=== PATIENT | female | born 1935 | race Caucasian/White ===

== ENCOUNTER 2018-12-13 16:39 | Emergency (ER) | payer MEDICARE, MEDICAID ==
[~2018-12-13] VITALS: Ht 144.8 cm; Wt 47.6 kg
[2018-12-13] MEDS ORDERED: SERT100T8 (17:58)
[2018-12-13] MEDS ORDERED: NITR0.4T39 (17:58)
[2018-12-13] MEDS ORDERED: PANT40TA2 (17:58)
[2018-12-13] MEDS ORDERED: LEVO75TA (17:58)
[2018-12-13] MEDS ORDERED: COLC0.6C3 (17:58)
[2018-12-13] MEDS ORDERED: TRZ100T (17:58)
[2018-12-13] MEDS ORDERED: ASPI-586 (17:58)
--- NOTE | 2018-12-13 18:11 | ED GI ---
General Chief Complaint: Abdominal/GI Problems Stated Complaint: ABD PAIN Nursing Triage Note: DAUGHTER WITH PT STATES PT HAS NOT HAD A BM SINCE WEDNESDAY, CONSTIPATED WITH ABD PAIN. OTC PRODUCTS HAVE NOT HELPED, FLEETS GOT SOME OUT, STATES IT'S RIGHT THERE AT THE OPENING. Sepsis Screen: No Definite Risk Source of Information: Family (DAUGHTER ) Exam Limitations: Other (PT WITH DEMENTIA AND IS UN ABLE TO GIVEN ANY INFORMATION) History of Present Illness Date Seen by Provider: Dec 13, 2018 Time Seen by Provider: 17:45 Initial Comments PT ARRIVES VIA POV FROM HOME PT WITH DEMENTIA AND HAS 24 HOUR CARE BY FAMILY PT HAS ONGOING ISSUES WITH CONSTIPATION AND NOT WANTING TO EAT OR DRINK FAMILY GAVE HER MILK OF MAGNESIA ON WEDNESDAY AND SHE HAD DIARRHEA, BUT NO BM SINCE WEDNESDAY HAVE GAVE HER "LITTLE BIT" OF MOM TODAY, HAS GIVEN STOOL SOFTENER, FIBER POWDER AND TRIED A SUPPOSITORY BUT IT DID NOT STAY IN DAUGHTER REPORTS THAT PT HAS PAINFUL HEMORRHOIDS DAUGHTER STATES THAT THE STOOL IS "RIGHT THERE" AT HER RECTUM, BUT UNABLE TO PASS IT NO NAUSEA OR VOMITING DENIES ANY ABDOMINAL PAIN PT HAS BEEN DRINKING ENSURE CLEAR, AND ICE CREAM + CHOCOLATE ENSURE. DID MANAGE TO EAT A PEANUT BUTTER SANDWICH TODAY. ONLY ABDOMINAL SURGERY WAS HYSTERECTOMY MANY YEARS AGO PCP: FT. NORA LAM--SAW ON WEDNESDAY AND HE ADVISED THEM TO START FIBER POWDER FOR THIS ONGOING ISSUE OF CONSTIPATION Allergies and Home Medications Allergies Coded Allergies: No Known Drug Allergies (Unverified , 12/13/18) Patient Home Medication List Home Medication List Reviewed: Yes Review of Systems Review of Systems Constitutional: no symptoms reported Gastrointestinal: See HPI Psychiatric/Neurological: See HPI Past Epwurpu-Yrsjmk-Qvndqf Hx Patient Social History Alcohol Use: Denies Use Recreational Drug Use: No Smoking Status: Never a Smoker Recent Foreign Travel: No Contact w/Someone Who Travel: No Recent Infectious Disease Expo: No Recent Hopitalizations: No Immunizations Up To Date Tetanus Booster (TDap): More than 5yrs Seasonal Allergies Seasonal Allergies: No Past Medical History Surgeries: Yes Hysterectomy Respiratory: No Cardiac: Yes Coronary Artery Disease, Heart Attack, Hypertension Neurological: Yes (ALZHEIMER'S) Dementia 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 oz. 47.792323cg; BMI Method:Stated General Appearance: WD/WN, thin Neck: normal inspection Respiratory: normal breath sounds, no respiratory distress, no accessory muscle use Cardiovascular: regular rate, rhythm, no murmur Gastrointestinal: normal bowel sounds, non tender, soft, no organomegaly, no pulsatile mass Extremities: normal inspection Back: no CVA tenderness Neurologic/Psychiatric: knot bumper II-XII nml as tested, no motor/sensory deficits, alert, normal mood/affect, other (ORIENTED TO PERSON ONLY) Skin: normal color, warm/dry Progress/Results/Core Measures Results/Orders My Orders Orders - FELIZ CASTELLANO DO Acute Abd Series (12/13/18 17:53) Na Phos/Na Biphos Enema (Fleet Enema David (12/13/18 19:00) Vital Signs/I&O 12/13/18 17:22 Temp 98.5 Pulse 74 Resp 22 B/P (MAP) 162/73 (102) Pulse Ox 95 O2 Delivery Room Air Blood Pressure Mean: 102 Progress Progress Note : Progress Note WILL DISMISS AND SEND TO FLOOR FOR OUTPATIENT ENEMAS. Diagnostic Imaging Comments ACUTE ABDOMEN XRAYS--NO ACUTE PROCESS, NO OBSTRUCTION, MODERATE AMOUNT OF RETAINED FECAL MATERIAL IN DISTAL COLON AND RECTAL AREA. PER RADIOLOGIST REPORT Reviewed: Reviewed by Me Departure Impression Primary Impression: Constipation Additional Impression: Fecal impaction in rectum Disposition: 01 HOME, SELF-CARE Condition: Stable Departure-Patient Inst. Referrals: AINSLEY RIVERA MD (PCP) Primary Care Physician BRAIN BOWLES MD Patient Instructions: Constipation, Adult (DC), Fecal Impaction (DC) Add. Discharge Instructions: TAKE MIRALAX DAILY--IF NEEDED, YOU MAY GIVE EVERY 1-2 HOURS UNTIL BM, THEN DECREASE TO ONCE DAILY INCREASE WATER INTAKE FOLLOW UP WITH YOUR DR IN 2-3 DAYS IF NO BETTER All discharge instructions reviewed with patient and/or family. Voiced understanding. FELIZ CASTELLANO DO Dec 13, 2018 18:11
--- NOTE | 2018-12-13 18:30 | Diagnostic Imaging Report ---
INDICATION: Constipation and abdominal pain. COMPARISON: None available. FINDINGS: There are multiple calcified left upper lobe pulmonary granulomas. Otherwise, the lungs are clear. Small hiatal hernia is present. No pneumothorax or pleural effusion. No free intraperitoneal air. Nonobstructive bowel gas pattern. A moderate volume of distal colonic and rectal stool is present. Dextroscoliosis of the lumbar spine status post laminectomies of L3-L5. There is a small amount of heterotopic ossification around the left hip. Multifocal vascular calcifications are present in the abdomen. IMPRESSION: 1. Nonobstructive bowel gas pattern. 2. Moderate volume of colonic stool should correlate to patient's reported constipation. Dictated by: Dictated on workstation # [id number]
--- OUTSIDE RECORDS SUMMARY | 2018-12-13 18:37 | XMS REPORT ---
Author Author KEVIN GUPTA Organization [facility] Address [address] [place] [address] Care Team Providers Care Forensic Audit Expert Name Role Phone KEVIN GUPTA Unavailable PROBLEMS No Known Problems ALLERGIES No Known Allergies ENCOUNTERS Encounter Location Date Diagnosis [facility] [address] [facility] [id number] [address] Jul, Acute nasopharyngitis J00 IMMUNIZATIONS No Known Immunizations SOCIAL HISTORY Never Assessed REASON FOR VISIT Cough x1 week JStrasserRN PLAN OF CARE Activity Details Follow Up as needed or reg fu with pcp Reason: VITAL SIGNS Weight 114.0 lbs 2018-08-13 Temperature 98.0 degrees Fahrenheit 2018-08-13 Heart Rate 60 bpm 2018-08-13 Respiratory Rate 22 2018-08-13 Oximetry 95 % 2018-08-13 Blood pressure systolic 122 mmHg 2018-08-13 Blood pressure diastolic 76 mmHg 2018-08-13 MEDICATIONS Medication Instructions Dosage Frequency Start Date End Date Duration Status Aspir-81 81 MG Orally Once a day 1 tablet 24h 30 day(s) Active Zoloft 100 MG Orally Once a day 1.5 tablet 24h Active Nitroglycerin 0.3 MG as directed Active Protonix 40 MG Orally twice a day 1 tablet 12h Active Lisinopril 10 MG Orally Once a day 1 tablet 24h 30 day(s) Active Trazodone HCl 100 MG Orally Once a day 1 tablet at bedtime 24h 30 day (s) Active Synthroid 50 MCG Orally Once a day 1 tablet on an empty stomach in the morning 24h 30 day(s) Active RESULTS No Results PROCEDURES No Known procedures INSTRUCTIONS MEDICATIONS ADMINISTERED No Known Medications MEDICAL (GENERAL) HISTORY Type Description Date Medical History Alzheimers Medical History Hypertension Surgical History No Surgical history information
--- OUTSIDE RECORDS SUMMARY | 2018-12-13 18:37 | XMS REPORT | Continuity of Care Document ---
Author Author [facility] Organization [facility] Address Unknown Phone Unavailable Allergies There is no data. Medications There is no data. Problems Date Dx Coded Attending Type Code Diagnosis Diagnosed By 09/02/2015 BRENDA MERAZ Ot 611.71 09/26/2015 NERY SKINNER MD Ot I10 09/26/2015 NERY SKINNER MD Ot I49.5 09/30/2015 NERY SKNINER MD Ot I10 09/30/2015 NERY SKINNER MD Ot I49.5 Procedures There is no data. Results There is no data. Encounters ACCT No. Visit Date/Time Discharge Status Pt. Type Provider Facility Loc./Unit Complaint [id number] 09/02/2015 08:40:00 09/02/2015 23:59:59 CLS Outpatient NERY SKINNER MD [facility] CARD [id number] 05/23/2013 13:40:00 05/23/2013 23:59:59 CLS Outpatient BRENDA MERAZ [facility] RAD [id number] 12/08/2018 10:30:00 12/08/2018 23:59:59 CLS Outpatient JUAN HURD [facility] [id number] 07/04/2018 08:54:07 Document Registration
[2018-12-13] MEDS ORDERED: FLEET ENEMA ADULT 1 EA BTL PR PRN (19:00)
[2018-12-13 19:33] VITALS: BP 170/87
== END 2018-12-13 19:45 | disposition home or self-care (01) ==
LOC: EDUNIT# 16:39 → ER 16:41
DX: K59.00 Constipation, unspecified (principal); K56.41 Fecal impaction; I25.10 Atherosclerotic heart disease of native coronary artery without angina pectoris; I25.2 Old myocardial infarction; I10 Essential (primary) hypertension; G30.9 Alzheimer's disease, unspecified; F02.80 Dementia in other diseases classified elsewhere, unspecified severity, without behavioral disturbance, psychotic disturbance, mood disturbance, and anxiety; M10.9 Gout, unspecified; E03.9 Hypothyroidism, unspecified; Z90.710 Acquired absence of both cervix and uterus
CPT/HCPCS: 74022

== ENCOUNTER 2018-12-13 19:11 | Outpatient (CLI) | payer MEDICARE, MEDICAID ==
[~2018-12-13] VITALS: Ht 149.9 cm; Wt 47.6 kg
[~2018-12-13 19:11] MED LIST: ASPI-586; COLC0.6C3; LEVO75TA; NITR0.4T39; PANT40TA2; SERT100T8; TRZ100T
[2018-12-13] MEDS ORDERED: LIDOCAINE PF 1% 2 ML AMP ONE (20:42)
[2018-12-13] MEDS ORDERED: MINERAL OIL ENEMA 133 ML BTL PR ONE (20:45)
[2018-12-13] MEDS ORDERED: LIDOCAINE 2% VISCOUS 15 ML UDC PO ONE (20:45)
[2018-12-13] MEDS ORDERED: LIDOCAINE 2% VISCOUS 15 ML UDC ONE (21:06)
[2018-12-13] MEDS ORDERED: FLEET ENEMA ADULT 1 EA BTL PR PRN (21:45)
[2018-12-13] MEDS ORDERED: FLEET ENEMA ADULT 1 EA BTL ONE (22:04)
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
[2018-12-13 23:28] VITALS: BP 165/72
[2018-12-13 23:29] VITALS: BP 165/72
== END 2018-12-13 23:10 | disposition home or self-care (01) ==
LOC: 4TH 19:11 → 4THo 19:11
PROVIDERS: ATTEND Emergency Medicine
DX: K56.41 Fecal impaction (principal)

== ENCOUNTER 2019-05-18 17:07 | Emergency (ER) | payer MEDICARE, MEDICAID ==
[~2019-05-18] VITALS: Ht 157.5 cm; Wt 47.2 kg
[2019-05-18] MEDS ORDERED: TETANUS,DIPTH,PERTUSS P/F (BOOSTRIX) 0.5 ML VIAL IM ONE (17:45)
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
--- NOTE | 2019-05-18 18:37 | Diagnostic Imaging Report ---
INDICATION: Fall, right hip pain 3 views of the pelvis and right hip show no fracture, dislocation or other acute bony abnormality. There is mild narrowing of the hip joint. There is some cartilage calcification. IMPRESSION: There are degenerative changes present with no acute abnormality seen. Dictated by: Dictated on workstation # [id number]
--- NOTE | 2019-05-18 18:41 | Diagnostic Imaging Report ---
INDICATION: Right hand injury, pain and fall. COMPARISON: None. FINDINGS: Three views of the right hand demonstrate advanced degenerative changes primarily involving the carpal articulations. There is no acute fracture or dislocation. Atherosclerosis is present. There is no radiopaque foreign body. IMPRESSION: No acute fracture or dislocation. Dictated by: Dictated on workstation # [id number]
--- NOTE | 2019-05-18 18:57 | Diagnostic Imaging Report ---
INDICATION: Trauma, right leg pain. FINDINGS: AP and lateral views of the right femur show no fracture, dislocation, or other acute bony abnormality. There is narrowing of the hip joint. There is narrowing and chondrocalcinosis at the knee. IMPRESSION: No acute abnormality is seen. Dictated on workstation # [id number]
[2019-05-18 19:23] VITALS: BP 177/98
== END 2019-05-18 19:23 | disposition home or self-care (01) ==
LOC: EDUNIT# 17:07 → ER 17:09
DX: S70.11XA Contusion of right thigh, initial encounter (principal); S60.221A Contusion of right hand, initial encounter; I10 Essential (primary) hypertension; I25.2 Old myocardial infarction; I25.10 Atherosclerotic heart disease of native coronary artery without angina pectoris; F03.90 Unspecified dementia, unspecified severity, without behavioral disturbance, psychotic disturbance, mood disturbance, and anxiety; K21.9 Gastro-esophageal reflux disease without esophagitis; M10.9 Gout, unspecified; E03.9 Hypothyroidism, unspecified; Z23 Encounter for immunization; Z90.710 Acquired absence of both cervix and uterus; W18.39XA Other fall on same level, initial encounter; Y92.59 Other trade areas as the place of occurrence of the external cause
CPT/HCPCS: 73130; 73552; 90715

== ENCOUNTER 2019-07-08 12:24 | Emergency (ER) | payer MEDICARE, MEDICAID ==
[~2019-07-08] VITALS: Ht 157.4 cm; Wt 47.7 kg
--- NOTE | 2019-07-08 13:34 | ED Fall/Injury ---
General Chief Complaint: Trauma-Non Activation Stated Complaint: FALL - NOSE PAIN Nursing Triage Note: PT AMB TO RM 7 WITH COMPLAINT OF FALL. PT FELL IN KITCHEN AND HIT FACE ON UNKNOWN OBJECT. DENIES LOC. PT HAS BRUISING TO NOSE AND UNDER EYES. Source: patient Exam Limitations: no limitations History of Present Illness Date Seen by Provider: Jul 08, 2019 Time Seen by Provider: 13:19 Initial Comments Patient presents to ER with daughter and chief complaint that she had a fall unwitnessed. She lives a home with her daughter and her daughter immediately went to her. There was no loss of consciousness nausea or vomiting. Patient denies any pain now but has a lot of swelling bruising around the face. She has chronic right eye amblyopia. Patient has no dysuria cough fevers chills shortness of breath or pain. She has not taken anything for pain. She's not on blood thinner. She does take baby aspirin daily. Allergies and Home Medications Allergies Coded Allergies: No Known Drug Allergies (Unverified , 12/13/18) Patient Home Medication List Home Medication List Reviewed: Yes Review of Systems Review of Systems Constitutional: No chills, No diaphoresis Eyes: Denies Blindness, Denies Drainage Ears, Nose, Mouth, Throat: denies ear pain, denies ear discharge Respiratory: No cough, No short of breath Cardiovascular: No chest pain, No edema Gastrointestinal: No abdominal pain, No constipation, No diarrhea Past Ersfdfy-Jplyxc-Wfxvdk Hx Patient Social History Alcohol Use: Denies Use Recreational Drug Use: No Smoking Status: Current Everyday Smoker 2nd Hand Smoke Exposure: No Recent Foreign Travel: No Contact w/Someone Who Travel: No Recent Infectious Disease Expo: No Recent Hopitalizations: No Immunizations Up To Date Tetanus Booster (TDap): More than 5yrs Seasonal Allergies Seasonal Allergies: No Past Medical History Surgeries: Yes Hysterectomy Respiratory: Yes (TB) Tuberculosis Cardiac: Yes Coronary Artery Disease, Heart Attack, Hypertension Neurological: Yes (ALZHEIMER'S) 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 0oz. 47.757463or; 19.00 BMI Method:Estimated General Appearance: WD/WN, no apparent distress HEENT: PERRL/EOMI, normal ENT inspection, TMs normal, pharynx normal, other (ecchymoses and mild swelling around medial canthus of both eyes and the base of the nose. No deformity of the bridge of the nose. No tenderness in the neck.) Neck: non-tender, full range of motion, supple, normal inspection Cardiovascular: normal peripheral pulses, regular rate, rhythm Respiratory: normal breath sounds, no respiratory distress, no accessory muscle use Gastrointestinal: normal bowel sounds, non tender, soft Extremities: normal range of motion, non-tender, normal inspection, normal capillary refill Neurologic/Psychiatric: alert, normal mood/affect, other (Oriented to person) Progress/Results/Core Measures Results/Orders Lab Results Laboratory Tests Test 07/08/19 14:11 07/08/19 15:05 Range/Units White Blood Count 6.9 4.3-11.0 10^3/uL Red Blood Count 3.90 L 4.35-5.85 10^6/uL Hemoglobin 11.6 11.5-16.0 G/DL Hematocrit 35 35-52 % Mean Corpuscular Volume 91 80-99 FL Mean Corpuscular Hemoglobin 30 25-34 PG Mean Corpuscular Hemoglobin Concent 33 32-36 G/DL Red Cell Distribution Width 14.5 10.0-14.5 % Platelet Count 95 L 130-400 10^3/uL Mean Platelet Volume 9.7 7.4-10.4 FL Neutrophils (%) (Auto) 55 42-75 % Lymphocytes (%) (Auto) 31 12-44 % Monocytes (%) (Auto) 9 0-12 % Eosinophils (%) (Auto) 5 0-10 % Basophils (%) (Auto) 1 0-10 % Neutrophils # (Auto) 3.8 1.8-7.8 X 10^3 Lymphocytes # (Auto) 2.1 1.0-4.0 X 10^3 Monocytes # (Auto) 0.6 0.0-1.0 X 10^3 Eosinophils # (Auto) 0.3 0.0-0.3 10^3/uL Basophils # (Auto) 0.1 0.0-0.1 10^3/uL Sodium Level 137 135-145 MMOL/L Potassium Level 5.2 H 3.6-5.0 MMOL/L Chloride Level 114 H 98-107 MMOL/L Carbon Dioxide Level 13 L 21-32 MMOL/L Anion Gap 10 5-14 MMOL/L Blood Urea Nitrogen 54 H 7-18 MG/DL Creatinine 1.83 H 0.60-1.30 MG/DL Estimat Glomerular Filtration Rate 26 BUN/Creatinine Ratio 30 Glucose Level 85 70-105 MG/DL Calcium Level 8.9 8.5-10.1 MG/DL Urine Color YELLOW Urine Clarity CLEAR Urine pH 5 5-9 Urine Specific [place] 1.015 L 1.016-1.022 Urine Protein 2+ H NEGATIVE Urine Glucose (UA) NEGATIVE NEGATIVE Urine Ketones NEGATIVE NEGATIVE Urine Nitrite NEGATIVE NEGATIVE Urine Bilirubin NEGATIVE NEGATIVE Urine Urobilinogen NORMAL NORMAL MG/DL Urine Leukocyte Esterase 2+ H NEGATIVE Urine RBC (Auto) NEGATIVE NEGATIVE Urine RBC NONE /HPF Urine WBC 2-5 /HPF Urine Squamous Epithelial Cells 2-5 /HPF Urine Crystals NONE /LPF Urine Bacteria NEGATIVE /HPF Urine Casts NONE /LPF Urine Mucus NEGATIVE /LPF Urine Culture Indicated NO My Orders Orders - GABBY CHAIREZ Cbc With Automated Diff (07/08/19 13:28) Basic Metabolic Panel (07/08/19 13:28) Ua Culture If Indicated (07/08/19 13:28) Ct Head/Face/Cervical Wo (07/08/19 13:34) Vital Signs/I&O 07/08/19 12:50 Pulse 63 Resp 16 B/P (MAP) 133/63 (86) Pulse Ox 96 O2 Delivery Room Air Blood Pressure Mean: 86 Progress Progress Note #1: Time: 13:[address] of the head neck and face. Basic lab and urinalysis. Progress Note #2: Time: 15:40 Progress Note Daughter remarks the patient does have a history of chronic kidney disease. She is dry and we have offered IV fluids but they preferred oral which is acceptable. Diagnostic Imaging Diagonstic Imaging: CT Plain Films/CT/US/NM/MRI: facial bones, c-spine, head Comments NAME: HERNANDEZYENYFRANKO M [facility] REC#: [id number] PT STATUS: REG ER : 1935 PHYSICIAN: GABBY CHAIREZ MD ADMIT DATE: 07/08/19/ER Draft Date of Exam:07/08/19 CT HEAD/FACE/CERVICAL WO PROCEDURE: CT head, face, and cervical spine without contrast. TECHNIQUE: Multiple contiguous axial images were obtained through the head, neck, and facial bones without the use of intravenous contrast. Sagittal and coronal reformations through the cervical spine and facial bones were also performed. Auto Exposure Controls were utilized during the CT exam to meet ALARA standards for radiation dose reduction. INDICATION: Fall with facial injury. No prior studies are available for comparison. CT HEAD: Ventricles and sulci are prominent consistent with patient's age. There is generalized cerebral atrophy present. No sulcal effacement or midline shift is detected. No acute intra-axial or extra-axial hemorrhage is detected. Cisterns are patent. Visualized paranasal sinuses are clear. IMPRESSION: Cerebral atrophy. No acute intracranial process is detected. CT CERVICAL SPINE: There is anterolisthesis of C3 on C4. No fractures are identified. Prevertebral tissues are within normal limits. Odontoid is intact. Multilevel degenerative disc disease with variable disc space narrowing and marginal spurring is noted. IMPRESSION: Cervical spondylosis and listhesis. No acute bony abnormality is detected. CT FACE: The mandible is intact. Zygomatic arches are intact. Maxillary sinus bejarano and orbital bejarano appear to be intact. No displaced nasal bone fracture is seen. Visualized paranasal sinuses are clear. IMPRESSION: No facial bone fracture is detected. Dictated on workstation # [id number] Dict: 07/08/19 1401 Trans: 07/08/19 1408 [facility] [id number] Interpreted by: SHANDA KAISER MD Electronically signed by: Reviewed: Reviewed by Me Departure Impression Primary Impression: Fall Qualified Codes: W19.XXXA - Unspecified fall, initial encounter Additional Impressions: Facial contusion Qualified Codes: S00.83XA - Contusion of other part of head, initial encounter CKD (chronic kidney disease) Qualified Codes: N18.9 - Chronic kidney disease, unspecified Mild dehydration Disposition: 01 HOME, SELF-CARE Condition: Stable Departure-Patient Inst. Decision time for Depature: 15:41 Referrals: SELFBRAIN MD (PCP/Family) Primary Care Physician Patient Instructions: Preventing Falls in the Older Adult, Dehydration, Adult (DC) Add. Discharge Instructions: Encourage lots of fluids over the next week. Follow-up with primary care doctor if having further concerns. All discharge instructions reviewed with patient and/or family. Voiced understanding. GABBY CHAIREZ Jul 08, 2019 13:34
--- NOTE | 2019-07-08 14:09 | Diagnostic Imaging Report ---
PROCEDURE: CT head, face, and cervical spine without contrast. TECHNIQUE: Multiple contiguous axial images were obtained through the head, neck, and facial bones without the use of intravenous contrast. Sagittal and coronal reformations through the cervical spine and facial bones were also performed. Auto Exposure Controls were utilized during the CT exam to meet ALARA standards for radiation dose reduction. INDICATION: Fall with facial injury. No prior studies are available for comparison. CT HEAD: Ventricles and sulci are prominent consistent with patient's age. There is generalized cerebral atrophy present. No sulcal effacement or midline shift is detected. No acute intra-axial or extra-axial hemorrhage is detected. Cisterns are patent. Visualized paranasal sinuses are clear. IMPRESSION: Cerebral atrophy. No acute intracranial process is detected. CT CERVICAL SPINE: There is anterolisthesis of C3 on C4. No fractures are identified. Prevertebral tissues are within normal limits. Odontoid is intact. Multilevel degenerative disc disease with variable disc space narrowing and marginal spurring is noted. IMPRESSION: Cervical spondylosis and listhesis. No acute bony abnormality is detected. CT FACE: The mandible is intact. Zygomatic arches are intact. Maxillary sinus bejarano and orbital bejarano appear to be intact. No displaced nasal bone fracture is seen. Visualized paranasal sinuses are clear. IMPRESSION: No facial bone fracture is detected. Dictated by: Dictated on workstation # [id number]
[2019-07-08 14:15] LABS: BASOPHILS # (AUTO) 0.1 10^3/uL (0.0-0.1); BASOPHILS % (AUTO) 1 % (0-10); EOSINOPHILS # (AUTO) 0.3 10^3/uL (0.0-0.3); EOSINOPHILS % (AUTO) 5 % (0-10); HEMATOCRIT 35 % (35-52); HEMOGLOBIN 11.6 G/DL (11.5-16.0); LYMPHOCYTES # (AUTO) 2.1 X 10^3 (1.0-4.0); LYMPHOCYTES % (AUTO) 31 % (12-44); MEAN CORPUSCULAR HEMOGLOBIN 30 PG (25-34); MEAN CORPUSCULAR HGB CONC 33 G/DL (32-36); MEAN CORPUSCULAR VOLUME 91 FL (80-99); MEAN PLATELET VOLUME 9.7 FL (7.4-10.4); MONOCYTES # (AUTO) 0.6 X 10^3 (0.0-1.0); MONOCYTES % (AUTO) 9 % (0-12); NEUTROPHILS # (AUTO) 3.8 X 10^3 (1.8-7.8); NEUTROPHILS % (AUTO) 55 % (42-75); PLATELET COUNT 95 10^3/uL (130-400); RED CELL DISTRIBUTION WIDTH 14.5 % (10.0-14.5); WHITE BLOOD COUNT 6.9 10^3/uL (4.3-11.0)
[2019-07-08 14:34] LABS: CALCIUM 8.9 MG/DL (8.5-10.1); CREATININE SERUM 1.83 MG/DL (0.60-1.30); POTASSIUM 5.2 MMOL/L (3.6-5.0)
[2019-07-08 15:10] LABS: BILIRUBIN,URINE NEGATIVE (NEGATIVE); CLARITY,URINE CLEAR; COLOR,URINE YELLOW; GLUCOSE, URINE (UA) NEGATIVE (NEGATIVE); KETONES,URINE NEGATIVE (NEGATIVE); LEUKOCYTE ESTERASE ,URINE 2+ (NEGATIVE); NITRITE,URINE NEGATIVE (NEGATIVE); PH,URINE 5 (5-9); PROTEIN,URINE 2+ (NEGATIVE); UROBILINOGEN,URINE NORMAL (NORMAL)
[2019-07-08 15:18] LABS: BACTERIA,URINE NEGATIVE /HPF
[2019-07-08 15:52] VITALS: BP 125/63
== END 2019-07-08 15:52 | disposition home or self-care (01) ==
LOC: EDUNIT# 12:24 → ER 12:25
DX: S00.83XA Contusion of other part of head, initial encounter (principal); I12.9 Hypertensive chronic kidney disease with stage 1 through stage 4 chronic kidney disease, or unspecified chronic kidney disease; N18.9 Chronic kidney disease, unspecified; E86.0 Dehydration; I25.2 Old myocardial infarction; I25.10 Atherosclerotic heart disease of native coronary artery without angina pectoris; G30.9 Alzheimer's disease, unspecified; F02.80 Dementia in other diseases classified elsewhere, unspecified severity, without behavioral disturbance, psychotic disturbance, mood disturbance, and anxiety; K21.9 Gastro-esophageal reflux disease without esophagitis; M10.9 Gout, unspecified; E03.9 Hypothyroidism, unspecified; F17.200 Nicotine dependence, unspecified, uncomplicated; Z90.710 Acquired absence of both cervix and uterus; W19.XXXA Unspecified fall, initial encounter; Y92.000 Kitchen of unspecified non-institutional (private) residence as the place of occurrence of the external cause
CPT/HCPCS: 36415; 70450; 70486; 72125; 80048; 81000; 85025

== ENCOUNTER 2020-01-16 17:11 | Emergency (ER) | payer MEDICARE, MEDICAID ==
[~2020-01-16] VITALS: Ht 157.2 cm; Wt 48.0 kg
[2020-01-16] MEDS ORDERED: TETANUS,DIPTH,PERTUSS P/F (BOOSTRIX) 0.5 ML VIAL IM ONE (17:30)
--- NOTE | 2020-01-16 17:36 | ED Fall/Injury ---
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 Patient has advanced dementia as well as history of scoliosis. She was apparently outside with her daughter and was sitting in a chair. She tried to get up and then fell over to the right side hitting her face and head. She has markedly swelling of the right cheek and another area of contusion to the back of the right side of the head. No loss of consciousness. Patient is not on blood thinners. She does have abrasion to the right cheek that bled for a while but has subsequently stopped. The daughter states that it bled quite a bit but stopped with pressure. Able to walk in on her own accord with the assistance of a cane. She is somewhat unsteady on her feet which is typical. Patient does not answer questions well but this appears to be baseline. Her daughter is very helpful with answering questions regarding her medical history and current illness. Occurred: just prior to arrival (approximately 445) Severity: moderate Injuries/Pain Location: head, face Context: lost balance Loss of Consciousness: no loss of consciousness Modifying Factors: Improves With Rest Associated Symptoms (Fall): Confusion (chronic); No Headache, No Neck Pain, No Shortness of Air (CLEMENCIA CARPIO MD) Allergies and Home Medications Allergies Coded Allergies: No Known Drug Allergies (Unverified , 12/13/18) Patient Home Medication List Home Medication List Reviewed: Yes (CLEMENCIA CARPIO MD) Review of Systems Review of Systems Constitutional: see HPI; No chills, No fever Eyes: Denies Inflammation, Denies Pain Ears, Nose, Mouth, Throat: see HPI; denies epistaxis, denies mouth pain Respiratory: No cough Musculoskeletal: No joint pain, No muscle pain, No neck pain Skin: change in color, lesions Psychiatric/Neurological: Denies Headache; Pre-Existing Deficit (CLEMENCIA CARPIO MD) Past Gofsbab-Ungtlx-Jgjwgi Hx Past Med/Social Hx: Reviewed Nursing Past Med/Soc Hx (CLEMENCIA CARPIO MD) Patient Social History Alcohol Use: Denies Use Recreational Drug Use: No Smoking Status: Never a Smoker 2nd Hand Smoke Exposure: No Recent Foreign Travel: No Contact w/Someone Who Travel: No Recent Hopitalizations: No (CLEMENCIA CARPIO MD) Immunizations Up To Date Tetanus Booster (TDap): More than 5yrs (CLEMENCIA CARPIO MD) Seasonal Allergies Seasonal Allergies: No (CLEMENCIA CARPIO MD) Past Medical History Surgeries: Yes Hysterectomy Respiratory: Yes (TB) Tuberculosis Cardiac: Yes Coronary Artery Disease, Heart Attack, Hypertension Neurological: Yes (ALZHEIMER'S) 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, 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 Genitourinary: No Gastrointestinal: Yes Gastroesophageal Reflux Musculoskeletal: Yes Scoliosis, Gout Endocrine: Yes Hypothyroidsim HEENT: No Cancer: No Psychosocial: No Integumentary: No Blood Disorders: No (CLEMENCIA CRAPIO MD) Family Medical History Reviewed Nursing Family Hx (CLEMENCIA CARPIO MD) No Pertinent Family Hx (CLEMENCIA CARPIO MD) Physical Exam Vital Signs Vital Signs - First Documented 01/16/20 17:19 Temp 36.3 Pulse 71 Resp 18 B/P (MAP) 184/81 (115) Pulse Ox 97 O2 Delivery Room Air (JABIER AN APRN) Vital Signs Capillary Refill : (CLEMENCIA CARPIO MD) Height, Weight, BMI Height: 5'2.00" Weight: 104lbs. 0oz. 47.955460yi; 19.00 BMI Method:Estimated General Appearance: WD/WN, no apparent distress HEENT: PERRL/EOMI, TMs normal, pharynx normal Neck: non-tender, full range of motion, supple, normal inspection Cardiovascular: regular rate, rhythm, no murmur Respiratory: lungs clear, normal breath sounds Gastrointestinal: non tender, soft Back: normal inspection, no CVA tenderness, no vertebral tenderness Extremities: normal range of motion, no pedal edema, pelvis stable Neurologic/Psychiatric: alert, normal mood/affect Skin: warm/dry, other (. 3 cm ecchymosis/contusion posterior right side of the head at the top. Rather marked swelling over the right cheek with central abrasion that is currently hemostatic.) (CLEMENCIA CARPIO MD) Eusebia Coma Score Best Eye Response: (4) Open Spontaneously Best Verbal Response: (4) Confused Conversation (baseline) Best Motor Response: (6) Obeys Commands Eusebia Total: 14 (CLEMENCIA CARPIO MD) Procedures/Interventions Wound Location: Face Wound Length (cm): 0.5 Wound's Depth, Shape: superficial Anesthesia: 1% Lidocaine Suture: Prolene Suture Size: 5-0 Number of Sutures: 4 Layer Closure?: 1 Progress L in the waiting room after being discharged the contused/abraded area to the right cheek began to bleed rather briskly. She was brought back into room 5, anesthetized locally with lidocaine without epinephrine, 4 simple interrupted sutures size 4-0 and wound adhesive we were able to achieve hemostasis. (JABIER AN APRN) Progress/Results/Core Measures Results/Orders My Orders Orders - JABIER AN APRN Ct Head/Face/Cervical Wo (01/16/20 17:28) (JABIER AN APRN) Medications Given in ED Current Medications Medications Dose Ordered Sig/Carlos Alberto Route Start Time Stop Time Status Last Admin Dose Admin Diphtheria/ Tetanus/Acell Pertussis 0.5 ml ONCE ONCE IM 01/16/20 17:30 01/16/20 17:31 DC 01/16/20 18:01 0.5 ML (JABIER AN APRN) Vital Signs/I&O 01/16/20 01/16/20 17:19 18:20 Temp 36.3 Pulse 71 57 Resp 18 18 B/P (MAP) 184/81 (115) 175/80 Pulse Ox 97 97 O2 Delivery Room Air Room Air (JABIER AN APRN) Progress Progress Note : Progress Note Seen and evaluated. CT head, face and neck ordered. Tetanus updated. Monitor patient. (CLEMENCIA CARPIO MD) Diagnostic Imaging Diagonstic Imaging: CT Plain Films/CT/US/NM/MRI: facial bones, c-spine, head Comments [facility] [place] [place] NAME: FRANKO HERNANDEZ [facility] REC#: [id number] PT STATUS: DEP ER : 1935 PHYSICIAN: JABIER AN APRN ADMIT DATE: 01/16/20/ER Signed Date of Exam:01/16/20 CT HEAD/FACE/CERVICAL WO PROCEDURE: CT head, face, and cervical spine without contrast. TECHNIQUE: Multiple contiguous axial images were obtained through the head, neck, and facial bones without the use of intravenous contrast. Sagittal and coronal reformations through the cervical spine and facial bones were also performed. Auto Exposure Controls were utilized during the CT exam to meet ALARA standards for radiation dose reduction. INDICATION: Status post fall two days ago, trauma to face with hematoma. CORRELATION STUDY: 07/08/2019. FINDINGS: CT HEAD: There are again seen generalized atrophic changes with prominence of ventricles and sulci. There is resultant prominent extra-axial cerebrospinal fluid. Definitive acute intracranial hemorrhage does not appear to be suggested. Asymmetry in the amount of extra-axial fluid is likely attributed to positioning of the brain intracranially. Scattered areas of decreased attenuation, likely reflective of small vessel ischemic disease. Basal ganglia calcifications are present. Dense areas of intracranial vascular calcifications are again demonstrated. Bony calvarium is intact. CT MAXILLOFACIAL: A large right maxillofacial hematoma is present. The adjacent orbital bejarano including floor are intact. Overlying zygomatic arch is intact. The remainder of the maxillofacial structures including bilateral nasal bones, left orbital bejarano, and maxillary sinus as well as zygomatic arch are intact. Pterygoid plates are maintained. The mandible is intact. Temporomandibular joints with degenerative change but otherwise unremarkable. No significant air-fluid level within the visualized paranasal sinuses. CT CERVICAL SPINE: There is anterolisthesis of C3 on C4 again demonstrated and appears overall slightly less severe. Otherwise, straightening and reversal is noted. Various degrees of disc space narrowing are present. An acute fracture or definitive traumatic subluxation does not appear to be present. Posterior elements demonstrate relatively normal alignment without abnormal perching. Various degrees of hypertrophic facet arthropathy. Odontoid is intact. Rather prominent carotid artery bifurcation calcification. IMPRESSION: CT HEAD: 1. Negative for acute traumatic intracranial abnormality. 2. Generalized atrophy. CT MAXILLOFACIAL: 1. Rather sizable right maxillofacial hematoma. Negative for acute displaced maxillofacial fracture. CT CERVICAL SPINE: 1. Negative for acute fracture or traumatic subluxation. 2. Rather pronounced multilevel cervical spondylosis is again demonstrated. Dictated by: Dictated on workstation # [id number] Dict: 01/16/20 1753 Trans: 01/16/203 AS6 [id number] Interpreted by: RAYMUNDO SPEAR DO Electronically signed by: RAYMUNDO SPEAR 01/16/202032 Reviewed: Reviewed by Me (CLEMENCIA CARPIO MD) Departure Communication (Admissions) Daughter the patient home. I discussed the CT results with her. She agrees to return in 5 days to have the stitches removed. (JABEIR AN APRN) Impression Primary Impression: Contusion of face Qualified Codes: S00.83XA - Contusion of other part of head, initial encounter Additional Impression: Fall at home Qualified Codes: W19.XXXA - Unspecified fall, initial encounter; Y92.009 - Unspecified place in unspecified non-institutional (private) residence as the place of occurrence of the external cause Disposition: HOME, SELF-CARE Condition: Stable Departure-Patient Inst. Decision time for Depature: 18:15 (JABIER AN APRN) Referrals: BRAIN BOWLES MD (PCP/Family) Primary Care Physician Patient Instructions: Contusion (DC) Add. Discharge Instructions: 1. Ice pack to the face 2. Tylenol for pain control 3. Return to ER for any vomiting, severe headache or any other concerns. Follow- up with her doctor later this week for recheck. All discharge instructions reviewed with patient and/or family. Voiced understanding. Copy Copies To 1: BRAIN BOWLES MD, TIMOTHY D MD Jan 16, 2020 17:36 JABIER AN APRN Jan 16, 2020 18:15
--- NOTE | 2020-01-16 18:12 | Diagnostic Imaging Report ---
PROCEDURE: CT head, face, and cervical spine without contrast. TECHNIQUE: Multiple contiguous axial images were obtained through the head, neck, and facial bones without the use of intravenous contrast. Sagittal and coronal reformations through the cervical spine and facial bones were also performed. Auto Exposure Controls were utilized during the CT exam to meet ALARA standards for radiation dose reduction. INDICATION: Status post fall two days ago, trauma to face with hematoma. CORRELATION STUDY: 07/08/2019. FINDINGS: CT HEAD: There are again seen generalized atrophic changes with prominence of ventricles and sulci. There is resultant prominent extra-axial cerebrospinal fluid. Definitive acute intracranial hemorrhage does not appear to be suggested. Asymmetry in the amount of extra-axial fluid is likely attributed to positioning of the brain intracranially. Scattered areas of decreased attenuation, likely reflective of small vessel ischemic disease. Basal ganglia calcifications are present. Dense areas of intracranial vascular calcifications are again demonstrated. Bony calvarium is intact. CT MAXILLOFACIAL: A large right maxillofacial hematoma is present. The adjacent orbital bejarano including floor are intact. Overlying zygomatic arch is intact. The remainder of the maxillofacial structures including bilateral nasal bones, left orbital bejarano, and maxillary sinus as well as zygomatic arch are intact. Pterygoid plates are maintained. The mandible is intact. Temporomandibular joints with degenerative change but otherwise unremarkable. No significant air-fluid level within the visualized paranasal sinuses. CT CERVICAL SPINE: There is anterolisthesis of C3 on C4 again demonstrated and appears overall slightly less severe. Otherwise, straightening and reversal is noted. Various degrees of disc space narrowing are present. An acute fracture or definitive traumatic subluxation does not appear to be present. Posterior elements demonstrate relatively normal alignment without abnormal perching. Various degrees of hypertrophic facet arthropathy. Odontoid is intact. Rather prominent carotid artery bifurcation calcification. IMPRESSION: CT HEAD: 1. Negative for acute traumatic intracranial abnormality. 2. Generalized atrophy. CT MAXILLOFACIAL: 1. Rather sizable right maxillofacial hematoma. Negative for acute displaced maxillofacial fracture. CT CERVICAL SPINE: 1. Negative for acute fracture or traumatic subluxation. 2. Rather pronounced multilevel cervical spondylosis is again demonstrated. Dictated by: Dictated on workstation # [id number]
--- NOTE | 2020-01-16 18:14 | NUR ---
PATIENT DISCHARGE ON WAY TO CAR HEMATOMA ON SIDE OF CHEEK CAME OPEN BROUGHT BACK TO ROOM BY Jesús AN APRN SUTURE REPAIN DONE.
[2020-01-16 18:20] VITALS: BP 175/80
== END 2020-01-16 18:22 | disposition home or self-care (01) ==
LOC: EDUNIT# 17:11 → ER 17:12
DX: S00.83XA Contusion of other part of head, initial encounter (principal); R40.2142 Coma scale, eyes open, spontaneous, at arrival to emergency department; R40.2242 Coma scale, best verbal response, confused conversation, at arrival to emergency department; R40.2362 Coma scale, best motor response, obeys commands, at arrival to emergency department; Z23 Encounter for immunization; W18.39XA Other fall on same level, initial encounter; Y92.009 Unspecified place in unspecified non-institutional (private) residence as the place of occurrence of the external cause
CPT/HCPCS: 12011; 70450; 70486; 72125; 90715

== ENCOUNTER 2020-01-21 10:35 | Emergency (ER) | payer MEDICARE, MEDICAID ==
[~2020-01-21] VITALS: Ht 157.4 cm; Wt 48.5 kg
--- OUTSIDE RECORDS SUMMARY | 2020-01-21 10:48 | XMS REPORT ---
Author Author Swidjit Organization Swidjit Address [address] [address] Care Team Providers Care Bowling Floor Desk Clerk Name Role Phone KEVIN GUPTA Unavailable AINSLEY RIVERA PCP SELF, BRAIN Unavailable FELIZ CASTELLANO DO Unavailable Unavailable SELF, BRAIN Unavailable SELF, BRAIN Unavailable Self, Brain Unavailable Unavailable Unavailable Unavailable SELF, BRAIN PCP SELF, BRAIN J Unavailable Unavailable FIDELIA QUACH, FLORENTIN Leon Unavailable Unavailable GABBY CHAIREZ Unavailable Unavailable NERY SKINNER MD Unavailable Unavailable SELF, MD DE LA PAZ PCP Allergies Normalized Allergy Reported Date of Reaction(s) Care Provider Facility Allergy Type classification allergen Allergy Onset DA (11 Unclassified No Known Drug 12-13-2018 - no information NERY SKINNER , Not Available sources.) Allergies (69806) Medications Current Medications Medication Ingredient Drug Dose Dates Status Sig Sig Care Class(es) (Normalized) (Original) Provid er ALPRAZolam ALPRAZolam Benzodiazep 0.25 Active take 1 Xanax 0.25 no 0.25 mg Translation ine mg tablet by MG Orally name oral tablet s: [ Xanax mouth twice Twice a day (no (1 source.) 0.25 MG] daily 1 tablet 12h phone) Active no Aspir-81 81 no Active take 1 Aspir-81 81 no information MG information tablet by MG Orally name (1 source.) mouth once Once a day 1 (no daily tablet 24h phone) 30 day(s) Active aspirin 81 Aspirin Platelet 81 mg Active no Aspirin no mg delayed Translation Aggregation information Active NOT na me release s: [ Inhibitor, APPLICABLE (no oral tablet Aspir-81 81 Nonsteroida phone) (6 MG] l sources.) Anti-inflam matory Drug colchicine Colchicine no 1.2 mg 11-14-19 Active take 2 Colch icine no 0.6 mg oral Translation information 19 tablets by 0.6 MG name tablet (6 s: [ mouth once Orally one (no sources.) Colchicine as needed time 2 phone) 0.6 MG Oral tablet as Tablet, needed for Colchicine gout attack 0.6 MG] Oct, 1 dose Active 05-18-2019 Completed no Colchici no name inform ne (no ation Disconti phone) nued NOT APPLICAB LE May 18, 2019 0.6 mg 05-18-2019 Completed no Colchici (no inform ne 0.6 phone) ation Mg Capsule, Not Applicab le Discont nued levothyroxi levothyroxi l-Thyroxine 0.075 Active no Levothyr oxin no ne sodium ne mg information e Sodium name 0.075 mg Translation Active NOT (no oral tablet s: [ APPLICABLE phone) (8 Synthroid sources.) 50 MCG, Levothyroxi ne Sodium 0.075 MG Oral Tablet [Synthroid] , Levothyroxi ne Sodium 0.1 MG Oral Tablet, Levothyroxi ne Sodium 100 MCG, Levothyroxi ne Sodium 0.075 MG Oral Tablet, Levothyroxi ne Sodium 75 MCG] 0.1 mg Active take 1 Levothyr no name tablet oxine (no by Sodium phone) mouth 100 MCG once Orally daily Once a in the day 1 mornin tablet g on an empty stomach in the morning 24h 30 days Active 0.05 mg Active no Synthroi no name inform d 50 MCG (no ation Orally phone) Once a day 1 tablet on an empty stomach in the morning 24h 30 day(s) Active lisinopril Lisinopril Angiotensin 10 mg Active take 1 Lisinopril no 10 mg oral Translation Converting tablet by 10 MG Orally nam e tablet (2 s: [ Enzyme mouth twice 2 times a (no sources.) Lisinopril Inhibitor daily day 1 tablet phone) 10 MG] 12h 30 day(s) Active 10 mg Active no Lisinopr no name inform il 10 MG (no ation Orally phone) Once a day 1 tablet 24h 30 day(s) Active pantoprazol pantoprazol Proton Pump 40 mg Active no Pantopra zole no e 40 mg e Inhibitor information Sod Active name delayed Translation NOT (no release s: [ APPLICABLE phone) oral tablet Protonix 40 (7 MG] sources.) sertraline Sertraline Serotonin 100 mg Active no Sertraline no 100 mg oral Translation Reuptake information Hcl Active name tablet (7 s: [ Zoloft Inhibitor NOT (no sources.) 100 MG, APPLICABLE phone) Sertraline 100 MG Oral Tablet, Sertraline HCl 100 MG] 150 mg Active no Zoloft no name inform 100 MG (no ation Orally phone) Once a day 1.5 tablet 24h Active no traZODone Serotonin no no Trazodone no information Translation Reuptake informat information Hcl Acti ve name (7 s: [ Inhibitor ion NOT (no sources.) Trazodone APPLICABLE phone) HCl 100 MG] 100 mg Completed no Trazodon (no inform e Hcl phone) ation (Desyrel 100 Mg) 100 Mg Tab NOT APPLICAB LE 100 mg Active take 1 Trazodon no name tablet e HCl (no by 100 MG phone) mouth Orally once Once a daily day 1 at tablet bedtim at e bedtime 24h 30 day(s) Active Completed/Discontinued Medications Medication Ingredient Drug Dose Dates Status Sig Sig Care Class(es) (Normalized) (Original) Provid er nitroglycer Nitroglycer Nitrate 05-18-20 Complete no Nitrogl yceri no in 0.4 mg in Vasodilator 19 d information n n reji sublingual Translation Discontinued (no tablet (7 s: [ NOT phone) sources.) Nitroglycer APPLICABLE in 0.3 MG, May 18, Nitroglycer 2019 in 0.4 MG Sublingual Tablet, Nitroglycer in 0.4 MG] 0.4 mg 05-18-2019 Completed no Nitrogly (no inform cerin phone) ation 0.4 Mg Tab.subl , Not Applicab le Disconti nued 0.3 mg Active no Nitrogly no name inform cerin (no ation 0.3 MG phone) as directed Active Problems Active Problems Problem Normalized Date of Normalized Normalized Provider Fac ility Classification Problem(s) Problem Problem Problem Sta tus Onset/Resoluti Duration on Residual Acquired Episodic Active FELIZ CASTELLANO DO [facility] Via codes; absence of [place] unclassified both cervix Hospital - (15 sources.) and uterus [place] ([address]) Urinary tract Acute cystitis 02-03-2017 - Episodic Active MAXW ELL SELF Community infections (6 Translations: [address] [facility] sources.) [ Acute of [facility] cystitis [place] ([address]10) without hematuria, - Acute cystitis without hematuria N30.00] Other upper Acute Episodic Active [facility] respiratory nasopharyngiti ALONSO [address] [facility] infections (7 s [common of [facility] sources.) cold] [place] (92733) Translations: [ - Acute nasopharyngiti s J00, - Acute non-recurrent maxillary sinusitis J01.00] Acute Acute Episodic Active BRAIN [facility] posthemorrhagi posthemorrhagi [address]74 [facility] c anemia (6 c anemia of [facility] sources.) Translations: [place] (58896) [ - Acute blood loss anemia D62] 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 Active FELIZ CASTELLANO DO [facility] Via atherosclerosi c heart [place] s and other disease of Hospital - heart disease [place] (26 sources.) coronary (66857) artery without angina pectoris Translations: [ OLD MYOCARDIAL INFARCTION, Angina pectoris, Stable angina pectoris, Old myocardial infarction, [place] (myocardial infarction), OLD MYOCARDIAL INFARCTION, ATHSCL HEART DISEASE OF [place] CORONARY ] Other and Cardiomegaly 05-20-2016 - Chronic Active [facility] Community ill-defined Translations: [address] [facility] heart disease [ LVH (left of [facility] (3 sources.) ventricular [place] (76044) hypertrophy)] Skin and Cellulitis of Episodic Active [facility] Commu nity subcutaneous face [address]805 [facility] tissue Translations: of [facility] infections (3 [ - Facial [place] (11650) sources.) cellulitis L03.211] Chronic kidney Chronic kidney 06-01-2018 - Chronic Active [facility] disease (12 disease, stage 90914 [facility] sources.) 5 of [place] Translations: [place] (73519) [ - Chronic kidney disease, stage 5 N18.5, Chronic kidney disease stage 5, Anemia, chronic renal failure, stage 5, Chronic kidney disease, stage 5, Chronic kidney disease, CHRONIC KIDNEY DISEASE, UNSPECIFIED] Other Constipation Episodic Active AINSLEY NICOLE [place] Via gastrointestin Translations: 26059 [place] al disorders [ Hospital (4 sources.) Constipation] (29190) Superficial Contusion of Episodic Active FELIZ CASTELLANO DO [facility] Via injury; thigh [place] contusion (13 Translations: Hospital - sources.) [ Contusion of [place] face, (21947) CONTUSION OF RIGHT THIGH, INITIAL ENCOUN, CONTUSION OF RIGHT HAND, INITIAL ENCOUNT, CONTUSION OF OTHER PART OF HEAD, INITIAL] Delirium Dementia in 09-10-2017 - Chronic Active FELIZ GRAY , DO Not Available dementia and other diseases (15866) amnestic and classified other elsewhere cognitive without disorders (20 behavioral sources.) disturbance Translations: [ ALZHEIMER'S DISEASE, UNSPECIFIED, Dementia in other diseases classified elsewhere with behavioral disturbance, Dementia in other diseases classified elsewhere with behavioral disturbance, Alzheimer''s disease with early onset, Alzheimer''s disease with early onset, Alzheimer disease, Alzheimer disease, Dementia, Dementia, - Alzheimer''s disease with early onset G30.0, Dementia without behavioral disturbance, - Dementia in other diseases classified elsewhere with behavioral disturbance F02.81, 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, ALZHEIMER'S DISEASE, UNSPECIFIED, DEMENTIA IN OTH DISEASES CLASSD ELSWHR W] Genitourinary Dysuria Episodic Active BRAIN SELF Commun ity symptoms and Translations: [id number] [place] [address] ill-defined [ - Dysuria of [place] conditions (3 R30.0] [place] (75256) sources.) Essential Essential 03-16-2015 - Chronic Active NERY SKINNER , Not Available hypertension (primary) (15392) (20 sources.) hypertension Translations: [ Essential hypertension, Essential hypertension, - Essential hypertension I10, Essential (primary) hypertension, Hypertension, Hypertension] External cause Fall no information Active BRAIN SELF [place] Via codes: Fall (1 89698 [place] source.) Hospital (94080) Intestinal Fecal Episodic Active FELIZ GRAY , DO [facility] Via obstruction impaction [place] without hernia Translations: Hospital - (13 sources.) [ Fecal [place] impaction of (90683) rectum] Esophageal Gastro-esophag Chronic Active FELIZ GRAY , DO [facility] Via disorders (5 eal reflux [place] sources.) disease Hospital - without [place] esophagitis (20586) Gout and other Gout, 01-02-2011 - Chronic Active FELIZ GRAY , DO [facility] Via crystal unspecified [place] arthropathies Translations: Hospital - (22 sources.) [ Gout, Gout, [place] 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 electrolyte Translations: 44525 [facility] disorders (12 [ of [place] sources.) Hyperkalemia, [place] (23998) - Dehydration E86.0, Metabolic acidosis, Metabolic acidosis, Mild dehydration] Disorders of Hyperlipidemia 07-17-2008 - Chronic Active [employer] [facility] lipid Translations: 34552 [facility] metabolism (3 [ of [place] sources.) Hyperlipidemia [place] (03995) ] Hypertension Hypertensive [facility] Via with chronic kidney [place] complications disease with Hospital - and secondary stage 1 [place] hypertension through stage (39191) (2 sources.) 4 chronic kidney disease, or unspecified chronic kidney disease Thyroid Hypothyroidism 03-16-2015 - Chronic Active FELIZ RIVERAO , DO Not Available disorders (20 , unspecified (54842) sources.) Translations: [ - Acquired hypothyroidism E03.9, Hypothyroidism , Hypothyroidism (acquired), Acquired hypothyroidism , Acquired hypothyroidism ] Osteoarthritis Idiopathic 03-16-2015 - Chronic Active [employer] [facility] (3 sources.) [facility] Translations: of [facility] [ Primary [place] (79865) osteoarthritis involving multiple joints] Genitourinary Incontinence Chronic [facility] symptoms and without [address]28 [facility] ill-defined sensory of [facility] conditions (6 awareness [place] (92879) sources.) Translations: [ - Urinary incontinence without sensory awareness N39.42, Urinary incontinence without sensory awareness, Urinary incontinence without sensory awareness] 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 [employer] [facility] (6 sources.) depression, [address] [facility] single episode of [place] Translations: [place] (26132) [ Moderate single current episode of major depressive disorder, Mild depression, Mild depression] Substance-rela Nicotine Chronic [facility] V ia [place] disorders dependence, [place] (2 sources.) unspecified, Hospital - uncomplicated [place] (78551) Other No current no information Active KEVIN alvarez screening for problems or ALONSO [address]7438 [facility] suspected disability of [facility] conditions [place] (18590) (not mental disorders or infectious disease) (1 source.) External cause Other fall on Episodic Active FELIZ GRAY DO [facility] Via codes: Fall (5 same level, [facility] sources.) initial Hospital - encounter [place] Translations: (63318) [ UNSPECIFIED FALL, INITIAL ENCOUNTER] External cause Other trade Episodic Active FELIZ GRYA , DO [facility] Via codes: Place areas as the [place] of occurrence place of Hospital - (5 sources.) occurrence of [place] the external (63887) cause Translations: [ [facility] NON-INSTITUT (PRIVATE) R] Other diseases Renal 04-16-2010 - no information Active MAX WELL SELF Community of kidney and insufficiency [address] [place] [address] ureters (3 Translations: of [facility] sources.) [ Renal [place] (20255) insufficiency] 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 MAXW ELL SELF Community of kidney and acidosis [address] [place] [address] ureters (3 Translations: of [facility] sources.) [ Renal [place] (01077) tubular acidosis] Other acquired Scoliosis 02-18-2010 - Chronic Active BRAIN SELF Community deformities ([address] [place] [address] Center sources.) spine of [facility] Translations: [place] (85003) [ Scoliosis] Cardiac Sick sinus Chronic Active NERY SKINNER [facility] Vi a dysrhythmias syndrome [facility] (3 sources.) [facility] (79529) Past or Other Problems Problem Normalized Date of Normalized Normalized Provider Fac ility Classification Problem(s) Problem Problem Problem Sta tus Onset/Resoluti Duration on Other Constipation, Episodic Completed FELIZ GRAY , DO [facility] Via gastrointestin unspecified [facility] al disorders Hospital - (10 sources.) [place] ([address]34) Congestive Diastolic 05-20-2016 - Episodic Completed BRAIN BRAVO F Community heart failure; dysfunction [address] [place] [address] nonhypertensiv Translations: of [facility] e (3 sources.) [ Diastolic [place] (14646) dysfunction] Immunizations Encounter for Episodic Completed FELIZ GRAY , DO [facility] Via and screening immunization [facility] infectious Hospital - disease (3 [place] sources.) (18128) Unclassified Medication no information Completed BRAIN SELF [place] Via (1 source.) given [address] [place] [address] ([address]360) Abdominal pain Unspecified Episodic Completed FELIZ CASTELLANO DO [facility] Via (10 sources.) abdominal pain [facility] (20123) Unclassified no information no information no information AINSLEY WOOD [place] Via (5 sources.) [address] [facility] (87603) Procedures Procedure Normalized Procedure Procedure Result Performer Facility Date 12-08-2018 Collection venous no information no name (no phone) [facility] blood [facility]ip[facility] (84413) 01-16-2020 CT of head no information no name (no phone) Asce nsion Via [facility] (79149) 07-08-2019 CT of head no information no name (no phone) Asce nsion Via [facility] (98354) 12-13-2018 Diagnostic radiography no information FELIZ CASTELLANO [place] Via [facility] (54949) 12-13-2018 - 12-13-2018 12-08-2018 [facility] visit, estab pt no information no name (no huong ne) [facility] (97527) 12-08-2018 LAB NOT BILLED BY no information no name (no phone) [facility] (49449) 05-18-2019 Plain X-ray of femur no information FELIZ CASTELLANO As cension Via [facility] (70693) 05-18-2019 Radiography of hand no information FELIZ CASTELLANO Asc ension Via [facility] (93200) 05-18-2019 Skeletal X-ray of no information FELIZ CASTELLANO Ascen guerline Via [facility] pelvis and hip [facility] (76383) Immunizations Normalized Immunization Date Notes Care Provider Facili ty Immunization influenza, high dose 07-08-2019 - no information no name [facility] seasonal, 07-08-2019 [facility] preservative-free [facility] (50635) pneumococcal 02-10-2017 no information no name [facility] conjugate vaccine, [facility] (94755) pneumococcal 06-02-2018 no information no name [facility] polysaccharide [facility] vaccine, [facility] (04454) tetanus toxoid, 01-16-2020 no information MD DE LA PAZ SELF Asc ension Via reduced diphtheria 33651 [facility] toxoid, and (63358) acellular pertussis vaccine, adsorbed tetanus toxoid, 05-18-2019 no information no name [facility] Via [facility] diphtheria [facility] toxoid, and (53255) acellular pertussis vaccine, adsorbed tetanus toxoid, 05-18-2019 - no information BRAIN BOWLES [address] [place] [facility] 05-18-2019 [facility] toxoid, and (05592) acellular pertussis vaccine, adsorbed vaccine no information AINSLEY NICOLE [address] [place] Via Translations: [ [facility] vaccine] (64052) Results Test Name Value Interpretation Reference Range Date Time Fa cility (Normalized) (Normalized) (Medline Reference) No panel information on 2020-01-01 no information Chart note added (no code) [facility] (19674) no information Chart note added (no code) [facility] (41087) no information Chart note added (no code) [facility] (80885) No panel information on 2019-12-29 no information Chart note added (no code) [facility] (76989) No panel information on 2019-12-28 no information Chart note added (no code) [facility] (53881) no information Chart note added (no code) [facility] (54543) No panel information on 2019-12-27 no information Chart note added (no code) [facility] (42997) No panel information on 2019-12-26 no information Chart note added (no code) [facility] (09708) no information Chart note added (no code) [facility] (10275) No panel information on 2019-12-25 no information Chart note added (no code) [facility] (26526) no information Chart note added (no code) [facility] (25061) No panel information on 2019-12-22 no information Chart note added (no code) [facility] (31806) No panel information on 2019-12-21 no information Chart note added (no code) [facility] (44550) No panel information on 2019-12-20 no information Chart note added (no code) [facility] (76930) No panel information on 2019-12-19 no information Chart note added (no code) [facility] (46794) No panel information on 2019-12-18 no information Chart note added (no code) [facility] (54391) no information Chart note added (no code) [facility] (65081) no information Chart note added (no code) [facility] (17592) No panel information on 2019-12-15 no information Chart note added (no code) [facility] (54149) No panel information on 2019-12-14 no information Chart note added (no code) [facility] (48140) No panel information on 2019-12-13 no information Chart note added (no code) [facility] (98786) No panel information on 2019-12-12 no information Chart note added (no code) [facility] (86199) No panel information on 2019-12-11 no information Chart note added (no code) [facility] (29075) no information Chart note added (no code) [facility] (44880) No panel information on 2019-12-08 no information Chart note added (no code) [facility] (17097) No panel information on 2019-12-07 no information Chart note added (no code) [facility] (72836) No panel information on 2019-12-06 no information Chart note added (no code) [facility] (87207) No panel information on 2019-12-05 no information Chart note added (no code) [facility] (93923) no information Chart note added (no code) [facility] (40904) No panel information on 2019-12-04 no information Chart note added (no code) [facility] (86666) no information Chart note added (no code) [facility] (95010) No panel information on 2019-12-01 no information Chart note added (no code) [facility] (66010) no information Chart note added (no code) [facility] (45059) No panel information on 2019-11-30 no information Chart note added (no code) [facility] (37151) No panel information on 2019-11-29 no information Chart note added (no code) [facility] (48462) No panel information on 2019-11-28 no information Chart note added (no code) [facility] (97510) No panel information on 2019-11-27 no information Chart note added (no code) [facility] (42611) no information Chart note added (no code) [facility] (24732) No panel information on 2019-11-24 no information Chart note added (no code) [facility] (95321) no information Chart note added (no code) [facility] (53201) No panel information on 2019-11-23 no information Chart note added (no code) [facility] (25506) No panel information on 2019-11-22 no information Chart note added (no code) [facility] (47053) no information Chart note added (no code) [facility] (53189) No panel information on 2019-11-21 no information Chart note added (no code) [facility] (11944) no information Chart note added (no code) [facility] (95482) No panel information on 2019-11-20 no information Chart note added (no code) [facility] (36872) no information Chart note added (no code) [facility] (05666) No panel information on 2019-11-17 no information Chart note added (no code) [facility] (64594) No panel information on 2019-11-16 no information Chart note added (no code) [facility] (64298) no information Chart note added (no code) [facility] (60201) No panel information on 2019-11-15 no information Chart note added (no code) [facility] (92546) no information Chart note added (no code) [facility] (07850) No panel information on 2019-11-14 no information Chart note (no code) [facility] updated (35645) no information Chart note added (no code) [facility] (41639) No panel information on 2019-11-13 no information Chart note added (no code) [facility] (50008) no information Chart note added (no code) [facility] (81950) no information Chart note added (no code) [facility] (94036) No panel information on 2019-11-10 no information Chart note added (no code) [facility] (86625) no information Chart note added (no code) [facility] (82679) No panel information on 2019-11-09 no information Chart note added (no code) [facility] (70018) no information Chart note added (no code) [facility] (70640) No panel information on 2019-11-08 no information Chart note added (no code) [facility] (94197) No panel information on 2019-11-07 no information Chart note added (no code) [facility] (17641) No panel information on 2019-11-06 no information Chart note added (no code) [facility] (89215) no information Chart note added (no code) [facility] (42589) no information Chart note added (no code) [facility] (07274) No panel information on 2019-11-03 no information Chart note added (no code) [facility] (96357) no information Chart note added (no code) [facility] ([id number]) No panel information on 2019-11-02 no information Chart note added (no code) [facility] ([id number]) No panel information on 2019-11-01 no information Chart note added (no code) [facility] ([id number]) no information Chart note added (no code) [facility] ([id number]) No panel information on 2019-10-31 no information Chart note added (no code) [facility] ([id number]) No panel information on 2019-10-30 no information Chart note added (no code) [facility] ([id number]) no information Chart note added (no code) [facility] ([id number]) no information Chart note added (no code) [facility] ([id number]) No panel information on 2019-10-27 no information Chart note added (no code) [facility] ([id number]) No panel information on 2019-10-26 no information Chart note added (no code) [facility] ([id number]) No panel information on 2019-10-25 no information Chart note added (no code) [facility] ([id number]) no information Chart note added (no code) [facility] ([id number]) No panel information on 2019-10-24 no information Chart note added (no code) [facility] ([id number]) No panel information on 2019-10-23 no information Chart note added (no code) [facility] ([id number]) no information Chart note added (no code) [facility] ([id number]) No panel information on 2019-10-20 no information Chart note added (no code) [facility] ([id number]) No panel information on 2019-10-19 no information Chart note added (no code) [facility] ([id number]) no information Chart note added (no code) [facility] ([id number]) No panel information on 2019-10-18 no information Chart note added (no code) [facility] ([id number]) No panel information on 2019-10-17 no information Chart note added (no code) [facility] ([id number]) no information Chart note added (no code) [facility] ([id number]) no information Chart note added (no code) [facility] ([id number]) No panel information on 2019-10-16 no information Chart note added (no code) [facility] ([id number]) no information Chart note added (no code) [facility] ([id number]) No panel information on 2019-10-13 no information Chart note added (no code) [facility] ([id number]) No panel information on 2019-10-12 no information Chart note added (no code) [facility] ([id number]) No panel information on 2019-10-11 no information Chart note added (no code) [facility] ([id number]) No panel information on 2019-10-10 no information Chart note added (no code) [facility] ([id number]) no information Chart note added (no code) [facility] ([id number]) No panel information on 2019-10-09 no information Chart note added (no code) [facility] ([id number]) no information Chart note added (no code) [facility] ([id number]) No panel information on 2019-10-06 no information Chart note added (no code) [facility] ([id number]) no information Chart note added (no code) [facility] ([id number]) No panel information on 2019-10-04 no information Chart note added (no code) [facility] ([id number]) No panel information on 2019-10-03 no information Chart note added (no code) [facility] ([id number]) no information Chart note added (no code) [facility] ([id number]) No panel information on 2019-10-02 no information Chart note added (no code) [facility] ([id number]) no information Chart note added (no code) [facility] ([id number]) No panel information on 2019-09-29 no information Chart note added (no code) [facility] ([id number]) no information Chart note added (no code) [facility] ([id number]) No panel information on 2019-09-28 no information Chart note added (no code) [facility] ([id number]) No panel information on 2019-09-26 no information Chart note added (no code) [facility] ([id number]) no information Chart note added (no code) [facility] ([id number]) No panel information on 2019-09-25 no information Chart note added (no code) [facility] ([id number]) no information Chart note added (no code) [facility] ([id number]) No panel information on 2019-09-22 no information Chart note added (no code) [facility] ([id number]) No panel information on 2019-09-21 no information Chart note added (no code) [facility] ([id number]) no information Chart note added (no code) [facility] ([id number]) No panel information on 2019-09-19 no information Chart note added (no code) [facility] ([id number]) no information Chart note added (no code) [facility] ([id number]) No panel information on 2019-09-18 no information Chart note added (no code) [facility] ([id number]) no information Chart note added (no code) [facility] ([id number]) No panel information on 2019-09-15 no information Chart note added (no code) [facility] ([id number]) No panel information on 2019-09-14 no information Chart note added (no code) [facility] ([id number]) No panel information on 2019-09-13 no information Chart note added (no code) [facility] ([id number]) no information Chart note added (no code) [facility] ([id number]) No panel information on 2019-09-12 no information Chart note added (no code) [facility] ([id number]) No panel information on 2019-09-11 no information Chart note added (no code) [facility] ([id number]) no information Chart note added (no code) [facility] ([id number]) no information Chart note added (no code) [facility] ([id number]) No panel information on 2019-09-08 no information Chart note (no code) [facility] updated ([id number]) no information Chart note added (no code) [facility] ([id number]) no information Chart note added (no code) [facility] ([id number]) No panel information on 2019-09-07 no information Chart note added (no code) [facility] ([id number]) No panel information on 2019-09-06 no information Chart note added (no code) [facility] ([id number]) No panel information on 2019-09-05 no information Chart note added (no code) [facility] ([id number]) no information Chart note added (no code) [facility] ([id number]) No panel information on 2019-09-04 no information Chart note added (no code) [facility] ([id number]) no information Chart note added (no code) [facility] ([id number]) no information Chart note (no code) [facility] ([id number]) No panel information on 2019-09-01 no information Chart note added (no code) [facility] ([id number]) No panel information on 2019-08-31 no information Chart note added (no code) [facility] ([id number]) No panel information on 2019-08-30 no information Chart note added (no code) [facility] ([id number]) No panel information on 2019-08-29 no information Chart note added (no code) [facility] ([id number]) No panel information on 2019-08-28 no information Chart note added (no code) [facility] ([id number]) no information Chart note added (no code) [facility] ([id number]) No panel information on 2019-08-25 no information Chart note added (no code) [facility] ([id number]) no information Chart note added (no code) [facility] ([id number]) no information Chart note added (no code) [facility] ([id number]) No panel information on 2019-08-23 no information Chart note added (no code) [facility] ([id number]) No panel information on 2019-08-22 no information Chart note added (no code) [facility] ([id number]) no information Chart note added (no code) [facility] ([id number]) no information Chart note added (no code) [facility] ([id number]) No panel information on 2019-08-21 no information Chart note added (no code) [facility] ([id number]) no information Chart note added (no code) [facility] ([id number]) no information Chart note added (no code) [facility] ([id number]) No panel information on 2019-08-18 no information Chart note added (no code) [facility] ([id number]) No panel information on 2019-08-17 no information Chart note added (no code) [facility] ([id number]) No panel information on 2019-08-16 no information Chart note added (no code) [facility] ([id number]) No panel information on 2019-08-15 no information Chart note added (no code) [facility] ([id number]) no information Chart note added (no code) [facility] ([id number]) No panel information on 2019-08-14 no information Chart note added (no code) [facility] ([id number]) no information Chart note added (no code) [facility] ([id number]) no information Chart note added (no code) [facility] ([id number]) No panel information on 2019-08-13 no information Chart note added (no code) [facility] ([id number]) No panel information on 2019-08-11 no information Chart note added (no code) [facility] ([id number]) No panel information on 2019-08-10 no information Chart note added (no code) [facility] ([id number]) No panel information on 2019-08-09 no information Chart note added (no code) [facility] ([id number]) no information Chart note added (no code) [facility] ([id number]) No panel information on 2019-08-08 no information Chart note added (no code) [facility] ([id number]) no information Chart note added (no code) [facility] ([id number]) no information Chart note added (no code) [facility] ([id number]) No panel information on 2019-08-07 no information Chart note added (no code) [facility] ([id number]) no information Chart note added (no code) [facility] ([id number]) no information Chart note added (no code) [facility] ([id number]) no information Chart note added (no code) [facility] ([id number]) No panel information on 2019-08-04 no information Chart note added (no code) [facility] ([id number]) No panel information on 2019-08-03 no information Chart note added (no code) [facility] ([id number]) No panel information on 2019-08-02 no information Chart note added (no code) [facility] ([id number]) No panel information on 2019-08-01 no information Chart note added (no code) [facility] ([id number]) no information Chart note added (no code) [facility] ([id number]) No panel information on 2019-07-31 no information Chart note added (no code) [facility] ([id number]) No panel information on 2019-07-28 no information Chart note added (no code) [facility] ([id number]) No panel information on 2019-07-27 no information Chart note added (no code) [facility] ([id number]) No panel information on 2019-07-26 no information Chart note added (no code) [facility] ([id number]) No panel information on 2019-07-25 no information Chart note added (no code) [facility] ([id number]) no information Chart note added (no code) [facility] ([id number]) No panel information on 2019 Oxygen 97 % (no code) 94 - 100 % 2019 [facility] saturation in 12:20-0400 ([id number]) Blood no information Chart note added (no code) [facility] ([id number]) no information Chart note added (no code) [facility] ([id number]) No panel information on 2019-07-23 Oxygen 95 % (no code) 94 - 100 % 07-23-2019 [facility] saturation in 12:11-0400 ([id number]) Blood No panel information on 2019-07-22 Oxygen 93 % (no code) 94 - 100 % 07-22-2019 [facility] saturation in 12:48-0400 ([id number]) Blood No panel information on 2019-07-21 Oxygen 98 % (no code) 94 - 100 % 07-21-2019 [facility] saturation in 11:25-0400 ([id number]) Blood no information Chart note added (no code) [facility] ([id number]) No panel information on 2019-07-20 Oxygen 95 % (no code) 94 - 100 % 07-20-2019 [facility] saturation in 12:15-0400 ([id number]) Blood no information Chart note added (no code) [facility] ([id number]) No panel information on 2019-07-19 Oxygen 96 % (no code) 94 - 100 % 07-19-2019 [facility] saturation in 12:11-0400 ([id number]) Blood no information Chart note added (no code) [facility] ([id number]) No panel information on 2019-07-18 Oxygen 99 % (no code) 94 - 100 % 07-18-2019 [facility] saturation in 10:45-0400 ([id number]) Blood no information Chart note added (no code) [facility] ([id number]) no information Chart note added (no code) [facility] ([id number]) No panel information on 2019-07-17 Oxygen 94 % (no code) 94 - 100 % 07-17-2019 [facility] saturation in 11:38-0400 ([id number]) Blood no information Chart note added (no code) [facility] ([id number]) no information Chart note added (no code) [facility] ([id number]) No panel information on 2019-07-16 Oxygen 98 % (no code) 94 - 100 % 07-16-2019 [facility] saturation in 11:22-0400 ([id number]) Blood No panel information on 2019-07-15 Oxygen 98 % (no code) 94 - 100 % 07-15-2019 [facility] saturation in 12:17-0400 ([id number]) Blood No panel information on 2019-07-14 Oxygen 94 % (no code) 94 - 100 % 07-14-2019 [facility] saturation in 11:46-0400 ([id number]) Blood no information Chart note added (no code) [facility] ([id number]) no information Chart note added (no code) [facility] ([id number]) No panel information on 2019-07-13 Oxygen 99 % (no code) 94 - 100 % 07-13-2019 [facility] saturation in 12:19-0400 ([id number]) Blood no information Chart note added (no code) [facility] ([id number]) No panel information on 2019-07-12 Oxygen 95 % (no code) 94 - 100 % 07-12-2019 [facility] saturation in 12:05-0400 ([id number]) Blood no information Chart note added (no code) [facility] ([id number]) No panel information on 2019-07-11 Oxygen 95 % (no code) 94 - 100 % 07-11-2019 [facility] saturation in 11:46-0400 ([id number]) Blood no information Chart note added (no code) [facility] ([id number]) no information Chart note added (no code) [facility] ([id number]) No panel information on 2019-07-10 Oxygen 93 % (no code) 94 - 100 % 07-10-2019 [facility] saturation in 12:06-0400 ([id number]) Blood no information Chart note added (no code) [facility] ([id number]) no information Chart note added (no code) [facility] ([id number]) No panel information on 2019-07-07 Oxygen 97 % (no code) 94 - 100 % 07-07-2019 [facility] saturation in 11:23-0400 ([id number]) Blood no information Chart note added (no code) [facility] ([id number]) no information Chart note added (no code) [facility] ([id number]) No panel information on 2019-07-06 Oxygen 96 % (no code) 94 - 100 % 07-06-2019 [facility] saturation in 11:05-0400 ([id number]) Blood no information Chart note added (no code) [facility] ([id number]) No panel information on 2019-07-05 Oxygen 97 % (no code) 94 - 100 % 07-05-2019 [facility] saturation in 10:53-0400 ([id number]) Blood no information Chart note added (no code) [facility] ([id number]) No panel information on 2019-07-04 Oxygen 99 % (no code) 94 - 100 % 07-04-2019 [facility] saturation in 11:14-0400 ([id number]) Blood no information Chart note added (no code) [facility] ([id number]) no information Chart note added (no code) [facility] ([id number]) No panel information on 2019-07-03 Oxygen 98 % (no code) 94 - 100 % 07-03-2019 [facility] saturation in 11:49-0400 ([id number]) Blood no information Chart note added (no code) [facility] ([id number]) no information Chart note added (no code) [facility] ([id number]) No panel information on 2019-07-02 Oxygen 99 % (no code) 94 - 100 % 07-02-2019 [facility] saturation in 12:24-0400 ([id number]) Blood no information Chart note added (no code) [facility] ([id number]) No panel information on 2019-07-01 Oxygen 97 % (no code) 94 - 100 % 07-01-2019 [facility] saturation in 12:10-0400 ([id number]) Blood No panel information on 2019-06-29 Oxygen 98 % (no code) 94 - 100 % 06-29-2019 [facility] saturation in 13:11-0400 ([id number]) Blood no information Chart note added (no code) [facility] (77017) no information Chart note added (no code) [facility] ([id number]) No panel information on 2019-06-28 no information Chart note added (no code) [facility] (03492) No panel information on 2019-06-27 Oxygen 98 % (no code) 94 - 100 % 06-27-2019 [facility] saturation in 12:11-0400 ([id number]) Blood no information Chart note added (no code) [facility] ([id number]) no information Chart note added (no code) [facility] ([id number]) no information Chart note added (no code) [facility] ([id number]) No panel information on 2019-06-26 Albumin 3.7 g/dL (N) 3.4 - 5.4 g/dL [facility] [Mass/Vol] [facility] (37247) Albumin/Globulin 1.2 {ratio} (N) 1 - 2.5 {ratio} [facility] [Mass ratio] [facility] (42397) ALP [Catalytic 73 U/L (N) 44 - 147 U/L [facility] activity/Vol] [facility] (08100) ALT [Catalytic 7 U/L (N) 4 - 40 U/L [facility]Vol] [facility] (96447) AST [Catalytic 14 U/L (N) 10 - 34 U/L [facility] activity/Vol] [facility] (80793) Bilirubin 0.2 mg/dL (N) 0.1 - 1.2 mg/dL [facility] [Mass/Vol] [facility] (35256) Calcium 8.6 mg/dL (N) 8.5 - 10.2 mg/dL [facility] [Mass/Vol] [facility] (35610) Chloride 109 mmol/L (N) 95 - 106 mmol/L [facility] [Moles/Vol] [facility] (37897) Cholesterol 213 mg/dL (H) 180 - 200 mg/dL [facility] [Mass/Vol] [facility] (38997) Cholesterol in 43 mg/dL (L) [facility] [Mass[facility]Vol[facility] (43363) Cholesterol in 148 mg/dL (H) 0 - 100 mg/dL [facility] LDL [Mass/Vol] [facility] (79712) Cholesterol non 170 mg/dL (H) [facility] HDL [Mass/Vol] [facility] (04512) Cholesterol.tota 5.0 {ratio} (H) [facility] lt l/Cholesterol in [facility] HDL [Mass ratio] [facility] () CO2 [Moles/Vol] 16 mmol/L (L) 23 - 29 mmol/L [facility] (80337) Creatinine 1.62 mg/dL (H) [facility] h [Mass/Vol] [facility] (28772) Free T4 0.8 ng/dL (N) 0.9 - 2.2 ng/dL [facility] [Mass/Vol] [facility] () GFR/1.73 sq M 33 (L) 90 - 120 [facility] predicted among mL/min/{1.73_m2} mL/min/{1.73_m2} [facility] MDRD [facility] (S/P/Bld) [Vol (53435) rate/Area] GFR/1.73 sq 29 (L) 90 - 120 [facility] M.predicted MDRD mL/min/{1.73_m2} mL/min/{1.73_m2} [facility] (S/P/Bld) [Vol [facility] rate/Area] ([id number]) Globulin (S) 3.1 g/dL (N) 2 - 3.5 g/dL [facility] ealth [Mass/Vol] [facility] (02065) Glucose 85 mg/dL (N) 60 - 125 mg/dL [facility] [Mass/Vol] [facility] (97214) HbA1c (Bld) 5.4 (N) [facility] [Mass fraction] [facility] (59778) Oxygen 98 % (no code) 94 - 100 % 06-26-2019 [facility] saturation in 11:55-0400 ([id number]) Blood Potassium 4.9 mmol/L (N) 3.7 - 5.2 mmol/L [facility] [Moles/Vol] [facility] (73206) Protein 6.8 g/dL (N) 6.4 - 8.3 g/dL [facility] [Mass/Vol] [facility] (56034) Sodium 134 mmol/L (L) 135 - 145 mmol/L [facility] [Moles/Vol] [facility] (49127) Triglyceride 105 mg/dL (N) 0 - 150 mg/dL [facility] [Mass/Vol] [facility] (99279) TSH Qn 0.59 m[IU]/L (N) 0.4 - 4 m[IU]/L [facility] (40064) Urea nitrogen 53 mg/dL (H) 7 - 20 mg/dL [facility] [Mass/Vol] [facility] (30737) Urea 33 mg/mg (H) 6 - 22 mg/mg [facility] alth nitrogen/Creatin [facility] [Mass ratio] [facility] (43831) no information Chart note added (no code) [facility] (04247) no information Chart note added (no code) [facility] ([id number]) No panel information on 2019-06-25 Oxygen 97 % (no code) 94 - 100 % 06-25-2019 [facility] saturation in 15:08-0400 ([id number]) Blood no information Chart note added (no code) [facility] (77752) No panel information on 2019-06-24 Oxygen 98 % (no code) 94 - 100 % 06-24-2019 [facility] saturation in 12:52-0400 (74951) Blood No panel information on 2019-06-23 Oxygen 98 % (no code) 94 - 100 % 06-23-2019 [facility] saturation in 12:17-0400 (16659) Blood no information Chart note added (no code) [facility] (05679) no information Chart note added (no code) [facility] ([id number]) No panel information on 2019-06-22 Oxygen 97 % (no code) 94 - 100 % 06-22-2019 [facility] saturation in 12:21-0400 ([id number]) Blood no information Chart note added (no code) [facility] (46318) no information Chart note added (no code) [facility] ([id number]) No panel information on 2019-06-21 Oxygen 95 % (no code) 94 - 100 % 06-21-2019 [facility] saturation in 12:08-0400 (41032) Blood no information Chart note added (no code) [facility] ([id number]) No panel information on 2019-06-20 Oxygen 96 % (no code) 94 - 100 % 06-20-2019 [facility] saturation in 11:00-0400 ([id number]) Blood no information Chart note added (no code) [facility] (51299) no information Chart note added (no code) [facility] ([id number]) No panel information on 2019-06-19 Oxygen 97 % (no code) 94 - 100 % 06-19-2019 [facility] saturation in 12:12-0400 (58148) Blood no information Chart note added (no code) [facility] ([id number]) no information Chart note added (no code) [facility] ([id number]) No panel information on 2019-06-18 Oxygen 96 % (no code) 94 - 100 % 06-18-2019 [facility] saturation in 11:56-0400 ([id number]) Blood No panel information on 2019-06-17 Oxygen 96 % (no code) 94 - 100 % 06-17-2019 [facility] saturation in 14:21-0400 (37131) Blood No panel information on 2019-06-16 Oxygen 98 % (no code) 94 - 100 % 06-16-2019 [facility] saturation in 13:27-0400 ([id number]) Blood no information Chart note added (no code) [facility] ([id number]) No panel information on 2019-06-15 Oxygen 98 % (no code) 94 - 100 % 06-15-2019 [facility] saturation in 12:13-0400 ([id number]) Blood no information Chart note added (no code) [facility] ([id number]) No panel information on 2019-06-14 Oxygen 98 % (no code) 94 - 100 % 06-14-2019 [facility] saturation in 11:32-0400 ([id number]) Blood no information Chart note added (no code) [facility] (09951) no information Chart note added (no code) [facility] (40376) No panel information on 2019-06-13 Oxygen 100 % (no code) 94 - 100 % 06-13-2019 [facility] saturation in 11:41-0400 (86535) Blood no information Chart note added (no code) [facility] (04033) no information Chart note added (no code) [facility] ([id number]) No panel information on 2019-06-12 Oxygen 99 % (no code) 94 - 100 % 06-12-2019 [facility] saturation in 11:43-0400 ([id number]) Blood no information Chart note added (no code) [facility] (70359) no information Chart note added (no code) [facility] (55320) no information Chart note added (no code) [facility] ([id number]) No panel information on 2019-06-11 Oxygen 98 % (no code) 94 - 100 % 06-11-2019 [facility] saturation in 12:26-0400 ([id number]) Blood No panel information on 2019-06-10 Oxygen 96 % (no code) 94 - 100 % 06-10-2019 [facility] saturation in 15:02-0400 ([id number]) Blood No panel information on 2019-06-08 no information Chart note added (no code) [facility] ([id number]) No panel information on 2019-06-07 Oxygen 98 % (no code) 94 - 100 % 06-07-2019 [facility] saturation in 14:06-0400 ([id number]) Blood no information Chart note added (no code) [facility] ([id number]) No panel information on 2019-06-06 Oxygen 98 % (no code) 94 - 100 % 06-06-2019 [facility] saturation in 12:48-0400 ([id number]) Blood no information Chart note added (no code) [facility] (59346) No panel information on 2019-06-05 Oxygen 96 % (no code) 94 - 100 % 06-05-2019 [facility] saturation in 12:24-0400 ([id number]) Blood no information Chart note added (no code) [facility] ([id number]) No panel information on 2019-06-04 Oxygen 95 % (no code) 94 - 100 % 06-04-2019 [facility] saturation in 12:25-0400 ([id number]) Blood No panel information on 2019-06-03 Oxygen 98 % (no code) 94 - 100 % 06-03-2019 [facility] saturation in 10:17-0400 ([id number]) Blood No panel information on 2019-06-02 Oxygen 98 % (no code) 94 - 100 % 06-02-2019 [facility] saturation in 09:25-0400 ([id number]) Blood no information Chart note added (no code) [facility] ([id number]) No panel information on 2019-06-01 Oxygen 98 % (no code) 94 - 100 % 06-01-2019 [facility] saturation in 14:18-0400 ([id number]) Blood no information Chart note added (no code) [facility] ([id number]) No panel information on 2019-05-31 Oxygen 95 % (no code) 94 - 100 % 05-31-2019 [facility] saturation in 11:12-0400 ([id number]) Blood no information Chart note added (no code) [facility] ([id number]) No panel information on 2019-05-30 Oxygen 96 % (no code) 94 - 100 % 05-30-2019 [facility] saturation in 11:30-0400 ([id number]) Blood no information Chart note added (no code) [facility] ([id number]) No panel information on 2019-05-29 Oxygen 96 % (no code) 94 - 100 % 05-29-2019 [facility] saturation in 10:51-0400 ([id number]) Blood no information Chart note added (no code) [facility] ([id number]) No panel information on 2019-05-28 Oxygen 95 % (no code) 94 - 100 % 05-28-2019 [facility] saturation in 11:59-0400 ([id number]) Blood No panel information on 2019-05-27 Oxygen 98 % (no code) 94 - 100 % 05-27-2019 [facility] saturation in 11:57-0400 ([id number]) Blood No panel information on 2019-05-26 Oxygen 96 % (no code) 94 - 100 % 05-26-2019 [facility] saturation in 12:11-0400 ([id number]) Blood no information Chart note added (no code) [facility] ([id number]) No panel information on 2019-05-25 Oxygen 97 % (no code) 94 - 100 % 05-25-2019 [facility] saturation in 12:30-0400 ([id number]) Blood no information Chart note added (no code) [facility] ([id number]) no information Chart note added (no code) [facility] ([id number]) No panel information on 2019-05-24 Oxygen 90 % (L) 94 - 100 % 05-24-2019 [facility] saturation in 12:05-0400 ([id number]) Blood no information Chart note added (no code) [facility] ([id number]) No panel information on 2019-05-23 Oxygen 96 % (no code) 94 - 100 % 05-23-2019 [facility] saturation in 11:05-0400 ([id number]) Blood no information Chart note added (no code) [facility] ([id number]) no information Chart note added (no code) [facility] ([id number]) No panel information on 2019-05-22 Oxygen 98 % (no code) 94 - 100 % 05-22-2019 [facility] saturation in 12:12-0400 ([id number]) Blood no information Chart note added (no code) [facility] ([id number]) no information Chart note added (no code) [facility] ([id number]) No panel information on 2019-05-21 Oxygen 99 % (no code) 94 - 100 % 05-21-2019 [facility] saturation in 10:47-0400 ([id number]) Blood No panel information on 2019-05-20 Oxygen 97 % (no code) 94 - 100 % 05-20-2019 [facility] saturation in 12:090400 ([id number]) Blood No panel information on 2019-05-19 Oxygen 98 % (no code) 94 - 100 % 05-19-2019 [facility] saturation in 12:18-0400 ([id number]) Blood no information Chart note added (no code) [facility] ([id number]) No panel information on 2019-05-18 Oxygen 96 % (no code) 94 - 100 % 05-18-2019 [facility] saturation in 11:54-0400 ([id number]) Blood no information Chart note added (no code) [facility] ([id number]) No panel information on 2019-05-17 Oxygen 98 % (no code) 94 - 100 % 05-17-2019 [facility] saturation in 11:12-0400 ([id number]) Blood no information Chart note added (no code) [facility] ([id number]) no information Chart note added (no code) [facility] ([id number]) No panel information on 2019-05-16 Oxygen 96 % (no code) 94 - 100 % 05-16-2019 [facility] saturation in 10:40-0400 ([id number]) Blood no information Chart note added (no code) [facility] ([id number]) no information Chart note added (no code) [facility] ([id number]) no information Chart note added (no code) [facility] ([id number]) No panel information on 2019-05-15 Oxygen 98 % (no code) 94 - 100 % 05-15-2019 [facility] saturation in 12:17-0400 ([id number]) Blood no information Chart note added (no code) [facility] ([id number]) no information Chart note added (no code) [facility] ([id number]) No panel information on 2019-05-14 Oxygen 97 % (no code) 94 - 100 % 05-14-2019 [facility] saturation in 12:26-0400 ([id number]) Blood No panel information on 2019-05-13 Oxygen 96 % (no code) 94 - 100 % 05-13-2019 [facility] saturation in 12:11-0400 ([id number]) Blood No panel information on 2019-05-12 Oxygen 98 % (no code) 94 - 100 % 05-12-2019 [facility] saturation in 11:48-0400 ([id number]) Blood no information Chart note added (no code) [facility] ([id number]) No panel information on 2019-05-11 Oxygen 97 % (no code) 94 - 100 % 05-11-2019 [facility] saturation in 14:58-0400 ([id number]) Blood no information Chart note added (no code) [facility] ([id number]) No panel information on 2019-05-10 Oxygen 97 % (no code) 94 - 100 % 05-10-2019 [facility] saturation in 10:16-0400 ([id number]) Blood no information Chart note added (no code) [facility] ([id number]) No panel information on 2019-05-09 Oxygen 96 % (no code) 94 - 100 % 05-09-2019 [facility] saturation in 12:32-0400 ([id number]) Blood no information Chart note added (no code) [facility] ([id number]) No panel information on 2019-05-08 Oxygen 95 % (no code) 94 - 100 % 05-08-2019 [facility] saturation in 12:07-0400 ([id number]) Blood no information Chart note added (no code) [facility] ([id number]) no information Chart note added (no code) [facility] ([id number]) No panel information on 2019-05-07 Oxygen 98 % (no code) 94 - 100 % 05-07-2019 [facility] saturation in 12:21-0400 ([id number]) Blood No panel information on 2019-05-06 Oxygen 97 % (no code) 94 - 100 % 05-06-2019 [facility] saturation in 11:56-0400 ([id number]) Blood No panel information on 2019-05-05 Oxygen 97 % (no code) 94 - 100 % 05-05-2019 [facility] saturation in 17:25-0400 ([id number]) Blood No panel information on 2019-05-04 Oxygen 98 % (no code) 94 - 100 % 05-04-2019 [facility] saturation in 12:08-0400 ([id number]) Blood no information Chart note added (no code) [facility] ([id number]) no information Chart note added (no code) [facility] ([id number]) No panel information on 2019-05-03 Oxygen 99 % (no code) 94 - 100 % 05-03-2019 [facility] saturation in 17:14-0400 ([id number]) Blood Oxygen 98 % (no code) 94 - 100 % 05-03-2019 [facility] saturation in 17:15-0400 ([id number]) Blood No panel information on 2019-05-02 Oxygen 92 % (no code) 94 - 100 % 05-02-2019 [facility] saturation in 11:49-0400 ([id number]) Blood no information Chart note added (no code) [facility] ([id number]) no information Chart note added (no code) [facility] ([id number]) No panel information on 2019-05-01 Oxygen 97 % (no code) 94 - 100 % 05-01-2019 [facility] saturation in 12:11-0400 ([id number]) Blood no information Chart note added (no code) [facility] ([id number]) no information Chart note added (no code) [facility] ([id number]) No panel information on 2019-04-30 Oxygen 97 % (no code) 94 - 100 % 04-30-2019 [facility] saturation in 14:32-0400 ([id number]) Blood No panel information on 2019-04-29 Oxygen 97 % (no code) 94 - 100 % 04-29-2019 [facility] saturation in 10:30-0400 ([id number]) Blood No panel information on 2019-04-28 Oxygen 98 % (no code) 94 - 100 % 04-28-2019 [facility] saturation in 09:07-0400 ([id number]) Blood no information Chart note added (no code) [facility] ([id number]) no information Chart note added (no code) [facility] ([id number]) No panel information on 2019-04-27 Oxygen 97 % (no code) 94 - 100 % 04-27-2019 [facility] saturation in 17:42-0400 ([id number]) Blood No panel information on 2019-04-26 Oxygen 97 % (no code) 94 - 100 % 04-26-2019 [facility] saturation in 12:07-0400 ([id number]) Blood no information Chart note added (no code) [facility] ([id number]) no information Chart note added (no code) [facility] ([id number]) No panel information on 2019-04-25 Oxygen 99 % (no code) 94 - 100 % 04-25-2019 [facility] saturation in 12:16-0400 ([id number]) Blood no information Chart note added (no code) [facility] ([id number]) no information Chart note added (no code) [facility] ([id number]) no information Chart note added (no code) [facility] ([id number]) No panel information on 2019-04-24 Oxygen 96 % (no code) 94 - 100 % 04-24-2019 [facility] saturation in 12:03-0400 ([id number]) Blood no information Chart note added (no code) [facility] ([id number]) no information Chart note added (no code) [facility] ([id number]) No panel information on 2019-04-23 Oxygen 98 % (no code) 94 - 100 % 04-23-2019 [facility] saturation in 14:33-0400 ([id number]) Blood No panel information on 2019-04-22 Oxygen 97 % (no code) 94 - 100 % 04-22-2019 [facility] saturation in 14:14-0400 ([id number]) Blood No panel information on 2019-04-21 Oxygen 93 % (no code) 94 - 100 % 04-21-2019 [facility] saturation in 11:42-0400 ([id number]) Blood no information Chart note added (no code) [facility] ([id number]) No panel information on 2019-04-20 Oxygen 96 % (no code) 94 - 100 % 04-20-2019 [facility] saturation in 12:46-0400 ([id number]) Blood no information Chart note added (no code) [facility] ([id number]) No panel information on 2019-04-19 Oxygen 92 % (no code) 94 - 100 % 04-19-2019 [facility] saturation in 12:25-0400 ([id number]) Blood no information Chart note added (no code) [facility] ([id number]) No panel information on 2019-04-18 Oxygen 97 % (no code) 94 - 100 % 04-18-2019 [facility] saturation in 15:41-0400 ([id number]) Blood no information Chart note added (no code) [facility] ([id number]) no information Chart note added (no code) [facility] ([id number]) No panel information on 2019-04-17 Oxygen 98 % (no code) 94 - 100 % 04-17-2019 [facility] saturation in 11:59-0400 ([id number]) Blood no information Chart note added (no code) [facility] ([id number]) no information Chart note added (no code) [facility] ([id number]) No panel information on 2019-04-16 Oxygen 97 % (no code) 94 - 100 % 04-16-2019 [facility] saturation in 11:38-0400 ([id number]) Blood No panel information on 2019-04-15 BLO no information (no code) [facility] ([id number]) KET 05/2019~clear~ye (no code) [id number] Lot # [id number] (no code) [facility] ([id number]) Oxygen 95 % (no code) 94 - 100 % 04-15-2019 [facility] saturation in 12:50-0400 ([id number]) Blood pH (Bld) 5.5 [pH] (no code) 7.38 - 7.42 [pH] [facility] ([id number]) Protein (U) 1+ (no code) [facility] [Mass/Vol] [facility] ([id number]) SG 1.020 (no code) [facility] ([id number]) URO 0.2 (no code) [facility] ([id number]) No panel information on 2019-04-14 Oxygen 97 % (no code) 94 - 100 % 04-14-2019 [facility] saturation in 08:32-0400 ([id number]) Blood no information Chart note added (no code) [facility] ([id number]) No panel information on 2019-04-13 Oxygen 94 % (no code) 94 - 100 % 04-13-2019 [facility] saturation in 11:32-0400 ([id number]) Blood no information Chart note added (no code) [facility] ([id number]) No panel information on 2019-04-12 Oxygen 96 % (no code) 94 - 100 % 04-12-2019 [facility] saturation in 12:16-0400 ([id number]) Blood no information Chart note added (no code) [facility] ([id number]) No panel information on 2019-04-11 Oxygen 96 % (no code) 94 - 100 % 04-11-2019 [facility] saturation in 11:39-0400 ([id number]) Blood no information Chart note added (no code) [facility] ([id number]) no information Chart note added (no code) [facility] ([id number]) No panel information on 2019-04-10 Oxygen 97 % (no code) 94 - 100 % 04-10-2019 [facility] saturation in 13:02-0400 ([id number]) Blood no information Chart note added (no code) [facility] ([id number]) no information Chart note added (no code) [facility] ([id number]) No panel information on 2019-04-09 Oxygen 97 % (no code) 94 - 100 % 04-09-2019 [facility] saturation in 12:40-0400 ([id number]) Blood No panel information on 2019-04-08 Oxygen 97 % (no code) 94 - 100 % 04-08-2019 [facility] saturation in 10:18-0400 ([id number]) Blood No panel information on 2019-04-07 Oxygen 97 % (no code) 94 - 100 % 04-07-2019 [facility] saturation in 12:14-0400 ([id number]) Blood no information Chart note added (no code) [facility] ([id number]) No panel information on 2019-04-06 Oxygen 97 % (no code) 94 - 100 % 04-06-2019 [facility] saturation in 12:58-0400 ([id number]) Blood no information Chart note added (no code) [facility] ([id number]) no information Chart note added (no code) [facility] ([id number]) No panel information on 2019-04-05 Oxygen 95 % (no code) 94 - 100 % 04-05-2019 [facility] saturation in 12:09-0400 ([id number]) Blood no information Chart note added (no code) [facility] ([id number]) No panel information on 2019-04-04 Oxygen 95 % (no code) 94 - 100 % 04-04-2019 [facility] saturation in 14:07-0400 ([id number]) Blood no information Chart note added (no code) [facility] ([id number]) No panel information on 2019-04-03 Oxygen 96 % (no code) 94 - 100 % 04-03-2019 [facility] saturation in 10:58-0400 ([id number]) Blood no information Chart note added (no code) [facility] ([id number]) no information Chart note added (no code) [facility] ([id number]) No panel information on 2019-04-02 Oxygen 96 % (no code) 94 - 100 % 04-02-2019 [facility] saturation in 12:15-0400 ([id number]) Blood No panel information on 2019-04-01 Oxygen 98 % (no code) 94 - 100 % 04-01-2019 [facility] saturation in 15:37-0400 ([id number]) Blood No panel information on 2019-03-31 Oxygen 98 % (no code) 94 - 100 % 03-31-2019 [facility] saturation in 12:07-0400 ([id number]) Blood no information Chart note added (no code) [facility] ([id number]) no information Chart note added (no code) [facility] ([id number]) No panel information on 2019-03-29 Oxygen 95 % (no code) 94 - 100 % 03-29-2019 [facility] saturation in 12:15-0400 ([id number]) Blood no information Chart note added (no code) [facility] ([id number]) No panel information on 2019-03-28 Oxygen 97 % (no code) 94 - 100 % 03-28-2019 [facility] saturation in 12:35-0400 ([id number]) Blood no information Chart note added (no code) [facility] ([id number]) no information Chart note added (no code) [facility] ([id number]) no information Chart note added (no code) [facility] ([id number]) No panel information on 2019-03-27 Oxygen 96 % (no code) 94 - 100 % 03-27-2019 [facility] saturation in 11:41-0400 ([id number]) Blood no information Chart note added (no code) [facility] ([id number]) No panel information on 2019-03-26 Oxygen 95 % (no code) 94 - 100 % 03-26-2019 [facility] saturation in 12:04-0400 ([id number]) Blood No panel information on 2019-03-25 Oxygen 95 % (no code) 94 - 100 % 03-25-2019 [facility] saturation in 14:23-0400 ([id number]) Blood No panel information on 2019-03-24 Oxygen 97 % (no code) 94 - 100 % 03-24-2019 [facility] saturation in 11:25-0400 ([id number]) Blood no information Chart note added (no code) [facility] ([id number]) No panel information on 2019-03-23 Oxygen 98 % (no code) 94 - 100 % 03-23-2019 [facility] saturation in 11:22-0400 ([id number]) Blood no information Chart note added (no code) [facility] ([id number]) No panel information on 2019-03-22 Oxygen 95 % (no code) 94 - 100 % 03-22-2019 [facility] saturation in 11:11-0400 ([id number]) Blood no information Chart note added (no code) [facility] ([id number]) No panel information on 2019-03-21 Oxygen 96 % (no code) 94 - 100 % 03-21-2019 [facility] saturation in 10:48-0400 ([id number]) Blood no information Chart note added (no code) [facility] ([id number]) no information Chart note added (no code) [facility] ([id number]) no information Chart note (no code) [facility] ([id number]) No panel information on 2019-03-18 Oxygen 98 % (no code) 94 - 100 % 03-18-2019 [facility] saturation in 12:07-0400 ([id number]) Blood No panel information on 2019-03-17 no information Chart note added (no code) [facility] ([id number]) No panel information on 2019-03-16 Oxygen 97 % (no code) 94 - 100 % 03-16-2019 [facility] saturation in 15:49-0400 ([id number]) Blood no information Chart note added (no code) [facility] ([id number]) no information Chart note added (no code) [facility] ([id number]) No panel information on 2019-03-14 Oxygen 97 % (no code) 94 - 100 % 03-14-2019 [facility] saturation in 12:03-0400 ([id number]) Blood no information Chart note added (no code) [facility] ([id number]) no information Chart note added (no code) [facility] ([id number]) No panel information on 2019-03-13 Oxygen 98 % (no code) 94 - 100 % 03-13-2019 [facility] saturation in 12:12-0400 ([id number]) Blood no information Chart note added (no code) [facility] ([id number]) no information Chart note added (no code) [facility] ([id number]) No panel information on 2019-03-12 Oxygen 96 % (no code) 94 - 100 % 03-12-2019 [facility] saturation in 13:55-0400 ([id number]) Blood No panel information on 2019-03-11 Oxygen 97 % (no code) 94 - 100 % 03-11-2019 [facility] saturation in 12:11-0400 ([id number]) Blood No panel information on 2019-03-10 Oxygen 98 % (no code) 94 - 100 % 03-10-2019 [facility] saturation in 12:05-0400 ([id number]) Blood no information Chart note added (no code) [facility] ([id number]) no information Chart note added (no code) [facility] ([id number]) No panel information on 2019-03-08 Oxygen 95 % (no code) 94 - 100 % 03-08-2019 [facility] saturation in 12:07-0400 ([id number]) Blood no information Chart note added (no code) [facility] ([id number]) No panel information on 2019-03-07 Oxygen 96 % (no code) 94 - 100 % 03-07-2019 [facility] saturation in 12:04-0400 ([id number]) Blood no information Chart note added (no code) [facility] ([id number]) no information Chart note added (no code) [facility] ([id number]) No panel information on 2019-03-06 Oxygen 96 % (no code) 94 - 100 % 03-06-2019 [facility] saturation in 11:39-0400 ([id number]) Blood no information Chart note added (no code) [facility] ([id number]) no information Chart note added (no code) [facility] ([id number]) No panel information on 2019-03-05 Oxygen 95 % (no code) 94 - 100 % 03-05-2019 [facility] saturation in 12:07-0400 ([id number]) Blood No panel information on 2019-03-04 Oxygen 98 % (no code) 94 - 100 % 03-04-2019 [facility] saturation in 12:13-0400 ([id number]) Blood No panel information on 2019-03-03 Oxygen 95 % (no code) 94 - 100 % 03-03-2019 [facility] saturation in 20:10-0400 ([id number]) Blood No panel information on 2019-03-02 Oxygen 96 % (no code) 94 - 100 % 03-02-2019 [facility] saturation in 12:14-0400 ([id number]) Blood no information Chart note added (no code) [facility] ([id number]) No panel information on 2019-03-01 Oxygen 97 % (no code) 94 - 100 % 03-01-2019 [facility] saturation in 13:03-0400 ([id number]) Blood no information Chart note added (no code) [facility] ([id number]) No panel information on 2019-02-28 Free T4 1.2 ng/dL (N) 0.9 - 2.2 ng/dL [facility] [Mass/Vol] [facility] ([id number]) Oxygen 96 % (no code) 94 - 100 % 02-28-2019 [facility] saturation in 11:51-0400 ([id number]) Blood TSH Qn 0.19 m[IU]/L (L) 0.4 - 4 m[IU]/L [facility] ([id number]) no information Chart note added (no code) [facility] ([id number]) no information Chart note added (no code) [facility] ([id number]) No panel information on 2019-02-27 Oxygen 94 % (no code) 94 - 100 % 02-27-2019 [facility] saturation in 12:24-0400 ([id number]) Blood no information Chart note added (no code) [facility] ([id number]) no information Chart note added (no code) [facility] ([id number]) No panel information on 2019-02-26 Oxygen 98 % (no code) 94 - 100 % 02-26-2019 [facility] saturation in 12:17-0400 ([id number]) Blood No panel information on 2019-02-25 Oxygen 97 % (no code) 94 - 100 % 02-25-2019 [facility] saturation in 13:28-0400 ([id number]) Blood No panel information on 2019-02-19 Oxygen 95 % (no code) 94 - 100 % 02-19-2019 [facility] saturation in 11:33-0400 ([id number]) Blood No panel information on 2019-02-18 Oxygen 96 % (no code) 94 - 100 % 02-18-2019 [facility] saturation in 12:34-0400 ([id number]) Blood No panel information on 2019-02-17 Oxygen 96 % (no code) 94 - 100 % 02-17-2019 [facility] saturation in 09:53-0400 ([id number]) Blood no information Chart note added (no code) [facility] ([id number]) no information Chart note added (no code) [facility] ([id number]) No panel information on 2019-02-16 Oxygen 93 % (no code) 94 - 100 % 02-16-2019 [facility] saturation in 12:06-0400 ([id number]) Blood no information Chart note added (no code) [facility] ([id number]) No panel information on 2019-02-15 Oxygen 94 % (no code) 94 - 100 % 02-15-2019 [facility] saturation in 11:35-0400 ([id number]) Blood no information Chart note added (no code) [facility] ([id number]) No panel information on 2019-02-14 Oxygen 96 % (no code) 94 - 100 % 02-14-2019 [facility] saturation in 12:17-0400 ([id number]) Blood no information Chart note added (no code) [facility] ([id number]) no information Chart note added (no code) [facility] ([id number]) No panel information on 2019-02-13 Oxygen 96 % (no code) 94 - 100 % 02-13-2019 [facility] saturation in 10:49-0400 ([id number]) Blood no information Chart note added (no code) [facility] ([id number]) no information Chart note added (no code) [facility] ([id number]) No panel information on 2019-02-12 Oxygen 97 % (no code) 94 - 100 % 02-12-2019 [facility] saturation in 13:37-0400 ([id number]) Blood No panel information on 2019-02-11 Oxygen 96 % (no code) 94 - 100 % 02-11-2019 [facility] saturation in 12:23-0400 ([id number]) Blood No panel information on 2019-02-10 Oxygen 96 % (no code) 94 - 100 % 02-10-2019 [facility] saturation in 12:34-0400 ([id number]) Blood no information Chart note added (no code) [facility] ([id number]) No panel information on 2019-02-09 Oxygen 97 % (no code) 94 - 100 % 02-09-2019 [facility] saturation in 12:08-0400 ([id number]) Blood no information Chart note added (no code) [facility] ([id number]) No panel information on 2019-02-08 Oxygen 94 % (no code) 94 - 100 % 02-08-2019 [facility] saturation in 12:02-0400 ([id number]) Blood no information Chart note added (no code) [facility] ([id number]) No panel information on 2019-02-07 Oxygen 98 % (no code) 94 - 100 % 02-07-2019 [facility] saturation in 10:43-0400 ([id number]) Blood no information Chart note added (no code) [facility] ([id number]) no information Chart note added (no code) [facility] ([id number]) no information Chart note added (no code) [facility] ([id number]) No panel information on 2019-02-06 Oxygen 95 % (no code) 94 - 100 % 02-06-2019 [facility] saturation in 18:11-0400 ([id number]) Blood no information Chart note added (no code) [facility] ([id number]) No panel information on 2019-02-05 Oxygen 95 % (no code) 94 - 100 % 02-05-2019 [facility] saturation in 12:07-0400 ([id number]) Blood No panel information on 2019-02-04 Oxygen 97 % (no code) 94 - 100 % 02-04-2019 [facility] saturation in 12:54-0400 ([id number]) Blood No panel information on 2019-02-03 Oxygen 96 % (no code) 94 - 100 % 02-03-2019 [facility] saturation in 10:51-0400 ([id number]) Blood no information Chart note added (no code) [facility] ([id number]) No panel information on 2019-02-02 Oxygen 98 % (no code) 94 - 100 % 02-02-2019 [facility] saturation in 14:21-0400 ([id number]) Blood no information Chart note added (no code) [facility] ([id number]) No panel information on 2019-02-01 Oxygen 94 % (no code) 94 - 100 % 02-01-2019 [facility] saturation in 11:30-0400 ([id number]) Blood no information Chart note added (no code) [facility] ([id number]) no information Chart note added (no code) [facility] ([id number]) No panel information on 2019-01-31 Oxygen 99 % (no code) 94 - 100 % 01-31-2019 [facility] saturation in 12:27-0400 ([id number]) Blood no information Chart note added (no code) [facility] ([id number]) no information Chart note added (no code) [facility] ([id number]) No panel information on 2019-01-30 Oxygen 96 % (no code) 94 - 100 % 01-30-2019 [facility] saturation in 12:05-0400 ([id number]) Blood no information Chart note added (no code) [facility] ([id number]) No panel information on 2019-01-29 Oxygen 99 % (no code) 94 - 100 % 01-29-2019 [facility] saturation in 12:13-0400 ([id number]) Blood No panel information on 2019-01-28 Oxygen 96 % (no code) 94 - 100 % 01-28-2019 [facility] saturation in 12:22-0400 ([id number]) Blood No panel information on 2019-01-27 Oxygen 93 % (no code) 94 - 100 % 01-27-2019 [facility] saturation in 11:21-0400 ([id number]) Blood no information Chart note added (no code) [facility] ([id number]) No panel information on 2019-01-26 Oxygen 93 % (no code) 94 - 100 % 01-26-2019 [facility] saturation in 15:42-0400 ([id number]) Blood no information Chart note added (no code) [facility] ([id number]) no information Chart note added (no code) [facility] ([id number]) No panel information on 2019-01-25 Oxygen 96 % (no code) 94 - 100 % 01-25-2019 [facility] saturation in 11:30-0400 ([id number]) Blood no information Chart note added (no code) [facility] ([id number]) No panel information on 2019-01-24 Oxygen 96 % (no code) 94 - 100 % 01-24-2019 [facility] saturation in 11:42-0400 ([id number]) Blood no information Chart note added (no code) [facility] ([id number]) no information Chart note added (no code) [facility] ([id number]) No panel information on 2019-01-23 Oxygen 97 % (no code) 94 - 100 % 01-23-2019 [facility] saturation in 12:08-0400 ([id number]) Blood no information Chart note added (no code) [facility] ([id number]) no information Chart note added (no code) [facility] ([id number]) No panel information on 2019-01-22 Oxygen 96 % (no code) 94 - 100 % 01-22-2019 [facility] saturation in 12:47-0400 ([id number]) Blood No panel information on 2019-01-21 Oxygen 98 % (no code) 94 - 100 % 01-21-2019 [facility] saturation in 16:23-0400 ([id number]) Blood No panel information on 2019-01-20 Oxygen 98 % (no code) 94 - 100 % 01-20-2019 [facility] saturation in 12:12-0400 ([id number]) Blood no information Chart note added (no code) [facility] ([id number]) No panel information on 2019-01-19 Oxygen 96 % (no code) 94 - 100 % 01-19-2019 [facility] saturation in 12:09-0400 ([id number]) Blood no information Chart note added (no code) [facility] ([id number]) No panel information on 2019-01-18 Oxygen 93 % (no code) 94 - 100 % 01-18-2019 [facility] saturation in 10:57-0400 ([id number]) Blood no information Chart note added (no code) [facility] ([id number]) No panel information on 2019-01-17 Oxygen 95 % (no code) 94 - 100 % 01-17-2019 [facility] saturation in 12:11-0400 ([id number]) Blood no information Chart note added (no code) [facility] ([id number]) no information Chart note added (no code) [facility] ([id number]) No panel information on 2019-01-16 Oxygen 98 % (no code) 94 - 100 % 01-16-2019 [facility] saturation in 10:53-0400 ([id number]) Blood no information Chart note added (no code) [facility] ([id number]) No panel information on 2019-01-15 Oxygen 97 % (no code) 94 - 100 % 01-15-2019 [facility] saturation in 16:20-0400 ([id number]) Blood No panel information on 2019-01-14 Oxygen 97 % (no code) 94 - 100 % 01-14-2019 [facility] saturation in 12:15-0400 ([id number]) Blood No panel information on 2019-01-13 Oxygen 97 % (no code) 94 - 100 % 01-13-2019 [facility] saturation in 12:12-0400 ([id number]) Blood no information Chart note added (no code) [facility] ([id number]) No panel information on 2019-01-12 Oxygen 95 % (no code) 94 - 100 % 01-12-2019 [facility] saturation in 12:55-0400 ([id number]) Blood no information Chart note added (no code) [facility] ([id number]) No panel information on 2019-01-11 Oxygen 97 % (no code) 94 - 100 % 01-11-2019 [facility] saturation in 12:13-0400 ([id number]) Blood no information Chart note added (no code) [facility] ([id number]) No panel information on 2019-01-10 Oxygen 95 % (no code) 94 - 100 % 01-10-2019 [facility] saturation in 12:09-0400 ([id number]) Blood no information Chart note added (no code) [facility] ([id number]) no information Chart note added (no code) [facility] ([id number]) No panel information on 2019-01-09 Oxygen 92 % (no code) 94 - 100 % 01-09-2019 [facility] saturation in 12:01-0400 ([id number]) Blood no information Chart note added (no code) [facility] ([id number]) no information Chart note added (no code) [facility] ([id number]) No panel information on 2019-01-08 Oxygen 94 % (no code) 94 - 100 % 01-08-2019 [facility] saturation in 12:15-0400 ([id number]) Blood No panel information on 2019-01-07 Oxygen 96 % (no code) 94 - 100 % 01-07-2019 [facility] saturation in 10:07-0400 ([id number]) Blood No panel information on 2019-01-06 Oxygen 96 % (no code) 94 - 100 % 01-06-2019 [facility] saturation in 12:24-0400 ([id number]) Blood no information Chart note added (no code) [facility] ([id number]) No panel information on 2019-01-05 Oxygen 99 % (no code) 94 - 100 % 01-05-2019 [facility] saturation in 09:22-0400 ([id number]) Blood no information Chart note added (no code) [facility] ([id number]) No panel information on 2019-01-04 Oxygen 97 % (no code) 94 - 100 % 01-04-2019 [facility] saturation in 11:50-0400 ([id number]) Blood no information Chart note added (no code) [facility] ([id number]) No panel information on 2019-01-03 Oxygen 96 % (no code) 94 - 100 % 01-03-2019 [facility] saturation in 12:30-0400 ([id number]) Blood no information Chart note added (no code) [facility] ([id number]) No panel information on 2019-01-02 Oxygen 98 % (no code) 94 - 100 % 01-02-2019 [facility] saturation in 11:15-0400 ([id number]) Blood no information Chart note added (no code) [facility] ([id number]) no information Chart note added (no code) [facility] ([id number]) No panel information on 2018-12-30 no information Chart note added (no code) [facility] ([id number]) No panel information on 2018-12-29 no information Chart note added (no code) [facility] ([id number]) No panel information on 2018-12-28 Oxygen 96 % (no code) 94 - 100 % 12-28-2018 [facility] saturation in 12:20-0400 ([id number]) Blood no information Chart note added (no code) [facility] ([id number]) No panel information on 2018-12-27 Oxygen 97 % (no code) 94 - 100 % 12-27-2018 [facility] saturation in 12:13-0400 ([id number]) Blood no information Chart note added (no code) [facility] ([id number]) no information Chart note added (no code) [facility] ([id number]) No panel information on 2018-12-26 Oxygen 96 % (no code) 94 - 100 % 12-26-2018 [facility] saturation in 12:21-0400 ([id number]) Blood no information Chart note added (no code) [facility] ([id number]) No panel information on 2018-12-25 Oxygen 96 % (no code) 94 - 100 % 12-25-2018 [facility] saturation in 12:24-0400 ([id number]) Blood No panel information on 2018-12-24 Oxygen 97 % (no code) 94 - 100 % 12-24-2018 [facility] saturation in 12:26-0400 ([id number]) Blood No panel information on 2018-12-23 Oxygen 98 % (no code) 94 - 100 % 12-23-2018 [facility] saturation in 12:12-0400 ([id number]) Blood no information Chart note added (no code) [facility] ([id number]) No panel information on 2018-12-22 Oxygen 98 % (no code) 94 - 100 % 12-22-2018 [facility] saturation in 11:47-0400 ([id number]) Blood No panel information on 2018-12-21 Oxygen 97 % (no code) 94 - 100 % 12-21-2018 [facility] saturation in 12:45-0400 ([id number]) Blood no information Chart note added (no code) [facility] ([id number]) No panel information on 2018-12-20 Oxygen 97 % (no code) 94 - 100 % 12-20-2018 [facility] saturation in 12:28-0400 ([id number]) Blood no information Chart note added (no code) [facility] ([id number]) no information Chart note added (no code) [facility] ([id number]) No panel information on 2018-12-19 Oxygen 98 % (no code) 94 - 100 % 12-19-2018 [facility] saturation in 12:54-0400 ([id number]) Blood no information Chart note added (no code) [facility] ([id number]) no information Chart note added (no code) [facility] ([id number]) No panel information on 2018-12-18 Oxygen 98 % (no code) 94 - 100 % 12-18-2018 [facility] saturation in 11:39-0400 ([id number]) Blood No panel information on 2018-12-17 Oxygen 98 % (no code) 94 - 100 % 12-17-2018 [facility] saturation in 12:14-0400 ([id number]) Blood No panel information on 2018-12-16 Oxygen 98 % (no code) 94 - 100 % 12-16-2018 [facility] saturation in 13:13-0400 ([id number]) Blood no information Chart note added (no code) [facility] ([id number]) No panel information on 2018-12-15 Oxygen 97 % (no code) 94 - 100 % 12-15-2018 [facility] saturation in 11:52-0400 ([id number]) Blood no information Chart note added (no code) [facility] ([id number]) No panel information on 2018-12-14 Oxygen 97 % (no code) 94 - 100 % 12-14-2018 [facility] saturation in 12:32-0400 ([id number]) Blood no information Chart note added (no code) [facility] ([id number]) No panel information on 2018-12-13 Oxygen 98 % (no code) 94 - 100 % 12-13-2018 [facility] saturation in 11:55-0400 ([id number]) Blood no information Chart note added (no code) [facility] ([id number]) no information Chart note added (no code) [facility] ([id number]) No panel information on 2018-12-12 Oxygen 98 % (no code) 94 - 100 % 12-12-2018 [facility] saturation in 13:05-0400 ([id number]) Blood no information Chart note added (no code) [facility] ([id number]) no information Chart note added (no code) [facility] ([id number]) no information Chart note added (no code) [facility] ([id number]) No panel information on 2018-12-11 Oxygen 98 % (no code) 94 - 100 % 12-11-2018 [facility] saturation in 11:34-0400 ([id number]) Blood No panel information on 2018-12-10 Oxygen 96 % (no code) 94 - 100 % 12-10-2018 [facility] saturation in 12:21-0400 ([id number]) Blood No panel information on 2018-12-09 Oxygen 97 % (no code) 94 - 100 % 12-09-2018 [facility] saturation in 11:02-0400 ([id number]) Blood No panel information on 2018-12-08 Albumin 3.8 g/dL (N) 3.4 - 5.4 g/dL [facility] [Mass/Vol] [facility] ([id number]) Albumin/Globulin 1.1 {ratio} (N) 1 - 2.5 {ratio} [facility] [Mass ratio] [facility] ([id number]) ALP [Catalytic 67 U/L (N) 44 - 147 U/L [facility] Health activity/Vol] [facility] ([id number]) ALT [Catalytic 6 U/L (N) 4 - 40 U/L [facility] ealt activity/Vol] [facility] (50230) AST [Catalytic 15 U/L (N) 10 - 34 U/L [facility] activity/Vol] [facility] ([id number]) Bilirubin 0.2 mg/dL (N) 0.1 - 1.2 mg/dL [facility] [Mass/Vol] [facility] ([id number]) Calcium 8.8 mg/dL (N) 8.5 - 10.2 mg/dL [facility] [Mass/Vol] [facility] ([id number]) Chloride 113 mmol/L (H) 95 - 106 mmol/L [facility] [Moles/Vol] [facility] ([id number]) CO2 [Moles/Vol] 15 mmol/L (L) 23 - 29 mmol/L [facility] ([id number]) Creatinine 2.12 mg/dL (H) [facility] [[facility] (85372) GFR/1.73 sq M 24 (L) 90 - 120 [facility] [place] predicted among mL/min/{1.73_m2} mL/min/{1.73_m2} [place] [facility] blacks MDRD [facility] (S/P/Bld) [Vol ([id number]) rate/Area] GFR/1.73 sq 21 (L) 90 - 120 [facility] Heal th M.predicted MDRD mL/min/{1.73_m2} mL/min/{1.73_m2} [facility] (S/P/Bld) [Vol [facility] rate/Area] ([id number]) Globulin (S) 3.4 g/dL (N) 2 - 3.5 g/dL [facility] [Mass/Vol] [facility] (56910) Glucose 93 mg/dL (N) 60 - 125 mg/dL [facility] [Mass/Vol] [facility] (06018) Oxygen 96 % (no code) 94 - 100 % 12-08-2018 [facility] saturation in 14:40-0400 ([id number]) Blood Potassium 4.6 mmol/L (N) 3.7 - 5.2 mmol/L [facility] [Moles/Vol] [facility] (90776) Protein 7.2 g/dL (N) 6.4 - 8.3 g/dL [facility] [Mass/Vol] [facility] (97047) Sodium 138 mmol/L (N) 135 - 145 mmol/L [facility] [Moles/Vol] [facility] (98140) TSH Qn 5.29 m[IU]/L (H) 0.4 - 4 m[IU]/L [facility] ([id number]) Urea nitrogen 61 mg/dL (H) 7 - 20 mg/dL [facility] [Mass/Vol] [facility] (17782) Urea 29 mg/mg (H) 6 - 22 mg/mg [facility] nitrogen/Creatin [facility] [Mass ratio] [facility] ([id number]) No panel information on 2018-12-07 Oxygen 97 % (no code) 94 - 100 % 12-07-2018 [facility] saturation in 12:16-0400 ([id number]) Blood no information Chart note added (no code) [facility] ([id number]) no information Chart note added (no code) [facility] ([id number]) No panel information on 2018-12-06 Oxygen 98 % (no code) 94 - 100 % 12-06-2018 [facility] saturation in 20:18-0400 ([id number]) Blood no information Chart note added (no code) [facility] ([id number]) No panel information on 2018-12-05 Oxygen 97 % (no code) 94 - 100 % 12-05-2018 [facility] saturation in 13:14-0400 ([id number]) Blood no information Chart note added (no code) [facility] ([id number]) No panel information on 2018-12-04 Oxygen 97 % (no code) 94 - 100 % 12-04-2018 [facility] saturation in 11:48-0400 ([id number]) Blood No panel information on 2018-12-03 Oxygen 98 % (no code) 94 - 100 % 12-03-2018 [facility] saturation in 11:29-0500 ([id number]) Blood No panel information on 2018-12-02 Oxygen 98 % (no code) 94 - 100 % 12-02-2018 [facility] saturation in 11:22-0500 ([id number]) Blood no information Chart note added (no code) [facility] ([id number]) No panel information on 2018-12-01 Oxygen 98 % (no code) 94 - 100 % 12-01-2018 [facility] saturation in 12:15-0500 ([id number]) Blood no information Chart note added (no code) [facility] ([id number]) no information Chart note added (no code) [facility] ([id number]) No panel information on 2018-11-30 Oxygen 98 % (no code) 94 - 100 % 11-30-2018 [facility] saturation in 12:06-0500 ([id number]) Blood no information Chart note added (no code) [facility] ([id number]) No panel information on 2018-11-29 Oxygen 89 % (L) 94 - 100 % 11-29-2018 [facility] saturation in 12:18-0500 ([id number]) Blood no information Chart note added (no code) [facility] ([id number]) no information Chart note added (no code) [facility] ([id number]) No panel information on 2018-11-28 Oxygen 98 % (no code) 94 - 100 % 11-28-2018 [facility] saturation in 12:07-0500 ([id number]) Blood no information Chart note added (no code) [facility] ([id number]) no information Chart note added (no code) [facility] ([id number]) No panel information on 2018-11-27 Oxygen 97 % (no code) 94 - 100 % 11-27-2018 [facility] saturation in 12:05-0500 ([id number]) Blood No panel information on 2018-11-26 Oxygen 98 % (no code) 94 - 100 % 11-26-2018 [facility] saturation in 12:28-0500 ([id number]) Blood No panel information on 2018-11-25 Oxygen 98 % (no code) 94 - 100 % 11-25-2018 [facility] saturation in 12:04-0500 ([id number]) Blood no information Chart note added (no code) [facility] ([id number]) No panel information on 2018-11-24 Oxygen 98 % (no code) 94 - 100 % 11-24-2018 [facility] saturation in 12:18-0500 ([id number]) Blood no information Chart note added (no code) [facility] ([id number]) No panel information on 2018-11-23 Oxygen 95 % (no code) 94 - 100 % 11-23-2018 [facility] saturation in 12:38-0500 ([id number]) Blood no information Chart note added (no code) [facility] ([id number]) No panel information on 2018-11-22 Oxygen 95 % (no code) 94 - 100 % 11-22-2018 [facility] saturation in 12:32-0500 ([id number]) Blood no information Chart note added (no code) [facility] ([id number]) no information Chart note added (no code) [facility] ([id number]) No panel information on 2018-11-21 Oxygen 97 % (no code) 94 - 100 % 11-21-2018 [facility] saturation in 14:35-0500 ([id number]) Blood no information Chart note added (no code) [facility] ([id number]) no information Chart note added (no code) [facility] ([id number]) No panel information on 2018-11-20 Oxygen 91 % (no code) 94 - 100 % 11-20-2018 [facility] saturation in 14:24-0500 ([id number]) Blood No panel information on 2018-11-19 Oxygen 98 % (no code) 94 - 100 % 11-19-2018 [facility] saturation in 11:06-0500 ([id number]) Blood No panel information on 2018-11-18 Oxygen 97 % (no code) 94 - 100 % 11-18-2018 [facility] saturation in 12:13-0500 ([id number]) Blood no information Chart note added (no code) [facility] ([id number]) No panel information on 2018-11-17 Oxygen 96 % (no code) 94 - 100 % 11-17-2018 [facility] saturation in 12:18-0500 ([id number]) Blood no information Chart note added (no code) [facility] ([id number]) No panel information on 2018-11-16 Oxygen 93 % (no code) 94 - 100 % 11-16-2018 [facility] saturation in 10:31-0500 ([id number]) Blood no information Chart note added (no code) [facility] ([id number]) No panel information on 2018-11-15 Oxygen 92 % (no code) 94 - 100 % 11-15-2018 [facility] saturation in 12:21-0500 ([id number]) Blood no information Chart note added (no code) [facility] ([id number]) No panel information on 2018-11-14 Oxygen 98 % (no code) 94 - 100 % 11-14-2018 [facility] saturation in 11:38-0500 ([id number]) Blood no information Chart note added (no code) [facility] ([id number]) No panel information on 2018-11-13 Oxygen 93 % (no code) 94 - 100 % 11-13-2018 [facility] saturation in 13:03-0500 ([id number]) Blood No panel information on 2018-11-12 Oxygen 95 % (no code) 94 - 100 % 11-12-2018 [facility] saturation in 11:17-0500 ([id number]) Blood No panel information on 2018-11-11 Oxygen 96 % (no code) 94 - 100 % 11-11-2018 [facility] saturation in 12:01-0500 ([id number]) Blood no information Chart note added (no code) [facility] ([id number]) No panel information on 2018-11-10 Oxygen 96 % (no code) 94 - 100 % 11-10-2018 [facility] saturation in 11:12-0500 ([id number]) Blood no information Chart note added (no code) [facility] ([id number]) No panel information on 2018-11-09 Oxygen 96 % (no code) 94 - 100 % 11-09-2018 [facility] saturation in 12:12-0500 ([id number]) Blood no information Chart note added (no code) [facility] ([id number]) No panel information on 2018-11-08 Oxygen 93 % (no code) 94 - 100 % 11-08-2018 [facility] saturation in 13:16-0500 ([id number]) Blood no information Chart note added (no code) [facility] ([id number]) no information Chart note added (no code) [facility] ([id number]) No panel information on 2018-11-07 Oxygen 96 % (no code) 94 - 100 % 11-07-2018 [facility] saturation in 12:11-0500 ([id number]) Blood no information Chart note added (no code) [facility] ([id number]) no information Chart note added (no code) [facility] ([id number]) No panel information on 2018-11-06 Oxygen 92 % (no code) 94 - 100 % 11-06-2018 [facility] saturation in 13:54-0500 ([id number]) Blood No panel information on 2018-11-05 Oxygen 96 % (no code) 94 - 100 % 11-05-2018 [facility] saturation in 11:48-0500 ([id number]) Blood No panel information on 2018-11-04 Oxygen 96 % (no code) 94 - 100 % 11-04-2018 [facility] saturation in 12:04-0500 ([id number]) Blood no information Chart note added (no code) [facility] ([id number]) No panel information on 2018-11-03 Oxygen 95 % (no code) 94 - 100 % 11-03-2018 [facility] saturation in 12:11-0500 ([id number]) Blood no information Chart note added (no code) [facility] ([id number]) No panel information on 2018-11-02 Oxygen 93 % (no code) 94 - 100 % 11-02-2018 [facility] saturation in 12:45-0500 ([id number]) Blood no information Chart note added (no code) [facility] ([id number]) No panel information on 2018-11-01 Oxygen 98 % (no code) 94 - 100 % 11-01-2018 [facility] saturation in 12:07-0500 ([id number]) Blood no information Chart note added (no code) [facility] ([id number]) no information Chart note added (no code) [facility] ([id number]) No panel information on 2018-10-31 Oxygen 95 % (no code) 94 - 100 % 10-31-2018 [facility] saturation in 13:55-0500 ([id number]) Blood no information Chart note added (no code) [facility] ([id number]) no information Chart note added (no code) [facility] ([id number]) No panel information on 2018-10-30 Oxygen 98 % (no code) 94 - 100 % 10-30-2018 [facility] saturation in 12:03-0500 ([id number]) Blood No panel information on 2018-10-29 Oxygen 94 % (no code) 94 - 100 % 10-29-2018 [facility] saturation in 12:04-0500 ([id number]) Blood No panel information on 2018-10-28 Oxygen 96 % (no code) 94 - 100 % 10-28-2018 [facility] saturation in 12:29-0500 ([id number]) Blood no information Chart note added (no code) [facility] ([id number]) No panel information on 2018-10-27 Oxygen 96 % (no code) 94 - 100 % 10-27-2018 [facility] saturation in 12:15-0500 ([id number]) Blood no information Chart note added (no code) [facility] ([id number]) No panel information on 2018-10-26 Oxygen 95 % (no code) 94 - 100 % 10-26-2018 [facility] saturation in 12:39-0500 ([id number]) Blood no information Chart note added (no code) [facility] ([id number]) No panel information on 2018-10-25 Oxygen 95 % (no code) 94 - 100 % 10-25-2018 [facility] saturation in 12:04-0500 ([id number]) Blood no information Chart note added (no code) [facility] ([id number]) No panel information on 2018-10-24 Oxygen 95 % (no code) 94 - 100 % 10-24-2018 [facility] saturation in 12:12-0500 ([id number]) Blood no information Chart note added (no code) [facility] ([id number]) No panel information on 2018-10-23 Oxygen 97 % (no code) 94 - 100 % 10-23-2018 [facility] saturation in 06:44-0500 ([id number]) Blood Oxygen 97 % (no code) 94 - 100 % 10-23-2018 [facility] saturation in 19:18-0500 ([id number]) Blood No panel information on 2018-10-22 Oxygen 97 % (no code) 94 - 100 % 10-22-2018 [facility] saturation in 12:04-0500 ([id number]) Blood No panel information on 2018-10-21 Oxygen 94 % (no code) 94 - 100 % 10-21-2018 [facility] saturation in 11:36-0500 ([id number]) Blood no information Chart note added (no code) [facility] ([id number]) No panel information on 2018-10-20 Oxygen 97 % (no code) 94 - 100 % 10-20-2018 [facility] saturation in 12:04-0500 ([id number]) Blood no information Chart note added (no code) [facility] ([id number]) No panel information on 2018-10-19 Oxygen 96 % (no code) 94 - 100 % 10-19-2018 [facility] saturation in 12:16-0500 ([id number]) Blood no information Chart note added (no code) [facility] ([id number]) No panel information on 2018-10-18 Oxygen 94 % (no code) 94 - 100 % 10-18-2018 [facility] saturation in 12:23-0500 ([id number]) Blood no information Chart note added (no code) [facility] ([id number]) no information Chart note added (no code) [facility] ([id number]) No panel information on 2018-10-17 Oxygen 97 % (no code) 94 - 100 % 10-17-2018 [facility] saturation in 13:43-0500 ([id number]) Blood no information Chart note added (no code) [facility] ([id number]) no information Chart note added (no code) [facility] ([id number]) No panel information on 2018-10-16 Oxygen 96 % (no code) 94 - 100 % 10-16-2018 [facility] saturation in 12:12-0500 ([id number]) Blood No panel information on 2018-10-15 Oxygen 97 % (no code) 94 - 100 % 10-15-2018 [facility] saturation in 11:58-0500 ([id number]) Blood No panel information on 2018-10-14 Oxygen 96 % (no code) 94 - 100 % 10-14-2018 [facility] saturation in 12:17-0500 ([id number]) Blood no information Chart note added (no code) [facility] ([id number]) No panel information on 2018-10-13 Oxygen 98 % (no code) 94 - 100 % 10-13-2018 [facility] saturation in 15:27-0500 ([id number]) Blood no information Chart note added (no code) [facility] ([id number]) No panel information on 2018-10-12 Oxygen 97 % (no code) 94 - 100 % 10-12-2018 [facility] saturation in 13:05-0500 ([id number]) Blood no information Chart note added (no code) [facility] ([id number]) No panel information on 2018-10-11 Oxygen 96 % (no code) 94 - 100 % 10-11-2018 [facility] saturation in 12:25-0500 ([id number]) Blood no information Chart note added (no code) [facility] ([id number]) no information Chart note added (no code) [facility] ([id number]) No panel information on 2018-10-10 Oxygen 96 % (no code) 94 - 100 % 10-10-2018 [facility] saturation in 12:09-0500 ([id number]) Blood no information Chart note added (no code) [facility] ([id number]) no information Chart note added (no code) [facility] ([id number]) No panel information on 2018-10-09 Oxygen 98 % (no code) 94 - 100 % 10-09-2018 [facility] saturation in 11:46-0500 ([id number]) Blood No panel information on 2018-10-08 Oxygen 96 % (no code) 94 - 100 % 10-08-2018 [facility] saturation in 12:09-0500 ([id number]) Blood No panel information on 2018-10-07 Oxygen 98 % (no code) 94 - 100 % 10-07-2018 [facility] saturation in 12:03-0500 ([id number]) Blood no information Chart note added (no code) [facility] ([id number]) No panel information on 2018-10-06 Oxygen 97 % (no code) 94 - 100 % 10-06-2018 [facility] saturation in 12:02-0500 ([id number]) Blood no information Chart note added (no code) [facility] ([id number]) No panel information on 2018-10-05 Oxygen 97 % (no code) 94 - 100 % 10-05-2018 [facility] saturation in 11:46-0500 ([id number]) Blood no information Chart note added (no code) [facility] ([id number]) No panel information on 2018-10-04 Oxygen 99 % (no code) 94 - 100 % 10-04-2018 [facility] saturation in 12:03-0500 ([id number]) Blood no information Chart note added (no code) [facility] ([id number]) no information Chart note added (no code) [facility] ([id number]) no information Chart note added (no code) [facility] ([id number]) No panel information on 2018-10-03 Oxygen 98 % (no code) 94 - 100 % 10-03-2018 [facility] saturation in 12:09-0500 ([id number]) Blood no information Chart note added (no code) [facility] ([id number]) no information Chart note added (no code) [facility] ([id number]) No panel information on 2018-10-02 Oxygen 99 % (no code) 94 - 100 % 10-02-2018 [facility] saturation in 12:07-0500 ([id number]) Blood No panel information on 2018-10-01 Oxygen 97 % (no code) 94 - 100 % 10-01-2018 [facility] saturation in 12:09-0500 ([id number]) Blood No panel information on 2018-09-30 Oxygen 96 % (no code) 94 - 100 % 09-30-2018 [facility] saturation in 13:07-0500 ([id number]) Blood no information Chart note added (no code) [facility] ([id number]) no information Chart note added (no code) [facility] ([id number]) No panel information on 2018-09-29 Oxygen 95 % (no code) 94 - 100 % 09-29-2018 [facility] saturation in 12:23-0500 ([id number]) Blood no information Chart note added (no code) [facility] ([id number]) No panel information on 2018-09-28 Oxygen 96 % (no code) 94 - 100 % 09-28-2018 [facility] saturation in 11:59-0500 ([id number]) Blood no information Chart note added (no code) [facility] ([id number]) no information Chart note added (no code) [facility] ([id number]) No panel information on 2018-09-27 Oxygen 95 % (no code) 94 - 100 % 09-27-2018 [facility] saturation in 12:14-0500 ([id number]) Blood No panel information on 2018-09-26 Oxygen 96 % (no code) 94 - 100 % 09-26-2018 [facility] saturation in 11:31-0500 ([id number]) Blood no information Chart note added (no code) [facility] ([id number]) No panel information on 2018-09-25 Oxygen 95 % (no code) 94 - 100 % 09-25-2018 [facility] saturation in 07:16-0500 ([id number]) Blood No panel information on 2018-09-24 Oxygen 98 % (no code) 94 - 100 % 09-24-2018 [facility] saturation in 12:12-0500 ([id number]) Blood No panel information on 2018-09-23 Oxygen 98 % (no code) 94 - 100 % 09-23-2018 [facility] saturation in 13:50-0500 ([id number]) Blood no information Chart note added (no code) [facility] ([id number]) no information Chart note added (no code) [facility] ([id number]) No panel information on 2018-09-22 Oxygen 97 % (no code) 94 - 100 % 09-22-2018 [facility] saturation in 11:25-0500 ([id number]) Blood no information Chart note added (no code) [facility] ([id number]) no information Chart note added (no code) [facility] ([id number]) No panel information on 2018-09-21 Oxygen 99 % (no code) 94 - 100 % 09-21-2018 [facility] saturation in 13:17-0500 ([id number]) Blood no information Chart note added (no code) [facility] ([id number]) no information Chart note added (no code) [facility] ([id number]) No panel information on 2018-09-20 Oxygen 96 % (no code) 94 - 100 % 09-20-2018 [facility] saturation in 12:12-0500 ([id number]) Blood No panel information on 2018-09-19 Oxygen 98 % (no code) 94 - 100 % 09-19-2018 [facility] saturation in 12:07-0500 ([id number]) Blood No panel information on 2018-09-18 Oxygen 96 % (no code) 94 - 100 % 09-18-2018 [facility] saturation in 11:27-0500 ([id number]) Blood No panel information on 2018-09-17 Oxygen 96 % (no code) 94 - 100 % 09-17-2018 [facility] saturation in 13:03-0500 ([id number]) Blood No panel information on 2018-09-16 Oxygen 98 % (no code) 94 - 100 % 09-16-2018 [facility] saturation in 12:16-0500 ([id number]) Blood No panel information on 2018-09-15 Oxygen 98 % (no code) 94 - 100 % 09-15-2018 [facility] saturation in 11:59-0500 ([id number]) Blood no information Chart note added (no code) [facility] ([id number]) No panel information on 2018-09-14 Oxygen 94 % (no code) 94 - 100 % 09-14-2018 [facility] saturation in 13:31-0500 ([id number]) Blood no information Chart note added (no code) [facility] ([id number]) No panel information on 2018-09-13 Oxygen 96 % (no code) 94 - 100 % 09-13-2018 [facility] saturation in 11:03-0500 ([id number]) Blood no information Chart note added (no code) [facility] ([id number]) No panel information on 2018-09-12 Oxygen 98 % (no code) 94 - 100 % 09-12-2018 [facility] saturation in 12:31-0500 ([id number]) Blood no information Chart note added (no code) [facility] ([id number]) no information Chart note added (no code) [facility] ([id number]) no information Chart note added (no code) [facility] ([id number]) No panel information on 2018-09-11 Oxygen 97 % (no code) 94 - 100 % 09-11-2018 [facility] saturation in 07:45-0500 ([id number]) Blood No panel information on 2018-09-10 Oxygen 94 % (no code) 94 - 100 % 09-10-2018 [facility] saturation in 14:01-0500 ([id number]) Blood No panel information on 2018-09-09 Oxygen 97 % (no code) 94 - 100 % 09-09-2018 [facility] saturation in 11:46-0500 ([id number]) Blood no information Chart note added (no code) [facility] ([id number]) No panel information on 2018-09-08 Oxygen 99 % (no code) 94 - 100 % 09-08-2018 [facility] saturation in 15:59-0500 ([id number]) Blood no information Chart note added (no code) [facility] ([id number]) No panel information on 2018-09-07 Oxygen 96 % (no code) 94 - 100 % 09-07-2018 [facility] saturation in 12:14-0500 ([id number]) Blood no information Chart note added (no code) [facility] ([id number]) no information Chart note added (no code) [facility] ([id number]) No panel information on 2018-09-06 Oxygen 95 % (no code) 94 - 100 % 09-06-2018 [facility] saturation in 16:40-0500 ([id number]) Blood No panel information on 2018-09-05 Oxygen 97 % (no code) 94 - 100 % 09-05-2018 [facility] saturation in 12:58-0500 ([id number]) Blood no information Chart note added (no code) [facility] ([id number]) no information Chart note added (no code) [facility] ([id number]) No panel information on 2018-09-04 Oxygen 97 % (no code) 94 - 100 % 09-04-2018 [facility] saturation in 11:29-0500 ([id number]) Blood No panel information on 2018-09-03 Oxygen 95 % (no code) 94 - 100 % 09-03-2018 [facility] saturation in 12:07-0500 ([id number]) Blood No panel information on 2018-09-02 Oxygen 95 % (no code) 94 - 100 % 09-02-2018 [facility] saturation in 12:03-0500 ([id number]) Blood no information Chart note added (no code) [facility] ([id number]) no information Chart note added (no code) [facility] ([id number]) No panel information on 2018-09-01 Oxygen 99 % (no code) 94 - 100 % 09-01-2018 [facility] saturation in 19:35-0500 ([id number]) Blood No panel information on 2018-08-31 Oxygen 96 % (no code) 94 - 100 % 08-31-2018 [facility] saturation in 12:54-0500 ([id number]) Blood no information Chart note added (no code) [facility] ([id number]) No panel information on 2018-08-30 Oxygen 91 % (no code) 94 - 100 % 08-30-2018 [facility] saturation in 14:05-0500 ([id number]) Blood no information Chart note added (no code) [facility] ([id number]) no information Chart note added (no code) [facility] ([id number]) No panel information on 2018-08-29 Oxygen 98 % (no code) 94 - 100 % 08-29-2018 [facility] saturation in 21:07-0500 ([id number]) Blood No panel information on 2018-08-28 Oxygen 99 % (no code) 94 - 100 % 08-28-2018 [facility] saturation in 12:16-0500 ([id number]) Blood No panel information on 2018-08-27 Oxygen 95 % (no code) 94 - 100 % 08-27-2018 [facility] saturation in 11:58-0500 ([id number]) Blood No panel information on 2018-08-26 Oxygen 98 % (no code) 94 - 100 % 08-26-2018 [facility] saturation in 12:36-0500 ([id number]) Blood no information Chart note added (no code) [facility] ([id number]) No panel information on 2018-08-25 Oxygen 98 % (no code) 94 - 100 % 08-25-2018 [facility] saturation in 12:02-0500 ([id number]) Blood no information Chart note added (no code) [facility] ([id number]) No panel information on 2018-08-24 Oxygen 96 % (no code) 94 - 100 % 08-24-2018 [facility] saturation in 12:48-0500 ([id number]) Blood no information Chart note added (no code) [facility] ([id number]) No panel information on 2018-08-23 Oxygen 95 % (no code) 94 - 100 % 08-23-2018 [facility] saturation in 12:02-0500 ([id number]) Blood no information Chart note added (no code) [facility] ([id number]) no information Chart note added (no code) [facility] ([id number]) No panel information on 2018-08-22 Oxygen 98 % (no code) 94 - 100 % 08-22-2018 [facility] saturation in 12:43-0500 ([id number]) Blood no information Chart note added (no code) [facility] ([id number]) No panel information on 2018-08-21 Oxygen 89 % (L) 94 - 100 % 08-21-2018 [facility] saturation in 12:04-0500 ([id number]) Blood no information Chart note added (no code) [facility] ([id number]) No panel information on 2018-08-20 Oxygen 97 % (no code) 94 - 100 % 08-20-2018 [facility] saturation in 12:24-0500 ([id number]) Blood No panel information on 2018-08-19 Oxygen 98 % (no code) 94 - 100 % 08-19-2018 [facility] saturation in 11:45-0500 ([id number]) Blood no information Chart note added (no code) [facility] ([id number]) No panel information on 2018-08-18 Oxygen 96 % (no code) 94 - 100 % 08-18-2018 [facility] saturation in 12:05-0500 ([id number]) Blood No panel information on 2018-08-17 Oxygen 98 % (no code) 94 - 100 % 08-17-2018 [facility] saturation in 12:14-0500 ([id number]) Blood no information Chart note added (no code) [facility] ([id number]) No panel information on 2018-08-16 Body weight 113 (no code) 08-16-2018 [facility] 12:25-0500 ([id number]) Oxygen 92 % (no code) 94 - 100 % 08-16-2018 [facility] saturation in 12:24-0500 ([id number]) Blood no information Chart note added (no code) [facility] ([id number]) No panel information on 2018-08-15 Body weight 113.2 (no code) 08-15-2018 [facility] 11:10-0500 ([id number]) Oxygen 97 % (no code) 94 - 100 % 08-15-2018 [facility] saturation in 11:09-0500 ([id number]) Blood no information Chart note added (no code) [facility] ([id number]) No panel information on 2018-08-14 Body weight 113.6 (no code) 08-14-2018 [facility] 12:08-0500 ([id number]) Oxygen 98 % (no code) 94 - 100 % 08-14-2018 [facility] saturation in 12:07-0500 ([id number]) Blood No panel information on 2018-08-13 Body weight 114.4 (no code) 08-13-2018 [facility] 12:59-0500 ([id number]) Oxygen 96 % (no code) 94 - 100 % 08-13-2018 [facility] saturation in 12:57-0500 ([id number]) Blood No panel information on 2018-08-12 Body weight 113.4 (no code) 08-12-2018 [facility] 12:04-0500 ([id number]) Oxygen 95 % (no code) 94 - 100 % 08-12-2018 [facility] saturation in 12:03-0500 ([id number]) Blood no information Chart note added (no code) [facility] ([id number]) No panel information on 2018-08-11 Body weight 113.4 (no code) 08-11-2018 [facility] 11:36-0500 ([id number]) Oxygen 97 % (no code) 94 - 100 % 08-11-2018 [facility] saturation in 11:34-0500 ([id number]) Blood no information Chart note added (no code) [facility] ([id number]) No panel information on 2018-08-10 Body weight 113.2 (no code) 08-10-2018 [facility] 12:18-0500 ([id number]) Oxygen 98 % (no code) 94 - 100 % 08-10-2018 [facility] saturation in 12:17-0500 ([id number]) Blood no information Chart note added (no code) [facility] ([id number]) No panel information on 2018-08-09 Body weight 113.8 (no code) 08-09-2018 [facility] 14:05-0500 ([id number]) Oxygen 94 % (no code) 94 - 100 % 08-09-2018 [facility] saturation in 14:03-0500 ([id number]) Blood no information Chart note added (no code) [facility] ([id number]) No panel information on 2018-08-08 Body weight 112.8 (no code) 08-08-2018 [facility] 12:51-0500 ([id number]) Oxygen 98 % (no code) 94 - 100 % 08-08-2018 [facility] saturation in 12:49-0500 ([id number]) Blood no information Chart note added (no code) [facility] ([id number]) No panel information on 2018-08-07 Body weight 112.8 (no code) 08-07-2018 [facility] 12:23-0500 ([id number]) Oxygen 95 % (no code) 94 - 100 % 08-07-2018 [facility] saturation in 12:22-0500 ([id number]) Blood No panel information on 2018-08-06 Body weight 114 (no code) 08-06-2018 [facility] 12:11-0500 ([id number]) Oxygen 96 % (no code) 94 - 100 % 08-06-2018 [facility] saturation in 12:10-0500 ([id number]) Blood No panel information on 2018-08-05 Body weight 113.6 (no code) 08-05-2018 [facility] 12:04-0500 ([id number]) Oxygen 94 % (no code) 94 - 100 % 08-05-2018 [facility] saturation in 12:03-0500 ([id number]) Blood no information Chart note added (no code) [facility] ([id number]) No panel information on 2018-08-04 Body weight 113.8 (no code) 08-04-2018 [facility] 12:03-0500 ([id number]) Oxygen 98 % (no code) 94 - 100 % 08-04-2018 [facility] saturation in 12:02-0500 ([id number]) Blood no information Chart note added (no code) [facility] ([id number]) No panel information on 2018-08-03 Body weight 114 (no code) 08-03-2018 [facility] 12:06-0500 ([id number]) Oxygen 98 % (no code) 94 - 100 % 08-03-2018 [facility] saturation in 12:04-0500 ([id number]) Blood no information Chart note added (no code) [facility] ([id number]) No panel information on 2018-08-02 Body weight 113.6 (no code) 08-02-2018 [facility] 12:13-0500 ([id number]) Oxygen 98 % (no code) 94 - 100 % 08-02-2018 [facility] saturation in 12:11-0500 ([id number]) Blood no information Chart note added (no code) [facility] ([id number]) no information Chart note added (no code) [facility] ([id number]) No panel information on 2018-08-01 Body weight 114.4 (no code) 08-01-2018 [facility] 13:58-0500 ([id number]) Oxygen 94 % (no code) 94 - 100 % 08-01-2018 [facility] saturation in 13:57-0500 ([id number]) Blood no information Chart note added (no code) [facility] ([id number]) no information Chart note added (no code) [facility] ([id number]) No panel information on 2018-07-31 Body weight 112.4 (no code) 07-31-2018 [facility] 12:05-0500 ([id number]) Oxygen 98 % (no code) 94 - 100 % 07-31-2018 [facility] saturation in 12:04-0500 ([id number]) Blood No panel information on 2018-07-30 Body weight 114.2 (no code) 07-30-2018 [facility] 11:14-0400 ([id number]) Oxygen 96 % (no code) 94 - 100 % 07-30-2018 [facility] saturation in 11:12-0400 ([id number]) Blood No panel information on 2018-07-29 Body weight 113.6 (no code) 07-29-2018 [facility] 19:36-0400 ([id number]) Oxygen 94 % (no code) 94 - 100 % 07-29-2018 [facility] saturation in 19:35-0400 ([id number]) Blood No panel information on 2018-07-28 Body weight 113.4 (no code) 07-28-2018 [facility] 11:45-0400 ([id number]) Oxygen 96 % (no code) 94 - 100 % 07-28-2018 [facility] saturation in 11:44-0400 ([id number]) Blood no information Chart note added (no code) [facility] ([id number]) No panel information on 2018-07-27 Body weight 113.6 (no code) 07-27-2018 [facility] 12:19-0400 ([id number]) Oxygen 95 % (no code) 94 - 100 % 07-27-2018 [facility] saturation in 12:18-0400 ([id number]) Blood no information Chart note added (no code) [facility] ([id number]) No panel information on 2018-07-26 Body weight 114.2 (no code) 07-26-2018 [facility] 12:44-0400 ([id number]) Oxygen 94 % (no code) 94 - 100 % 07-26-2018 [facility] saturation in 12:43-0400 ([id number]) Blood no information Chart note added (no code) [facility] ([id number]) no information Chart note added (no code) [facility] ([id number]) no information Chart note added (no code) [facility] ([id number]) No panel information on 2018-07-25 Body weight 113.8 (no code) 07-25-2018 [facility] 12:22-0400 ([id number]) Oxygen 97 % (no code) 94 - 100 % 07-25-2018 [facility] saturation in 12:21-0400 ([id number]) Blood no information Chart note added (no code) [facility] ([id number]) no information Chart note added (no code) [facility] ([id number]) No panel information on 2018 Body weight 112 (L) 2018 [facility] 12:01-0400 ([id number]) Oxygen 98 % (no code) 94 - 100 % 2018 [facility] saturation in 12:17-0400 ([id number]) Blood No panel information on 2018-07-23 Body weight 114.6 (no code) 07-23-2018 [facility] 12:04-0400 ([id number]) Oxygen 96 % (no code) 94 - 100 % 07-23-2018 [facility] saturation in 12:03-0400 ([id number]) Blood No panel information on 2018-07-22 Body weight 114.6 (no code) 07-22-2018 [facility] 12:05-0400 ([id number]) Oxygen 92 % (no code) 94 - 100 % 07-22-2018 [facility] saturation in 12:04-0400 ([id number]) Blood no information Chart note added (no code) [facility] ([id number]) No panel information on 2018-07-21 Body weight 113.2 (no code) 07-21-2018 [facility] 12:17-0400 ([id number]) Oxygen 95 % (no code) 94 - 100 % 07-21-2018 [facility] saturation in 12:16-0400 ([id number]) Blood no information Chart note added (no code) [facility] ([id number]) No panel information on 2018-07-20 Body weight 114 (no code) 07-20-2018 [facility] 12:01-0400 ([id number]) Oxygen 99 % (no code) 94 - 100 % 07-20-2018 [facility] saturation in 11:59-0400 ([id number]) Blood no information Chart note added (no code) [facility] ([id number]) No panel information on 2018-07-19 Body weight 114 (no code) 07-19-2018 [facility] 11:15-0400 ([id number]) Oxygen 97 % (no code) 94 - 100 % 07-19-2018 [facility] saturation in 11:14-0400 ([id number]) Blood no information Chart note added (no code) [facility] ([id number]) No panel information on 2018-07-18 Body weight 115 (no code) 07-18-2018 [facility] 15:23-0400 ([id number]) Oxygen 98 % (no code) 94 - 100 % 07-18-2018 [facility] saturation in 15:22-0400 ([id number]) Blood no information Chart note added (no code) [facility] ([id number]) no information Chart note added (no code) [facility] ([id number]) No panel information on 2018-07-17 Body weight 115 (no code) 07-17-2018 [facility] 12:08-0400 ([id number]) Oxygen 95 % (no code) 94 - 100 % 07-17-2018 [facility] saturation in 12:07-0400 ([id number]) Blood No panel information on 2018-07-16 Body weight 115.4 (H) 07-16-2018 [facility] 12:04-0400 ([id number]) Oxygen 98 % (no code) 94 - 100 % 07-16-2018 [facility] saturation in 12:03-0400 ([id number]) Blood No panel information on 2018-07-15 Body weight 112.6 (L) 07-15-2018 [facility] 12:06-0400 ([id number]) Oxygen 96 % (no code) 94 - 100 % 07-15-2018 [facility] saturation in 12:05-0400 ([id number]) Blood no information Chart note added (no code) [facility] ([id number]) No panel information on 2018-07-14 Body weight 115.2 (no code) 07-14-2018 [facility] 12:10-0400 ([id number]) Oxygen 98 % (no code) 94 - 100 % 07-14-2018 [facility] saturation in 12:09-0400 ([id number]) Blood no information Chart note added (no code) [facility] ([id number]) No panel information on 2018-07-13 Body weight 114.4 (no code) 07-13-2018 [facility] 12:04-0400 ([id number]) Oxygen 98 % (no code) 94 - 100 % 07-13-2018 [facility] saturation in 12:03-0400 ([id number]) Blood no information Chart note added (no code) [facility] ([id number]) No panel information on 2018-07-12 Body weight 114.6 (no code) 07-12-2018 [facility] 14:46-0400 ([id number]) Oxygen 98 % (no code) 94 - 100 % 07-12-2018 [facility] saturation in 14:45-0400 ([id number]) Blood no information Chart note added (no code) [facility] ([id number]) no information Chart note added (no code) [facility] ([id number]) No panel information on 2018-07-11 Body weight 114.4 (no code) 07-11-2018 [facility] 14:18-0400 ([id number]) Oxygen 97 % (no code) 94 - 100 % 07-11-2018 [facility] saturation in 14:17-0400 ([id number]) Blood no information Chart note added (no code) [facility] ([id number]) no information Chart note added (no code) [facility] ([id number]) No panel information on 2018-07-10 Body weight 113.4 (no code) 07-10-2018 [facility] 14:17-0400 ([id number]) Oxygen 97 % (no code) 94 - 100 % 07-10-2018 [facility] saturation in 14:16-0400 ([id number]) Blood No panel information on 2018-07-09 Body weight 114 (no code) 07-09-2018 [facility] 12:03-0400 ([id number]) Oxygen 98 % (no code) 94 - 100 % 07-09-2018 [facility] saturation in 12:02-0400 ([id number]) Blood No panel information on 2018-07-08 Body weight 114.4 (no code) 07-08-2018 [facility] 11:31-0400 ([id number]) Oxygen 98 % (no code) 94 - 100 % 07-08-2018 [facility] saturation in 11:29-0400 ([id number]) Blood no information Chart note added (no code) [facility] ([id number]) No panel information on 2018-07-07 Body weight 112.6 (no code) 07-07-2018 [facility] 12:09-0400 ([id number]) Oxygen 98 % (no code) 94 - 100 % 07-07-2018 [facility] saturation in 12:07-0400 ([id number]) Blood no information Chart note added (no code) [facility] ([id number]) No panel information on 2018-07-06 Body weight 112.8 (no code) 07-06-2018 [facility] 10:49-0400 ([id number]) Oxygen 96 % (no code) 94 - 100 % 07-06-2018 [facility] saturation in 10:48-0400 ([id number]) Blood no information Chart note added (no code) [facility] ([id number]) No panel information on 2018-07-05 Body weight 113.4 (no code) 07-05-2018 [facility] 11:59-0400 ([id number]) Oxygen 98 % (no code) 94 - 100 % 07-05-2018 [facility] saturation in 11:58-0400 ([id number]) Blood no information Chart note added (no code) [facility] ([id number]) no information Chart note added (no code) [facility] ([id number]) No panel information on 2018-07-04 Body weight 113.8 (no code) 07-04-2018 no information 11:40-0400 Heart rate 54 /min (no code) 60 - 100 /min 07-04-2018 no info rmation 11:37-0400 Oxygen 98 % (no code) 94 - 100 % 07-04-2018 no informat ion saturation in 11:39-0400 Blood no information Chart note added (no code) no informatio n no information Chart note added (no code) [facility] ([id number]) No panel information on 2018-07-03 Body weight 113.6 (no code) 07-03-2018 [facility] 12:16-0400 ([id number]) Heart rate 50 /min (LL) 60 - 100 /min 07-03-2018 no info rmation 12:14-0400 Oxygen 96 % (no code) 94 - 100 % 07-03-2018 no informat ion saturation in 12:15-0400 Blood No panel information on 2018-07-02 Body weight 114.2 (no code) 07-02-2018 no information 12:04-0400 Heart rate 57 /min (no code) 60 - 100 /min 07-02-2018 no info rmation 12:02-0400 Oxygen 98 % (no code) 94 - 100 % 07-02-2018 no informat ion saturation in 12:03-0400 Blood No panel information on 2018-07-01 Body weight 113.8 (no code) 07-01-2018 [facility] 14:39-0400 ([id number]) Diastolic blood 74 mm[Hg] (no code) 60 - 80 mm[Hg] 07-01-2018 [facility] pressure 14:37-0400 ([id number]) Heart rate 60 /min (no code) 60 - 100 /min 07-01-2018 [place] 14:37-0400 ([id number]) Oxygen 97 % (no code) 94 - 100 % 07-01-2018 no informat ion saturation in 14:38-0400 Blood Systolic blood 160 mm[Hg] (H) 90 - 120 mm[Hg] 07-01-2018 [facility] pressure 14:37-0400 ([id number]) no information Chart note added (no code) [facility] ([id number]) No panel information on 2018-06-30 Body weight 113.8 (no code) 06-30-2018 no information 12:090400 Diastolic blood 76 mm[Hg] (no code) 60 - 80 mm[Hg] 06-30-2018 n o information pressure 12:0400 Diastolic blood 79 mm[Hg] (no code) 60 - 80 mm[Hg] 06-30-2018 n o information pressure 12:070400 Heart rate 55 /min (no code) 60 - 100 /min 06-30-2018 no info rmation 12:0400 Heart rate 51 /min (no code) 60 - 100 /min 06-30-2018 no info rmation 12:0400 Heart rate 55 /min (no code) 60 - 100 /min 06-30-2018 no info rmation 13:57-0400 Oxygen 98 % (no code) 94 - 100 % 06-30-2018 [facility] saturation in : ([id number]) Blood Systolic blood 176 mm[Hg] (HH) 90 - 120 mm[Hg] 06-30-2018 no information pressure 12:070400 no information Chart note added (no code) no informatio n no information Chart note added (no code) no informatio n Vital Signs Vital Sign Value Interpretation Reference Date Time Care Prov ider Facility (Normalized) (Normalized) Range BMI (Body Mass 21 kg/m2 (no code) 15 - 25 kg/m2 12-08-2018 [facility]) 11:30-[id number] [place] [address] ([id number]) Body 98 [degF] (no code) 97.8 - 99.0 [facility] Temperature [degF] 11:25-0500 [place] [address] [facility] ([id number]) Body weight 48.58806 kg (no code) kg 01-01-2020 no name [facility] 07:12-0400 ([id number]) Body weight 47.49826 kg (no code) kg 12-31-2019 no name [facility] 06:48-0400 ([id number]) Body weight 48.31891 kg (no code) kg 12-30-2019 no name [facility] 06:25-0400 ([id number]) Body weight 47.08548 kg (no code) kg 12-29-2019 no name [facility] 07:040400 ([id number]) Body weight 48.29838 kg (no code) kg 12-28-2019 no name [facility] 07:180400 ([id number]) Body weight 47.86939 kg (no code) kg 12-27-2019 no name [facility] 07:040400 ([id number]) Body weight 47.87130 kg (no code) kg 12-26-2019 no name [facility] 07:030400 ([id number]) Body weight 47.51664 kg (no code) kg 12-25-2019 no name [facility] 07:050400 ([id number]) Body weight 47.20139 kg (no code) kg 12-24-2019 no name [facility] 07:030400 ([id number]) Body weight 47.52095 kg (no code) kg 12-23-2019 no name [facility] 06:460400 ([id number]) Body weight 47.42146 kg (H) kg 12-22-2019 no name [facility] 07:11-0400 ([id number]) Body weight 46.7208 kg (no code) kg 12-21-2019 no name [facility] 07:070400 ([id number]) Body weight 46.7208 kg (no code) kg 12-20-2019 no name [facility] 07:11-0400 ([id number]) Body weight 46.02833 kg (no code) kg 12-19-2019 no name [facility] 06:32-0400 ([id number]) Body weight 47.06546 kg (no code) kg 12-18-2019 no name [facility] 06:59-0400 ([id number]) Body weight 46.7208 kg (no code) kg 12-17-2019 no name [facility] 06:47-0400 ([id number]) Body weight 47.1744 kg (no code) kg 12-16-2019 no name [facility] 07:22-0400 ([id number]) Body weight 46.74644 kg (no code) kg 12-15-2019 no name [facility] 08:56-0400 ([id number]) Body weight 47.04387 kg (no code) kg 12-14-2019 no name [facility] 07:20-0400 ([id number]) Body weight 46.17369 kg (no code) kg 12-13-2019 no name [facility] 07:06-0400 ([id number]) Body weight 46.97963 kg (no code) kg 12-12-2019 no name [facility] 07:090400 ([id number]) Body weight 46.39045 kg (no code) kg 12-11-2019 no name [facility] 07:15-0400 ([id number]) Body weight 46.72002 kg (no code) kg 12-10-2019 no name [facility] 07:140400 ([id number]) Body weight 46.60635 kg (no code) kg 12-09-2019 no name [facility] 06:470400 ([id number]) Body weight 46.95288 kg (no code) kg 12-08-2019 no name [facility] 07:100400 (57252) Body weight 46.7208 kg (no code) kg 12-07-2019 no name [facility] 07:100400 ([id number]) Body weight 47.98179 kg (no code) kg 12-06-2019 no name [facility] 07:09-0400 ([id number]) Body weight 46.85022 kg (no code) kg 12-05-2019 no name [facility] 07:06-0400 ([id number]) Body weight 46.58925 kg (no code) kg 12-04-2019 no name [facility] 06:52-0400 ([id number]) Body weight 46.56077 kg (no code) kg 12-03-2019 no name [facility] 07:19-0400 ([id number]) Body weight 45.18120 kg (no code) kg 12-02-2019 no name [facility] 06:15-0500 ([id number]) Body weight 46.62307 kg (no code) kg 12-01-2019 no name [facility] 05:30-0500 ([id number]) Body weight 46.2672 kg (no code) kg 11-30-2019 no name [facility] 02:32-0500 ([id number]) Body weight 46.55434 kg (no code) kg 11-29-2019 no name [facility] 05:34-0500 ([id number]) Body weight 46.30024 kg (no code) kg 11-28-2019 no name [facility] 05:28-0500 ([id number]) Body weight 46.40474 kg (no code) kg 11-27-2019 no name [facility] 05:36-0500 ([id number]) Body weight 46.13745 kg (no code) kg 11-26-2019 no name [facility] 05:41-0500 ([id number]) Body weight 46.74567 kg (no code) kg 11-25-2019 no name [facility] 06:16-0500 ([id number]) Body weight 47.54992 kg (no code) kg 11-24-2019 no name [facility] 05:51-0500 ([id number]) Body weight 46.14659 kg (no code) kg 11-23-2019 no name [facility] 06:00-0500 ([id number]) Body weight 47.91922 kg (no code) kg 11-22-2019 no name [facility] 06:10-0500 ([id number]) Body weight 47.1744 kg (no code) kg 11-21-2019 no name [facility] 06:07-0500 ([id number]) Body weight 46.49751 kg (no code) kg 11-20-2019 no name [facility] 06:12-0500 ([id number]) Body weight 46.29621 kg (no code) kg 11-19-2019 no name [facility] 05:52-0500 ([id number]) Body weight 46.47502 kg (L) kg 11-18-2019 no name [facility] 06:19-0500 ([id number]) Body weight 47.48989 kg (no code) kg 11-17-2019 no name [facility] 06:18-0500 ([id number]) Body weight 47.1744 kg (no code) kg 11-16-2019 no name [facility] 06:24-0500 ([id number]) Body weight 46.76145 kg (no code) kg 11-15-2019 no name [facility] 05:29-0500 ([id number]) Body weight 46.7208 kg (no code) kg 11-14-2019 no name [facility] 06:12-0500 ([id number]) Body weight 46.85002 kg (no code) kg 11-13-2019 no name [facility] 06:320500 (22251) Body weight 46.54378 kg (no code) kg 11-12-2019 no name [facility] 06:23-0500 ([id number]) Body weight 46.99046 kg (no code) kg 11-11-2019 no name [facility] 05:41-0500 ([id number]) Body weight 47.68393 kg (no code) kg 11-10-2019 no name [facility] 06:120500 (25654) Body weight 47.70854 kg (no code) kg 11-09-2019 no name [facility] 06:020500 (97494) Body weight 47.88554 kg (no code) kg 11-07-2019 no name [facility] 06:210500 (22122) Body weight 47.77360 kg (no code) kg 11-06-2019 no name [facility] 06:14-0500 ([id number]) Body weight 46.98912 kg (no code) kg 11-05-2019 no name [facility] 05:47-0500 ([id number]) Body weight 46.20891 kg (no code) kg 11-04-2019 no name [facility] 06:06-0500 ([id number]) Body weight 47.54314 kg (no code) kg 11-03-2019 no name [facility] 06:00-0500 ([id number]) Body weight 47.60896 kg (no code) kg 11-02-2019 no name [facility] 06:10-0500 (83376) Body weight 46.56142 kg (no code) kg 11-01-2019 no name [facility] 06:13-0500 ([id number]) Body weight 46.00065 kg (no code) kg 10-31-2019 no name [facility] 06:15-0500 ([id number]) Body weight 46.33478 kg (no code) kg 10-30-2019 no name [facility] 06:17-0500 ([id number]) Body weight 46.47525 kg (no code) kg 10-29-2019 no name [facility] 06:12-0500 ([id number]) Body weight 46.59075 kg (no code) kg 10-28-2019 no name [facility] 06:14-0500 ([id number]) Body weight 46.38962 kg (no code) kg 10-27-2019 no name [facility] 06:02-0500 (95612) Body weight 46.96210 kg (no code) kg 10-26-2019 no name [facility] 06:13-0500 ([id number]) Body weight 46.54970 kg (no code) kg 10-25-2019 no name [facility] 05:43-0500 ([id number]) Body weight 46.12003 kg (no code) kg 10-24-2019 no name [facility] 06:38-0500 (46440) Body weight 46.75999 kg (no code) kg 10-23-2019 no name [facility] 06:08-0500 ([id number]) Body weight 46.46065 kg (no code) kg 10-22-2019 no name [facility] 06:25-0500 ([id number]) Body weight 46.52942 kg (no code) kg 10-21-2019 no name [facility] 06:04-0500 (67564) Body weight 46.19403 kg (no code) kg 10-20-2019 no name [facility] 05:26-0500 ([id number]) Body weight 46.53727 kg (no code) kg 10-19-2019 no name [facility] 06:26-0500 ([id number]) Body weight 46.69836 kg (no code) kg 10-18-2019 no name [facility] 06:21-0500 ([id number]) Body weight 46.05381 kg (no code) kg 10-17-2019 no name [facility] 05:38-0500 (30311) Body weight 46.11215 kg (no code) kg 10-16-2019 no name [facility] 05:53-0500 ([id number]) Body weight 46.45872 kg (no code) kg 10-15-2019 no name [facility] 06:02-0500 ([id number]) Body weight 45.8136 kg (no code) kg 10-14-2019 no name [facility] 06:17-0500 ([id number]) Body weight 46.25097 kg (no code) kg 10-13-2019 no name [facility] 07:10-0500 (00039) Body weight 45.8136 kg (no code) kg 10-12-2019 no name [facility] 06:41-0500 ([id number]) Body weight 46.2672 kg (no code) kg 10-11-2019 no name [facility] 06:36-0500 (80121) Body weight 46.29212 kg (no code) kg 10-10-2019 no name [facility] 06:18-0500 ([id number]) Body weight 46.53373 kg (no code) kg 10-09-2019 no name [facility] 06:24-0500 (09858) Body weight 45.78478 kg (no code) kg 10-08-2019 no name [facility] 05:58-0500 (91005) Body weight 45.30942 kg (no code) kg 10-07-2019 no name [facility] 06:07-0500 ([id number]) Body weight 45.50939 kg (no code) kg 10-04-2019 no name [facility] 06:10-0500 (48854) Body weight 45.83128 kg (no code) kg 10-03-2019 no name [facility] 04:47-0500 ([id number]) Body weight 45.25259 kg (no code) kg 10-02-2019 no name [facility] 06:36-0500 (37191) Body weight 45.14471 kg (no code) kg 10-01-2019 no name [facility] 05:57-0500 (02132) Body weight 46.52840 kg (no code) kg 09-29-2019 no name [facility] 06:18-0500 ([id number]) Body weight 46.60275 kg (no code) kg 09-28-2019 no name [facility] 05:53-0500 (35082) Body weight 46.81814 kg (no code) kg 09-27-2019 no name [facility] 06:03-0500 ([id number]) Body weight 46.77754 kg (no code) kg 09-26-2019 no name [facility] 06:060500 (24350) Body weight 46.7208 kg (no code) kg 09-25-2019 no name [facility] 05:33-0500 ([id number]) Body weight 46.44859 kg (no code) kg 09-24-2019 no name [facility] 06:10-0500 (27806) Body weight 46.70107 kg (no code) kg 09-23-2019 no name [facility] 06:04-0500 ([id number]) Body weight 46.24132 kg (no code) kg 09-22-2019 no name [facility] 06:010500 (51892) Body weight 45.01765 kg (no code) kg 09-21-2019 no name [facility] 06:17-0500 (45049) Body weight 46.00223 kg (no code) kg 09-20-2019 no name [facility] 06:10-0500 ([id number]) Body weight 45.93135 kg (no code) kg 09-19-2019 no name [facility] 06:11-0500 (22834) Body weight 46.2672 kg (no code) kg 09-18-2019 no name [facility] 06:22-0500 (70794) Body weight 45.28973 kg (no code) kg 09-17-2019 no name [facility] 06:08-0500 (30809) Body weight 46.56158 kg (no code) kg 09-16-2019 no name [facility] 06:36-0500 (42816) Body weight 46.59899 kg (no code) kg 09-15-2019 no name [facility] 06:120500 (30425) Body weight 46.93444 kg (no code) kg 09-14-2019 no name [facility] 08:17-0500 (63310) Body weight 46.66465 kg (no code) kg 09-13-2019 no name [facility] 06:46-0500 ([id number]) Body weight 46.19305 kg (no code) kg 09-12-2019 no name [facility] 06:23-0500 (16484) Body weight 46.10941 kg (no code) kg 09-11-2019 no name [facility] 06:18-0500 (40185) Body weight 46.42157 kg (no code) kg 09-10-2019 no name [facility] 04:01-0500 (03460) Body weight 46.89693 kg (no code) kg 09-09-2019 no name [facility] 05:54-0500 (32422) Body weight 47.69265 kg (no code) kg 09-08-2019 no name [facility] 06:14-0500 (76505) Body weight 47.1744 kg (no code) kg 09-07-2019 no name [facility] 06:23-0500 (82131) Body weight 47.55425 kg (no code) kg 09-06-2019 no name [facility] 06:17-0500 ([id number]) Body weight 47.57130 kg (no code) kg 09-05-2019 no name [facility] 05:08-0500 ([id number]) Body weight 47.10498 kg (no code) kg 09-04-2019 no name [facility] 05:06-0500 ([id number]) Body weight 46.57993 kg (no code) kg 09-03-2019 no name [facility] 06:120500 (03577) Body weight 46.98593 kg (no code) kg 09-02-2019 no name [facility] 06:02-0500 (54301) Body weight 46.7208 kg (no code) kg 09-01-2019 no name [facility] 05:46-0500 (39991) Body weight 46.2672 kg (L) kg 08-31-2019 no name [facility] 05:42-0500 ([id number]) Body weight 47.85567 kg (no code) kg 08-30-2019 no name [facility] 06:39-0500 ([id number]) Body weight 47.27393 kg (no code) kg 08-29-2019 no name [facility] 05:07-0500 (19763) Body weight 47.19159 kg (no code) kg 08-28-2019 no name [facility] 06:06-0500 ([id number]) Body weight 46.03003 kg (no code) kg 08-27-2019 no name [facility] 06:14-0500 ([id number]) Body weight 47.91366 kg (no code) kg 08-26-2019 no name [facility] 06:35-0500 ([id number]) Body weight 46.7208 kg (no code) kg 08-25-2019 no name [facility] 05:50-0500 ([id number]) Body weight 47.1744 kg (no code) kg 08-24-2019 no name [facility] 05:54-0500 ([id number]) Body weight 46.26559 kg (no code) kg 08-23-2019 no name [facility] 06:07-0500 ([id number]) Body weight 46.99255 kg (no code) kg 08-22-2019 no name [facility] 06:40-0500 (84631) Body weight 46.61078 kg (no code) kg 08-21-2019 no name [facility] 05:32-0500 (57361) Body weight 46.73328 kg (no code) kg 08-20-2019 no name [facility] 06:56-0500 (24403) Body weight 46.98062 kg (no code) kg 08-19-2019 no name [facility] 06:25-0500 (34763) Body weight 47.20606 kg (no code) kg 08-18-2019 no name [facility] 06:16-0500 (97140) Body weight 46.81229 kg (no code) kg 08-17-2019 no name [facility] 07:04-0500 (06117) Body weight 46.99070 kg (no code) kg 08-16-2019 no name [facility] 04:32-0500 (12545) Body weight 46.90768 kg (no code) kg 08-15-2019 no name [facility] 06:09-0500 ([id number]) Body weight 47.1744 kg (no code) kg 08-14-2019 no name [facility] 06:36-0500 (55343) Body weight 47.79838 kg (L) kg 08-13-2019 no name [facility] 11:37-0500 ([id number]) Body weight 48.24892 kg (H) kg 08-12-2019 no name [facility] 06:08-0500 ([id number]) Body weight 47.87920 kg (no code) kg 08-11-2019 no name [facility] 08:19-0500 (70354) Body weight 46.7208 kg (no code) kg 08-08-2019 no name [facility] 05:58-0500 ([id number]) Body weight 46.18207 kg (no code) kg 08-06-2019 no name [facility] 05:27-0500 (23951) Body weight 46.2672 kg (no code) kg 08-05-2019 no name [facility] 06:05-0500 (68180) Body weight 46.65380 kg (no code) kg 08-03-2019 no name [facility] 04:52-0500 (76337) Body weight 46.43818 kg (no code) kg 08-02-2019 no name [facility] 06:09-0500 ([id number]) Body weight 46.7208 kg (no code) kg 08-01-2019 no name [facility] 06:23-0500 (51500) Body weight 46.56669 kg (no code) kg 07-31-2019 no name [facility] 05:55-0500 (62232) Body weight 45.58067 kg (no code) kg 07-30-2019 no name [facility] 05:40-0500 ([id number]) Body weight 46.2672 kg (no code) kg 07-29-2019 no name [facility] 07:34-0400 (11425) Body weight 45.34548 kg (no code) kg 07-27-2019 no name [facility] 07:34-0400 (86536) Body weight 46.86639 kg (no code) kg 07-25-2019 no name [facility] 07:31-0400 ([id number]) Body weight 46.92202 kg (no code) kg 2019 no name [facility] 12:22-0400 ([id number]) Body weight 46.2672 kg (no code) kg 07-23-2019 no name [facility] 12:13-0400 (52241) Body weight 45.37165 kg (no code) kg 07-22-2019 no name [facility] 12:44-0400 (35092) Body weight 45.58088 kg (no code) kg 07-21-2019 no name [facility] 11:25-0400 (28056) Body weight 46.65879 kg (no code) kg 07-20-2019 no name [facility] 12:16-0400 (85104) Body weight 46.06840 kg (no code) kg 07-19-2019 no name [facility] 12:18-0400 (44798) Body weight 47.36104 kg (no code) kg 07-18-2019 no name [facility] 10:47-0400 (53845) Body weight 46.39773 kg (no code) kg 07-17-2019 no name [facility] 11:40-0400 (13435) Body weight 46.74806 kg (no code) kg 07-16-2019 no name [facility] 12:10-0400 (02892) Body weight 46.27078 kg (no code) kg 07-15-2019 no name [facility] 12:17-0400 (58262) Body weight 46.7208 kg (no code) kg 07-14-2019 no name [facility] 11:39-0400 (10466) Body weight 47.87987 kg (no code) kg 07-13-2019 no name [facility] 12:210400 (66648) Body weight 46.63223 kg (no code) kg 07-12-2019 no name [facility] 12:060400 (03682) Body weight 46.7208 kg (no code) kg 07-11-2019 no name [facility] 11:47-0400 (01933) Body weight 46.7208 kg (no code) kg 07-10-2019 no name [facility] 12:090400 (49535) Body weight 47.1744 kg (no code) kg 07-07-2019 no name [facility] 11:250400 (97900) Body weight 46.73278 kg (L) kg 07-06-2019 no name [facility] 11:070400 (03367) Body weight 47.43426 kg (no code) kg 07-05-2019 no name [facility] 10:560400 (25503) Body weight 47.36652 kg (no code) kg 07-04-2019 no name [facility] 11:150400 (09918) Body weight 47.60852 kg (no code) kg 07-03-2019 no name [facility] 11:490400 (28169) Body weight 46.75880 kg (no code) kg 07-02-2019 no name [facility] 12:35-0400 (78563) Body weight 46.42705 kg (no code) kg 07-01-2019 no name [facility] 12:12-0400 (17809) Body weight 47.66191 kg (no code) kg 06-29-2019 no name [facility] 13:06-0400 (43924) Body weight 47.52459 kg (no code) kg 06-27-2019 no name [facility] 12:13-0400 (08396) Body weight 48.70321 kg (no code) kg 06-26-2019 no name [facility] 11:57-0400 (92873) Body weight 48.82719 kg (no code) kg 06-25-2019 no name [facility] 15:05-0400 (29525) Body weight 47.87309 kg (no code) kg 06-24-2019 no name [facility] 12:49-0400 (99056) Body weight 47.78907 kg (no code) kg 06-23-2019 no name [facility] 12:21-0400 ([id number]) Body weight 47.77951 kg (no code) kg 06-22-2019 no name [facility] 12:17-0400 (18575) Body weight 47.628 kg (no code) kg 06-21-2019 no name [facility] 12:090400 (34230) Body weight 47.01904 kg (no code) kg 06-20-2019 no name [facility] 11:04-0400 (22749) Body weight 47.61443 kg (no code) kg 06-19-2019 no name [facility] 12:13-0400 (40727) Body weight 46.87653 kg (no code) kg 06-18-2019 no name [facility] 11:57-0400 (57417) Body weight 46.16198 kg (no code) kg 06-17-2019 no name [facility] 14:20-0400 (18657) Body weight 46.37292 kg (no code) kg 06-16-2019 no name [facility] 13:28-0400 (36202) Body weight 46.64214 kg (no code) kg 06-15-2019 no name [facility] 12:14-0400 (76057) Body weight 46.63683 kg (no code) kg 06-14-2019 no name [facility] 11:27-0400 (71175) Body weight 46.50973 kg (no code) kg 06-13-2019 no name [facility] 11:36-0400 (86671) Body weight 47.57201 kg (no code) kg 06-12-2019 no name [facility] 11:40-0400 (58580) Body weight 47.63793 kg (no code) kg 06-11-2019 no name [facility] 12:27-0400 (03898) Body weight 46.88047 kg (no code) kg 06-10-2019 no name [facility] 14:59-0400 (60206) Body weight 47.73970 kg (no code) kg 06-07-2019 no name [facility] 14:03-0400 (38570) Body weight 47.65060 kg (no code) kg 06-06-2019 no name [facility] 12:49-0400 (30552) Body weight 47.1744 kg (no code) kg 06-05-2019 no name [facility] 12:20-0400 (25452) Body weight 47.1744 kg (no code) kg 06-04-2019 no name [facility] 12:22-0400 (54747) Body weight 47.92329 kg (no code) kg 06-03-2019 no name [facility] 10:18-0400 (51656) Body weight 47.66866 kg (no code) kg 06-02-2019 no name [facility] 09:23-0400 ([id number]) Body weight 47.58702 kg (no code) kg 06-01-2019 no name [facility] 14:16-0400 (76716) Body weight 47.00142 kg (no code) kg 05-31-2019 no name [facility] 11:14-0400 (87749) Body weight 47.59289 kg (no code) kg 05-30-2019 no name [facility] 11:35-0400 (35566) Body weight 46.86357 kg (no code) kg 05-29-2019 no name [facility] 10:52-0400 (93039) Body weight 46.7208 kg (no code) kg 05-28-2019 no name [facility] 12:00-0400 (10561) Body weight 46.26490 kg (no code) kg 05-27-2019 no name [facility] 11:58-0400 (43008) Body weight 47.89584 kg (no code) kg 05-26-2019 no name [facility] 12:14-0400 (95184) Body weight 47.75029 kg (no code) kg 05-25-2019 no name [facility] 12:25-0400 (94993) Body weight 46.9476 kg (no code) kg 05-24-2019 no name [facility] 12:050400 (98598) Body weight 47.98605 kg (no code) kg 05-23-2019 no name [facility] 11:070400 (11556) Body weight 47.74076 kg (no code) kg 05-22-2019 no name [facility] 12:140400 (92054) Body weight 46.28234 kg (no code) kg 05-21-2019 no name [facility] 10:48-0400 (13423) Body weight 46.12766 kg (no code) kg 05-20-2019 no name [facility] 12:100400 (99263) Body weight 47.62762 kg (no code) kg 05-19-2019 no name [facility] 12:180400 (87806) Body weight 47.1744 kg (no code) kg 05-18-2019 no name [facility] 11:490400 (80774) Body weight 47.25421 kg (no code) kg 05-17-2019 no name [facility] 11:060400 (30569) Body weight 47.628 kg (no code) kg 05-16-2019 no name [facility] 10:410400 (99746) Body weight 47.1744 kg (no code) kg 05-15-2019 no name [facility] 12:11-0400 (25165) Body weight 46.23965 kg (no code) kg 05-14-2019 no name [facility] 12:270400 (09463) Body weight 46.55439 kg (no code) kg 05-13-2019 no name [facility] 12:05-0400 (79116) Body weight 47.73281 kg (no code) kg 05-12-2019 no name [facility] 11:45-0400 (47134) Body weight 47.1744 kg (no code) kg 05-11-2019 no name [facility] 14:53-0400 (15986) Body weight 46.96239 kg (no code) kg 05-10-2019 no name [facility] 10:13-0400 (36866) Body weight 46.05729 kg (no code) kg 05-09-2019 no name [facility] 12:26-0400 ([id number]) Body weight 46.99333 kg (no code) kg 05-08-2019 no name [facility] 12:12-0400 ([id number]) Body weight 46.32410 kg (no code) kg 05-07-2019 no name [facility] 12:18-0400 (88835) Body weight 46.2672 kg (no code) kg 05-06-2019 no name [facility] 11:58-0400 (21766) Body weight 46.77925 kg (no code) kg 05-05-2019 no name [facility] 17:20-0400 (29328) Body weight 46.21179 kg (no code) kg 05-04-2019 no name [facility] 12:09-0400 (43509) Body weight 47.30932 kg (no code) kg 05-03-2019 no name [facility] 17:15-0400 ([id number]) Body weight 46.7208 kg (no code) kg 05-02-2019 no name [facility] 11:45-0400 (70163) Body weight 46.7208 kg (no code) kg 05-01-2019 no name [facility] 12:25-0400 (00012) Body weight 46.7208 kg (no code) kg 04-30-2019 no name [facility] 14:33-0400 (80750) Body weight 45.36619 kg (no code) kg 04-29-2019 no name [facility] 10:31-0400 (54965) Body weight 46.2672 kg (no code) kg 04-28-2019 no name [facility] 09:08-0400 (63821) Body weight 46.97785 kg (no code) kg 04-27-2019 no name [facility] 17:34-0400 (12401) Body weight 46.89154 kg (no code) kg 04-26-2019 no name [facility] 12:02-0400 (32618) Body weight 46.75074 kg (no code) kg 04-25-2019 no name [facility] 12:11-0400 (81330) Body weight 46.93088 kg (no code) kg 04-24-2019 no name [facility] 12:07-0400 (16377) Body weight 46.56179 kg (no code) kg 04-23-2019 no name [facility] 14:300400 (56013) Body weight 46.40513 kg (no code) kg 04-22-2019 no name [facility] 14:11-0400 (46560) Body weight 46.78458 kg (no code) kg 04-21-2019 no name [facility] 11:45-0400 (96225) Body weight 46.51315 kg (no code) kg 04-20-2019 no name [facility] 12:43-0400 (12004) Body weight 47.76664 kg (no code) kg 04-19-2019 no name [facility] 12:27-0400 (14798) Body weight 47.57718 kg (no code) kg 04-18-2019 no name [facility] 15:37-0400 (73327) Body weight 46.56432 kg (no code) kg 04-17-2019 no name [facility] 12:010400 (08086) Body weight 46.79866 kg (no code) kg 04-16-2019 no name [facility] 11:36-0400 (06181) Body weight 47.1744 kg (no code) kg 04-15-2019 no name [facility] 12:52-0400 (47295) Body weight 46.25469 kg (no code) kg 04-14-2019 no name [facility] 08:33-0400 (97795) Body weight 46.28926 kg (no code) kg 04-13-2019 no name [facility] 11:34-0400 (26202) Body weight 47.86253 kg (no code) kg 04-12-2019 no name [facility] 12:13-0400 (00172) Body weight 47.1744 kg (no code) kg 04-11-2019 no name [facility] 11:41-0400 (80382) Body weight 47.1744 kg (no code) kg 04-10-2019 no name [facility] 12:54-0400 (18734) Body weight 46.7208 kg (H) kg 04-09-2019 no name [facility] 12:42-0400 (21027) Body weight 45.12727 kg (no code) kg 04-08-2019 no name [facility] 10:16-0400 (77090) Body weight 45.45589 kg (no code) kg 04-07-2019 no name [facility] 12:16-0400 (03613) Body weight 45.8136 kg (no code) kg 04-06-2019 no name [facility] 12:51-0400 (39795) Body weight 45.66644 kg (no code) kg 04-05-2019 no name [facility] 12:11-0400 (11042) Body weight 45.33536 kg (no code) kg 04-04-2019 no name [facility] 14:08-0400 (61624) Body weight 45.85535 kg (no code) kg 04-03-2019 no name [facility] 11:00-0400 (64525) Body weight 45.70589 kg (no code) kg 04-02-2019 no name [facility] 12:12-0400 ([id number]) Body weight 46.494 kg (no code) kg 04-01-2019 no name [facility] 15:38-0400 (78851) Body weight 46.53210 kg (no code) kg 03-31-2019 no name [facility] 12:03-0400 (05175) Body weight 46.32146 kg (no code) kg 03-29-2019 no name [facility] 12:12-0400 (97829) Body weight 46.37138 kg (no code) kg 03-28-2019 no name [facility] 12:36-0400 (87892) Body weight 46.7208 kg (no code) kg 03-27-2019 no name [facility] 11:44-0400 (72456) Body weight 46.84697 kg (no code) kg 03-26-2019 no name [facility] 12:060400 (95775) Body weight 46.84233 kg (no code) kg 03-25-2019 no name [facility] 14:24-0400 ([id number]) Body weight 46.7208 kg (no code) kg 03-24-2019 no name [facility] 11:190400 (82763) Body weight 46.7208 kg (no code) kg 03-23-2019 no name [facility] 11:190400 (19712) Body weight 46.43774 kg (no code) kg 03-22-2019 no name [facility] 11:13-0400 (91515) Body weight 46.08299 kg (no code) kg 03-21-2019 no name [facility] 10:50-0400 ([id number]) Body weight 46.03295 kg (no code) kg 03-18-2019 no name [facility] 12:080400 (92388) Body weight 46.494 kg (no code) kg 03-16-2019 no name [facility] 15:50-0400 (02542) Body weight 46.7208 kg (no code) kg 03-14-2019 no name [facility] 12:04-0400 (14531) Body weight 46.30467 kg (no code) kg 03-13-2019 no name [facility] 12:15-0400 (99025) Body weight 46.31041 kg (no code) kg 03-12-2019 no name [facility] 13:56-0400 (23073) Body weight 46.88265 kg (no code) kg 03-11-2019 no name [facility] 12:12-0400 (02999) Body weight 47.98782 kg (no code) kg 03-10-2019 no name [facility] 12:02-0400 ([id number]) Body weight 46.38618 kg (no code) kg 03-08-2019 no name [facility] 12:090400 ([id number]) Body weight 47.13599 kg (no code) kg 03-07-2019 no name [facility] 12:060400 ([id number]) Body weight 46.64267 kg (no code) kg 03-06-2019 no name [facility] 11:35-0400 ([id number]) Body weight 47.1744 kg (no code) kg 03-05-2019 no name [facility] 12:09-0400 ([id number]) Body weight 46.83667 kg (no code) kg 03-04-2019 no name [facility] 12:14-0400 ([id number]) Body weight 46.42143 kg (H) kg 03-03-2019 no name [facility] 20:060400 ([id number]) Body weight 45.80230 kg (no code) kg 03-02-2019 no name [facility] 12:15-0400 ([id number]) Body weight 46.50701 kg (no code) kg 03-01-2019 no name [facility] 12:42-0400 ([id number]) Body weight 46.7208 kg (no code) kg 02-28-2019 no name [facility] 11:53-0400 ([id number]) Body weight 46.7208 kg (no code) kg 02-27-2019 no name [facility] 12:25-0400 ([id number]) Body weight 46.92349 kg (no code) kg 02-26-2019 no name [facility] 12:18-0400 ([id number]) Body weight 46.17637 kg (no code) kg 02-25-2019 no name [facility] 13:25-0400 ([id number]) Body weight 46.25892 kg (no code) kg 02-18-2019 no name [facility] 12:36-0400 ([id number]) Body weight 46.73007 kg (no code) kg 02-17-2019 no name [facility] 09:49-0400 ([id number]) Body weight 45.94217 kg (no code) kg 02-16-2019 no name [facility] 12:03-0400 ([id number]) Body weight 46.93080 kg (no code) kg 02-15-2019 no name [facility] 11:37-0400 ([id number]) Body weight 46.76621 kg (no code) kg 02-14-2019 no name [facility] 12:19-0400 ([id number]) Body weight 46.2672 kg (no code) kg 02-13-2019 no name [facility] 10:50-0400 ([id number]) Body weight 46.89223 kg (no code) kg 02-12-2019 no name [facility] 13:38-0400 ([id number]) Body weight 46.69077 kg (no code) kg 02-11-2019 no name [facility] 12:27-0400 ([id number]) Body weight 47.29532 kg (no code) kg 02-10-2019 no name [facility] 12:36-0400 ([id number]) Body weight 46.93064 kg (no code) kg 02-09-2019 no name [facility] 12:12-0400 ([id number]) Body weight 47.66252 kg (no code) kg 02-08-2019 no name [facility] 12:04-0400 ([id number]) Body weight 47.64745 kg (no code) kg 02-07-2019 no name [facility] 10:45-0400 ([id number]) Body weight 46.47896 kg (no code) kg 02-06-2019 no name [facility] 18:06-0400 ([id number]) Body weight 47.1744 kg (no code) kg 02-05-2019 no name [facility] 12:10-0400 ([id number]) Body weight 46.17122 kg (no code) kg 02-04-2019 no name [facility] 12:56-0400 ([id number]) Body weight 47.42432 kg (no code) kg 02-03-2019 no name [facility] 10:52-0400 ([id number]) Body weight 46.46619 kg (no code) kg 02-02-2019 no name [facility] 14:22-0400 ([id number]) Body weight 47.27665 kg (no code) kg 02-01-2019 no name [facility] 11:32-0400 ([id number]) Body weight 47.59613 kg (no code) kg 01-31-2019 no name [facility] 12:30-0400 ([id number]) Body weight 47.05490 kg (no code) kg 01-30-2019 no name [facility] 12:08-0400 ([id number]) Body weight 47.09227 kg (no code) kg 01-29-2019 no name [facility] 12:10-0400 ([id number]) Body weight 47.628 kg (no code) kg 01-28-2019 no name [facility] 12:23-0400 ([id number]) Body weight 47.67848 kg (no code) kg 01-26-2019 no name [facility] 15:42-0400 ([id number]) Body weight 47.82487 kg (no code) kg 01-25-2019 no name [facility] 11:33-0400 ([id number]) Body weight 47.44438 kg (no code) kg 01-24-2019 no name [facility] 11:45-0400 ([id number]) Body weight 47.24032 kg (no code) kg 01-23-2019 no name [facility] 12:11-0400 ([id number]) Body weight 47.05317 kg (no code) kg 01-22-2019 no name [facility] 12:48-0400 ([id number]) Body weight 47.628 kg (no code) kg 01-21-2019 no name [facility] 16:20-0400 ([id number]) Body weight 47.58820 kg (no code) kg 01-20-2019 no name [facility] 12:09-0400 ([id number]) Body weight 47.91999 kg (no code) kg 01-19-2019 no name [facility] 12:11-0400 ([id number]) Body weight 46.93423 kg (no code) kg 01-18-2019 no name [facility] 10:58-0400 ([id number]) Body weight 47.628 kg (no code) kg 01-17-2019 no name [facility] 12:13-0400 ([id number]) Body weight 47.87736 kg (no code) kg 01-16-2019 no name [facility] 10:47-0400 ([id number]) Body weight 47.17601 kg (no code) kg 01-15-2019 no name [facility] 16:17-0400 ([id number]) Body weight 47.05314 kg (no code) kg 01-14-2019 no name [facility] 12:18-0400 ([id number]) Body weight 47.80132 kg (no code) kg 01-13-2019 no name [facility] 12:14-0400 ([id number]) Body weight 47.1744 kg (no code) kg 01-12-2019 no name [facility] 12:57-0400 ([id number]) Body weight 47.05537 kg (no code) kg 01-11-2019 no name [facility] 12:16-0400 (53690) Body weight 47.24123 kg (no code) kg 01-10-2019 no name [facility] 12:10-0400 ([id number]) Body weight 47.77206 kg (no code) kg 01-09-2019 no name [facility] 11:55-0400 ([id number]) Body weight 47.87434 kg (no code) kg 01-08-2019 no name [facility] 12:16-0400 ([id number]) Body weight 47.21620 kg (no code) kg 01-07-2019 no name [facility] 10:04-0400 ([id number]) Body weight 47.42045 kg (no code) kg 01-06-2019 no name [facility] 12:22-0400 ([id number]) Body weight 47.12536 kg (no code) kg 01-05-2019 no name [facility] 09:16-0400 ([id number]) Body weight 47.38581 kg (no code) kg 01-04-2019 no name [facility] 11:52-0400 ([id number]) Body weight 47.64054 kg (no code) kg 01-03-2019 no name [facility] 12:32-0400 ([id number]) Body weight 47.74009 kg (no code) kg 01-02-2019 no name [facility] 11:180400 ([id number]) Body weight 46.7208 kg (no code) kg 01-01-2019 no name [facility] 12:240400 ([id number]) Body weight 47.66176 kg (no code) kg 12-31-2018 no name [facility] 12:270400 ([id number]) Body weight 47.25153 kg (no code) kg 12-30-2018 no name [facility] 12:100400 ([id number]) Body weight 47.1744 kg (no code) kg 12-29-2018 no name [facility] 12:0400 (16984) Body weight 47.83031 kg (no code) kg 12-28-2018 no name [facility] 12:220400 ([id number]) Body weight 47.75930 kg (no code) kg 12-27-2018 no name [facility] 12:170400 ([id number]) Body weight 47.97460 kg (no code) kg 12-26-2018 no name [facility] 12:230400 (89798) Body weight 47.87311 kg (no code) kg 12-25-2018 no name [facility] 12:0400 (89507) Body weight 46.7208 kg (no code) kg 12-24-2018 no name [facility] 12:340400 (66888) Body weight 47.77107 kg (no code) kg 12-23-2018 no name [facility] 12:130400 (76690) Body weight 47.52896 kg (no code) kg 12-22-2018 no name [facility] 11:480400 (46092) Body weight 46.17797 kg (no code) kg 12-21-2018 no name [facility] 12:470400 (88244) Body weight 47.1744 kg (no code) kg 12-20-2018 no name [facility] 12:0400 (32857) Body weight 46.71074 kg (no code) kg 12-19-2018 no name [facility] 12:50-0400 ([id number]) Body weight 46.24581 kg (no code) kg 12-18-2018 no name [facility] 11:40-0400 (07644) Body weight 46.96286 kg (no code) kg 12-17-2018 no name [facility] 12:10-0400 ([id number]) Body weight 47.1744 kg (no code) kg 12-16-2018 no name [facility] 13:09-0400 ([id number]) Body weight 47.66298 kg (no code) kg 12-15-2018 no name [facility] 11:52-0400 ([id number]) Body weight 46.62825 kg (L) kg 12-14-2018 no name [facility] 12:33-0400 ([id number]) Body weight 47.96580 kg (no code) kg 12-13-2018 no name [facility] 11:58-0400 ([id number]) Body weight 47.08234 kg (no code) kg 12-12-2018 no name [facility] 13:07-0400 (59363) Body weight 47.94181 kg (no code) kg 12-11-2018 no name [facility] 11:36-0400 ([id number]) Body weight 47.43763 kg (no code) kg 12-10-2018 no name [facility] 12:230400 (10948) Body weight 47.80095 kg (no code) kg 12-09-2018 no name [facility] 11:05-0400 ([id number]) Body weight 47.60294 kg (no code) kg 12-08-2018 no name [facility] 14:36-0400 ([id number]) Body weight 47.17 kg (no code) kg 12-08-2018 [facility] 11:300400 [id number] [facility] ([id number]) Body weight 47.84465 kg (no code) kg 12-07-2018 no name [facility] 12:19-0400 ([id number]) Body weight 47.40436 kg (no code) kg 12-06-2018 no name [facility] 20:21-0400 ([id number]) Body weight 47.628 kg (no code) kg 12-05-2018 no name [facility] 13:16-0400 ([id number]) Body weight 46.99388 kg (no code) kg 12-04-2018 no name [facility] 11:49-0400 (34123) Body weight 46.12230 kg (no code) kg 12-03-2018 no name [facility] 11:30-0500 (51573) Body weight 47.20279 kg (no code) kg 12-02-2018 no name [facility] 11:27-0500 ([id number]) Body weight 46.30031 kg (no code) kg 12-01-2018 no name [facility] 12:06-0500 ([id number]) Body weight 47.88576 kg (no code) kg 11-30-2018 no name [facility] 12:20-0500 (76021) Body weight 47.61492 kg (no code) kg 11-29-2018 no name [facility] 12:21-0500 (60417) Body weight 47.46713 kg (no code) kg 11-28-2018 no name [facility] 12:09-0500 ([id number]) Body weight 47.97123 kg (no code) kg 11-27-2018 no name [facility] 12:06-0500 (75684) Body weight 47.33325 kg (no code) kg 11-26-2018 no name [facility] 12:30-0500 (07918) Body weight 47.86883 kg (no code) kg 11-25-2018 no name [facility] 12:06-0500 (52617) Body weight 47.35746 kg (no code) kg 11-24-2018 no name [facility] 12:32-0500 (25450) Body weight 47.88541 kg (no code) kg 11-23-2018 no name [facility] 12:45-0500 (85067) Body weight 47.78208 kg (no code) kg 11-22-2018 no name [facility] 12:35-0500 (83582) Body weight 47.24245 kg (no code) kg 11-21-2018 no name [facility] 14:38-0500 (29913) Body weight 47.08173 kg (no code) kg 11-20-2018 no name [facility] 14:250500 (42714) Body weight 48.20493 kg (no code) kg 11-19-2018 no name [facility] 11:0500 (42418) Body weight 48.04131 kg (no code) kg 11-18-2018 no name [facility] 12:250500 (17210) Body weight 48.65362 kg (no code) kg 11-17-2018 no name [facility] 12:0500 (56698) Body weight 48.03639 kg (no code) kg 11-16-2018 no name [facility] 10:0500 (83198) Body weight 48.83302 kg (no code) kg 11-15-2018 no name [facility] 12:0500 (51071) Body weight 47.79644 kg (LL) kg 11-14-2018 no name [facility] 11:400500 (85525) Body weight 49.66315 kg (H) kg 11-13-2018 no name [facility] 13:050500 (26365) Body weight 48.02386 kg (no code) kg 11-12-2018 no name [facility] 11:0500 (20219) Body weight 49.71085 kg (no code) kg 11-11-2018 no name [facility] 12:0500 (32003) Body weight 48.32092 kg (no code) kg 11-10-2018 no name [facility] 11:0500 (20255) Body weight 49.45252 kg (no code) kg 11-09-2018 no name [facility] 12:0500 (78320) Body weight 49.56648 kg (no code) kg 11-08-2018 no name [facility] 13:0500 (29138) Body weight 48.04121 kg (no code) kg 11-07-2018 no name [facility] 12:12-0500 (69575) Body weight 49.71269 kg (no code) kg 11-06-2018 no name [facility] 13:56-0500 (84081) Body weight 49.4424 kg (no code) kg 11-05-2018 no name [facility] 11:49-0500 (21696) Body weight 49.24183 kg (no code) kg 11-04-2018 no name [facility] 12:01-0500 ([id number]) Body weight 49.21889 kg (no code) kg 11-03-2018 no name [facility] 12:13-0500 (51485) Body weight 49.4424 kg (no code) kg 11-02-2018 no name [facility] 12:42-0500 (96764) Body weight 49.28922 kg (no code) kg 11-01-2018 no name [facility] 12:08-0500 (53895) Body weight 49.38251 kg (no code) kg 10-31-2018 no name [facility] 13:56-0500 (97956) Body weight 49.15583 kg (no code) kg 10-30-2018 no name [facility] 12:05-0500 (02426) Body weight 49.20109 kg (no code) kg 10-29-2018 no name [facility] 12:01-0500 (03573) Body weight 49.40420 kg (no code) kg 10-28-2018 no name [facility] 12:31-0500 (01198) Body weight 49.99100 kg (no code) kg 10-27-2018 no name [facility] 12:17-0500 (38555) Body weight 50.83327 kg (no code) kg 10-26-2018 no name [facility] 12:41-0500 (80516) Body weight 50.67724 kg (no code) kg 10-25-2018 no name [facility] 12:05-0500 (52819) Body weight 50.74833 kg (no code) kg 10-24-2018 no name [facility] 12:13-0500 (16207) Body weight 50.62955 kg (no code) kg 10-23-2018 no name [facility] 19:18-0500 (53706) Body weight 50.03665 kg (no code) kg 10-23-2018 no name [facility] 06:44-0500 (04816) Body weight 50.38054 kg (no code) kg 10-22-2018 no name [facility] 12:05-0500 (32721) Body weight 49.62512 kg (no code) kg 10-21-2018 no name [facility] 11:31-0500 (63042) Body weight 50.17074 kg (no code) kg 10-20-2018 no name [facility] 12:01-0500 (80478) Body weight 50.3496 kg (no code) kg 10-19-2018 no name [facility] 12:17-0500 (53790) Body weight 50.3496 kg (no code) kg 10-18-2018 no name [facility] 12:25-0500 (98224) Body weight 50.30186 kg (no code) kg 10-17-2018 no name [facility] 13:44-0500 (59498) Body weight 50.83522 kg (no code) kg 10-16-2018 no name [facility] 12:13-0500 (73125) Body weight 49.85409 kg (no code) kg 10-15-2018 no name [facility] 11:55-0500 (11821) Body weight 50.06897 kg (no code) kg 10-14-2018 no name [facility] 12:18-0500 (63446) Body weight 50.88328 kg (no code) kg 10-13-2018 no name [facility] 15:19-0500 (35262) Body weight 50.8032 kg (no code) kg 10-12-2018 no name [facility] 13:07-0500 (22353) Body weight 50.97347 kg (no code) kg 10-11-2018 no name [facility] 12:27-0500 (38786) Body weight 50.79331 kg (no code) kg 10-10-2018 no name [facility] 12:10-0500 (07443) Body weight 49.896 kg (L) kg 10-09-2018 no name [facility] 11:42-0500 (72227) Body weight 51.86743 kg (no code) kg 10-08-2018 no name [facility] 12:10-0500 (83671) Body weight 50.71991 kg (no code) kg 10-07-2018 no name [facility] 12:04-0500 (37310) Body weight 50.75934 kg (L) kg 10-06-2018 no name [facility] 12:03-0500 (16537) Body weight 51.01885 kg (no code) kg 10-05-2018 no name [facility] 11:47-0500 (10691) Body weight 51.2568 kg (no code) kg 10-04-2018 no name [facility] 12:04-0500 (73085) Body weight 51.90750 kg (no code) kg 10-03-2018 no name [facility] 12:05-0500 (04659) Body weight 50.34069 kg (no code) kg 10-02-2018 no name [facility] 12:04-0500 (41377) Body weight 50.86758 kg (no code) kg 10-01-2018 no name [facility] 12:07-0500 (80160) Body weight 50.8032 kg (no code) kg 09-30-2018 no name [facility] 13:09-0500 (00250) Body weight 50.67951 kg (no code) kg 09-29-2018 no name [facility] 12:23-0500 ([id number]) Body weight 51.2568 kg (no code) kg 09-28-2018 no name [facility] 12:00-0500 (76512) Body weight 51.34819 kg (no code) kg 09-27-2018 no name [facility] 12:16-0500 (60247) Body weight 51.7104 kg (no code) kg 09-26-2018 no name [facility] 11:32-0500 (28188) Body weight 51.13989 kg (no code) kg 09-25-2018 no name [facility] 07:05-0500 (11850) Body weight 51.7104 kg (no code) kg 09-24-2018 no name [facility] 12:070500 ([id number]) Body weight 52.72922 kg (no code) kg 09-23-2018 no name [facility] 13:43-0500 (90674) Body weight 51.70190 kg (no code) kg 09-22-2018 no name [facility] 11:0500 (27079) Body weight 51.15799 kg (no code) kg 09-21-2018 no name [facility] 13:09-0500 ([id number]) Body weight 51.28923 kg (no code) kg 09-20-2018 no name [facility] 12:130500 (10014) Body weight 51.59719 kg (no code) kg 09-19-2018 no name [facility] 12:080500 (74701) Body weight 51.95613 kg (no code) kg 09-18-2018 no name [facility] 11:280500 (73569) Body weight 50.92877 kg (no code) kg 09-17-2018 no name [facility] 13:040500 (51094) Body weight 50.80734 kg (no code) kg 09-16-2018 no name [facility] 12:17-0500 (14073) Body weight 51.95509 kg (no code) kg 09-15-2018 no name [facility] 12:00-0500 (65009) Body weight 50.27637 kg (no code) kg 09-14-2018 no name [facility] 13:32-0500 (03494) Body weight 50.8032 kg (no code) kg 09-13-2018 no name [facility] 11:04-0500 (87939) Body weight 50.91727 kg (no code) kg 09-12-2018 no name [facility] 12:32-0500 (01247) Body weight 50.12322 kg (no code) kg 09-11-2018 no name [facility] 07:45-0500 (15720) Body weight 50.26443 kg (no code) kg 09-10-2018 no name [facility] 13:58-0500 (86826) Body weight 51.25550 kg (no code) kg 09-09-2018 no name [facility] 10:27-0500 (08068) Body weight 51.39161 kg (no code) kg 09-08-2018 no name [facility] 15:59-0500 (87339) Body weight 50.93031 kg (no code) kg 09-07-2018 no name [facility] 12:15-0500 (83784) Body weight 50.36362 kg (no code) kg 09-06-2018 no name [facility] 16:37-0500 ([id number]) Body weight 50.80076 kg (no code) kg 09-05-2018 no name [facility] 13:00-0500 (00532) Body weight 50.79832 kg (no code) kg 09-04-2018 no name [facility] 11:30-0500 (52562) Body weight 50.99842 kg (L) kg 09-03-2018 no name [facility] 12:08-0500 (20146) Body weight 51.01471 kg (no code) kg 09-02-2018 no name [facility] 12:05-0500 (83283) Body weight 51.12068 kg (no code) kg 09-01-2018 no name [facility] 19:26-0500 (90254) Body weight 50.8032 kg (no code) kg 08-31-2018 no name [facility] 12:55-0500 (27838) Body weight 51.55080 kg (no code) kg 08-30-2018 no name [facility] 14:07-0500 (50672) Body weight 50.15588 kg (no code) kg 08-29-2018 no name [facility] 21:06-0500 (39443) Body weight 50.3496 kg (no code) kg 08-28-2018 no name [facility] 12:10-0500 (35308) Body weight 50.98916 kg (no code) kg 08-27-2018 no name [facility] 11:59-0500 (13315) Body weight 50.30946 kg (no code) kg 08-26-2018 no name [facility] 12:38-0500 (38379) Body weight 50.93026 kg (no code) kg 08-25-2018 no name [facility] 12:03-0500 (05078) Body weight 51.91029 kg (no code) kg 08-24-2018 no name [facility] 12:49-0500 (55789) Body weight 51.20031 kg (no code) kg 08-23-2018 no name [facility] 12:03-0500 (06848) Body weight 51.21780 kg (no code) kg 08-22-2018 no name [facility] 12:45-0500 (83655) Body weight 50.8032 kg (no code) kg 08-21-2018 no name [facility] 12:010500 (36303) Body weight 50.58913 kg (no code) kg 08-20-2018 no name [facility] 12:25-0500 (64077) Body weight 50.75623 kg (no code) kg 08-19-2018 no name [facility] 11:540500 (46931) Body weight 51.10559 kg (no code) kg 08-18-2018 no name [facility] 12:06-0500 (96852) Body weight 51.47078 kg (no code) kg 08-17-2018 no name [facility] 12:15-0500 (40657) Blood Pressure 170/ (HH) Systolic: 01-01-2020 no na [facility] 80mm[Hg] 120 mm[Hg] 08:47-0400 (32272) Diastolic: 60 - 80 mm[Hg] Blood Pressure 174/ (HH) Systolic: 90 - 01-01-2020 no na [facility] 80mm[Hg] 120 mm[Hg] 07:08-0400 (35106) Diastolic: 60 - 80 mm[Hg] Blood Pressure 179/ (HH) Systolic: 90 - 04-06-2020 no na me [facility] 74mm[Hg] 120 mm[Hg] 07:070400 (62954) Diastolic: 60 - 80 mm[Hg] Blood Pressure 153/ (no code) Systolic: 12-31-2019 no n reji [facility] 76mm[Hg] 120 mm[Hg] 06:450400 (94577) Diastolic: 60 - 80 mm[Hg] Blood Pressure 166/ (H) Systolic: 12-30-2019 no na [facility] 73mm[Hg] 120 mm[Hg] 06:25-0400 (29262) Diastolic: 60 - 80 mm[Hg] Blood Pressure 153/ (no code) Systolic: 12-29-2019 no n reji [facility] 76mm[Hg] 120 mm[Hg] 07:04040 (89354) Diastolic: 60 - 80 mm[Hg] Blood Pressure 128/ (no code) Systolic: 12-28-2019 no n reji [facility] 62mm[Hg] 120 mm[Hg] 07:140400 (45677) Diastolic: 60 - 80 mm[Hg] Blood Pressure 157/ (no code) Systolic: 12-27-2019 no n reji [facility] 78mm[Hg] 120 mm[Hg] 07:04040 (69080) Diastolic: 60 - 80 mm[Hg] Blood Pressure 167/ (H) Systolic: 12-26-2019 no na [facility] 77mm[Hg] 120 mm[Hg] 07:0400 (51716) Diastolic: 60 - 80 mm[Hg] Blood Pressure 163/ (H) Systolic: 12-25-2019 no na me [facility] 70mm[Hg] 120 mm[Hg] 07:05040 (22186) Diastolic: 60 - 80 mm[Hg] Blood Pressure 170/ (HH) Systolic: 12-25-2019 no na me [facility] 72mm[Hg] 120 mm[Hg] 07:03040 (02464) Diastolic: 60 - 80 mm[Hg] Blood Pressure 160/ (H) Systolic: 12-24-2019 no na me [facility] 78mm[Hg] 120 mm[Hg] 07:03-0400 (80606) Diastolic: 60 - 80 mm[Hg] Blood Pressure 133/ (no code) Systolic: 12-23-2019 no n reji [facility] 65mm[Hg] 120 mm[Hg] 06:44-0400 (73090) Diastolic: 60 - 80 mm[Hg] Blood Pressure 156/ (no code) Systolic: 12-22-2019 no n reji [facility] 71mm[Hg] 120 mm[Hg] 07:06040 (39473) Diastolic: 60 - 80 mm[Hg] Blood Pressure 169/ (H) Systolic: 12-21-2019 no na me [facility] 72mm[Hg] 120 mm[Hg] 07:06040 (08687) Diastolic: 60 - 80 mm[Hg] Blood Pressure 150/ (no code) Systolic: 12-20-2019 no n reji [facility] 77mm[Hg] 120 mm[Hg] 09:060400 (06235) Diastolic: 60 - 80 mm[Hg] Blood Pressure 175/ (HH) Systolic: 12-20-2019 no na [facility] 77mm[Hg] 120 mm[Hg] 06:580400 (01163) Diastolic: 60 - 80 mm[Hg] Blood Pressure 172/ (HH) Systolic: 12-20-2019 no na me [facility] 78mm[Hg] 120 mm[Hg] 06:56-0400 ([id number]) Diastolic: 60 - 80 mm[Hg] Blood Pressure 158/ (no code) Systolic: 12-19-2019 no n reji [facility] 72mm[Hg] 120 mm[Hg] 06:32-0400 (29886) Diastolic: 60 - 80 mm[Hg] Blood Pressure 168/ (H) Systolic: 12-18-2019 no na me [facility] 84mm[Hg] 120 mm[Hg] 08:30040 (06782) Diastolic: 60 - 80 mm[Hg] Diastolic 76 mm[Hg] (no code) 60 - 80 mm[Hg] 12-18-2019 no name [facility] blood pressure 06:54-0400 (01031) Blood Pressure 179/ (HH) Systolic: 12-18-2019 no na me [facility] 80mm[Hg] 120 mm[Hg] 06:51-0400 (07309) Diastolic: 60 - 80 mm[Hg] Blood Pressure 147/ (no code) Systolic: 12-17-2019 no n reji [facility] 75mm[Hg] 120 mm[Hg] 06:45-0400 (56940) Diastolic: 60 - 80 mm[Hg] Blood Pressure 161/ (H) Systolic: 12-16-2019 no na me [facility] 76mm[Hg] 120 mm[Hg] 07:220400 (60201) Diastolic: 60 - 80 mm[Hg] Blood Pressure 161/ (H) Systolic: 12-15-2019 no na me [facility] 78mm[Hg] 120 mm[Hg] 09:00-0400 ([id number]) Diastolic: 60 - 80 mm[Hg] Blood Pressure 177/ (HH) Systolic: 12-15-2019 no na me [facility] 76mm[Hg] 120 mm[Hg] 08:58-0400 ([id number]) Diastolic: 60 - 80 mm[Hg] Blood Pressure 129/ (no code) Systolic: 12-14-2019 no n reji [facility] 63mm[Hg] 120 mm[Hg] 07:160400 ([id number]) Diastolic: 60 - 80 mm[Hg] Blood Pressure 169/ (H) Systolic: 12-13-2019 no na me [facility] 81mm[Hg] 120 mm[Hg] 07:030400 ([id number]) Diastolic: 60 - 80 mm[Hg] Blood Pressure 168/ (H) Systolic: 12-12-2019 no na me [facility] 77mm[Hg] 120 mm[Hg] 07:080400 (48205) Diastolic: 60 - 80 mm[Hg] Blood Pressure 158/ (no code) Systolic: 12-11-2019 no n reji [facility] 69mm[Hg] 120 mm[Hg] 07:13-0400 (69401) Diastolic: 60 - 80 mm[Hg] Blood Pressure 171/ (HH) Systolic: 12-11-2019 no na me [facility] 76mm[Hg] 120 mm[Hg] 07:110400 (81762) Diastolic: 60 - 80 mm[Hg] Blood Pressure 153/ (no code) Systolic: 12-10-2019 no n reji [facility] 70mm[Hg] 120 mm[Hg] 07:140400 ([id number]) Diastolic: 60 - 80 mm[Hg] Blood Pressure 167/ (H) Systolic: 12-09-2019 no na me [facility] 74mm[Hg] 120 mm[Hg] 06:46-0400 (65648) Diastolic: 60 - 80 mm[Hg] Blood Pressure 164/ (H) Systolic: 12-08-2019 no na me [facility] 70mm[Hg] 120 mm[Hg] 07:210400 (33494) Diastolic: 60 - 80 mm[Hg] Blood Pressure 119/ (no code) Systolic: 12-07-2019 no n reji [facility] 68mm[Hg] 120 mm[Hg] 07:100400 (37529) Diastolic: 60 - 80 mm[Hg] Blood Pressure 151/ (no code) Systolic: 12-06-2019 no n reji [facility] 69mm[Hg] 120 mm[Hg] 07:060400 ([id number]) Diastolic: 60 - 80 mm[Hg] Blood Pressure 161/ (H) Systolic: 12-05-2019 no na me [facility] 84mm[Hg] 120 mm[Hg] 07:030400 ([id number]) Diastolic: 60 - 80 mm[Hg] Blood Pressure 167/ (H) Systolic: 12-04-2019 no na me [facility] 75mm[Hg] 120 mm[Hg] 06:50-0400 ([id number]) Diastolic: 60 - 80 mm[Hg] Blood Pressure 139/ (no code) Systolic: 12-03-2019 no n reji [facility] 76mm[Hg] 120 mm[Hg] 07:19-0400 ([id number]) Diastolic: 60 - 80 mm[Hg] Blood Pressure 163/ (H) Systolic: 12-02-2019 no na me [facility] 74mm[Hg] 120 mm[Hg] 06:10-0500 ([id number]) Diastolic: 60 - 80 mm[Hg] Blood Pressure 160/ (H) Systolic: 12-01-2019 no na me [facility] 75mm[Hg] 120 mm[Hg] 05:26-0500 ([id number]) Diastolic: 60 - 80 mm[Hg] Blood Pressure 167/ (H) Systolic: 11-30-2019 no na me [facility] 76mm[Hg] 120 mm[Hg] 02:25-0500 ([id number]) Diastolic: 60 - 80 mm[Hg] Blood Pressure 167/ (H) Systolic: 11-29-2019 no na me [facility] 75mm[Hg] 120 mm[Hg] 05:32-0500 ([id number]) Diastolic: 60 - 80 mm[Hg] Blood Pressure 163/ (H) Systolic: 11-28-2019 no na me [facility] 77mm[Hg] 120 mm[Hg] 05:24-0500 ([id number]) Diastolic: 60 - 80 mm[Hg] Blood Pressure 159/ (no code) Systolic: 11-27-2019 no n reji [facility] 74mm[Hg] 120 mm[Hg] 05:33-0500 ([id number]) Diastolic: 60 - 80 mm[Hg] Blood Pressure 158/ (no code) Systolic: 11-26-2019 no n reji [facility] 67mm[Hg] 120 mm[Hg] 09:390500 ([id number]) Diastolic: 60 - 80 mm[Hg] Blood Pressure 170/ (HH) Systolic: 11-26-2019 no na me [facility] 74mm[Hg] 120 mm[Hg] 05:39-0500 ([id number]) Diastolic: 60 - 80 mm[Hg] Blood Pressure 176/ (HH) Systolic: 11-26-2019 no na me [facility] 75mm[Hg] 120 mm[Hg] 05:37-0500 ([id number]) Diastolic: 60 - 80 mm[Hg] Blood Pressure 176/ (HH) Systolic: 11-25-2019 no na me [facility] 79mm[Hg] 120 mm[Hg] 08:190500 ([id number]) Diastolic: 60 - 80 mm[Hg] Blood Pressure 177/ (HH) Systolic: 11-25-2019 no na me [facility] 75mm[Hg] 120 mm[Hg] 06:12-0500 ([id number]) Diastolic: 60 - 80 mm[Hg] Blood Pressure 174/ (HH) Systolic: 11-25-2019 no na me [facility] 84mm[Hg] 120 mm[Hg] 06:10-0500 ([id number]) Diastolic: 60 - 80 mm[Hg] Blood Pressure 164/ (H) Systolic: 11-24-2019 no na me [facility] 78mm[Hg] 120 mm[Hg] 05:49-0500 ([id number]) Diastolic: 60 - 80 mm[Hg] Blood Pressure 169/ (H) Systolic: 11-23-2019 no na me [facility] 75mm[Hg] 120 mm[Hg] 05:58-0500 ([id number]) Diastolic: 60 - 80 mm[Hg] Blood Pressure 171/ (HH,HH) Systolic: 11-22-2019 no na me [facility] 102mm[Hg] 120 mm[Hg] 07:40-0500 ([id number]) Diastolic: 60 - 80 mm[Hg] Blood Pressure 180/ (HH) Systolic: 11-22-2019 no na me [facility] 77mm[Hg] 120 mm[Hg] 06:060500 ([id number]) Diastolic: 60 - 80 mm[Hg] Blood Pressure 176/ (HH) Systolic: 11-22-2019 no na me [facility] 81mm[Hg] 120 mm[Hg] 06:030500 ([id number]) Diastolic: 60 - 80 mm[Hg] Blood Pressure 156/ (no code) Systolic: 11-21-2019 no n reji [facility] 73mm[Hg] 120 mm[Hg] 06:030500 ([id number]) Diastolic: 60 - 80 mm[Hg] Blood Pressure 159/ (no code) Systolic: 11-20-2019 no n reji [facility] 74mm[Hg] 120 mm[Hg] 06:09-0500 ([id number]) Diastolic: 60 - 80 mm[Hg] Blood Pressure 172/ (HH) Systolic: 11-20-2019 no na me [facility] 75mm[Hg] 120 mm[Hg] 06:07-0500 ([id number]) Diastolic: 60 - 80 mm[Hg] Blood Pressure 151/ (no code) Systolic: 11-19-2019 no n reji [facility] 70mm[Hg] 120 mm[Hg] 05:51-0500 ([id number]) Diastolic: 60 - 80 mm[Hg] Blood Pressure 168/ (H) Systolic: 11-18-2019 no na me [facility] 74mm[Hg] 120 mm[Hg] 06:18-0500 ([id number]) Diastolic: 60 - 80 mm[Hg] Blood Pressure 171/ (HH) Systolic: 11-18-2019 no na me [facility] 73mm[Hg] 120 mm[Hg] 06:160500 ([id number]) Diastolic: 60 - 80 mm[Hg] Blood Pressure 145/ (no code) Systolic: 11-17-2019 no n reji [facility] 77mm[Hg] 120 mm[Hg] 06:010500 ([id number]) Diastolic: 60 - 80 mm[Hg] Blood Pressure 136/ (no code) Systolic: 11-16-2019 no n reji [facility] 71mm[Hg] 120 mm[Hg] 07:55-0500 ([id number]) Diastolic: 60 - 80 mm[Hg] Blood Pressure 177/ (HH) Systolic: 11-16-2019 no na me [facility] 79mm[Hg] 120 mm[Hg] 06:200500 ([id number]) Diastolic: 60 - 80 mm[Hg] Blood Pressure 180/ (HH) Systolic: 11-15-2019 no na me [facility] 81mm[Hg] 120 mm[Hg] 07:010500 ([id number]) Diastolic: 60 - 80 mm[Hg] Blood Pressure 174/ (HH) Systolic: 11-15-2019 no na me [facility] 81mm[Hg] 120 mm[Hg] 05:26-0500 ([id number]) Diastolic: 60 - 80 mm[Hg] Blood Pressure 177/ (HH) Systolic: 11-15-2019 no na me [facility] 83mm[Hg] 120 mm[Hg] 05:24-0500 ([id number]) Diastolic: 60 - 80 mm[Hg] Blood Pressure 153/ (no code) Systolic: 11-14-2019 no n reji [facility] 76mm[Hg] 120 mm[Hg] 08:00-0500 ([id number]) Diastolic: 60 - 80 mm[Hg] Blood Pressure 186/ (HH) Systolic: 11-14-2019 no na me [facility] 80mm[Hg] 120 mm[Hg] 06:10-0500 ([id number]) Diastolic: 60 - 80 mm[Hg] Blood Pressure 180/ (HH) Systolic: 11-14-2019 no na me [facility] 84mm[Hg] 120 mm[Hg] 06:080500 ([id number]) Diastolic: 60 - 80 mm[Hg] Blood Pressure 178/ (HH) Systolic: 11-13-2019 no na me [facility] 70mm[Hg] 120 mm[Hg] 06:27-0500 ([id number]) Diastolic: 60 - 80 mm[Hg] Blood Pressure 167/ (H) Systolic: 11-12-2019 no na me [facility] 74mm[Hg] 120 mm[Hg] 06:22-0500 ([id number]) Diastolic: 60 - 80 mm[Hg] Blood Pressure 177/ (HH) Systolic: 11-12-2019 no na me [facility] 78mm[Hg] 120 mm[Hg] 06:20-0500 ([id number]) Diastolic: 60 - 80 mm[Hg] Blood Pressure 159/ (no code) Systolic: 11-11-2019 no n reji [facility] 77mm[Hg] 120 mm[Hg] 05:37-0500 ([id number]) Diastolic: 60 - 80 mm[Hg] Blood Pressure 165/ (H) Systolic: 11-10-2019 no na me [facility] 83mm[Hg] 120 mm[Hg] 07:46-0500 ([id number]) Diastolic: 60 - 80 mm[Hg] Diastolic 85 mm[Hg] (no code) 60 - 80 mm[Hg] 11-10-2019 no name [facility] blood pressure 06:090500 ([id number]) Blood Pressure 172/ (HH) Systolic: 90 - 02-14-2020 no na me [facility] 88mm[Hg] 120 mm[Hg] 06:06-0500 ([id number]) Diastolic: 60 - 80 mm[Hg] Blood Pressure 178/ (HH) Systolic: 11-09-2019 no na me [facility] 81mm[Hg] 120 mm[Hg] 08:14-0500 ([id number]) Diastolic: 60 - 80 mm[Hg] Blood Pressure 174/ (HH) Systolic: 11-09-2019 no na me [facility] 82mm[Hg] 120 mm[Hg] 05:58-0500 ([id number]) Diastolic: 60 - 80 mm[Hg] Blood Pressure 171/ (HH) Systolic: 11-09-2019 no na me [facility] 87mm[Hg] 120 mm[Hg] 05:57-0500 ([id number]) Diastolic: 60 - 80 mm[Hg] Blood Pressure 145/ (no code) Systolic: 11-07-2019 no n reji [facility] 60mm[Hg] 120 mm[Hg] 06:18-0500 ([id number]) Diastolic: 60 - 80 mm[Hg] Blood Pressure 161/ (H) Systolic: 11-06-2019 no na me [facility] 79mm[Hg] 120 mm[Hg] 07:50-0500 ([id number]) Diastolic: 60 - 80 mm[Hg] Blood Pressure 176/ (HH) Systolic: 11-06-2019 no na me [facility] 81mm[Hg] 120 mm[Hg] 06:110500 ([id number]) Diastolic: 60 - 80 mm[Hg] Diastolic 84 mm[Hg] (no code) 60 - 80 mm[Hg] 11-06-2019 no name [facility] blood pressure 06:090500 ([id number]) Blood Pressure 176/ (HH) Systolic: 11-05-2019 no na me [facility] 70mm[Hg] 120 mm[Hg] 07:090500 ([id number]) Diastolic: 60 - 80 mm[Hg] Blood Pressure 176/ (HH) Systolic: 11-05-2019 no na me [facility] 72mm[Hg] 120 mm[Hg] 05:45-0500 ([id number]) Diastolic: 60 - 80 mm[Hg] Blood Pressure 147/ (no code) Systolic: 11-04-2019 no n reji [facility] 69mm[Hg] 120 mm[Hg] 07:40-0500 ([id number]) Diastolic: 60 - 80 mm[Hg] Blood Pressure 175/ (HH) Systolic: 11-04-2019 no na me [facility] 71mm[Hg] 120 mm[Hg] 06:040500 ([id number]) Diastolic: 60 - 80 mm[Hg] Blood Pressure 172/ (HH) Systolic: 11-04-2019 no na me [facility] 78mm[Hg] 120 mm[Hg] 06:020500 ([id number]) Diastolic: 60 - 80 mm[Hg] Blood Pressure 169/ (H) Systolic: 11-03-2019 no na me [facility] 74mm[Hg] 120 mm[Hg] 07:36-0500 ([id number]) Diastolic: 60 - 80 mm[Hg] Blood Pressure 177/ (HH) Systolic: 11-03-2019 no na me [facility] 81mm[Hg] 120 mm[Hg] 05:53-0500 ([id number]) Diastolic: 60 - 80 mm[Hg] Blood Pressure 167/ (H) Systolic: 11-02-2019 no na me [facility] 73mm[Hg] 120 mm[Hg] 06:050500 ([id number]) Diastolic: 60 - 80 mm[Hg] Blood Pressure 166/ (H) Systolic: 11-01-2019 no na me [facility] 81mm[Hg] 120 mm[Hg] 06:130500 ([id number]) Diastolic: 60 - 80 mm[Hg] Blood Pressure 168/ (H) Systolic: 10-31-2019 no na me [facility] 80mm[Hg] 120 mm[Hg] 06:130500 ([id number]) Diastolic: 60 - 80 mm[Hg] Blood Pressure 164/ (H) Systolic: 10-30-2019 no na me [facility] 81mm[Hg] 120 mm[Hg] 07:58-0500 ([id number]) Diastolic: 60 - 80 mm[Hg] Blood Pressure 183/ (HH) Systolic: 10-30-2019 no na me [facility] 71mm[Hg] 120 mm[Hg] 06:16-0500 ([id number]) Diastolic: 60 - 80 mm[Hg] Blood Pressure 173/ (HH) Systolic: 10-30-2019 no na me [facility] 70mm[Hg] 120 mm[Hg] 06:14-0500 ([id number]) Diastolic: 60 - 80 mm[Hg] Blood Pressure 168/ (H) Systolic: 10-29-2019 no na me [facility] 73mm[Hg] 120 mm[Hg] 05:54-0500 ([id number]) Diastolic: 60 - 80 mm[Hg] Blood Pressure 170/ (HH) Systolic: 10-29-2019 no na me [facility] 77mm[Hg] 120 mm[Hg] 05:52-0500 ([id number]) Diastolic: 60 - 80 mm[Hg] Blood Pressure 156/ (no code) Systolic: 10-28-2019 no n reji [facility] 74mm[Hg] 120 mm[Hg] 05:29-0500 ([id number]) Diastolic: 60 - 80 mm[Hg] Blood Pressure 160/ (H) Systolic: 10-27-2019 no na me [facility] 78mm[Hg] 120 mm[Hg] 05:59-0500 ([id number]) Diastolic: 60 - 80 mm[Hg] Blood Pressure 162/ (H) Systolic: 10-26-2019 no na me [facility] 75mm[Hg] 120 mm[Hg] 06:110500 ([id number]) Diastolic: 60 - 80 mm[Hg] Blood Pressure 165/ (H) Systolic: 10-25-2019 no na me [facility] 73mm[Hg] 120 mm[Hg] 05:41-0500 ([id number]) Diastolic: 60 - 80 mm[Hg] Blood Pressure 172/ (HH) Systolic: 10-24-2019 no na me [facility] 83mm[Hg] 120 mm[Hg] 07:58-0500 ([id number]) Diastolic: 60 - 80 mm[Hg] Blood Pressure 180/ (HH) Systolic: 10-24-2019 no na me [facility] 84mm[Hg] 120 mm[Hg] 06:36-0500 ([id number]) Diastolic: 60 - 80 mm[Hg] Blood Pressure 173/ (HH) Systolic: 10-24-2019 no na me [facility] 88mm[Hg] 120 mm[Hg] 06:33-0500 ([id number]) Diastolic: 60 - 80 mm[Hg] Blood Pressure 171/ (HH) Systolic: 10-23-2019 no na me [facility] 80mm[Hg] 120 mm[Hg] 06:05-0500 ([id number]) Diastolic: 60 - 80 mm[Hg] Blood Pressure 156/ (no code) Systolic: 10-22-2019 no n reji [facility] 76mm[Hg] 120 mm[Hg] 06:230500 ([id number]) Diastolic: 60 - 80 mm[Hg] Blood Pressure 173/ (HH) Systolic: 10-22-2019 no na me [facility] 80mm[Hg] 120 mm[Hg] 06:210500 ([id number]) Diastolic: 60 - 80 mm[Hg] Blood Pressure 152/ (no code) Systolic: 10-21-2019 no n reji [facility] 77mm[Hg] 120 mm[Hg] 06:020500 ([id number]) Diastolic: 60 - 80 mm[Hg] Blood Pressure 124/ (no code) Systolic: 10-20-2019 no n reji [facility] 62mm[Hg] 120 mm[Hg] 17:310500 ([id number]) Diastolic: 60 - 80 mm[Hg] Blood Pressure 169/ (H) Systolic: 10-20-2019 no na me [facility] 83mm[Hg] 120 mm[Hg] 05:24-0500 ([id number]) Diastolic: 60 - 80 mm[Hg] Blood Pressure 150/ (no code) Systolic: 10-19-2019 no n reji [facility] 78mm[Hg] 120 mm[Hg] 08:110500 ([id number]) Diastolic: 60 - 80 mm[Hg] Blood Pressure 173/ (HH) Systolic: 10-19-2019 no na me [facility] 77mm[Hg] 120 mm[Hg] 06:22-0500 ([id number]) Diastolic: 60 - 80 mm[Hg] Blood Pressure 174/ (HH) Systolic: 10-19-2019 no na me [facility] 81mm[Hg] 120 mm[Hg] 06:200500 ([id number]) Diastolic: 60 - 80 mm[Hg] Blood Pressure 168/ (H) Systolic: 10-18-2019 no na me [facility] 78mm[Hg] 120 mm[Hg] 06:20-0500 ([id number]) Diastolic: 60 - 80 mm[Hg] Blood Pressure 180/ (HH) Systolic: 10-18-2019 no na me [facility] 83mm[Hg] 120 mm[Hg] 06:170500 ([id number]) Diastolic: 60 - 80 mm[Hg] Blood Pressure 142/ (no code) Systolic: 10-17-2019 no n reji [facility] 76mm[Hg] 120 mm[Hg] 07:080500 ([id number]) Diastolic: 60 - 80 mm[Hg] Diastolic 74 mm[Hg] (no code) 60 - 80 mm[Hg] 10-17-2019 no name [facility] blood pressure 05:35-0500 ([id number]) Blood Pressure 185/ (HH) Systolic: 10-17-2019 no na me [facility] 89mm[Hg] 120 mm[Hg] 05:32-0500 ([id number]) Diastolic: 60 - 80 mm[Hg] Blood Pressure 162/ (H) Systolic: 10-16-2019 no na me [facility] 78mm[Hg] 120 mm[Hg] 05:51-0500 ([id number]) Diastolic: 60 - 80 mm[Hg] Blood Pressure 173/ (HH) Systolic: 10-16-2019 no na me [facility] 77mm[Hg] 120 mm[Hg] 05:48-0500 ([id number]) Diastolic: 60 - 80 mm[Hg] Blood Pressure 168/ (H) Systolic: 10-15-2019 no na me [facility] 84mm[Hg] 120 mm[Hg] 06:010500 ([id number]) Diastolic: 60 - 80 mm[Hg] Blood Pressure 156/ (no code) Systolic: 10-14-2019 no n reji [facility] 78mm[Hg] 120 mm[Hg] 06:15-0500 ([id number]) Diastolic: 60 - 80 mm[Hg] Blood Pressure 139/ (no code) Systolic: 10-13-2019 no n reji [facility] 72mm[Hg] 120 mm[Hg] 07:090500 ([id number]) Diastolic: 60 - 80 mm[Hg] Blood Pressure 170/ (HH) Systolic: 10-13-2019 no na me [facility] 71mm[Hg] 120 mm[Hg] 07:070500 ([id number]) Diastolic: 60 - 80 mm[Hg] Blood Pressure 156/ (no code) Systolic: 10-12-2019 no n reji [facility] 77mm[Hg] 120 mm[Hg] 06:39-0500 ([id number]) Diastolic: 60 - 80 mm[Hg] Blood Pressure 159/ (no code) Systolic: 10-10-2019 no n reji [facility] 75mm[Hg] 120 mm[Hg] 06:140500 ([id number]) Diastolic: 60 - 80 mm[Hg] Blood Pressure 179/ (HH) Systolic: 10-10-2019 no na me [facility] 79mm[Hg] 120 mm[Hg] 06:120500 ([id number]) Diastolic: 60 - 80 mm[Hg] Blood Pressure 150/ (no code) Systolic: 10-09-2019 no n reji [facility] 73mm[Hg] 120 mm[Hg] 06:20-0500 ([id number]) Diastolic: 60 - 80 mm[Hg] Blood Pressure 146/ (no code) Systolic: 10-08-2019 no n reji [facility] 80mm[Hg] 120 mm[Hg] 05:57-0500 ([id number]) Diastolic: 60 - 80 mm[Hg] Blood Pressure 128/ (no code) Systolic: 10-07-2019 no n reji [facility] 64mm[Hg] 120 mm[Hg] 06:050500 ([id number]) Diastolic: 60 - 80 mm[Hg] Blood Pressure 169/ (H) Systolic: 10-04-2019 no na me [facility] 78mm[Hg] 120 mm[Hg] 06:08-0500 ([id number]) Diastolic: 60 - 80 mm[Hg] Blood Pressure 172/ (HH) Systolic: 10-04-2019 no na me [facility] 76mm[Hg] 120 mm[Hg] 06:05-0500 ([id number]) Diastolic: 60 - 80 mm[Hg] Blood Pressure 165/ (H) Systolic: 10-03-2019 no na me [facility] 76mm[Hg] 120 mm[Hg] 04:46-0500 ([id number]) Diastolic: 60 - 80 mm[Hg] Blood Pressure 168/ (H) Systolic: 10-02-2019 no na me [facility] 89mm[Hg] 120 mm[Hg] 06:35-0500 ([id number]) Diastolic: 60 - 80 mm[Hg] Blood Pressure 163/ (H) Systolic: 10-01-2019 no na me [facility] 75mm[Hg] 120 mm[Hg] 07:51-0500 ([id number]) Diastolic: 60 - 80 mm[Hg] Blood Pressure 179/ (HH) Systolic: 10-01-2019 no na me [facility] 82mm[Hg] 120 mm[Hg] 06:030500 ([id number]) Diastolic: 60 - 80 mm[Hg] Blood Pressure 186/ (HH) Systolic: 10-01-2019 no na me [facility] 75mm[Hg] 120 mm[Hg] 06:00-0500 ([id number]) Diastolic: 60 - 80 mm[Hg] Blood Pressure 158/ (no code) Systolic: 09-29-2019 no n reji [facility] 85mm[Hg] 120 mm[Hg] 06:15-0500 ([id number]) Diastolic: 60 - 80 mm[Hg] Blood Pressure 176/ (HH) Systolic: 09-29-2019 no na me [facility] 80mm[Hg] 120 mm[Hg] 06:13-0500 ([id number]) Diastolic: 60 - 80 mm[Hg] Blood Pressure 157/ (no code) Systolic: 09-28-2019 no n reji [facility] 74mm[Hg] 120 mm[Hg] 05:49-0500 ([id number]) Diastolic: 60 - 80 mm[Hg] Blood Pressure 153/ (no code) Systolic: 09-27-2019 no n reji [facility] 77mm[Hg] 120 mm[Hg] 06:01-0500 ([id number]) Diastolic: 60 - 80 mm[Hg] Blood Pressure 164/ (H) Systolic: 09-26-2019 no na me [facility] 82mm[Hg] 120 mm[Hg] 06:03-0500 ([id number]) Diastolic: 60 - 80 mm[Hg] Blood Pressure 154/ (no code) Systolic: 09-25-2019 no n reji [facility] 75mm[Hg] 120 mm[Hg] 05:31-0500 ([id number]) Diastolic: 60 - 80 mm[Hg] Blood Pressure 160/ (H) Systolic: 09-24-2019 no na me [facility] 73mm[Hg] 120 mm[Hg] 06:08-0500 ([id number]) Diastolic: 60 - 80 mm[Hg] Blood Pressure 172/ (HH) Systolic: 09-24-2019 no na me [facility] 72mm[Hg] 120 mm[Hg] 06:06-0500 ([id number]) Diastolic: 60 - 80 mm[Hg] Blood Pressure 159/ (no code) Systolic: 09-23-2019 no n reji [facility] 77mm[Hg] 120 mm[Hg] 06:02-0500 ([id number]) Diastolic: 60 - 80 mm[Hg] Blood Pressure 145/ (no code) Systolic: 09-22-2019 no n reji [facility] 69mm[Hg] 120 mm[Hg] 06:00-0500 ([id number]) Diastolic: 60 - 80 mm[Hg] Blood Pressure 156/ (no code) Systolic: 09-21-2019 no n reji [facility] 70mm[Hg] 120 mm[Hg] 06:14-0500 ([id number]) Diastolic: 60 - 80 mm[Hg] Blood Pressure 168/ (H) Systolic: 09-20-2019 no na me [facility] 82mm[Hg] 120 mm[Hg] 06:08-0500 ([id number]) Diastolic: 60 - 80 mm[Hg] Blood Pressure 164/ (H) Systolic: 09-19-2019 no na me [facility] 78mm[Hg] 120 mm[Hg] 06:08-0500 ([id number]) Diastolic: 60 - 80 mm[Hg] Blood Pressure 162/ (H) Systolic: 09-18-2019 no na me [facility] 73mm[Hg] 120 mm[Hg] 06:13-0500 ([id number]) Diastolic: 60 - 80 mm[Hg] Blood Pressure 176/ (HH) Systolic: 09-18-2019 no na me [facility] 79mm[Hg] 120 mm[Hg] 06:11-0500 ([id number]) Diastolic: 60 - 80 mm[Hg] Blood Pressure 135/ (no code) Systolic: 09-17-2019 no n reji [facility] 69mm[Hg] 120 mm[Hg] 07:38-0500 ([id number]) Diastolic: 60 - 80 mm[Hg] Blood Pressure 171/ (HH) Systolic: 09-17-2019 no na me [facility] 74mm[Hg] 120 mm[Hg] 06:06-0500 ([id number]) Diastolic: 60 - 80 mm[Hg] Blood Pressure 173/ (HH) Systolic: 09-17-2019 no na me [facility] 79mm[Hg] 120 mm[Hg] 06:03-0500 ([id number]) Diastolic: 60 - 80 mm[Hg] Blood Pressure 172/ (HH) Systolic: 09-16-2019 no na me [facility] 70mm[Hg] 120 mm[Hg] 08:05-0500 ([id number]) Diastolic: 60 - 80 mm[Hg] Blood Pressure 176/ (HH) Systolic: 09-16-2019 no na me [facility] 80mm[Hg] 120 mm[Hg] 06:31-0500 ([id number]) Diastolic: 60 - 80 mm[Hg] Blood Pressure 170/ (HH) Systolic: 09-16-2019 no na me [facility] 81mm[Hg] 120 mm[Hg] 06:28-0500 ([id number]) Diastolic: 60 - 80 mm[Hg] Blood Pressure 138/ (no code) Systolic: 09-15-2019 no n reji [facility] 71mm[Hg] 120 mm[Hg] 06:08-0500 ([id number]) Diastolic: 60 - 80 mm[Hg] Blood Pressure 161/ (H) Systolic: 09-14-2019 no na me [facility] 75mm[Hg] 120 mm[Hg] 08:22-0500 ([id number]) Diastolic: 60 - 80 mm[Hg] Blood Pressure 184/ (HH) Systolic: 09-14-2019 no na me [facility] 80mm[Hg] 120 mm[Hg] 08:190500 ([id number]) Diastolic: 60 - 80 mm[Hg] Blood Pressure 169/ (H) Systolic: 09-13-2019 no na me [facility] 72mm[Hg] 120 mm[Hg] 06:44-0500 ([id number]) Diastolic: 60 - 80 mm[Hg] Blood Pressure 180/ (HH) Systolic: 09-13-2019 no na me [facility] 83mm[Hg] 120 mm[Hg] 06:42-0500 ([id number]) Diastolic: 60 - 80 mm[Hg] Blood Pressure 154/ (no code) Systolic: 09-12-2019 no n reji [facility] 69mm[Hg] 120 mm[Hg] 06:26-0500 ([id number]) Diastolic: 60 - 80 mm[Hg] Blood Pressure 170/ (HH) Systolic: 09-11-2019 no na me [facility] 85mm[Hg] 120 mm[Hg] 08:000500 ([id number]) Diastolic: 60 - 80 mm[Hg] Blood Pressure 176/ (HH) Systolic: 09-11-2019 no na me [facility] 79mm[Hg] 120 mm[Hg] 06:26-0500 ([id number]) Diastolic: 60 - 80 mm[Hg] Blood Pressure 188/ (HH) Systolic: 09-11-2019 no na me [facility] 84mm[Hg] 120 mm[Hg] 06:23-0500 ([id number]) Diastolic: 60 - 80 mm[Hg] Blood Pressure 165/ (H) Systolic: 09-10-2019 no na me [facility] 64mm[Hg] 120 mm[Hg] 05:39-0500 ([id number]) Diastolic: 60 - 80 mm[Hg] Blood Pressure 178/ (HH) Systolic: 09-10-2019 no na me [facility] 71mm[Hg] 120 mm[Hg] 04:06-0500 ([id number]) Diastolic: 60 - 80 mm[Hg] Blood Pressure 176/ (HH) Systolic: 09-10-2019 no na me [facility] 75mm[Hg] 120 mm[Hg] 04:04-0500 ([id number]) Diastolic: 60 - 80 mm[Hg] Blood Pressure 163/ (H) Systolic: 09-09-2019 no na me [facility] 78mm[Hg] 120 mm[Hg] 05:50-0500 ([id number]) Diastolic: 60 - 80 mm[Hg] Blood Pressure 158/ (no code) Systolic: 09-08-2019 no n reji [facility] 74mm[Hg] 120 mm[Hg] 07:29-0500 ([id number]) Diastolic: 60 - 80 mm[Hg] Blood Pressure 174/ (HH) Systolic: 09-08-2019 no na me [facility] 79mm[Hg] 120 mm[Hg] 06:18-0500 ([id number]) Diastolic: 60 - 80 mm[Hg] Blood Pressure 185/ (HH) Systolic: 09-08-2019 no na me [facility] 76mm[Hg] 120 mm[Hg] 06:16-0500 ([id number]) Diastolic: 60 - 80 mm[Hg] Blood Pressure 165/ (H) Systolic: 09-07-2019 no na me [facility] 79mm[Hg] 120 mm[Hg] 06:20-0500 ([id number]) Diastolic: 60 - 80 mm[Hg] Blood Pressure 169/ (H) Systolic: 09-06-2019 no na me [facility] 70mm[Hg] 120 mm[Hg] 06:19-0500 ([id number]) Diastolic: 60 - 80 mm[Hg] Blood Pressure 158/ (no code) Systolic: 09-05-2019 no n reji [facility] 85mm[Hg] 120 mm[Hg] 07:01-0500 ([id number]) Diastolic: 60 - 80 mm[Hg] Blood Pressure 176/ (HH) Systolic: 09-05-2019 no na me [facility] 75mm[Hg] 120 mm[Hg] 05:18-0500 ([id number]) Diastolic: 60 - 80 mm[Hg] Blood Pressure 187/ (HH) Systolic: 09-05-2019 no na me [facility] 79mm[Hg] 120 mm[Hg] 05:16-0500 ([id number]) Diastolic: 60 - 80 mm[Hg] Blood Pressure 172/ (HH) Systolic: 09-04-2019 no na me [facility] 83mm[Hg] 120 mm[Hg] 06:48-0500 ([id number]) Diastolic: 60 - 80 mm[Hg] Blood Pressure 178/ (HH) Systolic: 09-04-2019 no na me [facility] 76mm[Hg] 120 mm[Hg] 05:10-0500 ([id number]) Diastolic: 60 - 80 mm[Hg] Blood Pressure 186/ (HH) Systolic: 09-04-2019 no na me [facility] 77mm[Hg] 120 mm[Hg] 05:08-0500 ([id number]) Diastolic: 60 - 80 mm[Hg] Blood Pressure 141/ (no code) Systolic: 09-03-2019 no n reji [facility] 67mm[Hg] 120 mm[Hg] 06:10-0500 ([id number]) Diastolic: 60 - 80 mm[Hg] Blood Pressure 165/ (H) Systolic: 09-02-2019 no na me [facility] 70mm[Hg] 120 mm[Hg] 07:33-0500 ([id number]) Diastolic: 60 - 80 mm[Hg] Blood Pressure 183/ (HH) Systolic: 09-02-2019 no na me [facility] 78mm[Hg] 120 mm[Hg] 06:00-0500 ([id number]) Diastolic: 60 - 80 mm[Hg] Blood Pressure 180/ (HH) Systolic: 09-02-2019 no na me [facility] 83mm[Hg] 120 mm[Hg] 05:58-0500 ([id number]) Diastolic: 60 - 80 mm[Hg] Blood Pressure 150/ (no code) Systolic: 09-01-2019 no n reji [facility] 69mm[Hg] 120 mm[Hg] 05:46-0500 ([id number]) Diastolic: 60 - 80 mm[Hg] Blood Pressure 179/ (HH) Systolic: 09-01-2019 no na me [facility] 77mm[Hg] 120 mm[Hg] 05:43-0500 ([id number]) Diastolic: 60 - 80 mm[Hg] Blood Pressure 168/ (H) Systolic: 08-31-2019 no na me [facility] 76mm[Hg] 120 mm[Hg] 05:41-0500 ([id number]) Diastolic: 60 - 80 mm[Hg] Blood Pressure 166/ (H) Systolic: 08-30-2019 no na me [facility] 76mm[Hg] 120 mm[Hg] 06:37-0500 ([id number]) Diastolic: 60 - 80 mm[Hg] Blood Pressure 182/ (HH) Systolic: 08-30-2019 no na me [facility] 78mm[Hg] 120 mm[Hg] 06:34-0500 ([id number]) Diastolic: 60 - 80 mm[Hg] Blood Pressure 164/ (H) Systolic: 08-29-2019 no na me [facility] 75mm[Hg] 120 mm[Hg] 05:04-0500 ([id number]) Diastolic: 60 - 80 mm[Hg] Blood Pressure 157/ (no code) Systolic: 08-28-2019 no n reji [facility] 74mm[Hg] 120 mm[Hg] 06:06-0500 ([id number]) Diastolic: 60 - 80 mm[Hg] Blood Pressure 162/ (H) Systolic: 08-27-2019 no na me [facility] 74mm[Hg] 120 mm[Hg] 06:14-0500 ([id number]) Diastolic: 60 - 80 mm[Hg] Blood Pressure 139/ (no code) Systolic: 08-26-2019 no n reji [facility] 69mm[Hg] 120 mm[Hg] 06:32-0500 ([id number]) Diastolic: 60 - 80 mm[Hg] Blood Pressure 151/ (no code) Systolic: 08-25-2019 no n reji [facility] 69mm[Hg] 120 mm[Hg] 07:32-0500 ([id number]) Diastolic: 60 - 80 mm[Hg] Blood Pressure 179/ (HH) Systolic: 08-25-2019 no na me [facility] 76mm[Hg] 120 mm[Hg] 05:48-0500 ([id number]) Diastolic: 60 - 80 mm[Hg] Blood Pressure 161/ (H) Systolic: 08-24-2019 no na me [facility] 75mm[Hg] 120 mm[Hg] 05:53-0500 ([id number]) Diastolic: 60 - 80 mm[Hg] Blood Pressure 154/ (no code) Systolic: 08-23-2019 no n reji [facility] 71mm[Hg] 120 mm[Hg] 06:04-0500 ([id number]) Diastolic: 60 - 80 mm[Hg] Blood Pressure 164/ (H) Systolic: 08-22-2019 no na me [facility] 75mm[Hg] 120 mm[Hg] 08:03-0500 ([id number]) Diastolic: 60 - 80 mm[Hg] Blood Pressure 184/ (HH) Systolic: 08-22-2019 no na me [facility] 79mm[Hg] 120 mm[Hg] 06:30-0500 ([id number]) Diastolic: 60 - 80 mm[Hg] Blood Pressure 186/ (HH) Systolic: 08-22-2019 no na me [facility] 77mm[Hg] 120 mm[Hg] 06:28-0500 ([id number]) Diastolic: 60 - 80 mm[Hg] Blood Pressure 187/ (HH) Systolic: 08-21-2019 no na me [facility] 82mm[Hg] 120 mm[Hg] 07:10-0500 ([id number]) Diastolic: 60 - 80 mm[Hg] Blood Pressure 176/ (HH) Systolic: 08-21-2019 no na me [facility] 75mm[Hg] 120 mm[Hg] 05:28-0500 ([id number]) Diastolic: 60 - 80 mm[Hg] Blood Pressure 172/ (HH) Systolic: 08-21-2019 no na me [facility] 79mm[Hg] 120 mm[Hg] 05:26-0500 ([id number]) Diastolic: 60 - 80 mm[Hg] Blood Pressure 168/ (H) Systolic: 08-20-2019 no na me [facility] 77mm[Hg] 120 mm[Hg] 06:56-0500 ([id number]) Diastolic: 60 - 80 mm[Hg] Blood Pressure 175/ (HH) Systolic: 08-20-2019 no na me [facility] 80mm[Hg] 120 mm[Hg] 06:55-0500 ([id number]) Diastolic: 60 - 80 mm[Hg] Blood Pressure 168/ (H) Systolic: 08-19-2019 no na me [facility] 75mm[Hg] 120 mm[Hg] 06:23-0500 ([id number]) Diastolic: 60 - 80 mm[Hg] Blood Pressure 150/ (no code) Systolic: 08-18-2019 no n reji [facility] 76mm[Hg] 120 mm[Hg] 06:14-0500 ([id number]) Diastolic: 60 - 80 mm[Hg] Blood Pressure 169/ (H) Systolic: 08-17-2019 no na me [facility] 68mm[Hg] 120 mm[Hg] 07:02-0500 ([id number]) Diastolic: 60 - 80 mm[Hg] Blood Pressure 174/ (HH) Systolic: 08-17-2019 no na me [facility] 72mm[Hg] 120 mm[Hg] 06:59-0500 ([id number]) Diastolic: 60 - 80 mm[Hg] Blood Pressure 166/ (H) Systolic: 08-16-2019 no na me [facility] 75mm[Hg] 120 mm[Hg] 04:19-0500 ([id number]) Diastolic: 60 - 80 mm[Hg] Blood Pressure 174/ (HH) Systolic: 08-16-2019 no na me [facility] 74mm[Hg] 120 mm[Hg] 04:17-0500 ([id number]) Diastolic: 60 - 80 mm[Hg] Blood Pressure 164/ (H) Systolic: 08-15-2019 no na me [facility] 80mm[Hg] 120 mm[Hg] 06:06-0500 ([id number]) Diastolic: 60 - 80 mm[Hg] Blood Pressure 149/ (no code) Systolic: 08-14-2019 no n reji [facility] 72mm[Hg] 120 mm[Hg] 08:10-0500 ([id number]) Diastolic: 60 - 80 mm[Hg] Blood Pressure 179/ (HH) Systolic: 08-14-2019 no na me [facility] 77mm[Hg] 120 mm[Hg] 06:32-0500 ([id number]) Diastolic: 60 - 80 mm[Hg] Blood Pressure 173/ (HH) Systolic: 08-14-2019 no na me [facility] 78mm[Hg] 120 mm[Hg] 06:30-0500 ([id number]) Diastolic: 60 - 80 mm[Hg] Blood Pressure 180/ (HH) Systolic: 08-13-2019 no na me [facility] 79mm[Hg] 120 mm[Hg] 13:18-0500 ([id number]) Diastolic: 60 - 80 mm[Hg] Blood Pressure 174/ (HH) Systolic: 08-13-2019 no na me [facility] 78mm[Hg] 120 mm[Hg] 11:44-0500 ([id number]) Diastolic: 60 - 80 mm[Hg] Blood Pressure 173/ (HH) Systolic: 08-13-2019 no na me [facility] 80mm[Hg] 120 mm[Hg] 11:42-0500 ([id number]) Diastolic: 60 - 80 mm[Hg] Blood Pressure 119/ (no code) Systolic: 08-12-2019 no n reji [facility] 71mm[Hg] 120 mm[Hg] 06:03-0500 ([id number]) Diastolic: 60 - 80 mm[Hg] Blood Pressure 164/ (H) Systolic: 08-11-2019 no na me [facility] 77mm[Hg] 120 mm[Hg] 08:16-0500 ([id number]) Diastolic: 60 - 80 mm[Hg] Blood Pressure 152/ (no code) Systolic: 08-10-2019 no n reji [facility] 65mm[Hg] 120 mm[Hg] 07:22-0500 ([id number]) Diastolic: 60 - 80 mm[Hg] Blood Pressure 150/ (no code) Systolic: 08-09-2019 no n reji [facility] 76mm[Hg] 120 mm[Hg] 07:49-0500 ([id number]) Diastolic: 60 - 80 mm[Hg] Blood Pressure 187/ (HH) Systolic: 08-09-2019 no na me [facility] 83mm[Hg] 120 mm[Hg] 06:10-0500 ([id number]) Diastolic: 60 - 80 mm[Hg] Blood Pressure 180/ (HH) Systolic: 08-09-2019 no na me [facility] 82mm[Hg] 120 mm[Hg] 06:08-0500 ([id number]) Diastolic: 60 - 80 mm[Hg] Blood Pressure 184/ (HH) Systolic: 08-08-2019 no na me [facility] 85mm[Hg] 120 mm[Hg] 07:30-0500 ([id number]) Diastolic: 60 - 80 mm[Hg] Blood Pressure 176/ (HH) Systolic: 08-08-2019 no na me [facility] 79mm[Hg] 120 mm[Hg] 05:56-0500 ([id number]) Diastolic: 60 - 80 mm[Hg] Blood Pressure 179/ (HH) Systolic: 08-08-2019 no na me [facility] 81mm[Hg] 120 mm[Hg] 05:53-0500 ([id number]) Diastolic: 60 - 80 mm[Hg] Blood Pressure 152/ (no code) Systolic: 08-07-2019 no n reji [facility] 78mm[Hg] 120 mm[Hg] 06:19-0500 ([id number]) Diastolic: 60 - 80 mm[Hg] Blood Pressure 140/ (no code) Systolic: 08-06-2019 no n reji [facility] 74mm[Hg] 120 mm[Hg] 05:18-0500 ([id number]) Diastolic: 60 - 80 mm[Hg] Blood Pressure 163/ (H) Systolic: 08-05-2019 no na me [facility] 76mm[Hg] 120 mm[Hg] 06:04-0500 ([id number]) Diastolic: 60 - 80 mm[Hg] Blood Pressure 156/ (no code) Systolic: 08-04-2019 no n reji [facility] 76mm[Hg] 120 mm[Hg] 05:42-0500 ([id number]) Diastolic: 60 - 80 mm[Hg] Blood Pressure 177/ (HH) Systolic: 08-04-2019 no na me [facility] 78mm[Hg] 120 mm[Hg] 05:39-0500 ([id number]) Diastolic: 60 - 80 mm[Hg] Blood Pressure 150/ (no code) Systolic: 08-03-2019 no n reji [facility] 77mm[Hg] 120 mm[Hg] 04:55-0500 ([id number]) Diastolic: 60 - 80 mm[Hg] Blood Pressure 151/ (no code) Systolic: 08-02-2019 no n reji [facility] 79mm[Hg] 120 mm[Hg] 06:08-0500 ([id number]) Diastolic: 60 - 80 mm[Hg] Blood Pressure 163/ (H) Systolic: 08-01-2019 no na me [facility] 80mm[Hg] 120 mm[Hg] 06:21-0500 ([id number]) Diastolic: 60 - 80 mm[Hg] Blood Pressure 164/ (H) Systolic: 07-31-2019 no na me [facility] 75mm[Hg] 120 mm[Hg] 05:52-0500 ([id number]) Diastolic: 60 - 80 mm[Hg] Blood Pressure 172/ (HH) Systolic: 07-31-2019 no na me [facility] 74mm[Hg] 120 mm[Hg] 05:50-0500 ([id number]) Diastolic: 60 - 80 mm[Hg] Blood Pressure 151/ (no code) Systolic: 07-30-2019 no n reji [facility] 79mm[Hg] 120 mm[Hg] 05:43-0500 ([id number]) Diastolic: 60 - 80 mm[Hg] Blood Pressure 154/ (no code) Systolic: 07-29-2019 no n reji [facility] 80mm[Hg] 120 mm[Hg] 07:36-0400 ([id number]) Diastolic: 60 - 80 mm[Hg] Blood Pressure 113/ (no code) Systolic: 07-27-2019 no n reji [facility] 59mm[Hg] 120 mm[Hg] 07:32-0400 ([id number]) Diastolic: 60 - 80 mm[Hg] Blood Pressure 164/ (H) Systolic: 07-25-2019 no na me [facility] 79mm[Hg] 120 mm[Hg] 07:28-0400 ([id number]) Diastolic: 60 - 80 mm[Hg] Blood Pressure 174/ (HH) Systolic: 07-25-2019 no na me [facility] 78mm[Hg] 120 mm[Hg] 07:040 ([id number]) Diastolic: 60 - 80 mm[Hg] Blood Pressure 158/ (no code) Systolic: 2019 no n reji [facility] 76mm[Hg] 120 mm[Hg] 12:190400 ([id number]) Diastolic: 60 - 80 mm[Hg] Blood Pressure 162/ (H) Systolic: 07-23-2019 no na me [facility] 88mm[Hg] 120 mm[Hg] 12:040 ([id number]) Diastolic: 60 - 80 mm[Hg] Blood Pressure 156/ (no code) Systolic: 07-22-2019 no n reji [facility] 73mm[Hg] 120 mm[Hg] 12:470400 ([id number]) Diastolic: 60 - 80 mm[Hg] Blood Pressure 137/ (no code) Systolic: 07-21-2019 no n reji [facility] 72mm[Hg] 120 mm[Hg] 11:040 ([id number]) Diastolic: 60 - 80 mm[Hg] Blood Pressure 153/ (no code) Systolic: 07-20-2019 no n reji [facility] 78mm[Hg] 120 mm[Hg] 12:140400 ([id number]) Diastolic: 60 - 80 mm[Hg] Blood Pressure 158/ (no code) Systolic: 07-19-2019 no n reji [facility] 80mm[Hg] 120 mm[Hg] 12:10040 ([id number]) Diastolic: 60 - 80 mm[Hg] Blood Pressure 162/ (H) Systolic: 07-18-2019 no na me [facility] 78mm[Hg] 120 mm[Hg] 10:450400 ([id number]) Diastolic: 60 - 80 mm[Hg] Blood Pressure 164/ (H) Systolic: 07-17-2019 no na me [facility] 76mm[Hg] 120 mm[Hg] 11:370400 ([id number]) Diastolic: 60 - 80 mm[Hg] Blood Pressure 168/ (H) Systolic: 07-16-2019 no na me [facility] 75mm[Hg] 120 mm[Hg] 12: ([id number]) Diastolic: 60 - 80 mm[Hg] Blood Pressure 158/ (no code) Systolic: 07-16-2019 no n reji [facility] 70mm[Hg] 120 mm[Hg] 11:040 ([id number]) Diastolic: 60 - 80 mm[Hg] Blood Pressure 176/ (HH) Systolic: 07-16-2019 no na me [facility] 80mm[Hg] 120 mm[Hg] 11: ([id number]) Diastolic: 60 - 80 mm[Hg] Blood Pressure 140/ (no code) Systolic: 07-15-2019 no n reji [facility] 70mm[Hg] 120 mm[Hg] 13:0400 ([id number]) Diastolic: 60 - 80 mm[Hg] Blood Pressure 173/ (HH) Systolic: 07-15-2019 no na me [facility] 77mm[Hg] 120 mm[Hg] 12:160400 ([id number]) Diastolic: 60 - 80 mm[Hg] Blood Pressure 172/ (HH) Systolic: 07-15-2019 no na me [facility] 71mm[Hg] 120 mm[Hg] 12:0 ([id number]) Diastolic: 60 - 80 mm[Hg] Blood Pressure 144/ (no code) Systolic: 07-14-2019 no n reji [facility] 78mm[Hg] 120 mm[Hg] 13:390400 ([id number]) Diastolic: 60 - 80 mm[Hg] Blood Pressure 176/ (HH) Systolic: 07-14-2019 no na me [facility] 74mm[Hg] 120 mm[Hg] 11:460400 ([id number]) Diastolic: 60 - 80 mm[Hg] Blood Pressure 174/ (HH) Systolic: 07-14-2019 no na me [facility] 75mm[Hg] 120 mm[Hg] 11:440400 ([id number]) Diastolic: 60 - 80 mm[Hg] Blood Pressure 127/ (no code) Systolic: 07-13-2019 no n reji [facility] 62mm[Hg] 120 mm[Hg] 12:180400 ([id number]) Diastolic: 60 - 80 mm[Hg] Blood Pressure 159/ (no code) Systolic: 07-12-2019 no n reji [facility] 76mm[Hg] 120 mm[Hg] 12:040400 ([id number]) Diastolic: 60 - 80 mm[Hg] Blood Pressure 169/ (H) Systolic: 07-11-2019 no na me [facility] 78mm[Hg] 120 mm[Hg] 11:450400 ([id number]) Diastolic: 60 - 80 mm[Hg] Blood Pressure 164/ (H) Systolic: 07-10-2019 no na me [facility] 72mm[Hg] 120 mm[Hg] 12:0400 ([id number]) Diastolic: 60 - 80 mm[Hg] Blood Pressure 179/ (HH) Systolic: 07-10-2019 no na me [facility] 73mm[Hg] 120 mm[Hg] 12:040400 ([id number]) Diastolic: 60 - 80 mm[Hg] Blood Pressure 173/ (HH) Systolic: 07-07-2019 no na me [facility] 77mm[Hg] 120 mm[Hg] 13:030400 ([id number]) Diastolic: 60 - 80 mm[Hg] Blood Pressure 171/ (HH) Systolic: 07-07-2019 no na me [facility] 76mm[Hg] 120 mm[Hg] 11:230400 ([id number]) Diastolic: 60 - 80 mm[Hg] Blood Pressure 172/ (HH) Systolic: 07-07-2019 no na me [facility] 82mm[Hg] 120 mm[Hg] 11:210400 ([id number]) Diastolic: 60 - 80 mm[Hg] Blood Pressure 168/ (H) Systolic: 07-06-2019 no na me [facility] 73mm[Hg] 120 mm[Hg] 11:040400 ([id number]) Diastolic: 60 - 80 mm[Hg] Blood Pressure 168/ (H) Systolic: 07-05-2019 no na me [facility] 66mm[Hg] 120 mm[Hg] 10:520400 ([id number]) Diastolic: 60 - 80 mm[Hg] Blood Pressure 184/ (HH) Systolic: 07-04-2019 no na me [facility] 76mm[Hg] 120 mm[Hg] 12:460400 ([id number]) Diastolic: 60 - 80 mm[Hg] Blood Pressure 171/ (HH) Systolic: 07-04-2019 no na me [facility] 73mm[Hg] 120 mm[Hg] 11:130400 ([id number]) Diastolic: 60 - 80 mm[Hg] Blood Pressure 176/ (HH) Systolic: 07-04-2019 no na me [facility] 75mm[Hg] 120 mm[Hg] 11: ([id number]) Diastolic: 60 - 80 mm[Hg] Blood Pressure 176/ (HH) Systolic: 07-03-2019 no na me [facility] 79mm[Hg] 120 mm[Hg] 13:28040 ([id number]) Diastolic: 60 - 80 mm[Hg] Blood Pressure 176/ (HH) Systolic: 07-03-2019 no na me [facility] 74mm[Hg] 120 mm[Hg] 11:46040 ([id number]) Diastolic: 60 - 80 mm[Hg] Blood Pressure 162/ (H) Systolic: 07-02-2019 no na me [facility] 76mm[Hg] 120 mm[Hg] 14:160400 ([id number]) Diastolic: 60 - 80 mm[Hg] Blood Pressure 153/ (no code) Systolic: 07-02-2019 no n reji [facility] 90mm[Hg] 120 mm[Hg] 14:140400 ([id number]) Diastolic: 60 - 80 mm[Hg] Blood Pressure 172/ (HH) Systolic: 07-02-2019 no na me [facility] 81mm[Hg] 120 mm[Hg] 12:240400 ([id number]) Diastolic: 60 - 80 mm[Hg] Blood Pressure 161/ (H) Systolic: 07-01-2019 no na me [facility] 69mm[Hg] 120 mm[Hg] 12:09 ([id number]) Diastolic: 60 - 80 mm[Hg] Blood Pressure 158/ (no code) Systolic: 06-29-2019 no n reji [facility] 82mm[Hg] 120 mm[Hg] 21:200400 ([id number]) Diastolic: 60 - 80 mm[Hg] Blood Pressure 175/ (HH) Systolic: 06-29-2019 no na me [facility] 78mm[Hg] 120 mm[Hg] 13:100400 ([id number]) Diastolic: 60 - 80 mm[Hg] Blood Pressure 186/ (HH) Systolic: 06-29-2019 no na me [facility] 75mm[Hg] 120 mm[Hg] 13:080400 ([id number]) Diastolic: 60 - 80 mm[Hg] Blood Pressure 160/ (H) Systolic: 06-27-2019 no na me [facility] 75mm[Hg] 120 mm[Hg] 12:100400 ([id number]) Diastolic: 60 - 80 mm[Hg] Blood Pressure 177/ (HH) Systolic: 06-26-2019 no na me [facility] 85mm[Hg] 120 mm[Hg] 13:310400 ([id number]) Diastolic: 60 - 80 mm[Hg] Blood Pressure 173/ (HH) Systolic: 06-26-2019 no na me [facility] 77mm[Hg] 120 mm[Hg] 11:54-0400 ([id number]) Diastolic: 60 - 80 mm[Hg] Blood Pressure 181/ (HH) Systolic: 06-26-2019 no na me [facility] 83mm[Hg] 120 mm[Hg] 11:52-0400 ([id number]) Diastolic: 60 - 80 mm[Hg] Blood Pressure 167/ (H) Systolic: 06-25-2019 no na me [facility] 73mm[Hg] 120 mm[Hg] 15:070400 ([id number]) Diastolic: 60 - 80 mm[Hg] Blood Pressure 145/ (no code) Systolic: 06-24-2019 no n reji [facility] 65mm[Hg] 120 mm[Hg] 12:51-0400 ([id number]) Diastolic: 60 - 80 mm[Hg] Blood Pressure 157/ (no code) Systolic: 06-23-2019 no n reji [facility] 70mm[Hg] 120 mm[Hg] 13:57-0400 ([id number]) Diastolic: 60 - 80 mm[Hg] Blood Pressure 183/ (HH) Systolic: 06-23-2019 no na me [facility] 82mm[Hg] 120 mm[Hg] 12:16-0400 ([id number]) Diastolic: 60 - 80 mm[Hg] Blood Pressure 180/ (HH) Systolic: 06-23-2019 no na me [facility] 79mm[Hg] 120 mm[Hg] 12:14-0400 ([id number]) Diastolic: 60 - 80 mm[Hg] Blood Pressure 172/ (HH) Systolic: 06-22-2019 no na me [facility] 70mm[Hg] 120 mm[Hg] 15:28-0400 ([id number]) Diastolic: 60 - 80 mm[Hg] Blood Pressure 172/ (HH) Systolic: 06-22-2019 no na me [facility] 74mm[Hg] 120 mm[Hg] 12:20-0400 ([id number]) Diastolic: 60 - 80 mm[Hg] Blood Pressure 171/ (HH) Systolic: 06-22-2019 no na me [facility] 73mm[Hg] 120 mm[Hg] 12:18-0400 ([id number]) Diastolic: 60 - 80 mm[Hg] Blood Pressure 161/ (H) Systolic: 06-21-2019 no na me [facility] 72mm[Hg] 120 mm[Hg] 12:08-0400 ([id number]) Diastolic: 60 - 80 mm[Hg] Blood Pressure 131/ (no code) Systolic: 06-20-2019 no n reji [facility] 57mm[Hg] 120 mm[Hg] 10:59-0400 ([id number]) Diastolic: 60 - 80 mm[Hg] Blood Pressure 144/ (no code) Systolic: 06-19-2019 no n reji [facility] 75mm[Hg] 120 mm[Hg] 12:11-0400 ([id number]) Diastolic: 60 - 80 mm[Hg] Blood Pressure 168/ (H) Systolic: 06-18-2019 no na me [facility] 73mm[Hg] 120 mm[Hg] 11:55-0400 ([id number]) Diastolic: 60 - 80 mm[Hg] Blood Pressure 155/ (no code) Systolic: 06-17-2019 no n reji [facility] 73mm[Hg] 120 mm[Hg] 14: ([id number]) Diastolic: 60 - 80 mm[Hg] Blood Pressure 169/ (H) Systolic: 06-16-2019 no na me [facility] 70mm[Hg] 120 mm[Hg] 13:040 ([id number]) Diastolic: 60 - 80 mm[Hg] Blood Pressure 162/ (H) Systolic: 06-15-2019 no na me [facility] 78mm[Hg] 120 mm[Hg] 12: ([id number]) Diastolic: 60 - 80 mm[Hg] Blood Pressure 176/ (HH) Systolic: 06-15-2019 no na me [facility] 71mm[Hg] 120 mm[Hg] 12: ([id number]) Diastolic: 60 - 80 mm[Hg] Blood Pressure 164/ (H) Systolic: 06-14-2019 no na me [facility] 77mm[Hg] 120 mm[Hg] 13:040 ([id number]) Diastolic: 60 - 80 mm[Hg] Blood Pressure 180/ (HH) Systolic: 06-14-2019 no na me [facility] 78mm[Hg] 120 mm[Hg] 11:310400 ([id number]) Diastolic: 60 - 80 mm[Hg] Blood Pressure 175/ (HH) Systolic: 06-14-2019 no na me [facility] 73mm[Hg] 120 mm[Hg] 11:290400 ([id number]) Diastolic: 60 - 80 mm[Hg] Blood Pressure 175/ (HH) Systolic: 06-13-2019 no na me [facility] 84mm[Hg] 120 mm[Hg] 13:0400 ([id number]) Diastolic: 60 - 80 mm[Hg] Blood Pressure 177/ (HH) Systolic: 06-13-2019 no na me [facility] 77mm[Hg] 120 mm[Hg] 11:410400 ([id number]) Diastolic: 60 - 80 mm[Hg] Blood Pressure 186/ (HH) Systolic: 06-13-2019 no na me [facility] 73mm[Hg] 120 mm[Hg] 11:39-0400 ([id number]) Diastolic: 60 - 80 mm[Hg] Blood Pressure 177/ (HH) Systolic: 06-12-2019 no na me [facility] 89mm[Hg] 120 mm[Hg] 13:14-0400 ([id number]) Diastolic: 60 - 80 mm[Hg] Blood Pressure 170/ (HH) Systolic: 06-12-2019 no na me [facility] 75mm[Hg] 120 mm[Hg] 11:42-0400 ([id number]) Diastolic: 60 - 80 mm[Hg] Blood Pressure 180/ (HH) Systolic: 06-12-2019 no na me [facility] 78mm[Hg] 120 mm[Hg] 11:40-0400 ([id number]) Diastolic: 60 - 80 mm[Hg] Blood Pressure 168/ (H) Systolic: 06-11-2019 no na me [facility] 77mm[Hg] 120 mm[Hg] 12:25-0400 ([id number]) Diastolic: 60 - 80 mm[Hg] Blood Pressure 108/ (no code) Systolic: 06-10-2019 no n reji [facility] 59mm[Hg] 120 mm[Hg] 15:010400 ([id number]) Diastolic: 60 - 80 mm[Hg] Blood Pressure 168/ (H) Systolic: 06-07-2019 no na me [facility] 68mm[Hg] 120 mm[Hg] 14:050400 ([id number]) Diastolic: 60 - 80 mm[Hg] Blood Pressure 168/ (H) Systolic: 06-06-2019 no na me [facility] 72mm[Hg] 120 mm[Hg] 12:47-0400 ([id number]) Diastolic: 60 - 80 mm[Hg] Blood Pressure 177/ (HH) Systolic: 06-06-2019 no na me [facility] 71mm[Hg] 120 mm[Hg] 12:44-0400 ([id number]) Diastolic: 60 - 80 mm[Hg] Blood Pressure 164/ (H) Systolic: 06-05-2019 no na me [facility] 71mm[Hg] 120 mm[Hg] 12:23-0400 ([id number]) Diastolic: 60 - 80 mm[Hg] Blood Pressure 149/ (no code) Systolic: 06-04-2019 no n reji [facility] 69mm[Hg] 120 mm[Hg] 12:24-0400 ([id number]) Diastolic: 60 - 80 mm[Hg] Blood Pressure 156/ (no code) Systolic: 06-03-2019 no n reji [facility] 66mm[Hg] 120 mm[Hg] 10:16-0400 ([id number]) Diastolic: 60 - 80 mm[Hg] Blood Pressure 160/ (H) Systolic: 06-02-2019 no na me [facility] 69mm[Hg] 120 mm[Hg] 09:25-0400 ([id number]) Diastolic: 60 - 80 mm[Hg] Blood Pressure 155/ (no code) Systolic: 06-01-2019 no n reji [facility] 67mm[Hg] 120 mm[Hg] 14:18-0400 ([id number]) Diastolic: 60 - 80 mm[Hg] Blood Pressure 153/ (no code) Systolic: 05-31-2019 no n reji [facility] 70mm[Hg] 120 mm[Hg] 11:110400 ([id number]) Diastolic: 60 - 80 mm[Hg] Blood Pressure 143/ (no code) Systolic: 05-30-2019 no n reji [facility] 69mm[Hg] 120 mm[Hg] 11:30-0400 ([id number]) Diastolic: 60 - 80 mm[Hg] Blood Pressure 151/ (no code) Systolic: 05-29-2019 no n reji [facility] 76mm[Hg] 120 mm[Hg] 10:50-0400 ([id number]) Diastolic: 60 - 80 mm[Hg] Blood Pressure 146/ (no code) Systolic: 05-28-2019 no n reji [facility] 73mm[Hg] 120 mm[Hg] 11:58-0400 ([id number]) Diastolic: 60 - 80 mm[Hg] Blood Pressure 148/ (no code) Systolic: 05-27-2019 no n reji [facility] 70mm[Hg] 120 mm[Hg] 11:57-0400 ([id number]) Diastolic: 60 - 80 mm[Hg] Blood Pressure 141/ (no code) Systolic: 05-26-2019 no n reji [facility] 72mm[Hg] 120 mm[Hg] 12:100400 ([id number]) Diastolic: 60 - 80 mm[Hg] Blood Pressure 165/ (H) Systolic: 05-25-2019 no na me [facility] 75mm[Hg] 120 mm[Hg] 12:290400 ([id number]) Diastolic: 60 - 80 mm[Hg] Blood Pressure 178/ (HH) Systolic: 05-25-2019 no na me [facility] 74mm[Hg] 120 mm[Hg] 12:270400 ([id number]) Diastolic: 60 - 80 mm[Hg] Blood Pressure 160/ (H) Systolic: 05-24-2019 no na me [facility] 74mm[Hg] 120 mm[Hg] 12:040400 ([id number]) Diastolic: 60 - 80 mm[Hg] Blood Pressure 155/ (no code) Systolic: 05-23-2019 no n reji [facility] 69mm[Hg] 120 mm[Hg] 11:050400 ([id number]) Diastolic: 60 - 80 mm[Hg] Blood Pressure 169/ (H) Systolic: 05-22-2019 no na me [facility] 74mm[Hg] 120 mm[Hg] 12:120400 ([id number]) Diastolic: 60 - 80 mm[Hg] Blood Pressure 140/ (no code) Systolic: 05-21-2019 no n reji [facility] 70mm[Hg] 120 mm[Hg] 10:47-0400 ([id number]) Diastolic: 60 - 80 mm[Hg] Blood Pressure 170/ (HH) Systolic: 05-21-2019 no na me [facility] 68mm[Hg] 120 mm[Hg] 10:45-0400 ([id number]) Diastolic: 60 - 80 mm[Hg] Blood Pressure 136/ (no code) Systolic: 05-20-2019 no n reji [facility] 64mm[Hg] 120 mm[Hg] 12:090400 ([id number]) Diastolic: 60 - 80 mm[Hg] Blood Pressure 160/ (H) Systolic: 05-19-2019 no na me [facility] 70mm[Hg] 120 mm[Hg] 12:160400 ([id number]) Diastolic: 60 - 80 mm[Hg] Blood Pressure 163/ (H) Systolic: 05-18-2019 no na me [facility] 68mm[Hg] 120 mm[Hg] 11:530400 ([id number]) Diastolic: 60 - 80 mm[Hg] Blood Pressure 181/ (HH) Systolic: 05-17-2019 no na me [facility] 82mm[Hg] 120 mm[Hg] 12:430400 ([id number]) Diastolic: 60 - 80 mm[Hg] Blood Pressure 181/ (HH) Systolic: 05-17-2019 no na me [facility] 76mm[Hg] 120 mm[Hg] 11:110400 ([id number]) Diastolic: 60 - 80 mm[Hg] Blood Pressure 182/ (HH) Systolic: 05-17-2019 no na me [facility] 74mm[Hg] 120 mm[Hg] 11:090400 ([id number]) Diastolic: 60 - 80 mm[Hg] Blood Pressure 165/ (H) Systolic: 05-16-2019 no na me [facility] 80mm[Hg] 120 mm[Hg] 10:390400 ([id number]) Diastolic: 60 - 80 mm[Hg] Blood Pressure 166/ (H) Systolic: 05-15-2019 no na me [facility] 75mm[Hg] 120 mm[Hg] 12:170400 ([id number]) Diastolic: 60 - 80 mm[Hg] Blood Pressure 172/ (HH) Systolic: 05-15-2019 no na me [facility] 81mm[Hg] 120 mm[Hg] 12:150400 ([id number]) Diastolic: 60 - 80 mm[Hg] Blood Pressure 168/ (H) Systolic: 05-14-2019 no na me [facility] 78mm[Hg] 120 mm[Hg] 12:250400 ([id number]) Diastolic: 60 - 80 mm[Hg] Blood Pressure 172/ (HH) Systolic: 05-14-2019 no na me [facility] 82mm[Hg] 120 mm[Hg] 12:22-0400 ([id number]) Diastolic: 60 - 80 mm[Hg] Blood Pressure 123/ (no code) Systolic: 05-13-2019 no n reji [facility] 61mm[Hg] 120 mm[Hg] 13:44-0400 ([id number]) Diastolic: 60 - 80 mm[Hg] Blood Pressure 176/ (HH) Systolic: 05-13-2019 no na me [facility] 68mm[Hg] 120 mm[Hg] 12:10-0400 ([id number]) Diastolic: 60 - 80 mm[Hg] Blood Pressure 184/ (HH) Systolic: 05-13-2019 no na me [facility] 71mm[Hg] 120 mm[Hg] 12:080400 ([id number]) Diastolic: 60 - 80 mm[Hg] Blood Pressure 152/ (no code) Systolic: 05-12-2019 no n reji [facility] 67mm[Hg] 120 mm[Hg] 11:47-0400 ([id number]) Diastolic: 60 - 80 mm[Hg] Blood Pressure 167/ (H) Systolic: 05-11-2019 no na me [facility] 69mm[Hg] 120 mm[Hg] 14:57-0400 ([id number]) Diastolic: 60 - 80 mm[Hg] Blood Pressure 142/ (no code) Systolic: 05-10-2019 no n reji [facility] 67mm[Hg] 120 mm[Hg] 10:15-0400 ([id number]) Diastolic: 60 - 80 mm[Hg] Blood Pressure 156/ (no code) Systolic: 05-09-2019 no n reji [facility] 72mm[Hg] 120 mm[Hg] 12:31-0400 ([id number]) Diastolic: 60 - 80 mm[Hg] Blood Pressure 173/ (HH) Systolic: 05-09-2019 no na me [facility] 70mm[Hg] 120 mm[Hg] 12:28-0400 ([id number]) Diastolic: 60 - 80 mm[Hg] Blood Pressure 157/ (no code) Systolic: 05-08-2019 no n reji [facility] 69mm[Hg] 120 mm[Hg] 12:070400 ([id number]) Diastolic: 60 - 80 mm[Hg] Blood Pressure 157/ (no code) Systolic: 05-07-2019 no n reji [facility] 74mm[Hg] 120 mm[Hg] 12:200400 ([id number]) Diastolic: 60 - 80 mm[Hg] Blood Pressure 152/ (no code) Systolic: 05-06-2019 no n reji [facility] 68mm[Hg] 120 mm[Hg] 11:550400 ([id number]) Diastolic: 60 - 80 mm[Hg] Blood Pressure 168/ (H) Systolic: 05-05-2019 no na me [facility] 77mm[Hg] 120 mm[Hg] 17:240400 ([id number]) Diastolic: 60 - 80 mm[Hg] Blood Pressure 172/ (HH) Systolic: 05-05-2019 no na me [facility] 74mm[Hg] 120 mm[Hg] 17:230400 ([id number]) Diastolic: 60 - 80 mm[Hg] Blood Pressure 166/ (H) Systolic: 05-04-2019 no na me [facility] 76mm[Hg] 120 mm[Hg] 12:040 ([id number]) Diastolic: 60 - 80 mm[Hg] Blood Pressure 164/ (H) Systolic: 05-03-2019 no na me [facility] 81mm[Hg] 120 mm[Hg] 17:140400 ([id number]) Diastolic: 60 - 80 mm[Hg] Blood Pressure 171/ (HH) Systolic: 05-03-2019 no na me [facility] 73mm[Hg] 120 mm[Hg] 17:120400 ([id number]) Diastolic: 60 - 80 mm[Hg] Blood Pressure 168/ (H) Systolic: 05-02-2019 no na me [facility] 72mm[Hg] 120 mm[Hg] 11:490400 ([id number]) Diastolic: 60 - 80 mm[Hg] Blood Pressure 135/ (no code) Systolic: 05-01-2019 no n reji [facility] 69mm[Hg] 120 mm[Hg] 12:0400 ([id number]) Diastolic: 60 - 80 mm[Hg] Blood Pressure 135/ (no code) Systolic: 04-30-2019 no n reji [facility] 61mm[Hg] 120 mm[Hg] 14:31-0400 ([id number]) Diastolic: 60 - 80 mm[Hg] Blood Pressure 153/ (no code) Systolic: 04-29-2019 no n reji [facility] 65mm[Hg] 120 mm[Hg] 10:30-0400 ([id number]) Diastolic: 60 - 80 mm[Hg] Blood Pressure 136/ (no code) Systolic: 04-28-2019 no n reji [facility] 66mm[Hg] 120 mm[Hg] 09:07040 ([id number]) Diastolic: 60 - 80 mm[Hg] Blood Pressure 175/ (HH) Systolic: 04-27-2019 no na me [facility] 69mm[Hg] 120 mm[Hg] 19:29-0400 ([id number]) Diastolic: 60 - 80 mm[Hg] Blood Pressure 178/ (HH) Systolic: 04-27-2019 no na me [facility] 72mm[Hg] 120 mm[Hg] 17:41-0400 ([id number]) Diastolic: 60 - 80 mm[Hg] Diastolic 75 mm[Hg] (no code) 60 - 80 mm[Hg] 04-27-2019 no name [facility] blood pressure 17:39-0400 ([id number]) Blood Pressure 169/ (H) Systolic: 04-26-2019 no na me [facility] 78mm[Hg] 120 mm[Hg] 13:42-0400 ([id number]) Diastolic: 60 - 80 mm[Hg] Blood Pressure 178/ (HH) Systolic: 04-26-2019 no na me [facility] 73mm[Hg] 120 mm[Hg] 12:070400 ([id number]) Diastolic: 60 - 80 mm[Hg] Blood Pressure 172/ (HH) Systolic: 04-26-2019 no na me [facility] 74mm[Hg] 120 mm[Hg] 12:040400 ([id number]) Diastolic: 60 - 80 mm[Hg] Blood Pressure 176/ (HH) Systolic: 04-25-2019 no na me [facility] 74mm[Hg] 120 mm[Hg] 13:50-0400 ([id number]) Diastolic: 60 - 80 mm[Hg] Blood Pressure 177/ (HH) Systolic: 04-25-2019 no na me [facility] 75mm[Hg] 120 mm[Hg] 12:16-0400 ([id number]) Diastolic: 60 - 80 mm[Hg] Blood Pressure 178/ (HH) Systolic: 04-25-2019 no na me [facility] 77mm[Hg] 120 mm[Hg] 12:13-0400 ([id number]) Diastolic: 60 - 80 mm[Hg] Blood Pressure 165/ (H) Systolic: 04-24-2019 no na me [facility] 76mm[Hg] 120 mm[Hg] 12:020400 ([id number]) Diastolic: 60 - 80 mm[Hg] Blood Pressure 167/ (H) Systolic: 04-23-2019 no na me [facility] 68mm[Hg] 120 mm[Hg] 14:32-0400 ([id number]) Diastolic: 60 - 80 mm[Hg] Blood Pressure 152/ (no code) Systolic: 04-22-2019 no n reji [facility] 68mm[Hg] 120 mm[Hg] 14:13-0400 ([id number]) Diastolic: 60 - 80 mm[Hg] Blood Pressure 156/ (no code) Systolic: 04-21-2019 no n reji [facility] 85mm[Hg] 120 mm[Hg] 11:41-0400 ([id number]) Diastolic: 60 - 80 mm[Hg] Blood Pressure 134/ (no code) Systolic: 04-20-2019 no n reji [facility] 66mm[Hg] 120 mm[Hg] 12:45-0400 ([id number]) Diastolic: 60 - 80 mm[Hg] Blood Pressure 144/ (no code) Systolic: 04-19-2019 no n reji [facility] 75mm[Hg] 120 mm[Hg] 12:24-0400 ([id number]) Diastolic: 60 - 80 mm[Hg] Blood Pressure 135/ (no code) Systolic: 04-18-2019 no n reji [facility] 66mm[Hg] 120 mm[Hg] 15:40-0400 ([id number]) Diastolic: 60 - 80 mm[Hg] Blood Pressure 138/ (no code) Systolic: 04-17-2019 no n reji [facility] 72mm[Hg] 120 mm[Hg] 11:58-0400 ([id number]) Diastolic: 60 - 80 mm[Hg] Blood Pressure 146/ (no code) Systolic: 04-16-2019 no n reji [facility] 68mm[Hg] 120 mm[Hg] 11:380400 ([id number]) Diastolic: 60 - 80 mm[Hg] Blood Pressure 137/ (no code) Systolic: 04-15-2019 no n reji [facility] 72mm[Hg] 120 mm[Hg] 12:50-0400 ([id number]) Diastolic: 60 - 80 mm[Hg] Blood Pressure 162/ (H) Systolic: 04-14-2019 no na me [facility] 74mm[Hg] 120 mm[Hg] 08:310400 ([id number]) Diastolic: 60 - 80 mm[Hg] Blood Pressure 169/ (H) Systolic: 04-13-2019 no na me [facility] 80mm[Hg] 120 mm[Hg] 11:310400 ([id number]) Diastolic: 60 - 80 mm[Hg] Blood Pressure 176/ (HH) Systolic: 04-13-2019 no na me [facility] 87mm[Hg] 120 mm[Hg] 11:290400 ([id number]) Diastolic: 60 - 80 mm[Hg] Blood Pressure 161/ (H) Systolic: 04-12-2019 no na me [facility] 72mm[Hg] 120 mm[Hg] 12:15-0400 ([id number]) Diastolic: 60 - 80 mm[Hg] Blood Pressure 165/ (H) Systolic: 04-11-2019 no na me [facility] 78mm[Hg] 120 mm[Hg] 11:38-0400 ([id number]) Diastolic: 60 - 80 mm[Hg] Blood Pressure 173/ (HH) Systolic: 04-11-2019 no na me [facility] 80mm[Hg] 120 mm[Hg] 11:35-0400 ([id number]) Diastolic: 60 - 80 mm[Hg] Blood Pressure 170/ (HH) Systolic: 04-10-2019 no na me [facility] 79mm[Hg] 120 mm[Hg] 18:14-0400 ([id number]) Diastolic: 60 - 80 mm[Hg] Blood Pressure 178/ (HH) Systolic: 04-10-2019 no na me [facility] 78mm[Hg] 120 mm[Hg] 12:59-0400 ([id number]) Diastolic: 60 - 80 mm[Hg] Blood Pressure 161/ (H) Systolic: 04-09-2019 no na me [facility] 75mm[Hg] 120 mm[Hg] 12:39-0400 ([id number]) Diastolic: 60 - 80 mm[Hg] Blood Pressure 148/ (no code) Systolic: 04-08-2019 no n reji [facility] 68mm[Hg] 120 mm[Hg] 10:18-0400 ([id number]) Diastolic: 60 - 80 mm[Hg] Blood Pressure 135/ (no code) Systolic: 04-07-2019 no n reji [facility] 75mm[Hg] 120 mm[Hg] 12:13-0400 ([id number]) Diastolic: 60 - 80 mm[Hg] Blood Pressure 174/ (HH) Systolic: 04-06-2019 no na me [facility] 86mm[Hg] 120 mm[Hg] 14:15-0400 ([id number]) Diastolic: 60 - 80 mm[Hg] Blood Pressure 180/ (HH) Systolic: 04-06-2019 no na me [facility] 87mm[Hg] 120 mm[Hg] 12:58-0400 ([id number]) Diastolic: 60 - 80 mm[Hg] Blood Pressure 177/ (HH) Systolic: 04-06-2019 no na me [facility] 78mm[Hg] 120 mm[Hg] 12:56-0400 ([id number]) Diastolic: 60 - 80 mm[Hg] Blood Pressure 160/ (H) Systolic: 04-05-2019 no na me [facility] 72mm[Hg] 120 mm[Hg] 12:08-0400 ([id number]) Diastolic: 60 - 80 mm[Hg] Blood Pressure 148/ (no code) Systolic: 04-04-2019 no n reji [facility] 67mm[Hg] 120 mm[Hg] 14:05-0400 ([id number]) Diastolic: 60 - 80 mm[Hg] Blood Pressure 131/ (no code) Systolic: 04-03-2019 no n reji [facility] 70mm[Hg] 120 mm[Hg] 10:57-0400 ([id number]) Diastolic: 60 - 80 mm[Hg] Blood Pressure 159/ (no code) Systolic: 04-02-2019 no n reji [facility] 68mm[Hg] 120 mm[Hg] 12:140400 ([id number]) Diastolic: 60 - 80 mm[Hg] Blood Pressure 166/ (H) Systolic: 04-01-2019 no na me [facility] 72mm[Hg] 120 mm[Hg] 15:36-0400 ([id number]) Diastolic: 60 - 80 mm[Hg] Blood Pressure 162/ (H) Systolic: 03-31-2019 no na me [facility] 67mm[Hg] 120 mm[Hg] 12:060400 ([id number]) Diastolic: 60 - 80 mm[Hg] Blood Pressure 146/ (no code) Systolic: 03-29-2019 no n reji [facility] 73mm[Hg] 120 mm[Hg] 12:140400 ([id number]) Diastolic: 60 - 80 mm[Hg] Blood Pressure 158/ (no code) Systolic: 03-28-2019 no n reji [facility] 76mm[Hg] 120 mm[Hg] 14:070400 ([id number]) Diastolic: 60 - 80 mm[Hg] Diastolic 76 mm[Hg] (no code) 60 - 80 mm[Hg] 03-28-2019 no name [facility] blood pressure 12:34-0400 ([id number]) Blood Pressure 172/ (HH) Systolic: 03-28-2019 no na me [facility] 77mm[Hg] 120 mm[Hg] 12:31-0400 ([id number]) Diastolic: 60 - 80 mm[Hg] Blood Pressure 162/ (H) Systolic: 03-27-2019 no na me [facility] 77mm[Hg] 120 mm[Hg] 11:40-0400 ([id number]) Diastolic: 60 - 80 mm[Hg] Blood Pressure 125/ (no code) Systolic: 03-26-2019 no n reji [facility] 66mm[Hg] 120 mm[Hg] 12:03 ([id number]) Diastolic: 60 - 80 mm[Hg] Blood Pressure 129/ (no code) Systolic: 03-25-2019 no n reji [facility] 70mm[Hg] 120 mm[Hg] 14: ([id number]) Diastolic: 60 - 80 mm[Hg] Blood Pressure 162/ (H) Systolic: 03-24-2019 no na me [facility] 69mm[Hg] 120 mm[Hg] 11: ([id number]) Diastolic: 60 - 80 mm[Hg] Blood Pressure 176/ (HH) Systolic: 03-24-2019 no na me [facility] 76mm[Hg] 120 mm[Hg] 11: ([id number]) Diastolic: 60 - 80 mm[Hg] Blood Pressure 149/ (no code) Systolic: 03-23-2019 no n reji [facility] 68mm[Hg] 120 mm[Hg] 11: ([id number]) Diastolic: 60 - 80 mm[Hg] Blood Pressure 157/ (no code) Systolic: 03-22-2019 no n reji [facility] 72mm[Hg] 120 mm[Hg] 11: ([id number]) Diastolic: 60 - 80 mm[Hg] Blood Pressure 152/ (no code) Systolic: 03-21-2019 no n reji [facility] 67mm[Hg] 120 mm[Hg] 10:460400 ([id number]) Diastolic: 60 - 80 mm[Hg] Blood Pressure 128/ (no code) Systolic: 03-18-2019 no n reji [facility] 63mm[Hg] 120 mm[Hg] 12:07040 ([id number]) Diastolic: 60 - 80 mm[Hg] Blood Pressure 131/ (no code) Systolic: 03-16-2019 no n reji [facility] 69mm[Hg] 120 mm[Hg] 15:490400 ([id number]) Diastolic: 60 - 80 mm[Hg] Blood Pressure 148/ (no code) Systolic: 03-14-2019 no n reji [facility] 70mm[Hg] 120 mm[Hg] 12:020400 ([id number]) Diastolic: 60 - 80 mm[Hg] Blood Pressure 168/ (H) Systolic: 03-13-2019 no na me [facility] 71mm[Hg] 120 mm[Hg] 12:110400 ([id number]) Diastolic: 60 - 80 mm[Hg] Blood Pressure 160/ (H) Systolic: 03-12-2019 no na me [facility] 76mm[Hg] 120 mm[Hg] 13:550400 ([id number]) Diastolic: 60 - 80 mm[Hg] Blood Pressure 135/ (no code) Systolic: 03-11-2019 no n reji [facility] 70mm[Hg] 120 mm[Hg] 12:110400 ([id number]) Diastolic: 60 - 80 mm[Hg] Blood Pressure 148/ (no code) Systolic: 03-10-2019 no n rjei [facility] 63mm[Hg] 120 mm[Hg] 12:040400 ([id number]) Diastolic: 60 - 80 mm[Hg] Blood Pressure 160/ (H) Systolic: 03-08-2019 no na me [facility] 76mm[Hg] 120 mm[Hg] 12:060400 ([id number]) Diastolic: 60 - 80 mm[Hg] Blood Pressure 137/ (no code) Systolic: 03-07-2019 no n reji [facility] 64mm[Hg] 120 mm[Hg] 12:030400 ([id number]) Diastolic: 60 - 80 mm[Hg] Blood Pressure 141/ (no code) Systolic: 03-06-2019 no n reji [facility] 65mm[Hg] 120 mm[Hg] 11:380400 ([id number]) Diastolic: 60 - 80 mm[Hg] Blood Pressure 152/ (no code) Systolic: 03-05-2019 no n reji [facility] 75mm[Hg] 120 mm[Hg] 12:060400 ([id number]) Diastolic: 60 - 80 mm[Hg] Blood Pressure 128/ (no code) Systolic: 03-04-2019 no n reji [facility] 61mm[Hg] 120 mm[Hg] 12:12-0400 ([id number]) Diastolic: 60 - 80 mm[Hg] Blood Pressure 168/ (H) Systolic: 03-03-2019 no na me [facility] 75mm[Hg] 120 mm[Hg] 20:10-0400 ([id number]) Diastolic: 60 - 80 mm[Hg] Blood Pressure 139/ (no code) Systolic: 03-02-2019 no n reji [facility] 65mm[Hg] 120 mm[Hg] 12:130400 ([id number]) Diastolic: 60 - 80 mm[Hg] Blood Pressure 134/ (no code) Systolic: 03-01-2019 no n reji [facility] 68mm[Hg] 120 mm[Hg] 13:020400 ([id number]) Diastolic: 60 - 80 mm[Hg] Blood Pressure 146/ (no code) Systolic: 02-28-2019 no n reji [facility] 74mm[Hg] 120 mm[Hg] 11:50-0400 ([id number]) Diastolic: 60 - 80 mm[Hg] Blood Pressure 161/ (H) Systolic: 02-27-2019 no na me [facility] 73mm[Hg] 120 mm[Hg] 12:24-0400 ([id number]) Diastolic: 60 - 80 mm[Hg] Blood Pressure 172/ (HH) Systolic: 02-27-2019 no na me [facility] 76mm[Hg] 120 mm[Hg] 12:22-0400 ([id number]) Diastolic: 60 - 80 mm[Hg] Blood Pressure 158/ (no code) Systolic: 02-26-2019 no n reji [facility] 72mm[Hg] 120 mm[Hg] 12:15-0400 ([id number]) Diastolic: 60 - 80 mm[Hg] Blood Pressure 138/ (no code) Systolic: 02-25-2019 no n reji [facility] 66mm[Hg] 120 mm[Hg] 13:27-0400 ([id number]) Diastolic: 60 - 80 mm[Hg] Blood Pressure 126/ (no code) Systolic: 02-19-2019 no n reji [facility] 71mm[Hg] 120 mm[Hg] 11:33-0400 ([id number]) Diastolic: 60 - 80 mm[Hg] Blood Pressure 109/ (no code) Systolic: 02-18-2019 no n reji [facility] 61mm[Hg] 120 mm[Hg] 12:33-0400 ([id number]) Diastolic: 60 - 80 mm[Hg] Blood Pressure 155/ (no code) Systolic: 02-17-2019 no n reji [facility] 69mm[Hg] 120 mm[Hg] 09:52-0400 ([id number]) Diastolic: 60 - 80 mm[Hg] Blood Pressure 140/ (no code) Systolic: 02-16-2019 no n reji [facility] 62mm[Hg] 120 mm[Hg] 12:050400 ([id number]) Diastolic: 60 - 80 mm[Hg] Blood Pressure 157/ (no code) Systolic: 02-15-2019 no n reji [facility] 75mm[Hg] 120 mm[Hg] 11:34-0400 ([id number]) Diastolic: 60 - 80 mm[Hg] Blood Pressure 140/ (no code) Systolic: 02-14-2019 no n reji [facility] 69mm[Hg] 120 mm[Hg] 12:16-0400 ([id number]) Diastolic: 60 - 80 mm[Hg] Blood Pressure 139/ (no code) Systolic: 02-13-2019 no n reji [facility] 71mm[Hg] 120 mm[Hg] 10:48-0400 ([id number]) Diastolic: 60 - 80 mm[Hg] Blood Pressure 152/ (no code) Systolic: 02-12-2019 no n reji [facility] 80mm[Hg] 120 mm[Hg] 13:36-0400 ([id number]) Diastolic: 60 - 80 mm[Hg] Blood Pressure 142/ (no code) Systolic: 02-11-2019 no n reji [facility] 65mm[Hg] 120 mm[Hg] 12:22-0400 ([id number]) Diastolic: 60 - 80 mm[Hg] Blood Pressure 168/ (H) Systolic: 02-10-2019 no na me [facility] 72mm[Hg] 120 mm[Hg] 12:33-0400 ([id number]) Diastolic: 60 - 80 mm[Hg] Blood Pressure 117/ (no code) Systolic: 02-09-2019 no n reji [facility] 64mm[Hg] 120 mm[Hg] 12:080400 ([id number]) Diastolic: 60 - 80 mm[Hg] Blood Pressure 155/ (no code) Systolic: 02-08-2019 no n reji [facility] 74mm[Hg] 120 mm[Hg] 12:01-0400 ([id number]) Diastolic: 60 - 80 mm[Hg] Blood Pressure 148/ (no code) Systolic: 02-07-2019 no n reji [facility] 69mm[Hg] 120 mm[Hg] 10:39-0400 ([id number]) Diastolic: 60 - 80 mm[Hg] Blood Pressure 169/ (H) Systolic: 02-06-2019 no na me [facility] 80mm[Hg] 120 mm[Hg] 18:100400 ([id number]) Diastolic: 60 - 80 mm[Hg] Blood Pressure 160/ (H) Systolic: 02-05-2019 no na me [facility] 72mm[Hg] 120 mm[Hg] 12:060400 ([id number]) Diastolic: 60 - 80 mm[Hg] Blood Pressure 142/ (no code) Systolic: 02-04-2019 no n reji [facility] 70mm[Hg] 120 mm[Hg] 12:53-0400 ([id number]) Diastolic: 60 - 80 mm[Hg] Blood Pressure 150/ (no code) Systolic: 02-03-2019 no n reji [facility] 72mm[Hg] 120 mm[Hg] 10:49-0400 ([id number]) Diastolic: 60 - 80 mm[Hg] Blood Pressure 135/ (no code) Systolic: 02-02-2019 no n reji [facility] 73mm[Hg] 120 mm[Hg] 14:20-0400 ([id number]) Diastolic: 60 - 80 mm[Hg] Blood Pressure 160/ (H) Systolic: 02-01-2019 no na me [facility] 76mm[Hg] 120 mm[Hg] 11:29-0400 ([id number]) Diastolic: 60 - 80 mm[Hg] Blood Pressure 156/ (no code) Systolic: 01-31-2019 no n reji [facility] 78mm[Hg] 120 mm[Hg] 12:260400 ([id number]) Diastolic: 60 - 80 mm[Hg] Blood Pressure 158/ (no code) Systolic: 01-30-2019 no n reji [facility] 74mm[Hg] 120 mm[Hg] 12:03040 ([id number]) Diastolic: 60 - 80 mm[Hg] Blood Pressure 136/ (no code) Systolic: 01-29-2019 no n reji [facility] 68mm[Hg] 120 mm[Hg] 12: ([id number]) Diastolic: 60 - 80 mm[Hg] Blood Pressure 123/ (no code) Systolic: 01-28-2019 no n reji [facility] 68mm[Hg] 120 mm[Hg] 12:040 ([id number]) Diastolic: 60 - 80 mm[Hg] Blood Pressure 151/ (no code) Systolic: 01-27-2019 no n reji [facility] 72mm[Hg] 120 mm[Hg] 11:0400 ([id number]) Diastolic: 60 - 80 mm[Hg] Blood Pressure 132/ (no code) Systolic: 01-26-2019 no n reji [facility] 72mm[Hg] 120 mm[Hg] 15:380400 ([id number]) Diastolic: 60 - 80 mm[Hg] Blood Pressure 136/ (no code) Systolic: 01-25-2019 no n reji [facility] 64mm[Hg] 120 mm[Hg] 11:30040 ([id number]) Diastolic: 60 - 80 mm[Hg] Blood Pressure 156/ (no code) Systolic: 01-24-2019 no n reji [facility] 72mm[Hg] 120 mm[Hg] 11:410400 ([id number]) Diastolic: 60 - 80 mm[Hg] Blood Pressure 162/ (H) Systolic: 01-23-2019 no na me [facility] 72mm[Hg] 120 mm[Hg] 12:07-0400 ([id number]) Diastolic: 60 - 80 mm[Hg] Blood Pressure 120/ (no code) Systolic: 01-22-2019 no n reji [facility] 64mm[Hg] 120 mm[Hg] 12:47-0400 ([id number]) Diastolic: 60 - 80 mm[Hg] Blood Pressure 160/ (H) Systolic: 01-21-2019 no na me [facility] 76mm[Hg] 120 mm[Hg] 16:220400 ([id number]) Diastolic: 60 - 80 mm[Hg] Blood Pressure 160/ (H) Systolic: 01-20-2019 no na me [facility] 67mm[Hg] 120 mm[Hg] 12:110400 ([id number]) Diastolic: 60 - 80 mm[Hg] Blood Pressure 151/ (no code) Systolic: 01-19-2019 no n reji [facility] 76mm[Hg] 120 mm[Hg] 12:080400 ([id number]) Diastolic: 60 - 80 mm[Hg] Blood Pressure 166/ (H) Systolic: 01-18-2019 no na me [facility] 80mm[Hg] 120 mm[Hg] 10:560400 ([id number]) Diastolic: 60 - 80 mm[Hg] Blood Pressure 166/ (H) Systolic: 01-17-2019 no na me [facility] 77mm[Hg] 120 mm[Hg] 12:100400 ([id number]) Diastolic: 60 - 80 mm[Hg] Blood Pressure 164/ (H) Systolic: 01-16-2019 no na me [facility] 69mm[Hg] 120 mm[Hg] 10:53-0400 ([id number]) Diastolic: 60 - 80 mm[Hg] Blood Pressure 180/ (HH) Systolic: 01-16-2019 no na me [facility] 72mm[Hg] 120 mm[Hg] 10:50-0400 ([id number]) Diastolic: 60 - 80 mm[Hg] Blood Pressure 147/ (no code) Systolic: 01-15-2019 no n reji [facility] 79mm[Hg] 120 mm[Hg] 16:19-0400 ([id number]) Diastolic: 60 - 80 mm[Hg] Blood Pressure 143/ (no code) Systolic: 01-14-2019 no n reji [facility] 75mm[Hg] 120 mm[Hg] 12:140400 ([id number]) Diastolic: 60 - 80 mm[Hg] Blood Pressure 166/ (H) Systolic: 01-13-2019 no na me [facility] 77mm[Hg] 120 mm[Hg] 12:110400 ([id number]) Diastolic: 60 - 80 mm[Hg] Blood Pressure 157/ (no code) Systolic: 01-12-2019 no n reji [facility] 77mm[Hg] 120 mm[Hg] 12:54-0400 ([id number]) Diastolic: 60 - 80 mm[Hg] Blood Pressure 149/ (no code) Systolic: 01-11-2019 no n reji [facility] 80mm[Hg] 120 mm[Hg] 12:120400 ([id number]) Diastolic: 60 - 80 mm[Hg] Blood Pressure 140/ (no code) Systolic: 01-10-2019 no n reji [facility] 72mm[Hg] 120 mm[Hg] 12:090400 ([id number]) Diastolic: 60 - 80 mm[Hg] Blood Pressure 166/ (H) Systolic: 01-09-2019 no na me [facility] 74mm[Hg] 120 mm[Hg] 13:240400 ([id number]) Diastolic: 60 - 80 mm[Hg] Blood Pressure 175/ (HH) Systolic: 01-09-2019 no na me [facility] 75mm[Hg] 120 mm[Hg] 12:000400 ([id number]) Diastolic: 60 - 80 mm[Hg] Blood Pressure 170/ (HH) Systolic: 01-09-2019 no na me [facility] 81mm[Hg] 120 mm[Hg] 11:580400 ([id number]) Diastolic: 60 - 80 mm[Hg] Blood Pressure 146/ (no code) Systolic: 01-08-2019 no n reji [facility] 72mm[Hg] 120 mm[Hg] 12:140400 ([id number]) Diastolic: 60 - 80 mm[Hg] Blood Pressure 146/ (no code) Systolic: 01-07-2019 no n reji [facility] 71mm[Hg] 120 mm[Hg] 10:0400 ([id number]) Diastolic: 60 - 80 mm[Hg] Blood Pressure 161/ (H) Systolic: 01-06-2019 no na me [facility] 71mm[Hg] 120 mm[Hg] 12:230400 ([id number]) Diastolic: 60 - 80 mm[Hg] Blood Pressure 152/ (no code) Systolic: 01-05-2019 no n reji [facility] 69mm[Hg] 120 mm[Hg] 09:200400 ([id number]) Diastolic: 60 - 80 mm[Hg] Blood Pressure 158/ (no code) Systolic: 01-04-2019 no n reji [facility] 81mm[Hg] 120 mm[Hg] 11:0400 ([id number]) Diastolic: 60 - 80 mm[Hg] Blood Pressure 168/ (H) Systolic: 01-03-2019 no na me [facility] 77mm[Hg] 120 mm[Hg] 12:0400 ([id number]) Diastolic: 60 - 80 mm[Hg] Blood Pressure 146/ (no code) Systolic: 01-02-2019 no n reji [facility] 77mm[Hg] 120 mm[Hg] 11:0400 ([id number]) Diastolic: 60 - 80 mm[Hg] Blood Pressure 150/ (no code) Systolic: 01-01-2019 no n reji [facility] 69mm[Hg] 120 mm[Hg] 12:0400 ([id number]) Diastolic: 60 - 80 mm[Hg] Blood Pressure 152/ (no code) Systolic: 12-31-2018 no n reji [facility] 70mm[Hg] 120 mm[Hg] 12:0400 ([id number]) Diastolic: 60 - 80 mm[Hg] Blood Pressure 145/ (no code) Systolic: 12-30-2018 no n reji [facility] 71mm[Hg] 120 mm[Hg] 12:030400 ([id number]) Diastolic: 60 - 80 mm[Hg] Blood Pressure 133/ (no code) Systolic: 12-29-2018 no n reji [facility] 78mm[Hg] 120 mm[Hg] 12:230400 ([id number]) Diastolic: 60 - 80 mm[Hg] Blood Pressure 152/ (no code) Systolic: 12-28-2018 no n reji [facility] 80mm[Hg] 120 mm[Hg] 12:0400 ([id number]) Diastolic: 60 - 80 mm[Hg] Blood Pressure 156/ (no code) Systolic: 12-27-2018 no n reji [facility] 76mm[Hg] 120 mm[Hg] 12:120400 ([id number]) Diastolic: 60 - 80 mm[Hg] Blood Pressure 156/ (no code) Systolic: 12-26-2018 no n reji [facility] 77mm[Hg] 120 mm[Hg] 12:0400 ([id number]) Diastolic: 60 - 80 mm[Hg] Blood Pressure 133/ (no code) Systolic: 12-25-2018 no n reji [facility] 74mm[Hg] 120 mm[Hg] 12:0400 ([id number]) Diastolic: 60 - 80 mm[Hg] Blood Pressure 147/ (no code) Systolic: 12-24-2018 no n reji [facility] 77mm[Hg] 120 mm[Hg] 12:0400 ([id number]) Diastolic: 60 - 80 mm[Hg] Blood Pressure 167/ (H) Systolic: 12-23-2018 no na me [facility] 75mm[Hg] 120 mm[Hg] 12: ([id number]) Diastolic: 60 - 80 mm[Hg] Blood Pressure 174/ (HH) Systolic: 12-23-2018 no na me [facility] 83mm[Hg] 120 mm[Hg] 12:080400 ([id number]) Diastolic: 60 - 80 mm[Hg] Blood Pressure 144/ (no code) Systolic: 12-22-2018 no n reji [facility] 67mm[Hg] 120 mm[Hg] 11:460400 ([id number]) Diastolic: 60 - 80 mm[Hg] Blood Pressure 147/ (no code) Systolic: 12-21-2018 no n reji [facility] 79mm[Hg] 120 mm[Hg] 12:45-0400 ([id number]) Diastolic: 60 - 80 mm[Hg] Blood Pressure 154/ (no code) Systolic: 12-20-2018 no n reji [facility] 73mm[Hg] 120 mm[Hg] 12:280400 ([id number]) Diastolic: 60 - 80 mm[Hg] Blood Pressure 157/ (no code) Systolic: 12-19-2018 no n reji [facility] 71mm[Hg] 120 mm[Hg] 12:530400 ([id number]) Diastolic: 60 - 80 mm[Hg] Blood Pressure 133/ (no code) Systolic: 12-18-2018 no n reji [facility] 76mm[Hg] 120 mm[Hg] 11:390400 ([id number]) Diastolic: 60 - 80 mm[Hg] Blood Pressure 139/ (no code) Systolic: 12-17-2018 no n reji [facility] 66mm[Hg] 120 mm[Hg] 12:130400 ([id number]) Diastolic: 60 - 80 mm[Hg] Blood Pressure 153/ (no code) Systolic: 12-16-2018 no n reji [facility] 82mm[Hg] 120 mm[Hg] 13:120400 ([id number]) Diastolic: 60 - 80 mm[Hg] Blood Pressure 155/ (no code) Systolic: 12-15-2018 no n reji [facility] 74mm[Hg] 120 mm[Hg] 11:510400 ([id number]) Diastolic: 60 - 80 mm[Hg] Blood Pressure 117/ (no code) Systolic: 12-14-2018 no n reji [facility] 67mm[Hg] 120 mm[Hg] 12:310400 ([id number]) Diastolic: 60 - 80 mm[Hg] Blood Pressure 144/ (no code) Systolic: 12-13-2018 no n reji [facility] 81mm[Hg] 120 mm[Hg] 11:54-0400 ([id number]) Diastolic: 60 - 80 mm[Hg] Blood Pressure 163/ (H) Systolic: 12-12-2018 no na me [facility] 79mm[Hg] 120 mm[Hg] 13:05-0400 ([id number]) Diastolic: 60 - 80 mm[Hg] Blood Pressure 135/ (no code) Systolic: 12-11-2018 no n reji [facility] 73mm[Hg] 120 mm[Hg] 11:33-0400 ([id number]) Diastolic: 60 - 80 mm[Hg] Blood Pressure 148/ (no code) Systolic: 12-10-2018 no n reji [facility] 71mm[Hg] 120 mm[Hg] 12:20-0400 ([id number]) Diastolic: 60 - 80 mm[Hg] Blood Pressure 128/ (no code) Systolic: 12-09-2018 no n reji [facility] 72mm[Hg] 120 mm[Hg] 10:58-0400 ([id number]) Diastolic: 60 - 80 mm[Hg] Blood Pressure 144/ (no code) Systolic: 12-08-2018 no n reji [facility] 78mm[Hg] 120 mm[Hg] 14:39-0400 ([id number]) Diastolic: 60 - 80 mm[Hg] Blood Pressure 147/ (no code) Systolic: 12-07-2018 no n reji [facility] 85mm[Hg] 120 mm[Hg] 12:15-0400 ([id number]) Diastolic: 60 - 80 mm[Hg] Blood Pressure 167/ (H) Systolic: 12-06-2018 no na me [facility] 82mm[Hg] 120 mm[Hg] 20:17-0400 ([id number]) Diastolic: 60 - 80 mm[Hg] Blood Pressure 136/ (no code) Systolic: 12-05-2018 no n reji [facility] 71mm[Hg] 120 mm[Hg] 13:13-0400 ([id number]) Diastolic: 60 - 80 mm[Hg] Blood Pressure 136/ (no code) Systolic: 12-04-2018 no n reji [facility] 69mm[Hg] 120 mm[Hg] 11:47-0400 ([id number]) Diastolic: 60 - 80 mm[Hg] Blood Pressure 134/ (no code) Systolic: 12-03-2018 no n reji [facility] 76mm[Hg] 120 mm[Hg] 11:28-0500 ([id number]) Diastolic: 60 - 80 mm[Hg] Blood Pressure 144/ (no code) Systolic: 12-02-2018 no n reji [facility] 76mm[Hg] 120 mm[Hg] 11:210500 ([id number]) Diastolic: 60 - 80 mm[Hg] Blood Pressure 111/ (no code) Systolic: 12-01-2018 no n reji [facility] 72mm[Hg] 120 mm[Hg] 12:140500 ([id number]) Diastolic: 60 - 80 mm[Hg] Blood Pressure 122/ (no code) Systolic: 11-30-2018 no n reji [facility] 67mm[Hg] 120 mm[Hg] 12:050500 ([id number]) Diastolic: 60 - 80 mm[Hg] Blood Pressure 152/ (no code) Systolic: 11-29-2018 no n reji [facility] 78mm[Hg] 120 mm[Hg] 12:170500 ([id number]) Diastolic: 60 - 80 mm[Hg] Blood Pressure 109/ (no code) Systolic: 11-28-2018 no n reji [facility] 66mm[Hg] 120 mm[Hg] 12:070500 ([id number]) Diastolic: 60 - 80 mm[Hg] Blood Pressure 129/ (no code) Systolic: 11-27-2018 no n reji [facility] 78mm[Hg] 120 mm[Hg] 12:040500 ([id number]) Diastolic: 60 - 80 mm[Hg] Blood Pressure 113/ (no code) Systolic: 11-26-2018 no n reji [facility] 69mm[Hg] 120 mm[Hg] 12:270500 ([id number]) Diastolic: 60 - 80 mm[Hg] Blood Pressure 133/ (no code) Systolic: 11-25-2018 no n reji [facility] 78mm[Hg] 120 mm[Hg] 12:030500 ([id number]) Diastolic: 60 - 80 mm[Hg] Blood Pressure 126/ (no code) Systolic: 11-24-2018 no n reji [facility] 65mm[Hg] 120 mm[Hg] 12:170500 ([id number]) Diastolic: 60 - 80 mm[Hg] Blood Pressure 136/ (no code) Systolic: 11-23-2018 no n reij [facility] 69mm[Hg] 120 mm[Hg] 12:37-0500 ([id number]) Diastolic: 60 - 80 mm[Hg] Blood Pressure 137/ (no code) Systolic: 11-22-2018 no n reji [facility] 71mm[Hg] 120 mm[Hg] 12:30-0500 ([id number]) Diastolic: 60 - 80 mm[Hg] Blood Pressure 146/ (no code) Systolic: 11-21-2018 no n reji [facility] 74mm[Hg] 120 mm[Hg] 14:35-0500 ([id number]) Diastolic: 60 - 80 mm[Hg] Blood Pressure 123/ (no code) Systolic: 11-20-2018 no n reji [facility] 70mm[Hg] 120 mm[Hg] 14:230500 ([id number]) Diastolic: 60 - 80 mm[Hg] Blood Pressure 119/ (no code) Systolic: 11-19-2018 no n reji [facility] 64mm[Hg] 120 mm[Hg] 11:060500 ([id number]) Diastolic: 60 - 80 mm[Hg] Blood Pressure 112/ (no code) Systolic: 11-18-2018 no n reji [facility] 62mm[Hg] 120 mm[Hg] 12:110500 ([id number]) Diastolic: 60 - 80 mm[Hg] Blood Pressure 100/ (no code) Systolic: 11-17-2018 no n reji [facility] 57mm[Hg] 120 mm[Hg] 12:18-0500 ([id number]) Diastolic: 60 - 80 mm[Hg] Blood Pressure 102/ (no code) Systolic: 11-16-2018 no n reji [facility] 52mm[Hg] 120 mm[Hg] 10:30-0500 ([id number]) Diastolic: 60 - 80 mm[Hg] Blood Pressure 114/ (no code) Systolic: 11-15-2018 no n reji [facility] 60mm[Hg] 120 mm[Hg] 12:21-0500 ([id number]) Diastolic: 60 - 80 mm[Hg] Blood Pressure 109/ (no code) Systolic: 11-14-2018 no n reji [facility] 66mm[Hg] 120 mm[Hg] 11:37-0500 ([id number]) Diastolic: 60 - 80 mm[Hg] Blood Pressure 98/ (no code) Systolic: 11-13-2018 no n reji [facility] 59mm[Hg] 120 mm[Hg] 13:020500 ([id number]) Diastolic: 60 - 80 mm[Hg] Blood Pressure 109/ (no code) Systolic: 11-12-2018 no n reji [facility] 61mm[Hg] 120 mm[Hg] 11:160500 ([id number]) Diastolic: 60 - 80 mm[Hg] Blood Pressure 116/ (no code) Systolic: 11-11-2018 no n reji [facility] 66mm[Hg] 120 mm[Hg] 12:00-0500 ([id number]) Diastolic: 60 - 80 mm[Hg] Blood Pressure 109/ (no code) Systolic: 11-10-2018 no n reji [facility] 58mm[Hg] 120 mm[Hg] 11:120500 ([id number]) Diastolic: 60 - 80 mm[Hg] Blood Pressure 124/ (no code) Systolic: 11-09-2018 no n reji [facility] 80mm[Hg] 120 mm[Hg] 12:120500 ([id number]) Diastolic: 60 - 80 mm[Hg] Blood Pressure 143/ (no code) Systolic: 11-08-2018 no n reji [facility] 72mm[Hg] 120 mm[Hg] 13:150500 ([id number]) Diastolic: 60 - 80 mm[Hg] Blood Pressure 128/ (no code) Systolic: 11-07-2018 no n reji [facility] 70mm[Hg] 120 mm[Hg] 12:100500 ([id number]) Diastolic: 60 - 80 mm[Hg] Blood Pressure 160/ (H) Systolic: 11-06-2018 no na me [facility] 80mm[Hg] 120 mm[Hg] 13:54-0500 ([id number]) Diastolic: 60 - 80 mm[Hg] Blood Pressure 128/ (no code) Systolic: 11-05-2018 no n reji [facility] 67mm[Hg] 120 mm[Hg] 11:48-0500 ([id number]) Diastolic: 60 - 80 mm[Hg] Blood Pressure 132/ (no code) Systolic: 11-04-2018 no n reji [facility] 70mm[Hg] 120 mm[Hg] 12:03-0500 ([id number]) Diastolic: 60 - 80 mm[Hg] Blood Pressure 143/ (no code) Systolic: 11-03-2018 no n reji [facility] 75mm[Hg] 120 mm[Hg] 12:11-0500 ([id number]) Diastolic: 60 - 80 mm[Hg] Blood Pressure 160/ (H) Systolic: 11-02-2018 no na me [facility] 76mm[Hg] 120 mm[Hg] 12:45-0500 ([id number]) Diastolic: 60 - 80 mm[Hg] Blood Pressure 113/ (no code) Systolic: 11-01-2018 no n reji [facility] 63mm[Hg] 120 mm[Hg] 12:060500 ([id number]) Diastolic: 60 - 80 mm[Hg] Blood Pressure 106/ (no code) Systolic: 10-31-2018 no n reji [facility] 65mm[Hg] 120 mm[Hg] 13:54-0500 ([id number]) Diastolic: 60 - 80 mm[Hg] Blood Pressure 134/ (no code) Systolic: 10-30-2018 no n reji [facility] 63mm[Hg] 120 mm[Hg] 12:020500 ([id number]) Diastolic: 60 - 80 mm[Hg] Blood Pressure 109/ (no code) Systolic: 10-29-2018 no n reji [facility] 55mm[Hg] 120 mm[Hg] 12:030500 ([id number]) Diastolic: 60 - 80 mm[Hg] Blood Pressure 140/ (no code) Systolic: 10-28-2018 no n reji [facility] 74mm[Hg] 120 mm[Hg] 12:28-0500 ([id number]) Diastolic: 60 - 80 mm[Hg] Blood Pressure 148/ (no code) Systolic: 10-27-2018 no n reji [facility] 75mm[Hg] 120 mm[Hg] 12:15-0500 ([id number]) Diastolic: 60 - 80 mm[Hg] Blood Pressure 164/ (H) Systolic: 10-26-2018 no na me [facility] 75mm[Hg] 120 mm[Hg] 12:38-0500 ([id number]) Diastolic: 60 - 80 mm[Hg] Blood Pressure 156/ (no code) Systolic: 10-25-2018 no n reji [facility] 77mm[Hg] 120 mm[Hg] 12:03-0500 ([id number]) Diastolic: 60 - 80 mm[Hg] Blood Pressure 151/ (no code) Systolic: 10-24-2018 no n reji [facility] 78mm[Hg] 120 mm[Hg] 12:12-0500 ([id number]) Diastolic: 60 - 80 mm[Hg] Blood Pressure 136/ (no code) Systolic: 10-23-2018 no n reji [facility] 67mm[Hg] 120 mm[Hg] 19:17-0500 ([id number]) Diastolic: 60 - 80 mm[Hg] Blood Pressure 136/ (no code) Systolic: 10-23-2018 no n reji [facility] 67mm[Hg] 120 mm[Hg] 06:46-0500 ([id number]) Diastolic: 60 - 80 mm[Hg] Blood Pressure 136/ (no code) Systolic: 10-22-2018 no n reji [facility] 67mm[Hg] 120 mm[Hg] 12:02-0500 ([id number]) Diastolic: 60 - 80 mm[Hg] Blood Pressure 151/ (no code) Systolic: 10-21-2018 no n reji [facility] 68mm[Hg] 120 mm[Hg] 11:35-0500 ([id number]) Diastolic: 60 - 80 mm[Hg] Blood Pressure 154/ (no code) Systolic: 10-20-2018 no n reji [facility] 82mm[Hg] 120 mm[Hg] 12:03-0500 ([id number]) Diastolic: 60 - 80 mm[Hg] Blood Pressure 138/ (no code) Systolic: 10-19-2018 no n reji [facility] 69mm[Hg] 120 mm[Hg] 12:15-0500 ([id number]) Diastolic: 60 - 80 mm[Hg] Blood Pressure 151/ (no code) Systolic: 10-18-2018 no n reji [facility] 71mm[Hg] 120 mm[Hg] 12:220500 ([id number]) Diastolic: 60 - 80 mm[Hg] Blood Pressure 149/ (no code) Systolic: 10-17-2018 no n reji [facility] 80mm[Hg] 120 mm[Hg] 13:42-0500 ([id number]) Diastolic: 60 - 80 mm[Hg] Blood Pressure 160/ (H) Systolic: 10-16-2018 no na me [facility] 81mm[Hg] 120 mm[Hg] 12:110500 ([id number]) Diastolic: 60 - 80 mm[Hg] Blood Pressure 166/ (H) Systolic: 10-15-2018 no na me [facility] 73mm[Hg] 120 mm[Hg] 11:570500 ([id number]) Diastolic: 60 - 80 mm[Hg] Blood Pressure 147/ (no code) Systolic: 10-14-2018 no n reji [facility] 76mm[Hg] 120 mm[Hg] 12:160500 ([id number]) Diastolic: 60 - 80 mm[Hg] Blood Pressure 155/ (no code) Systolic: 10-13-2018 no n reji [facility] 79mm[Hg] 120 mm[Hg] 15:260500 ([id number]) Diastolic: 60 - 80 mm[Hg] Blood Pressure 176/ (HH) Systolic: 10-13-2018 no na me [facility] 85mm[Hg] 120 mm[Hg] 15:240500 ([id number]) Diastolic: 60 - 80 mm[Hg] Blood Pressure 164/ (H) Systolic: 10-12-2018 no na me [facility] 75mm[Hg] 120 mm[Hg] 13:040500 ([id number]) Diastolic: 60 - 80 mm[Hg] Blood Pressure 136/ (no code) Systolic: 10-11-2018 no n reji [facility] 72mm[Hg] 120 mm[Hg] 12:24-0500 ([id number]) Diastolic: 60 - 80 mm[Hg] Blood Pressure 155/ (no code) Systolic: 10-10-2018 no n reji [facility] 77mm[Hg] 120 mm[Hg] 12:08-0500 ([id number]) Diastolic: 60 - 80 mm[Hg] Blood Pressure 152/ (no code) Systolic: 10-09-2018 no n reji [facility] 79mm[Hg] 120 mm[Hg] 11:43-0500 ([id number]) Diastolic: 60 - 80 mm[Hg] Blood Pressure 156/ (no code) Systolic: 10-08-2018 no n reji [facility] 80mm[Hg] 120 mm[Hg] 12:080500 ([id number]) Diastolic: 60 - 80 mm[Hg] Blood Pressure 168/ (H) Systolic: 10-07-2018 no na me [facility] 80mm[Hg] 120 mm[Hg] 12:000500 ([id number]) Diastolic: 60 - 80 mm[Hg] Blood Pressure 167/ (H) Systolic: 10-06-2018 no na me [facility] 78mm[Hg] 120 mm[Hg] 12:010500 ([id number]) Diastolic: 60 - 80 mm[Hg] Blood Pressure 140/ (no code) Systolic: 10-05-2018 no n reji [facility] 75mm[Hg] 120 mm[Hg] 11:46-0500 ([id number]) Diastolic: 60 - 80 mm[Hg] Blood Pressure 165/ (H) Systolic: 10-04-2018 no na me [facility] 79mm[Hg] 120 mm[Hg] 12:02-0500 ([id number]) Diastolic: 60 - 80 mm[Hg] Blood Pressure 149/ (no code) Systolic: 10-03-2018 no n reji [facility] 80mm[Hg] 120 mm[Hg] 12:08-0500 ([id number]) Diastolic: 60 - 80 mm[Hg] Blood Pressure 165/ (H) Systolic: 10-02-2018 no na me [facility] 78mm[Hg] 120 mm[Hg] 12:070500 ([id number]) Diastolic: 60 - 80 mm[Hg] Blood Pressure 147/ (no code) Systolic: 10-01-2018 no n reji [facility] 75mm[Hg] 120 mm[Hg] 12:09-0500 ([id number]) Diastolic: 60 - 80 mm[Hg] Blood Pressure 168/ (H) Systolic: 09-30-2018 no na me [facility] 84mm[Hg] 120 mm[Hg] 15:49-0500 ([id number]) Diastolic: 60 - 80 mm[Hg] Blood Pressure 176/ (HH) Systolic: 09-30-2018 no na me [facility] 86mm[Hg] 120 mm[Hg] 13:07-0500 ([id number]) Diastolic: 60 - 80 mm[Hg] Blood Pressure 183/ (HH) Systolic: 09-30-2018 no na me [facility] 92mm[Hg] 120 mm[Hg] 13:040500 ([id number]) Diastolic: 60 - 80 mm[Hg] Blood Pressure 164/ (H) Systolic: 09-29-2018 no na me [facility] 79mm[Hg] 120 mm[Hg] 12:22-0500 ([id number]) Diastolic: 60 - 80 mm[Hg] Blood Pressure 173/ (HH) Systolic: 09-29-2018 no na me [facility] 85mm[Hg] 120 mm[Hg] 12:20-0500 ([id number]) Diastolic: 60 - 80 mm[Hg] Blood Pressure 168/ (H) Systolic: 09-28-2018 no na me [facility] 77mm[Hg] 120 mm[Hg] 11:58-0500 ([id number]) Diastolic: 60 - 80 mm[Hg] Blood Pressure 154/ (no code) Systolic: 09-27-2018 no n reji [facility] 79mm[Hg] 120 mm[Hg] 12:13-0500 ([id number]) Diastolic: 60 - 80 mm[Hg] Blood Pressure 151/ (no code) Systolic: 09-26-2018 no n reji [facility] 79mm[Hg] 120 mm[Hg] 11:30-0500 ([id number]) Diastolic: 60 - 80 mm[Hg] Blood Pressure 159/ (no code) Systolic: 09-25-2018 no n reji [facility] 77mm[Hg] 120 mm[Hg] 07:15-0500 ([id number]) Diastolic: 60 - 80 mm[Hg] Blood Pressure 175/ (HH) Systolic: 09-25-2018 no na me [facility] 72mm[Hg] 120 mm[Hg] 07:11-0500 ([id number]) Diastolic: 60 - 80 mm[Hg] Blood Pressure 159/ (no code) Systolic: 09-24-2018 no n reji [facility] 77mm[Hg] 120 mm[Hg] 12:11-0500 ([id number]) Diastolic: 60 - 80 mm[Hg] Blood Pressure 176/ (HH) Systolic: 09-23-2018 no na me [facility] 78mm[Hg] 120 mm[Hg] 15:24-0500 ([id number]) Diastolic: 60 - 80 mm[Hg] Blood Pressure 172/ (HH) Systolic: 09-23-2018 no na me [facility] 86mm[Hg] 120 mm[Hg] 13:50-0500 ([id number]) Diastolic: 60 - 80 mm[Hg] Blood Pressure 186/ (HH) Systolic: 09-23-2018 no na me [facility] 91mm[Hg] 120 mm[Hg] 13:47-0500 ([id number]) Diastolic: 60 - 80 mm[Hg] Blood Pressure 129/ (no code) Systolic: 09-22-2018 no n reji [facility] 70mm[Hg] 120 mm[Hg] 11:23-0500 ([id number]) Diastolic: 60 - 80 mm[Hg] Blood Pressure 165/ (H) Systolic: 09-21-2018 no na me [facility] 79mm[Hg] 120 mm[Hg] 13:16-0500 ([id number]) Diastolic: 60 - 80 mm[Hg] Blood Pressure 176/ (HH) Systolic: 09-21-2018 no na me [facility] 81mm[Hg] 120 mm[Hg] 13:14-0500 ([id number]) Diastolic: 60 - 80 mm[Hg] Blood Pressure 144/ (no code) Systolic: 09-20-2018 no n reji [facility] 78mm[Hg] 120 mm[Hg] 12:10-0500 ([id number]) Diastolic: 60 - 80 mm[Hg] Blood Pressure 165/ (H) Systolic: 09-19-2018 no na me [facility] 86mm[Hg] 120 mm[Hg] 12:06-0500 ([id number]) Diastolic: 60 - 80 mm[Hg] Blood Pressure 132/ (no code) Systolic: 09-18-2018 no n reji [facility] 72mm[Hg] 120 mm[Hg] 11:27-0500 ([id number]) Diastolic: 60 - 80 mm[Hg] Blood Pressure 144/ (no code) Systolic: 09-17-2018 no n reji [facility] 75mm[Hg] 120 mm[Hg] 13:030500 ([id number]) Diastolic: 60 - 80 mm[Hg] Blood Pressure 125/ (no code) Systolic: 09-16-2018 no n reji [facility] 74mm[Hg] 120 mm[Hg] 12:160500 ([id number]) Diastolic: 60 - 80 mm[Hg] Blood Pressure 113/ (no code) Systolic: 09-15-2018 no n reji [facility] 67mm[Hg] 120 mm[Hg] 11:58-0500 ([id number]) Diastolic: 60 - 80 mm[Hg] Blood Pressure 146/ (no code) Systolic: 09-14-2018 no n reji [facility] 81mm[Hg] 120 mm[Hg] 13:300500 ([id number]) Diastolic: 60 - 80 mm[Hg] Blood Pressure 148/ (no code) Systolic: 09-13-2018 no n reji [facility] 73mm[Hg] 120 mm[Hg] 11:020500 ([id number]) Diastolic: 60 - 80 mm[Hg] Blood Pressure 160/ (H) Systolic: 09-12-2018 no na me [facility] 85mm[Hg] 120 mm[Hg] 12:30-0500 ([id number]) Diastolic: 60 - 80 mm[Hg] Blood Pressure 172/ (HH) Systolic: 09-12-2018 no na me [facility] 83mm[Hg] 120 mm[Hg] 12:28-0500 ([id number]) Diastolic: 60 - 80 mm[Hg] Blood Pressure 130/ (no code) Systolic: 09-11-2018 no n reji [facility] 70mm[Hg] 120 mm[Hg] 07:45-0500 ([id number]) Diastolic: 60 - 80 mm[Hg] Blood Pressure 134/ (no code) Systolic: 09-10-2018 no n erji [facility] 76mm[Hg] 120 mm[Hg] 14:00-0500 ([id number]) Diastolic: 60 - 80 mm[Hg] Blood Pressure 128/ (no code) Systolic: 09-09-2018 no n reji [facility] 69mm[Hg] 120 mm[Hg] 11:45-0500 ([id number]) Diastolic: 60 - 80 mm[Hg] Blood Pressure 161/ (H) Systolic: 09-08-2018 no na me [facility] 74mm[Hg] 120 mm[Hg] 15:58-0500 ([id number]) Diastolic: 60 - 80 mm[Hg] Blood Pressure 103/ (no code) Systolic: 09-07-2018 no n reji [facility] 62mm[Hg] 120 mm[Hg] 12:13-0500 ([id number]) Diastolic: 60 - 80 mm[Hg] Blood Pressure 168/ (H) Systolic: 09-06-2018 no na me [facility] 78mm[Hg] 120 mm[Hg] 16:39-0500 ([id number]) Diastolic: 60 - 80 mm[Hg] Blood Pressure 128/ (no code) Systolic: 09-05-2018 no n reji [facility] 75mm[Hg] 120 mm[Hg] 12:58-0500 ([id number]) Diastolic: 60 - 80 mm[Hg] Blood Pressure 131/ (no code) Systolic: 09-04-2018 no n reji [facility] 70mm[Hg] 120 mm[Hg] 11:29-0500 ([id number]) Diastolic: 60 - 80 mm[Hg] Blood Pressure 144/ (no code) Systolic: 09-03-2018 no n reji [facility] 79mm[Hg] 120 mm[Hg] 12:07-0500 ([id number]) Diastolic: 60 - 80 mm[Hg] Blood Pressure 135/ (no code) Systolic: 09-02-2018 no n reji [facility] 72mm[Hg] 120 mm[Hg] 12:02-0500 ([id number]) Diastolic: 60 - 80 mm[Hg] Blood Pressure 165/ (H) Systolic: 09-01-2018 no na me [facility] 80mm[Hg] 120 mm[Hg] 19:34-0500 ([id number]) Diastolic: 60 - 80 mm[Hg] Blood Pressure 128/ (no code) Systolic: 08-31-2018 no n reji [facility] 69mm[Hg] 120 mm[Hg] 12:53-0500 ([id number]) Diastolic: 60 - 80 mm[Hg] Blood Pressure 129/ (no code) Systolic: 08-30-2018 no n reji [facility] 82mm[Hg] 120 mm[Hg] 14:05-0500 ([id number]) Diastolic: 60 - 80 mm[Hg] Blood Pressure 167/ (H) Systolic: 08-29-2018 no na me [facility] 85mm[Hg] 120 mm[Hg] 21:06-0500 ([id number]) Diastolic: 60 - 80 mm[Hg] Blood Pressure 130/ (no code) Systolic: 08-28-2018 no n reji [facility] 76mm[Hg] 120 mm[Hg] 12:14-0500 ([id number]) Diastolic: 60 - 80 mm[Hg] Blood Pressure 118/ (no code) Systolic: 08-27-2018 no n reji [facility] 72mm[Hg] 120 mm[Hg] 11:57-0500 ([id number]) Diastolic: 60 - 80 mm[Hg] Blood Pressure 112/ (no code) Systolic: 08-26-2018 no n reji [facility] 72mm[Hg] 120 mm[Hg] 12:33-0500 ([id number]) Diastolic: 60 - 80 mm[Hg] Blood Pressure 127/ (no code) Systolic: 08-25-2018 no n reji [facility] 68mm[Hg] 120 mm[Hg] 12:02-0500 ([id number]) Diastolic: 60 - 80 mm[Hg] Blood Pressure 155/ (no code) Systolic: 08-24-2018 no n reji [facility] 80mm[Hg] 120 mm[Hg] 12:46-0500 ([id number]) Diastolic: 60 - 80 mm[Hg] Blood Pressure 130/ (no code) Systolic: 08-23-2018 no n reji [facility] 73mm[Hg] 120 mm[Hg] 11:59-0500 ([id number]) Diastolic: 60 - 80 mm[Hg] Blood Pressure 139/ (no code) Systolic: 08-22-2018 no n reji [facility] 72mm[Hg] 120 mm[Hg] 12:41-0500 ([id number]) Diastolic: 60 - 80 mm[Hg] Blood Pressure 133/ (no code) Systolic: 08-21-2018 no n reji [facility] 72mm[Hg] 120 mm[Hg] 12:03-0500 ([id number]) Diastolic: 60 - 80 mm[Hg] Blood Pressure 132/ (no code) Systolic: 08-20-2018 no n reji [facility] 86mm[Hg] 120 mm[Hg] 12:23-0500 ([id number]) Diastolic: 60 - 80 mm[Hg] Blood Pressure 121/ (no code) Systolic: 08-19-2018 no n reji [facility] 68mm[Hg] 120 mm[Hg] 11:44-0500 ([id number]) Diastolic: 60 - 80 mm[Hg] Blood Pressure 158/ (no code) Systolic: 08-18-2018 no n reji [facility] 83mm[Hg] 120 mm[Hg] 12:04-0500 ([id number]) Diastolic: 60 - 80 mm[Hg] Blood Pressure 140/ (no code) Systolic: 08-17-2018 no n reji [facility] 75mm[Hg] 120 mm[Hg] 12:14-0500 ([id number]) Diastolic: 60 - 80 mm[Hg] Blood Pressure 160/ (H) Systolic: 08-16-2018 no na me [facility] 80mm[Hg] 120 mm[Hg] 12:23-0500 ([id number]) Diastolic: 60 - 80 mm[Hg] Blood Pressure 157/ (no code) Systolic: 08-15-2018 no n reji [facility] 78mm[Hg] 120 mm[Hg] 11:090500 ([id number]) Diastolic: 60 - 80 mm[Hg] Blood Pressure 164/ (H) Systolic: 08-14-2018 no na me [facility] 88mm[Hg] 120 mm[Hg] 12:06-0500 ([id number]) Diastolic: 60 - 80 mm[Hg] Blood Pressure 133/ (no code) Systolic: 08-13-2018 no n reji [facility] 76mm[Hg] 120 mm[Hg] 12:56-0500 ([id number]) Diastolic: 60 - 80 mm[Hg] Blood Pressure 127/ (no code) Systolic: 08-12-2018 no n reji [facility] 74mm[Hg] 120 mm[Hg] 12:030500 ([id number]) Diastolic: 60 - 80 mm[Hg] Blood Pressure 136/ (no code) Systolic: 08-11-2018 no n reji [facility] 79mm[Hg] 120 mm[Hg] 11:33-0500 ([id number]) Diastolic: 60 - 80 mm[Hg] Blood Pressure 150/ (no code) Systolic: 08-10-2018 no n reji [facility] 77mm[Hg] 120 mm[Hg] 12:140500 ([id number]) Diastolic: 60 - 80 mm[Hg] Blood Pressure 120/ (no code) Systolic: 08-09-2018 no n reji [facility] 72mm[Hg] 120 mm[Hg] 14:020500 ([id number]) Diastolic: 60 - 80 mm[Hg] Blood Pressure 121/ (no code) Systolic: 08-08-2018 no n reji [facility] 72mm[Hg] 120 mm[Hg] 12:48-0500 ([id number]) Diastolic: 60 - 80 mm[Hg] Blood Pressure 133/ (no code) Systolic: 08-07-2018 no n reji [facility] 63mm[Hg] 120 mm[Hg] 12:22-0500 ([id number]) Diastolic: 60 - 80 mm[Hg] Blood Pressure 136/ (no code) Systolic: 08-06-2018 no n reji [facility] 74mm[Hg] 120 mm[Hg] 12:090500 ([id number]) Diastolic: 60 - 80 mm[Hg] Blood Pressure 125/ (no code) Systolic: 08-05-2018 no n reji [facility] 74mm[Hg] 120 mm[Hg] 12:020500 ([id number]) Diastolic: 60 - 80 mm[Hg] Blood Pressure 135/ (no code) Systolic: 08-04-2018 no n reji [facility] 82mm[Hg] 120 mm[Hg] 12:020500 ([id number]) Diastolic: 60 - 80 mm[Hg] Blood Pressure 141/ (no code) Systolic: 08-03-2018 no n reji [facility] 78mm[Hg] 120 mm[Hg] 12:030500 ([id number]) Diastolic: 60 - 80 mm[Hg] Blood Pressure 141/ (no code) Systolic: 08-02-2018 no n reji [facility] 83mm[Hg] 120 mm[Hg] 12:100500 ([id number]) Diastolic: 60 - 80 mm[Hg] Blood Pressure 139/ (no code) Systolic: 08-01-2018 no n reji [facility] 72mm[Hg] 120 mm[Hg] 13:560500 ([id number]) Diastolic: 60 - 80 mm[Hg] Blood Pressure 121/ (no code) Systolic: 07-31-2018 no n reji [facility] 75mm[Hg] 120 mm[Hg] 12:040500 ([id number]) Diastolic: 60 - 80 mm[Hg] Blood Pressure 119/ (no code) Systolic: 07-30-2018 no n reji [facility] 74mm[Hg] 120 mm[Hg] 11:120400 ([id number]) Diastolic: 60 - 80 mm[Hg] Blood Pressure 149/ (no code) Systolic: 07-29-2018 no n reji [facility] 89mm[Hg] 120 mm[Hg] 20:34-0400 ([id number]) Diastolic: 60 - 80 mm[Hg] Blood Pressure 118/ (no code) Systolic: 07-28-2018 no n reji [facility] 73mm[Hg] 120 mm[Hg] 11:44-0400 ([id number]) Diastolic: 60 - 80 mm[Hg] Blood Pressure 140/ (no code) Systolic: 07-27-2018 no n reji [facility] 76mm[Hg] 120 mm[Hg] 12:17-0400 ([id number]) Diastolic: 60 - 80 mm[Hg] Blood Pressure 127/ (no code) Systolic: 07-26-2018 no n reji [facility] 72mm[Hg] 120 mm[Hg] 12:42-0400 ([id number]) Diastolic: 60 - 80 mm[Hg] Blood Pressure 145/ (no code) Systolic: 07-25-2018 no n reji [facility] 75mm[Hg] 120 mm[Hg] 12:20-0400 ([id number]) Diastolic: 60 - 80 mm[Hg] Blood Pressure 163/ (H) Systolic: 2018 no na me [facility] 79mm[Hg] 120 mm[Hg] 12:03-0400 ([id number]) Diastolic: 60 - 80 mm[Hg] Blood Pressure 136/ (no code) Systolic: 07-23-2018 no n reji [facility] 71mm[Hg] 120 mm[Hg] 12:030400 ([id number]) Diastolic: 60 - 80 mm[Hg] Blood Pressure 132/ (no code) Systolic: 07-22-2018 no n reji [facility] 78mm[Hg] 120 mm[Hg] 12:03-0400 ([id number]) Diastolic: 60 - 80 mm[Hg] Blood Pressure 144/ (no code) Systolic: 07-21-2018 no n reji [facility] 80mm[Hg] 120 mm[Hg] 12:15-0400 ([id number]) Diastolic: 60 - 80 mm[Hg] Blood Pressure 139/ (no code) Systolic: 07-20-2018 no n reji [facility] 73mm[Hg] 120 mm[Hg] 11:58-0400 ([id number]) Diastolic: 60 - 80 mm[Hg] Blood Pressure 145/ (no code) Systolic: 07-19-2018 no n reji [facility] 75mm[Hg] 120 mm[Hg] 11:13-0400 ([id number]) Diastolic: 60 - 80 mm[Hg] Blood Pressure 152/ (no code) Systolic: 07-18-2018 no n reji [facility] 80mm[Hg] 120 mm[Hg] 15:21-0400 ([id number]) Diastolic: 60 - 80 mm[Hg] Blood Pressure 160/ (H) Systolic: 07-17-2018 no na me [facility] 78mm[Hg] 120 mm[Hg] 12:06-0400 ([id number]) Diastolic: 60 - 80 mm[Hg] Blood Pressure 144/ (no code) Systolic: 07-16-2018 no n reji [facility] 78mm[Hg] 120 mm[Hg] 12:020400 ([id number]) Diastolic: 60 - 80 mm[Hg] Blood Pressure 156/ (no code) Systolic: 07-15-2018 no n reji [facility] 81mm[Hg] 120 mm[Hg] 12:04-0400 ([id number]) Diastolic: 60 - 80 mm[Hg] Blood Pressure 115/ (no code) Systolic: 07-14-2018 no n reji [facility] 65mm[Hg] 120 mm[Hg] 12:080400 ([id number]) Diastolic: 60 - 80 mm[Hg] Blood Pressure 138/ (no code) Systolic: 07-13-2018 no n reji [facility] 81mm[Hg] 120 mm[Hg] 12:020400 ([id number]) Diastolic: 60 - 80 mm[Hg] Blood Pressure 154/ (no code) Systolic: 07-12-2018 no n reji [facility] 81mm[Hg] 120 mm[Hg] 14:44-0400 ([id number]) Diastolic: 60 - 80 mm[Hg] Blood Pressure 142/ (no code) Systolic: 07-11-2018 no n reji [facility] 75mm[Hg] 120 mm[Hg] 14:160400 ([id number]) Diastolic: 60 - 80 mm[Hg] Blood Pressure 144/ (no code) Systolic: 07-10-2018 no n reji [facility] 89mm[Hg] 120 mm[Hg] 14:150400 ([id number]) Diastolic: 60 - 80 mm[Hg] Blood Pressure 123/ (no code) Systolic: 07-09-2018 no n reji [facility] 70mm[Hg] 120 mm[Hg] 12:020400 ([id number]) Diastolic: 60 - 80 mm[Hg] Blood Pressure 120/ (no code) Systolic: 07-08-2018 no n reji [facility] 66mm[Hg] 120 mm[Hg] 11:270400 ([id number]) Diastolic: 60 - 80 mm[Hg] Blood Pressure 127/ (no code) Systolic: 07-07-2018 no n reji [facility] 72mm[Hg] 120 mm[Hg] 12:060400 ([id number]) Diastolic: 60 - 80 mm[Hg] Blood Pressure 122/ (no code) Systolic: 07-06-2018 no n reji [facility] 75mm[Hg] 120 mm[Hg] 10:460400 ([id number]) Diastolic: 60 - 80 mm[Hg] Blood Pressure 147/ (no code) Systolic: 07-05-2018 no n reji [facility] 82mm[Hg] 120 mm[Hg] 11:570400 ([id number]) Diastolic: 60 - 80 mm[Hg] Blood Pressure 112/ (no code) Systolic: 07-04-2018 no n reji [facility] 65mm[Hg] 120 mm[Hg] 11:370400 ([id number]) Diastolic: 60 - 80 mm[Hg] Blood Pressure 152/ (no code) Systolic: 07-03-2018 no n reji [facility] 79mm[Hg] 120 mm[Hg] 12:140400 ([id number]) Diastolic: 60 - 80 mm[Hg] Blood Pressure 129/ (no code) Systolic: 07-02-2018 no n reji [facility] 70mm[Hg] 120 mm[Hg] 12:020400 ([id number]) Diastolic: 60 - 80 mm[Hg] Blood Pressure 179/ (HH) Systolic: 06-30-2018 no na me [facility] 93mm[Hg] 120 mm[Hg] 13:570400 ([id number]) Diastolic: 60 - 80 mm[Hg] Heart rate 56 /min (no code) 60 - 100 /min 01-01-2020 no name [facility] 08:47-0400 ([id number]) Heart rate 51 /min (no code) 60 - 100 /min 01-01-2020 no name [facility] 07:08-0400 ([id number]) Heart rate 50 /min (LL) 60 - 100 /min 01-01-2020 no name [facility] 07:07-0400 ([id number]) Heart rate 53 /min (no code) 60 - 100 /min 12-31-2019 no name [facility] 06:45-0400 ([id number]) Heart rate 55 /min (no code) 60 - 100 /min 12-30-2019 no name [facility] 06:25-0400 ([id number]) Heart rate 52 /min (no code) 60 - 100 /min 12-29-2019 no name [facility] 07:04-0400 ([id number]) Heart rate 65 /min (no code) 60 - 100 /min 12-28-2019 no name [facility] 07:14-0400 ([id number]) Heart rate 56 /min (no code) 60 - 100 /min 12-27-2019 no name [facility] 07:04-0400 ([id number]) Heart rate 50 /min (LL) 60 - 100 /min 12-26-2019 no name [facility] 07:03-0400 ([id number]) Heart rate 54 /min (no code) 60 - 100 /min 12-25-2019 no name [facility] 07:03-0400 ([id number]) Heart rate 50 /min (LL) 60 - 100 /min 12-24-2019 no name [facility] 07:03-0400 ([id number]) Heart rate 60 /min (no code) 60 - 100 /min 12-23-2019 no name [facility] 06:44-0400 ([id number]) Heart rate 49 /min (LL) 60 - 100 /min 12-22-2019 no name [facility] 07:06-0400 ([id number]) Heart rate 48 /min (LL) 60 - 100 /min 12-21-2019 no name [facility] 07:06-0400 ([id number]) Heart rate 63 /min (no code) 60 - 100 /min 12-20-2019 no name [facility] 09:06-0400 ([id number]) Heart rate 53 /min (no code) 60 - 100 /min 12-20-2019 no name [facility] 06:56-0400 ([id number]) Heart rate 53 /min (no code) 60 - 100 /min 12-19-2019 no name [facility] 06:32-0400 ([id number]) Heart rate 52 /min (no code) 60 - 100 /min 12-18-2019 no name [facility] 08:30-0400 ([id number]) Heart rate 46 /min (LL) 60 - 100 /min 12-18-2019 no name [facility] 06:54-0400 ([id number]) Heart rate 47 /min (LL) 60 - 100 /min 12-18-2019 no name [facility] 06:51-0400 ([id number]) Heart rate 56 /min (no code) 60 - 100 /min 12-17-2019 no name [facility] 06:45-0400 ([id number]) Heart rate 52 /min (no code) 60 - 100 /min 12-16-2019 no name [facility] 07:22-0400 ([id number]) Heart rate 50 /min (LL) 60 - 100 /min 12-15-2019 no name [facility] 09:00-0400 ([id number]) Heart rate 49 /min (LL) 60 - 100 /min 12-15-2019 no name [facility] 08:58-0400 ([id number]) Heart rate 59 /min (no code) 60 - 100 /min 12-14-2019 no name [facility] 07:16-0400 ([id number]) Heart rate 50 /min (LL) 60 - 100 /min 12-13-2019 no name [facility] 07:03-0400 ([id number]) Heart rate 51 /min (no code) 60 - 100 /min 12-12-2019 no name [facility] 07:08-0400 ([id number]) Heart rate 52 /min (no code) 60 - 100 /min 12-11-2019 no name [facility] 07:11-0400 ([id number]) Heart rate 53 /min (no code) 60 - 100 /min 12-10-2019 no name [facility] 07:14-0400 ([id number]) Heart rate 57 /min (no code) 60 - 100 /min 12-09-2019 no name [facility] 06:46-0400 ([id number]) Heart rate 67 /min (no code) 60 - 100 /min 12-08-2019 no name [facility] 07:21-0400 ([id number]) Heart rate 63 /min (no code) 60 - 100 /min 12-07-2019 no name [facility] 07:10-0400 ([id number]) Heart rate 55 /min (no code) 60 - 100 /min 12-06-2019 no name [facility] 07:06-0400 ([id number]) Heart rate 51 /min (no code) 60 - 100 /min 12-05-2019 no name [facility] 07:03-0400 ([id number]) Heart rate 51 /min (no code) 60 - 100 /min 12-04-2019 no name [facility] 06:50-0400 ([id number]) Heart rate 54 /min (no code) 60 - 100 /min 12-03-2019 no name [facility] 07:19-0400 ([id number]) Heart rate 54 /min (no code) 60 - 100 /min 12-02-2019 no name [facility] 06:10-0500 ([id number]) Heart rate 53 /min (no code) 60 - 100 /min 12-01-2019 no name [facility] 05:26-0500 ([id number]) Heart rate 59 /min (no code) 60 - 100 /min 11-30-2019 no name [facility] 02:25-0500 ([id number]) Heart rate 54 /min (no code) 60 - 100 /min 11-29-2019 no name [facility] 05:32-0500 ([id number]) Heart rate 53 /min (no code) 60 - 100 /min 11-28-2019 no name [facility] 05:24-0500 ([id number]) Heart rate 48 /min (LL) 60 - 100 /min 11-27-2019 no name [facility] 05:33-0500 ([id number]) Heart rate 54 /min (no code) 60 - 100 /min 11-26-2019 no name [facility] 09:39-0500 ([id number]) Heart rate 51 /min (no code) 60 - 100 /min 11-26-2019 no name [facility] 05:39-0500 ([id number]) Heart rate 52 /min (no code) 60 - 100 /min 11-26-2019 no name [facility] 05:37-0500 ([id number]) Heart rate 48 /min (LL) 60 - 100 /min 11-25-2019 no name [facility] 08:19-0500 ([id number]) Heart rate 50 /min (LL) 60 - 100 /min 11-25-2019 no name [facility] 06:10-0500 ([id number]) Heart rate 53 /min (no code) 60 - 100 /min 11-24-2019 no name [facility] 05:49-0500 ([id number]) Heart rate 53 /min (no code) 60 - 100 /min 11-23-2019 no name [facility] 05:58-0500 ([id number]) Heart rate 52 /min (no code) 60 - 100 /min 11-22-2019 no name [facility] 07:40-0500 ([id number]) Heart rate 47 /min (LL) 60 - 100 /min 11-22-2019 no name [facility] 06:03-0500 ([id number]) Heart rate 52 /min (no code) 60 - 100 /min 11-21-2019 no name [facility] 06:03-0500 ([id number]) Heart rate 51 /min (no code) 60 - 100 /min 11-20-2019 no name [facility] 06:09-0500 ([id number]) Heart rate 52 /min (no code) 60 - 100 /min 11-20-2019 no name [facility] 06:07-0500 ([id number]) Heart rate 58 /min (no code) 60 - 100 /min 11-19-2019 no name [facility] 05:51-0500 ([id number]) Heart rate 59 /min (no code) 60 - 100 /min 11-18-2019 no name [facility] 06:18-0500 ([id number]) Heart rate 60 /min (no code) 60 - 100 /min 11-18-2019 no name [facility] 06:16-0500 ([id number]) Heart rate 63 /min (no code) 60 - 100 /min 11-17-2019 no name [facility] 06:01-0500 ([id number]) Heart rate 63 /min (no code) 60 - 100 /min 11-16-2019 no name [facility] 07:55-0500 ([id number]) Heart rate 56 /min (no code) 60 - 100 /min 11-16-2019 no name [facility] 06:18-0500 ([id number]) Heart rate 47 /min (LL) 60 - 100 /min 11-15-2019 no name [facility] 07:01-0500 ([id number]) Heart rate 47 /min (LL) 60 - 100 /min 11-15-2019 no name [facility] 05:24-0500 ([id number]) Heart rate 56 /min (no code) 60 - 100 /min 11-14-2019 no name [facility] 08:00-0500 ([id number]) Heart rate 51 /min (no code) 60 - 100 /min 11-14-2019 no name [facility] 06:10-0500 ([id number]) Heart rate 50 /min (LL) 60 - 100 /min 11-14-2019 no name [facility] 06:08-0500 ([id number]) Heart rate 51 /min (no code) 60 - 100 /min 11-13-2019 no name [facility] 06:30-0500 ([id number]) Heart rate 52 /min (no code) 60 - 100 /min 11-13-2019 no name [facility] 06:27-0500 ([id number]) Heart rate 47 /min (LL) 60 - 100 /min 11-12-2019 no name [facility] 06:20-0500 ([id number]) Heart rate 50 /min (LL) 60 - 100 /min 11-11-2019 no name [facility] 05:37-0500 ([id number]) Heart rate 60 /min (no code) 60 - 100 /min 11-10-2019 no name [facility] 07:46-0500 ([id number]) Heart rate 55 /min (no code) 60 - 100 /min 11-10-2019 no name [facility] 06:09-0500 ([id number]) Heart rate 56 /min (no code) 60 - 100 /min 11-10-2019 no name [facility] 06:06-0500 ([id number]) Heart rate 53 /min (no code) 60 - 100 /min 11-09-2019 no name [facility] 08:14-0500 ([id number]) Heart rate 48 /min (LL) 60 - 100 /min 11-09-2019 no name [facility] 05:58-0500 ([id number]) Heart rate 50 /min (LL) 60 - 100 /min 11-09-2019 no name [facility] 05:57-0500 ([id number]) Heart rate 66 /min (no code) 60 - 100 /min 11-07-2019 no name [facility] 06:18-0500 ([id number]) Heart rate 62 /min (no code) 60 - 100 /min 11-06-2019 no name [facility] 07:50-0500 ([id number]) Heart rate 56 /min (no code) 60 - 100 /min 11-06-2019 no name [facility] 06:11-0500 ([id number]) Heart rate 58 /min (no code) 60 - 100 /min 11-06-2019 no name [facility] 06:09-0500 ([id number]) Heart rate 54 /min (no code) 60 - 100 /min 11-05-2019 no name [facility] 07:09-0500 ([id number]) Heart rate 55 /min (no code) 60 - 100 /min 11-05-2019 no name [facility] 05:47-0500 ([id number]) Heart rate 53 /min (no code) 60 - 100 /min 11-05-2019 no name [facility] 05:45-0500 ([id number]) Heart rate 59 /min (no code) 60 - 100 /min 11-04-2019 no name [facility] 07:40-0500 ([id number]) Heart rate 53 /min (no code) 60 - 100 /min 11-04-2019 no name [facility] 06:04-0500 ([id number]) Heart rate 54 /min (no code) 60 - 100 /min 11-04-2019 no name [facility] 06:02-0500 ([id number]) Heart rate 56 /min (no code) 60 - 100 /min 11-03-2019 no name [facility] 07:36-0500 ([id number]) Heart rate 51 /min (no code) 60 - 100 /min 11-03-2019 no name [facility] 05:55-0500 ([id number]) Heart rate 52 /min (no code) 60 - 100 /min 11-03-2019 no name [facility] 05:53-0500 ([id number]) Heart rate 50 /min (LL) 60 - 100 /min 11-02-2019 no name [facility] 06:05-0500 ([id number]) Heart rate 50 /min (LL) 60 - 100 /min 11-01-2019 no name [facility] 06:13-0500 ([id number]) Heart rate 54 /min (no code) 60 - 100 /min 10-31-2019 no name [facility] 06:13-0500 ([id number]) Heart rate 57 /min (no code) 60 - 100 /min 10-30-2019 no name [facility] 07:58-0500 ([id number]) Heart rate 53 /min (no code) 60 - 100 /min 10-30-2019 no name [facility] 06:16-0500 ([id number]) Heart rate 54 /min (no code) 60 - 100 /min 10-30-2019 no name [facility] 06:14-0500 ([id number]) Heart rate 50 /min (LL) 60 - 100 /min 10-29-2019 no name [facility] 05:54-0500 ([id number]) Heart rate 51 /min (no code) 60 - 100 /min 10-29-2019 no name [facility] 05:52-0500 ([id number]) Heart rate 55 /min (no code) 60 - 100 /min 10-28-2019 no name [facility] 05:29-0500 ([id number]) Heart rate 56 /min (no code) 60 - 100 /min 10-27-2019 no name [facility] 05:59-0500 ([id number]) Heart rate 50 /min (LL) 60 - 100 /min 10-26-2019 no name [facility] 06:11-0500 ([id number]) Heart rate 55 /min (no code) 60 - 100 /min 10-25-2019 no name [facility] 05:41-0500 ([id number]) Heart rate 58 /min (no code) 60 - 100 /min 10-24-2019 no name [facility] 07:58-0500 ([id number]) Heart rate 53 /min (no code) 60 - 100 /min 10-24-2019 no name [facility] 06:36-0500 ([id number]) Heart rate 55 /min (no code) 60 - 100 /min 10-24-2019 no name [facility] 06:33-0500 ([id number]) Heart rate 52 /min (no code) 60 - 100 /min 10-23-2019 no name [facility] 06:06-0500 ([id number]) Heart rate 53 /min (no code) 60 - 100 /min 10-23-2019 no name [facility] 06:05-0500 ([id number]) Heart rate 49 /min (LL) 60 - 100 /min 10-22-2019 no name [facility] 06:21-0500 ([id number]) Heart rate 51 /min (no code) 60 - 100 /min 10-21-2019 no name [facility] 06:02-0500 ([id number]) Heart rate 52 /min (no code) 60 - 100 /min 10-20-2019 no name [facility] 17:31-0500 ([id number]) Heart rate 55 /min (no code) 60 - 100 /min 10-20-2019 no name [facility] 05:24-0500 ([id number]) Heart rate 58 /min (no code) 60 - 100 /min 10-19-2019 no name [facility] 08:11-0500 ([id number]) Heart rate 50 /min (LL) 60 - 100 /min 10-19-2019 no name [facility] 06:22-0500 ([id number]) Heart rate 51 /min (no code) 60 - 100 /min 10-19-2019 no name [facility] 06:20-0500 ([id number]) Heart rate 61 /min (no code) 60 - 100 /min 10-18-2019 no name [facility] 06:17-0500 ([id number]) Heart rate 66 /min (no code) 60 - 100 /min 10-17-2019 no name [facility] 07:08-0500 ([id number]) Heart rate 52 /min (no code) 60 - 100 /min 10-17-2019 no name [facility] 05:35-0500 ([id number]) Heart rate 54 /min (no code) 60 - 100 /min 10-17-2019 no name [facility] 05:32-0500 ([id number]) Heart rate 53 /min (no code) 60 - 100 /min 10-16-2019 no name [facility] 05:51-0500 ([id number]) Heart rate 54 /min (no code) 60 - 100 /min 10-16-2019 no name [facility] 05:48-0500 ([id number]) Heart rate 47 /min (LL) 60 - 100 /min 10-15-2019 no name [facility] 06:01-0500 ([id number]) Heart rate 53 /min (no code) 60 - 100 /min 10-14-2019 no name [facility] 06:15-0500 ([id number]) Heart rate 55 /min (no code) 60 - 100 /min 10-13-2019 no name [facility] 07:09-0500 ([id number]) Heart rate 56 /min (no code) 60 - 100 /min 10-13-2019 no name [facility] 07:07-0500 ([id number]) Heart rate 52 /min (no code) 60 - 100 /min 10-12-2019 no name [facility] 06:39-0500 ([id number]) Heart rate 51 /min (no code) 60 - 100 /min 10-10-2019 no name [facility] 06:14-0500 ([id number]) Heart rate 53 /min (no code) 60 - 100 /min 10-10-2019 no name [facility] 06:12-0500 ([id number]) Heart rate 58 /min (no code) 60 - 100 /min 10-09-2019 no name [facility] 06:20-0500 ([id number]) Heart rate 50 /min (LL) 60 - 100 /min 10-08-2019 no name [facility] 05:57-0500 ([id number]) Heart rate 55 /min (no code) 60 - 100 /min 10-07-2019 no name [facility] 06:05-0500 ([id number]) Heart rate 55 /min (no code) 60 - 100 /min 10-04-2019 no name [facility] 06:08-0500 ([id number]) Heart rate 56 /min (no code) 60 - 100 /min 10-04-2019 no name [facility] 06:05-0500 ([id number]) Heart rate 51 /min (no code) 60 - 100 /min 10-03-2019 no name [facility] 04:46-0500 ([id number]) Heart rate 54 /min (no code) 60 - 100 /min 10-02-2019 no name [facility] 06:35-0500 ([id number]) Heart rate 59 /min (no code) 60 - 100 /min 10-01-2019 no name [facility] 07:51-0500 ([id number]) Heart rate 48 /min (LL) 60 - 100 /min 10-01-2019 no name [facility] 06:03-0500 ([id number]) Heart rate 57 /min (no code) 60 - 100 /min 10-01-2019 no name [facility] 06:00-0500 ([id number]) Heart rate 52 /min (no code) 60 - 100 /min 09-29-2019 no name [facility] 06:15-0500 ([id number]) Heart rate 53 /min (no code) 60 - 100 /min 09-29-2019 no name [facility] 06:13-0500 ([id number]) Heart rate 53 /min (no code) 60 - 100 /min 09-28-2019 no name [facility] 05:49-0500 ([id number]) Heart rate 64 /min (no code) 60 - 100 /min 09-27-2019 no name [facility] 06:01-0500 ([id number]) Heart rate 65 /min (no code) 60 - 100 /min 09-26-2019 no name [facility] 06:03-0500 ([id number]) Heart rate 55 /min (no code) 60 - 100 /min 09-25-2019 no name [facility] 05:31-0500 ([id number]) Heart rate 48 /min (LL) 60 - 100 /min 09-24-2019 no name [facility] 06:08-0500 ([id number]) Heart rate 47 /min (LL) 60 - 100 /min 09-24-2019 no name [facility] 06:06-0500 ([id number]) Heart rate 50 /min (LL) 60 - 100 /min 09-23-2019 no name [facility] 06:02-0500 ([id number]) Heart rate 58 /min (no code) 60 - 100 /min 09-22-2019 no name [facility] 06:00-0500 ([id number]) Heart rate 49 /min (LL) 60 - 100 /min 09-21-2019 no name [facility] 06:14-0500 ([id number]) Heart rate 50 /min (LL) 60 - 100 /min 09-20-2019 no name [facility] 06:08-0500 ([id number]) Heart rate 51 /min (no code) 60 - 100 /min 09-19-2019 no name [facility] 06:08-0500 ([id number]) Heart rate 48 /min (LL) 60 - 100 /min 09-18-2019 no name [facility] 06:13-0500 ([id number]) Heart rate 50 /min (LL) 60 - 100 /min 09-18-2019 no name [facility] 06:11-0500 ([id number]) Heart rate 63 /min (no code) 60 - 100 /min 09-17-2019 no name [facility] 07:38-0500 ([id number]) Heart rate 50 /min (LL) 60 - 100 /min 09-17-2019 no name [facility] 06:06-0500 ([id number]) Heart rate 49 /min (LL) 60 - 100 /min 09-17-2019 no name [facility] 06:03-0500 ([id number]) Heart rate 53 /min (no code) 60 - 100 /min 09-16-2019 no name [facility] 08:05-0500 ([id number]) Heart rate 49 /min (LL) 60 - 100 /min 09-16-2019 no name [facility] 06:31-0500 ([id number]) Heart rate 50 /min (LL) 60 - 100 /min 09-16-2019 no name [facility] 06:28-0500 ([id number]) Heart rate 57 /min (no code) 60 - 100 /min 09-15-2019 no name [facility] 06:08-0500 ([id number]) Heart rate 51 /min (no code) 60 - 100 /min 09-14-2019 no name [facility] 08:19-0500 ([id number]) Heart rate 48 /min (LL) 60 - 100 /min 09-13-2019 no name [facility] 06:44-0500 ([id number]) Heart rate 50 /min (LL) 60 - 100 /min 09-13-2019 no name [facility] 06:42-0500 ([id number]) Heart rate 57 /min (no code) 60 - 100 /min 09-12-2019 no name [facility] 06:26-0500 ([id number]) Heart rate 54 /min (no code) 60 - 100 /min 09-11-2019 no name [facility] 08:00-0500 ([id number]) Heart rate 49 /min (LL) 60 - 100 /min 09-11-2019 no name [facility] 06:26-0500 ([id number]) Heart rate 52 /min (no code) 60 - 100 /min 09-11-2019 no name [facility] 06:23-0500 ([id number]) Heart rate 47 /min (LL) 60 - 100 /min 09-10-2019 no name [facility] 05:39-0500 ([id number]) Heart rate 48 /min (LL) 60 - 100 /min 09-10-2019 no name [facility] 04:06-0500 ([id number]) Heart rate 50 /min (LL) 60 - 100 /min 09-10-2019 no name [facility] 04:04-0500 ([id number]) Heart rate 47 /min (LL) 60 - 100 /min 09-09-2019 no name [facility] 05:50-0500 ([id number]) Heart rate 50 /min (LL) 60 - 100 /min 09-08-2019 no name [facility] 07:29-0500 ([id number]) Heart rate 50 /min (LL) 60 - 100 /min 09-08-2019 no name [facility] 06:18-0500 ([id number]) Heart rate 45 /min (LL) 60 - 100 /min 09-07-2019 no name [facility] 06:20-0500 ([id number]) Heart rate 52 /min (no code) 60 - 100 /min 09-06-2019 no name [facility] 06:19-0500 ([id number]) Heart rate 53 /min (no code) 60 - 100 /min 09-05-2019 no name [facility] 07:01-0500 ([id number]) Heart rate 48 /min (LL) 60 - 100 /min 09-05-2019 no name [facility] 05:18-0500 ([id number]) Heart rate 51 /min (no code) 60 - 100 /min 09-05-2019 no name [facility] 05:16-0500 ([id number]) Heart rate 51 /min (no code) 60 - 100 /min 09-04-2019 no name [facility] 06:48-0500 ([id number]) Heart rate 49 /min (LL) 60 - 100 /min 09-04-2019 no name [facility] 05:10-0500 ([id number]) Heart rate 53 /min (no code) 60 - 100 /min 09-04-2019 no name [facility] 05:08-0500 ([id number]) Heart rate 60 /min (no code) 60 - 100 /min 09-03-2019 no name [facility] 06:10-0500 ([id number]) Heart rate 48 /min (LL) 60 - 100 /min 09-02-2019 no name [facility] 07:33-0500 ([id number]) Heart rate 49 /min (LL) 60 - 100 /min 09-02-2019 no name [facility] 06:00-0500 ([id number]) Heart rate 53 /min (no code) 60 - 100 /min 09-02-2019 no name [facility] 05:58-0500 ([id number]) Heart rate 46 /min (LL) 60 - 100 /min 09-01-2019 no name [facility] 05:46-0500 ([id number]) Heart rate 48 /min (LL) 60 - 100 /min 09-01-2019 no name [facility] 05:43-0500 ([id number]) Heart rate 48 /min (LL) 60 - 100 /min 08-31-2019 no name [facility] 05:41-0500 ([id number]) Heart rate 48 /min (LL) 60 - 100 /min 08-30-2019 no name [facility] 06:37-0500 ([id number]) Heart rate 50 /min (LL) 60 - 100 /min 08-30-2019 no name [facility] 06:34-0500 ([id number]) Heart rate 50 /min (LL) 60 - 100 /min 08-29-2019 no name [facility] 05:04-0500 ([id number]) Heart rate 58 /min (no code) 60 - 100 /min 08-28-2019 no name [facility] 06:06-0500 ([id number]) Heart rate 47 /min (LL) 60 - 100 /min 08-27-2019 no name [facility] 06:14-0500 ([id number]) Heart rate 57 /min (no code) 60 - 100 /min 08-26-2019 no name [facility] 06:32-0500 ([id number]) Heart rate 61 /min (no code) 60 - 100 /min 08-25-2019 no name [facility] 07:32-0500 ([id number]) Heart rate 48 /min (LL) 60 - 100 /min 08-25-2019 no name [facility] 05:48-0500 ([id number]) Heart rate 49 /min (LL) 60 - 100 /min 08-25-2019 no name [facility] 05:45-0500 ([id number]) Heart rate 61 /min (no code) 60 - 100 /min 08-24-2019 no name [facility] 05:53-0500 ([id number]) Heart rate 49 /min (LL) 60 - 100 /min 08-23-2019 no name [facility] 06:04-0500 ([id number]) Heart rate 58 /min (no code) 60 - 100 /min 08-22-2019 no name [facility] 08:03-0500 ([id number]) Heart rate 48 /min (LL) 60 - 100 /min 08-22-2019 no name [facility] 06:30-0500 ([id number]) Heart rate 47 /min (LL) 60 - 100 /min 08-22-2019 no name [facility] 06:28-0500 ([id number]) Heart rate 52 /min (no code) 60 - 100 /min 08-21-2019 no name [facility] 07:10-0500 ([id number]) Heart rate 50 /min (LL) 60 - 100 /min 08-21-2019 no name [facility] 05:28-0500 ([id number]) Heart rate 52 /min (no code) 60 - 100 /min 08-21-2019 no name [facility] 05:26-0500 ([id number]) Heart rate 47 /min (LL) 60 - 100 /min 08-20-2019 no name [facility] 06:56-0500 ([id number]) Heart rate 51 /min (no code) 60 - 100 /min 08-20-2019 no name [facility] 06:55-0500 ([id number]) Heart rate 48 /min (LL) 60 - 100 /min 08-19-2019 no name [facility] 06:23-0500 ([id number]) Heart rate 49 /min (LL) 60 - 100 /min 08-18-2019 no name [facility] 06:14-0500 ([id number]) Heart rate 51 /min (no code) 60 - 100 /min 08-17-2019 no name [facility] 07:02-0500 ([id number]) Heart rate 52 /min (no code) 60 - 100 /min 08-17-2019 no name [facility] 06:59-0500 ([id number]) Heart rate 51 /min (no code) 60 - 100 /min 08-16-2019 no name [facility] 04:19-0500 ([id number]) Heart rate 54 /min (no code) 60 - 100 /min 08-16-2019 no name [facility] 04:17-0500 ([id number]) Heart rate 47 /min (LL) 60 - 100 /min 08-15-2019 no name [facility] 06:06-0500 ([id number]) Heart rate 55 /min (no code) 60 - 100 /min 08-14-2019 no name [facility] 08:10-0500 ([id number]) Heart rate 49 /min (LL) 60 - 100 /min 08-14-2019 no name [facility] 06:32-0500 ([id number]) Heart rate 52 /min (no code) 60 - 100 /min 08-14-2019 no name [facility] 06:30-0500 ([id number]) Heart rate 56 /min (no code) 60 - 100 /min 08-13-2019 no name [facility] 13:18-0500 ([id number]) Heart rate 53 /min (no code) 60 - 100 /min 08-13-2019 no name [facility] 11:44-0500 ([id number]) Heart rate 54 /min (no code) 60 - 100 /min 08-13-2019 no name [facility] 11:42-0500 ([id number]) Heart rate 55 /min (no code) 60 - 100 /min 08-12-2019 no name [facility] 06:03-0500 ([id number]) Heart rate 62 /min (no code) 60 - 100 /min 08-11-2019 no name [facility] 08:16-0500 ([id number]) Heart rate 59 /min (no code) 60 - 100 /min 08-10-2019 no name [facility] 07:22-0500 ([id number]) Heart rate 56 /min (no code) 60 - 100 /min 08-09-2019 no name [facility] 07:49-0500 ([id number]) Heart rate 50 /min (LL) 60 - 100 /min 08-09-2019 no name [facility] 06:10-0500 ([id number]) Heart rate 54 /min (no code) 60 - 100 /min 08-09-2019 no name [facility] 06:08-0500 ([id number]) Heart rate 52 /min (no code) 60 - 100 /min 08-08-2019 no name [facility] 07:30-0500 ([id number]) Heart rate 53 /min (no code) 60 - 100 /min 08-08-2019 no name [facility] 05:56-0500 ([id number]) Heart rate 51 /min (no code) 60 - 100 /min 08-08-2019 no name [facility] 05:53-0500 ([id number]) Heart rate 52 /min (no code) 60 - 100 /min 08-07-2019 no name [facility] 06:19-0500 ([id number]) Heart rate 49 /min (LL) 60 - 100 /min 08-06-2019 no name [facility] 05:18-0500 ([id number]) Heart rate 52 /min (no code) 60 - 100 /min 08-05-2019 no name [facility] 06:04-0500 ([id number]) Heart rate 52 /min (no code) 60 - 100 /min 08-04-2019 no name [facility] 05:42-0500 ([id number]) Heart rate 54 /min (no code) 60 - 100 /min 08-04-2019 no name [facility] 05:39-0500 ([id number]) Heart rate 56 /min (no code) 60 - 100 /min 08-03-2019 no name [facility] 04:55-0500 ([id number]) Heart rate 55 /min (no code) 60 - 100 /min 08-02-2019 no name [facility] 06:08-0500 ([id number]) Heart rate 56 /min (no code) 60 - 100 /min 08-01-2019 no name [facility] 06:21-0500 ([id number]) Heart rate 53 /min (no code) 60 - 100 /min 07-31-2019 no name [facility] 05:52-0500 ([id number]) Heart rate 55 /min (no code) 60 - 100 /min 07-31-2019 no name [facility] 05:50-0500 ([id number]) Heart rate 59 /min (no code) 60 - 100 /min 07-30-2019 no name [facility] 05:43-0500 ([id number]) Heart rate 67 /min (no code) 60 - 100 /min 07-29-2019 no name [facility] 07:36-0400 ([id number]) Heart rate 58 /min (no code) 60 - 100 /min 07-27-2019 no name [facility] 07:32-0400 ([id number]) Heart rate 52 /min (no code) 60 - 100 /min 07-25-2019 no name [facility] 07:28-0400 ([id number]) Heart rate 54 /min (no code) 60 - 100 /min 07-25-2019 no name [facility] 07:26-0400 ([id number]) Heart rate 49 /min (LL) 60 - 100 /min 2019 no name [facility] 12:19-0400 ([id number]) Heart rate 52 /min (no code) 60 - 100 /min 07-23-2019 no name [facility] 12:11-0400 ([id number]) Heart rate 57 /min (no code) 60 - 100 /min 07-22-2019 no name [facility] 12:47-0400 ([id number]) Heart rate 60 /min (no code) 60 - 100 /min 07-21-2019 no name [facility] 11:24-0400 ([id number]) Heart rate 54 /min (no code) 60 - 100 /min 07-20-2019 no name [facility] 12:14-0400 ([id number]) Heart rate 51 /min (no code) 60 - 100 /min 07-19-2019 no name [facility] 12:10-0400 ([id number]) Heart rate 60 /min (no code) 60 - 100 /min 07-18-2019 no name [facility] 10:45-0400 ([id number]) Heart rate 53 /min (no code) 60 - 100 /min 07-17-2019 no name [facility] 11:37-0400 ([id number]) Heart rate 50 /min (LL) 60 - 100 /min 07-16-2019 no name [facility] 12:10-0400 ([id number]) Heart rate 52 /min (no code) 60 - 100 /min 07-16-2019 no name [facility] 11:19-0400 ([id number]) Heart rate 58 /min (no code) 60 - 100 /min 07-15-2019 no name [facility] 13:16-0400 ([id number]) Heart rate 53 /min (no code) 60 - 100 /min 07-15-2019 no name [facility] 12:16-0400 ([id number]) Heart rate 56 /min (no code) 60 - 100 /min 07-15-2019 no name [facility] 12:13-0400 ([id number]) Heart rate 56 /min (no code) 60 - 100 /min 07-14-2019 no name [facility] 13:39-0400 ([id number]) Heart rate 55 /min (no code) 60 - 100 /min 07-14-2019 no name [facility] 11:44-0400 ([id number]) Heart rate 57 /min (no code) 60 - 100 /min 07-13-2019 no name [facility] 12:180400 ([id number]) Heart rate 51 /min (no code) 60 - 100 /min 07-12-2019 no name [facility] 12:040400 ([id number]) Heart rate 54 /min (no code) 60 - 100 /min 07-11-2019 no name [facility] 11:450400 ([id number]) Heart rate 53 /min (no code) 60 - 100 /min 07-10-2019 no name [facility] 12:060400 ([id number]) Heart rate 55 /min (no code) 60 - 100 /min 07-10-2019 no name [facility] 12:040400 ([id number]) Heart rate 54 /min (no code) 60 - 100 /min 07-07-2019 no name [facility] 13:030400 ([id number]) Heart rate 50 /min (LL) 60 - 100 /min 07-07-2019 no name [facility] 11:23-0400 ([id number]) Heart rate 51 /min (no code) 60 - 100 /min 07-07-2019 no name [facility] 11:210400 ([id number]) Heart rate 53 /min (no code) 60 - 100 /min 07-06-2019 no name [facility] 11:04-0400 ([id number]) Heart rate 49 /min (LL) 60 - 100 /min 07-05-2019 no name [facility] 10:52-0400 ([id number]) Heart rate 50 /min (LL) 60 - 100 /min 07-04-2019 no name [facility] 12:46-0400 ([id number]) Heart rate 52 /min (no code) 60 - 100 /min 07-04-2019 no name [facility] 11:13-0400 ([id number]) Heart rate 53 /min (no code) 60 - 100 /min 07-04-2019 no name [facility] 11:11-0400 ([id number]) Heart rate 59 /min (no code) 60 - 100 /min 07-03-2019 no name [facility] 13:28-0400 ([id number]) Heart rate 55 /min (no code) 60 - 100 /min 07-03-2019 no name [facility] 11:48-0400 ([id number]) Heart rate 56 /min (no code) 60 - 100 /min 07-03-2019 no name [facility] 11:46-0400 ([id number]) Heart rate 58 /min (no code) 60 - 100 /min 07-02-2019 no name [facility] 14:16-0400 ([id number]) Heart rate 55 /min (no code) 60 - 100 /min 07-02-2019 no name [facility] 14:14-0400 ([id number]) Heart rate 52 /min (no code) 60 - 100 /min 07-02-2019 no name [facility] 12:24-0400 ([id number]) Heart rate 55 /min (no code) 60 - 100 /min 07-02-2019 no name [facility] 12:21-0400 ([id number]) Heart rate 53 /min (no code) 60 - 100 /min 07-01-2019 no name [facility] 12:09-0400 ([id number]) Heart rate 69 /min (no code) 60 - 100 /min 06-29-2019 no name [facility] 21:20-0400 ([id number]) Heart rate 51 /min (no code) 60 - 100 /min 06-29-2019 no name [facility] 13:100400 ([id number]) Heart rate 54 /min (no code) 60 - 100 /min 06-29-2019 no name [facility] 13:08-0400 ([id number]) Heart rate 49 /min (LL) 60 - 100 /min 06-27-2019 no name [facility] 12:10-0400 ([id number]) Heart rate 51 /min (no code) 60 - 100 /min 06-27-2019 no name [facility] 12:08-0400 ([id number]) Heart rate 57 /min (no code) 60 - 100 /min 06-26-2019 no name [facility] 13:31-0400 ([id number]) Heart rate 53 /min (no code) 60 - 100 /min 06-26-2019 no name [facility] 11:52-0400 ([id number]) Heart rate 62 /min (no code) 60 - 100 /min 06-25-2019 no name [facility] 15:07-0400 ([id number]) Heart rate 66 /min (no code) 60 - 100 /min 06-24-2019 no name [facility] 12:51-0400 ([id number]) Heart rate 61 /min (no code) 60 - 100 /min 06-23-2019 no name [facility] 13:57-0400 ([id number]) Heart rate 57 /min (no code) 60 - 100 /min 06-23-2019 no name [facility] 12:16-0400 ([id number]) Heart rate 56 /min (no code) 60 - 100 /min 06-23-2019 no name [facility] 12:14-0400 ([id number]) Heart rate 61 /min (no code) 60 - 100 /min 06-22-2019 no name [facility] 15:28-0400 ([id number]) Heart rate 56 /min (no code) 60 - 100 /min 06-22-2019 no name [facility] 12:20-0400 ([id number]) Heart rate 61 /min (no code) 60 - 100 /min 06-22-2019 no name [facility] 12:18-0400 ([id number]) Heart rate 58 /min (no code) 60 - 100 /min 06-21-2019 no name [facility] 12:08-0400 ([id number]) Heart rate 61 /min (no code) 60 - 100 /min 06-20-2019 no name [facility] 10:59-0400 ([id number]) Heart rate 56 /min (no code) 60 - 100 /min 06-19-2019 no name [facility] 12:11-0400 ([id number]) Heart rate 52 /min (no code) 60 - 100 /min 06-18-2019 no name [facility] 11:55-0400 ([id number]) Heart rate 60 /min (no code) 60 - 100 /min 06-17-2019 no name [facility] 14:21-0400 ([id number]) Heart rate 55 /min (no code) 60 - 100 /min 06-16-2019 no name [facility] 13:26-0400 ([id number]) Heart rate 51 /min (no code) 60 - 100 /min 06-15-2019 no name [facility] 12:12-0400 ([id number]) Heart rate 50 /min (LL) 60 - 100 /min 06-15-2019 no name [facility] 12:10-0400 ([id number]) Heart rate 51 /min (no code) 60 - 100 /min 06-14-2019 no name [facility] 13:07-0400 ([id number]) Heart rate 53 /min (no code) 60 - 100 /min 06-14-2019 no name [facility] 11:31-0400 ([id number]) Heart rate 57 /min (no code) 60 - 100 /min 06-14-2019 no name [facility] 11:29-0400 ([id number]) Heart rate 51 /min (no code) 60 - 100 /min 06-13-2019 no name [facility] 13:27-0400 ([id number]) Heart rate 48 /min (LL) 60 - 100 /min 06-13-2019 no name [facility] 11:41-0400 ([id number]) Heart rate 54 /min (no code) 60 - 100 /min 06-13-2019 no name [facility] 11:39-0400 ([id number]) Heart rate 54 /min (no code) 60 - 100 /min 06-12-2019 no name [facility] 13:14-0400 ([id number]) Heart rate 49 /min (LL) 60 - 100 /min 06-12-2019 no name [facility] 11:42-0400 ([id number]) Heart rate 53 /min (no code) 60 - 100 /min 06-12-2019 no name [facility] 11:40-0400 ([id number]) Heart rate 58 /min (no code) 60 - 100 /min 06-11-2019 no name [facility] 12:25-0400 ([id number]) Heart rate 72 /min (no code) 60 - 100 /min 06-10-2019 no name [facility] 15:01-0400 ([id number]) Heart rate 62 /min (no code) 60 - 100 /min 06-07-2019 no name [facility] 14:05-0400 ([id number]) Heart rate 45 /min (LL) 60 - 100 /min 06-06-2019 no name [facility] 12:47-0400 ([id number]) Heart rate 46 /min (LL) 60 - 100 /min 06-06-2019 no name [facility] 12:44-0400 ([id number]) Heart rate 54 /min (no code) 60 - 100 /min 06-05-2019 no name [facility] 12:23-0400 ([id number]) Heart rate 59 /min (no code) 60 - 100 /min 06-04-2019 no name [facility] 12:24-0400 ([id number]) Heart rate 54 /min (no code) 60 - 100 /min 06-03-2019 no name [facility] 10:16-0400 ([id number]) Heart rate 54 /min (no code) 60 - 100 /min 06-02-2019 no name [facility] 09:25-0400 ([id number]) Heart rate 60 /min (no code) 60 - 100 /min 06-01-2019 no name [facility] 14:18-0400 ([id number]) Heart rate 51 /min (no code) 60 - 100 /min 05-31-2019 no name [facility] 11:11-0400 ([id number]) Heart rate 58 /min (no code) 60 - 100 /min 05-30-2019 no name [facility] 11:30-0400 ([id number]) Heart rate 50 /min (LL) 60 - 100 /min 05-29-2019 no name [facility] 10:50-0400 ([id number]) Heart rate 55 /min (no code) 60 - 100 /min 05-28-2019 no name [facility] 11:58-0400 ([id number]) Heart rate 51 /min (no code) 60 - 100 /min 05-27-2019 no name [facility] 11:57-0400 ([id number]) Heart rate 55 /min (no code) 60 - 100 /min 05-26-2019 no name [facility] 12:10-0400 ([id number]) Heart rate 51 /min (no code) 60 - 100 /min 05-25-2019 no name [facility] 12:29-0400 ([id number]) Heart rate 54 /min (no code) 60 - 100 /min 05-25-2019 no name [facility] 12:27-0400 ([id number]) Heart rate 49 /min (LL) 60 - 100 /min 05-24-2019 no name [facility] 12:04-0400 ([id number]) Heart rate 49 /min (LL) 60 - 100 /min 05-23-2019 no name [facility] 11:05-0400 ([id number]) Heart rate 50 /min (LL) 60 - 100 /min 05-22-2019 no name [facility] 12:12-0400 ([id number]) Heart rate 52 /min (no code) 60 - 100 /min 05-21-2019 no name [facility] 10:47-0400 ([id number]) Heart rate 55 /min (no code) 60 - 100 /min 05-21-2019 no name [facility] 10:45-0400 ([id number]) Heart rate 55 /min (no code) 60 - 100 /min 05-20-2019 no name [facility] 12:09-0400 ([id number]) Heart rate 58 /min (no code) 60 - 100 /min 05-19-2019 no name [facility] 12:16-0400 ([id number]) Heart rate 55 /min (no code) 60 - 100 /min 05-18-2019 no name [facility] 11:53-0400 ([id number]) Heart rate 49 /min (LL) 60 - 100 /min 05-17-2019 no name [facility] 12:43-0400 ([id number]) Heart rate 49 /min (LL) 60 - 100 /min 05-17-2019 no name [facility] 11:11-0400 ([id number]) Heart rate 51 /min (no code) 60 - 100 /min 05-17-2019 no name [facility] 11:09-0400 ([id number]) Heart rate 53 /min (no code) 60 - 100 /min 05-16-2019 no name [facility] 10:39-0400 ([id number]) Heart rate 57 /min (no code) 60 - 100 /min 05-15-2019 no name [facility] 12:17-0400 ([id number]) Heart rate 62 /min (no code) 60 - 100 /min 05-15-2019 no name [facility] 12:15-0400 ([id number]) Heart rate 49 /min (LL) 60 - 100 /min 05-14-2019 no name [facility] 12:25-0400 ([id number]) Heart rate 59 /min (no code) 60 - 100 /min 05-13-2019 no name [facility] 13:44-0400 ([id number]) Heart rate 51 /min (no code) 60 - 100 /min 05-13-2019 no name [facility] 12:10-0400 ([id number]) Heart rate 54 /min (no code) 60 - 100 /min 05-13-2019 no name [facility] 12:08-0400 ([id number]) Heart rate 61 /min (no code) 60 - 100 /min 05-12-2019 no name [facility] 11:47-0400 ([id number]) Heart rate 54 /min (no code) 60 - 100 /min 05-11-2019 no name [facility] 14:57-0400 ([id number]) Heart rate 57 /min (no code) 60 - 100 /min 05-10-2019 no name [facility] 10:15-0400 ([id number]) Heart rate 51 /min (no code) 60 - 100 /min 05-09-2019 no name [facility] 12:31-0400 ([id number]) Heart rate 55 /min (no code) 60 - 100 /min 05-09-2019 no name [facility] 12:28-0400 ([id number]) Heart rate 48 /min (LL) 60 - 100 /min 05-08-2019 no name [facility] 12:07-0400 ([id number]) Heart rate 54 /min (no code) 60 - 100 /min 05-07-2019 no name [facility] 12:20-0400 ([id number]) Heart rate 49 /min (LL) 60 - 100 /min 05-06-2019 no name [facility] 11:55-0400 ([id number]) Heart rate 55 /min (no code) 60 - 100 /min 05-05-2019 no name [facility] 17:24-0400 ([id number]) Heart rate 60 /min (no code) 60 - 100 /min 05-05-2019 no name [facility] 17:23-0400 ([id number]) Heart rate 49 /min (LL) 60 - 100 /min 05-04-2019 no name [facility] 12:07-0400 ([id number]) Heart rate 59 /min (no code) 60 - 100 /min 05-03-2019 no name [facility] 17:14-0400 ([id number]) Heart rate 61 /min (no code) 60 - 100 /min 05-03-2019 no name [facility] 17:12-0400 ([id number]) Heart rate 52 /min (no code) 60 - 100 /min 05-02-2019 no name [facility] 11:49-0400 ([id number]) Heart rate 53 /min (no code) 60 - 100 /min 05-01-2019 no name [facility] 12:10-0400 ([id number]) Heart rate 57 /min (no code) 60 - 100 /min 04-30-2019 no name [facility] 14:31-0400 ([id number]) Heart rate 50 /min (LL) 60 - 100 /min 04-29-2019 no name [facility] 10:30-0400 ([id number]) Heart rate 51 /min (no code) 60 - 100 /min 04-28-2019 no name [facility] 09:07-0400 ([id number]) Heart rate 67 /min (no code) 60 - 100 /min 04-27-2019 no name [facility] 19:29-0400 ([id number]) Heart rate 49 /min (LL) 60 - 100 /min 04-27-2019 no name [facility] 17:41-0400 ([id number]) Heart rate 51 /min (no code) 60 - 100 /min 04-27-2019 no name [facility] 17:39-0400 ([id number]) Heart rate 50 /min (LL) 60 - 100 /min 04-26-2019 no name [facility] 13:42-0400 ([id number]) Heart rate 49 /min (LL) 60 - 100 /min 04-26-2019 no name [facility] 12:07-0400 ([id number]) Heart rate 55 /min (no code) 60 - 100 /min 04-26-2019 no name [facility] 12:04-0400 ([id number]) Heart rate 63 /min (no code) 60 - 100 /min 04-25-2019 no name [facility] 13:50-0400 ([id number]) Heart rate 51 /min (no code) 60 - 100 /min 04-25-2019 no name [facility] 12:16-0400 ([id number]) Heart rate 54 /min (no code) 60 - 100 /min 04-25-2019 no name [facility] 12:13-0400 ([id number]) Heart rate 52 /min (no code) 60 - 100 /min 04-24-2019 no name [facility] 12:02-0400 ([id number]) Heart rate 64 /min (no code) 60 - 100 /min 04-23-2019 no name [facility] 14:32-0400 ([id number]) Heart rate 63 /min (no code) 60 - 100 /min 04-22-2019 no name [facility] 14:13-0400 ([id number]) Heart rate 53 /min (no code) 60 - 100 /min 04-21-2019 no name [facility] 11:41-0400 ([id number]) Heart rate 62 /min (no code) 60 - 100 /min 04-20-2019 no name [facility] 12:45-0400 ([id number]) Heart rate 57 /min (no code) 60 - 100 /min 04-19-2019 no name [facility] 12:24-0400 ([id number]) Heart rate 76 /min (no code) 60 - 100 /min 04-18-2019 no name [facility] 15:40-0400 ([id number]) Heart rate 58 /min (no code) 60 - 100 /min 04-17-2019 no name [facility] 11:58-0400 ([id number]) Heart rate 61 /min (no code) 60 - 100 /min 04-16-2019 no name [facility] 11:38-0400 ([id number]) Heart rate 61 /min (no code) 60 - 100 /min 04-15-2019 no name [facility] 12:50-0400 ([id number]) Heart rate 56 /min (no code) 60 - 100 /min 04-14-2019 no name [facility] 08:31-0400 ([id number]) Heart rate 51 /min (no code) 60 - 100 /min 04-13-2019 no name [facility] 11:31-0400 ([id number]) Heart rate 53 /min (no code) 60 - 100 /min 04-13-2019 no name [facility] 11:29-0400 ([id number]) Heart rate 60 /min (no code) 60 - 100 /min 04-12-2019 no name [facility] 12:15-0400 ([id number]) Heart rate 56 /min (no code) 60 - 100 /min 04-11-2019 no name [facility] 11:35-0400 ([id number]) Heart rate 52 /min (no code) 60 - 100 /min 04-10-2019 no name [facility] 18:14-0400 ([id number]) Heart rate 53 /min (no code) 60 - 100 /min 04-10-2019 no name [facility] 13:01-0400 ([id number]) Heart rate 57 /min (no code) 60 - 100 /min 04-10-2019 no name [facility] 12:59-0400 ([id number]) Heart rate 59 /min (no code) 60 - 100 /min 04-09-2019 no name [facility] 12:39-0400 ([id number]) Heart rate 57 /min (no code) 60 - 100 /min 04-08-2019 no name [facility] 10:18-0400 ([id number]) Heart rate 58 /min (no code) 60 - 100 /min 04-07-2019 no name [facility] 12:13-0400 ([id number]) Heart rate 64 /min (no code) 60 - 100 /min 04-06-2019 no name [facility] 14:15-0400 ([id number]) Heart rate 54 /min (no code) 60 - 100 /min 04-06-2019 no name [facility] 12:58-0400 ([id number]) Heart rate 58 /min (no code) 60 - 100 /min 04-06-2019 no name [facility] 12:56-0400 ([id number]) Heart rate 56 /min (no code) 60 - 100 /min 04-05-2019 no name [facility] 12:08-0400 ([id number]) Heart rate 51 /min (no code) 60 - 100 /min 04-04-2019 no name [facility] 14:05-0400 ([id number]) Heart rate 62 /min (no code) 60 - 100 /min 04-03-2019 no name [facility] 10:57-0400 ([id number]) Heart rate 59 /min (no code) 60 - 100 /min 04-02-2019 no name [facility] 12:14-0400 ([id number]) Heart rate 58 /min (no code) 60 - 100 /min 04-01-2019 no name [facility] 15:36-0400 ([id number]) Heart rate 53 /min (no code) 60 - 100 /min 03-31-2019 no name [facility] 12:06-0400 ([id number]) Heart rate 64 /min (no code) 60 - 100 /min 03-29-2019 no name [facility] 12:14-0400 ([id number]) Heart rate 56 /min (no code) 60 - 100 /min 03-28-2019 no name [facility] 14:07-0400 ([id number]) Heart rate 50 /min (LL) 60 - 100 /min 03-28-2019 no name [facility] 12:34-0400 ([id number]) Heart rate 52 /min (no code) 60 - 100 /min 03-28-2019 no name [facility] 12:31-0400 ([id number]) Heart rate 57 /min (no code) 60 - 100 /min 03-27-2019 no name [facility] 11:40-0400 ([id number]) Heart rate 60 /min (no code) 60 - 100 /min 03-26-2019 no name [facility] 12:03-0400 ([id number]) Heart rate 62 /min (no code) 60 - 100 /min 03-25-2019 no name [facility] 14:22-0400 ([id number]) Heart rate 52 /min (no code) 60 - 100 /min 03-24-2019 no name [facility] 11:25-0400 ([id number]) Heart rate 56 /min (no code) 60 - 100 /min 03-24-2019 no name [facility] 11:22-0400 ([id number]) Heart rate 54 /min (no code) 60 - 100 /min 03-23-2019 no name [facility] 11:22-0400 ([id number]) Heart rate 54 /min (no code) 60 - 100 /min 03-22-2019 no name [facility] 11:11-0400 ([id number]) Heart rate 54 /min (no code) 60 - 100 /min 03-21-2019 no name [facility] 10:46-0400 ([id number]) Heart rate 63 /min (no code) 60 - 100 /min 03-18-2019 no name [facility] 12:07-0400 ([id number]) Heart rate 63 /min (no code) 60 - 100 /min 03-16-2019 no name [facility] 15:49-0400 ([id number]) Heart rate 49 /min (LL) 60 - 100 /min 03-14-2019 no name [facility] 12:02-0400 ([id number]) Heart rate 47 /min (LL) 60 - 100 /min 03-13-2019 no name [facility] 12:11-0400 ([id number]) Heart rate 51 /min (no code) 60 - 100 /min 03-12-2019 no name [facility] 13:55-0400 ([id number]) Heart rate 55 /min (no code) 60 - 100 /min 03-11-2019 no name [facility] 12:11-0400 ([id number]) Heart rate 61 /min (no code) 60 - 100 /min 03-10-2019 no name [facility] 12:04-0400 ([id number]) Heart rate 51 /min (no code) 60 - 100 /min 03-08-2019 no name [facility] 12:06-0400 ([id number]) Heart rate 52 /min (no code) 60 - 100 /min 03-07-2019 no name [facility] 12:03-0400 ([id number]) Heart rate 51 /min (no code) 60 - 100 /min 03-06-2019 no name [facility] 11:38-0400 ([id number]) Heart rate 53 /min (no code) 60 - 100 /min 03-05-2019 no name [facility] 12:06-0400 ([id number]) Heart rate 59 /min (no code) 60 - 100 /min 03-04-2019 no name [facility] 12:12-0400 ([id number]) Heart rate 64 /min (no code) 60 - 100 /min 03-03-2019 no name [facility] 20:10-0400 ([id number]) Heart rate 49 /min (LL) 60 - 100 /min 03-02-2019 no name [facility] 12:13-0400 ([id number]) Heart rate 55 /min (no code) 60 - 100 /min 03-01-2019 no name [facility] 13:02-0400 ([id number]) Heart rate 53 /min (no code) 60 - 100 /min 02-28-2019 no name [facility] 11:50-0400 ([id number]) Heart rate 50 /min (LL) 60 - 100 /min 02-27-2019 no name [facility] 12:24-0400 ([id number]) Heart rate 51 /min (no code) 60 - 100 /min 02-27-2019 no name [facility] 12:22-0400 ([id number]) Heart rate 51 /min (no code) 60 - 100 /min 02-26-2019 no name [facility] 12:15-0400 ([id number]) Heart rate 55 /min (no code) 60 - 100 /min 02-25-2019 no name [facility] 13:27-0400 ([id number]) Heart rate 52 /min (no code) 60 - 100 /min 02-19-2019 no name [facility] 11:33-0400 ([id number]) Heart rate 59 /min (no code) 60 - 100 /min 02-18-2019 no name [facility] 12:33-0400 ([id number]) Heart rate 52 /min (no code) 60 - 100 /min 02-17-2019 no name [facility] 09:52-0400 ([id number]) Heart rate 59 /min (no code) 60 - 100 /min 02-16-2019 no name [facility] 12:05-0400 ([id number]) Heart rate 50 /min (LL) 60 - 100 /min 02-15-2019 no name [facility] 11:34-0400 ([id number]) Heart rate 58 /min (no code) 60 - 100 /min 02-14-2019 no name [facility] 12:16-0400 ([id number]) Heart rate 56 /min (no code) 60 - 100 /min 02-13-2019 no name [facility] 10:48-0400 ([id number]) Heart rate 61 /min (no code) 60 - 100 /min 02-12-2019 no name [facility] 13:36-0400 ([id number]) Heart rate 49 /min (LL) 60 - 100 /min 02-11-2019 no name [facility] 12:22-0400 ([id number]) Heart rate 54 /min (no code) 60 - 100 /min 02-10-2019 no name [facility] 12:33-0400 ([id number]) Heart rate 55 /min (no code) 60 - 100 /min 02-09-2019 no name [facility] 12:08-0400 ([id number]) Heart rate 50 /min (LL) 60 - 100 /min 02-08-2019 no name [facility] 12:01-0400 ([id number]) Heart rate 54 /min (no code) 60 - 100 /min 02-07-2019 no name [facility] 10:39-0400 ([id number]) Heart rate 66 /min (no code) 60 - 100 /min 02-06-2019 no name [facility] 18:10-0400 ([id number]) Heart rate 53 /min (no code) 60 - 100 /min 02-05-2019 no name [facility] 12:06-0400 ([id number]) Heart rate 62 /min (no code) 60 - 100 /min 02-04-2019 no name [facility] 12:53-0400 ([id number]) Heart rate 57 /min (no code) 60 - 100 /min 02-03-2019 no name [facility] 10:49-0400 ([id number]) Heart rate 59 /min (no code) 60 - 100 /min 02-02-2019 no name [facility] 14:20-0400 ([id number]) Heart rate 57 /min (no code) 60 - 100 /min 02-01-2019 no name [facility] 11:29-0400 ([id number]) Heart rate 48 /min (LL) 60 - 100 /min 01-31-2019 no name [facility] 12:26-0400 ([id number]) Heart rate 49 /min (LL) 60 - 100 /min 01-30-2019 no name [facility] 12:03-0400 ([id number]) Heart rate 67 /min (no code) 60 - 100 /min 01-29-2019 no name [facility] 12:13-0400 ([id number]) Heart rate 63 /min (no code) 60 - 100 /min 01-28-2019 no name [facility] 12:21-0400 ([id number]) Heart rate 58 /min (no code) 60 - 100 /min 01-27-2019 no name [facility] 11:20-0400 ([id number]) Heart rate 61 /min (no code) 60 - 100 /min 01-26-2019 no name [facility] 15:38-0400 ([id number]) Heart rate 67 /min (no code) 60 - 100 /min 01-25-2019 no name [facility] 11:30-0400 ([id number]) Heart rate 59 /min (no code) 60 - 100 /min 01-24-2019 no name [facility] 11:41-0400 ([id number]) Heart rate 53 /min (no code) 60 - 100 /min 01-23-2019 no name [facility] 12:07-0400 ([id number]) Heart rate 61 /min (no code) 60 - 100 /min 01-22-2019 no name [facility] 12:47-0400 ([id number]) Heart rate 68 /min (no code) 60 - 100 /min 01-21-2019 no name [facility] 16:22-0400 ([id number]) Heart rate 61 /min (no code) 60 - 100 /min 01-20-2019 no name [facility] 12:11-0400 ([id number]) Heart rate 53 /min (no code) 60 - 100 /min 01-19-2019 no name [facility] 12:08-0400 ([id number]) Heart rate 57 /min (no code) 60 - 100 /min 01-18-2019 no name [facility] 10:56-0400 ([id number]) Heart rate 52 /min (no code) 60 - 100 /min 01-17-2019 no name [facility] 12:10-0400 ([id number]) Heart rate 53 /min (no code) 60 - 100 /min 01-16-2019 no name [facility] 10:53-0400 ([id number]) Heart rate 57 /min (no code) 60 - 100 /min 01-16-2019 no name [facility] 10:50-0400 ([id number]) Heart rate 69 /min (no code) 60 - 100 /min 01-15-2019 no name [facility] 16:19-0400 ([id number]) Heart rate 55 /min (no code) 60 - 100 /min 01-14-2019 no name [facility] 12:14-0400 ([id number]) Heart rate 55 /min (no code) 60 - 100 /min 01-13-2019 no name [facility] 12:11-0400 ([id number]) Heart rate 52 /min (no code) 60 - 100 /min 01-12-2019 no name [facility] 12:54-0400 ([id number]) Heart rate 59 /min (no code) 60 - 100 /min 01-11-2019 no name [facility] 12:12-0400 ([id number]) Heart rate 60 /min (no code) 60 - 100 /min 01-10-2019 no name [facility] 12:09-0400 ([id number]) Heart rate 55 /min (no code) 60 - 100 /min 01-09-2019 no name [facility] 13:24-0400 ([id number]) Heart rate 55 /min (no code) 60 - 100 /min 01-09-2019 no name [facility] 12:00-0400 ([id number]) Heart rate 58 /min (no code) 60 - 100 /min 01-09-2019 no name [facility] 11:58-0400 ([id number]) Heart rate 54 /min (no code) 60 - 100 /min 01-08-2019 no name [facility] 12:14-0400 ([id number]) Heart rate 60 /min (no code) 60 - 100 /min 01-07-2019 no name [facility] 10:06-0400 ([id number]) Heart rate 59 /min (no code) 60 - 100 /min 01-06-2019 no name [facility] 12:23-0400 ([id number]) Heart rate 54 /min (no code) 60 - 100 /min 01-05-2019 no name [facility] 09:20-0400 ([id number]) Heart rate 51 /min (no code) 60 - 100 /min 01-04-2019 no name [facility] 11:49-0400 ([id number]) Heart rate 54 /min (no code) 60 - 100 /min 01-03-2019 no name [facility] 12:29-0400 ([id number]) Heart rate 50 /min (LL) 60 - 100 /min 01-02-2019 no name [facility] 11:12-0400 ([id number]) Heart rate 50 /min (LL) 60 - 100 /min 01-01-2019 no name [facility] 12:22-0400 ([id number]) Heart rate 53 /min (no code) 60 - 100 /min 12-31-2018 no name [facility] 12:26-0400 ([id number]) Heart rate 51 /min (no code) 60 - 100 /min 12-30-2018 no name [facility] 12:03-0400 ([id number]) Heart rate 53 /min (no code) 60 - 100 /min 12-29-2018 no name [facility] 12:23-0400 ([id number]) Heart rate 55 /min (no code) 60 - 100 /min 12-28-2018 no name [facility] 12:19-0400 ([id number]) Heart rate 52 /min (no code) 60 - 100 /min 12-27-2018 no name [facility] 12:12-0400 ([id number]) Heart rate 55 /min (no code) 60 - 100 /min 12-26-2018 no name [facility] 12:20-0400 ([id number]) Heart rate 58 /min (no code) 60 - 100 /min 12-25-2018 no name [facility] 12:24-0400 ([id number]) Heart rate 59 /min (no code) 60 - 100 /min 12-24-2018 no name [facility] 12:25-0400 ([id number]) Heart rate 53 /min (no code) 60 - 100 /min 12-23-2018 no name [facility] 12:11-0400 ([id number]) Heart rate 54 /min (no code) 60 - 100 /min 12-23-2018 no name [facility] 12:08-0400 ([id number]) Heart rate 61 /min (no code) 60 - 100 /min 12-22-2018 no name [facility] 11:46-0400 ([id number]) Heart rate 58 /min (no code) 60 - 100 /min 12-21-2018 no name [facility] 12:45-0400 ([id number]) Heart rate 54 /min (no code) 60 - 100 /min 12-20-2018 no name [facility] 12:28-0400 ([id number]) Heart rate 56 /min (no code) 60 - 100 /min 12-19-2018 no name [facility] 12:53-0400 ([id number]) Heart rate 57 /min (no code) 60 - 100 /min 12-18-2018 no name [facility] 11:39-0400 ([id number]) Heart rate 56 /min (no code) 60 - 100 /min 12-17-2018 no name [facility] 12:13-0400 ([id number]) Heart rate 57 /min (no code) 60 - 100 /min 12-16-2018 no name [facility] 13:12-0400 ([id number]) Heart rate 56 /min (no code) 60 - 100 /min 12-15-2018 no name [facility] 11:51-0400 ([id number]) Heart rate 66 /min (no code) 60 - 100 /min 12-14-2018 no name [facility] 12:31-0400 ([id number]) Heart rate 55 /min (no code) 60 - 100 /min 12-13-2018 no name [facility] 11:54-0400 ([id number]) Heart rate 56 /min (no code) 60 - 100 /min 12-12-2018 no name [facility] 13:05-0400 ([id number]) Heart rate 56 /min (no code) 60 - 100 /min 12-11-2018 no name [facility] 11:33-0400 ([id number]) Heart rate 58 /min (no code) 60 - 100 /min 12-10-2018 no name [facility] 12:20-0400 ([id number]) Heart rate 60 /min (no code) 60 - 100 /min 12-09-2018 no name [facility] 10:58-0400 ([id number]) Heart rate 62 /min (no code) 60 - 100 /min 12-08-2018 no name [facility] 14:39-0400 ([id number]) Heart rate 60 /min (no code) 60 - 100 /min 12-07-2018 no name [facility] 12:15-0400 ([id number]) Heart rate 58 /min (no code) 60 - 100 /min 12-06-2018 no name [facility] 20:17-0400 ([id number]) Heart rate 54 /min (no code) 60 - 100 /min 12-05-2018 no name [facility] 13:13-0400 ([id number]) Heart rate 59 /min (no code) 60 - 100 /min 12-04-2018 no name [facility] 11:47-0400 ([id number]) Heart rate 55 /min (no code) 60 - 100 /min 12-03-2018 no name [facility] 11:28-0500 ([id number]) Heart rate 56 /min (no code) 60 - 100 /min 12-02-2018 no name [facility] 11:21-0500 ([id number]) Heart rate 71 /min (no code) 60 - 100 /min 12-01-2018 no name [facility] 12:14-0500 ([id number]) Heart rate 56 /min (no code) 60 - 100 /min 11-30-2018 no name [facility] 12:05-0500 ([id number]) Heart rate 57 /min (no code) 60 - 100 /min 11-29-2018 no name [facility] 12:17-0500 ([id number]) Heart rate 62 /min (no code) 60 - 100 /min 11-28-2018 no name [facility] 12:07-0500 ([id number]) Heart rate 59 /min (no code) 60 - 100 /min 11-27-2018 no name [facility] 12:04-0500 ([id number]) Heart rate 59 /min (no code) 60 - 100 /min 11-26-2018 no name [facility] 12:27-0500 ([id number]) Heart rate 61 /min (no code) 60 - 100 /min 11-25-2018 no name [facility] 12:03-0500 ([id number]) Heart rate 64 /min (no code) 60 - 100 /min 11-24-2018 no name [facility] 12:17-0500 ([id number]) Heart rate 63 /min (no code) 60 - 100 /min 11-23-2018 no name [facility] 12:37-0500 ([id number]) Heart rate 62 /min (no code) 60 - 100 /min 11-22-2018 no name [facility] 12:30-0500 ([id number]) Heart rate 71 /min (no code) 60 - 100 /min 11-21-2018 no name [facility] 14:35-0500 ([id number]) Heart rate 69 /min (no code) 60 - 100 /min 11-20-2018 no name [facility] 14:23-0500 ([id number]) Heart rate 74 /min (no code) 60 - 100 /min 11-19-2018 no name [facility] 11:06-0500 ([id number]) Heart rate 69 /min (no code) 60 - 100 /min 11-18-2018 no name [facility] 12:11-0500 ([id number]) Heart rate 74 /min (no code) 60 - 100 /min 11-17-2018 no name [facility] 12:18-0500 ([id number]) Heart rate 75 /min (no code) 60 - 100 /min 11-16-2018 no name [facility] 10:30-0500 ([id number]) Heart rate 75 /min (no code) 60 - 100 /min 11-15-2018 no name [facility] 12:21-0500 ([id number]) Heart rate 64 /min (no code) 60 - 100 /min 11-14-2018 no name [facility] 11:37-0500 ([id number]) Heart rate 69 /min (no code) 60 - 100 /min 11-13-2018 no name [facility] 13:02-0500 ([id number]) Heart rate 78 /min (no code) 60 - 100 /min 11-12-2018 no name [facility] 11:16-0500 ([id number]) Heart rate 63 /min (no code) 60 - 100 /min 11-11-2018 no name [facility] 12:00-0500 ([id number]) Heart rate 70 /min (no code) 60 - 100 /min 11-10-2018 no name [facility] 11:12-0500 ([id number]) Heart rate 66 /min (no code) 60 - 100 /min 11-09-2018 no name [facility] 12:12-0500 ([id number]) Heart rate 58 /min (no code) 60 - 100 /min 11-08-2018 no name [facility] 13:15-0500 ([id number]) Heart rate 70 /min (no code) 60 - 100 /min 11-07-2018 no name [facility] 12:10-0500 ([id number]) Heart rate 58 /min (no code) 60 - 100 /min 11-06-2018 no name [facility] 13:54-0500 ([id number]) Heart rate 59 /min (no code) 60 - 100 /min 11-05-2018 no name [facility] 11:48-0500 ([id number]) Heart rate 60 /min (no code) 60 - 100 /min 11-04-2018 no name [facility] 12:03-0500 ([id number]) Heart rate 55 /min (no code) 60 - 100 /min 11-03-2018 no name [facility] 12:11-0500 ([id number]) Heart rate 70 /min (no code) 60 - 100 /min 11-02-2018 no name [facility] 12:45-0500 ([id number]) Heart rate 70 /min (no code) 60 - 100 /min 11-01-2018 no name [facility] 12:06-0500 ([id number]) Heart rate 69 /min (no code) 60 - 100 /min 10-31-2018 no name [facility] 13:54-0500 ([id number]) Heart rate 58 /min (no code) 60 - 100 /min 10-30-2018 no name [facility] 12:02-0500 ([id number]) Heart rate 73 /min (no code) 60 - 100 /min 10-29-2018 no name [facility] 12:03-0500 ([id number]) Heart rate 55 /min (no code) 60 - 100 /min 10-28-2018 no name [facility] 12:28-0500 ([id number]) Heart rate 54 /min (no code) 60 - 100 /min 10-27-2018 no name [facility] 12:15-0500 ([id number]) Heart rate 58 /min (no code) 60 - 100 /min 10-26-2018 no name [facility] 12:38-0500 ([id number]) Heart rate 54 /min (no code) 60 - 100 /min 10-25-2018 no name [facility] 12:03-0500 ([id number]) Heart rate 54 /min (no code) 60 - 100 /min 10-24-2018 no name [facility] 12:12-0500 ([id number]) Heart rate 51 /min (no code) 60 - 100 /min 10-23-2018 no name [facility] 19:17-0500 ([id number]) Heart rate 51 /min (no code) 60 - 100 /min 10-23-2018 no name [facility] 06:46-0500 ([id number]) Heart rate 51 /min (no code) 60 - 100 /min 10-22-2018 no name [facility] 12:02-0500 ([id number]) Heart rate 57 /min (no code) 60 - 100 /min 10-21-2018 no name [facility] 11:35-0500 ([id number]) Heart rate 60 /min (no code) 60 - 100 /min 10-20-2018 no name [facility] 12:03-0500 ([id number]) Heart rate 55 /min (no code) 60 - 100 /min 10-19-2018 no name [facility] 12:15-0500 ([id number]) Heart rate 50 /min (LL) 60 - 100 /min 10-18-2018 no name [facility] 12:22-0500 ([id number]) Heart rate 60 /min (no code) 60 - 100 /min 10-17-2018 no name [facility] 13:42-0500 ([id number]) Heart rate 49 /min (LL) 60 - 100 /min 10-16-2018 no name [facility] 12:11-0500 ([id number]) Heart rate 58 /min (no code) 60 - 100 /min 10-15-2018 no name [facility] 11:57-0500 ([id number]) Heart rate 51 /min (no code) 60 - 100 /min 10-14-2018 no name [facility] 12:16-0500 ([id number]) Heart rate 53 /min (no code) 60 - 100 /min 10-13-2018 no name [facility] 15:26-0500 ([id number]) Heart rate 54 /min (no code) 60 - 100 /min 10-13-2018 no name [facility] 15:24-0500 ([id number]) Heart rate 51 /min (no code) 60 - 100 /min 10-12-2018 no name [facility] 13:04-0500 ([id number]) Heart rate 58 /min (no code) 60 - 100 /min 10-11-2018 no name [facility] 12:24-0500 ([id number]) Heart rate 49 /min (LL) 60 - 100 /min 10-10-2018 no name [facility] 12:08-0500 ([id number]) Heart rate 57 /min (no code) 60 - 100 /min 10-09-2018 no name [facility] 11:43-0500 ([id number]) Heart rate 48 /min (LL) 60 - 100 /min 10-08-2018 no name [facility] 12:08-0500 ([id number]) Heart rate 56 /min (no code) 60 - 100 /min 10-07-2018 no name [facility] 12:00-0500 ([id number]) Heart rate 51 /min (no code) 60 - 100 /min 10-06-2018 no name [facility] 12:01-0500 ([id number]) Heart rate 58 /min (no code) 60 - 100 /min 10-05-2018 no name [facility] 11:46-0500 ([id number]) Heart rate 57 /min (no code) 60 - 100 /min 10-04-2018 no name [facility] 12:02-0500 ([id number]) Heart rate 60 /min (no code) 60 - 100 /min 10-03-2018 no name [facility] 12:08-0500 ([id number]) Heart rate 57 /min (no code) 60 - 100 /min 10-02-2018 no name [facility] 12:07-0500 ([id number]) Heart rate 54 /min (no code) 60 - 100 /min 10-01-2018 no name [facility] 12:09-0500 ([id number]) Heart rate 52 /min (no code) 60 - 100 /min 09-30-2018 no name [facility] 15:49-0500 ([id number]) Heart rate 48 /min (LL) 60 - 100 /min 09-30-2018 no name [facility] 13:07-0500 ([id number]) Heart rate 49 /min (LL) 60 - 100 /min 09-30-2018 no name [facility] 13:04-0500 ([id number]) Heart rate 47 /min (LL) 60 - 100 /min 09-29-2018 no name [facility] 12:20-0500 ([id number]) Heart rate 49 /min (LL) 60 - 100 /min 09-28-2018 no name [facility] 11:58-0500 ([id number]) Heart rate 52 /min (no code) 60 - 100 /min 09-27-2018 no name [facility] 12:13-0500 ([id number]) Heart rate 56 /min (no code) 60 - 100 /min 09-26-2018 no name [facility] 11:30-0500 ([id number]) Heart rate 53 /min (no code) 60 - 100 /min 09-25-2018 no name [facility] 07:15-0500 ([id number]) Heart rate 52 /min (no code) 60 - 100 /min 09-25-2018 no name [facility] 07:11-0500 ([id number]) Heart rate 53 /min (no code) 60 - 100 /min 09-24-2018 no name [facility] 12:11-0500 ([id number]) Heart rate 56 /min (no code) 60 - 100 /min 09-23-2018 no name [facility] 15:24-0500 ([id number]) Heart rate 55 /min (no code) 60 - 100 /min 09-23-2018 no name [facility] 13:47-0500 ([id number]) Heart rate 63 /min (no code) 60 - 100 /min 09-22-2018 no name [facility] 11:23-0500 ([id number]) Heart rate 53 /min (no code) 60 - 100 /min 09-21-2018 no name [facility] 13:16-0500 ([id number]) Heart rate 56 /min (no code) 60 - 100 /min 09-21-2018 no name [facility] 13:14-0500 ([id number]) Heart rate 58 /min (no code) 60 - 100 /min 09-20-2018 no name [facility] 12:10-0500 ([id number]) Heart rate 51 /min (no code) 60 - 100 /min 09-19-2018 no name [facility] 12:06-0500 ([id number]) Heart rate 58 /min (no code) 60 - 100 /min 09-18-2018 no name [facility] 11:27-0500 ([id number]) Heart rate 58 /min (no code) 60 - 100 /min 09-17-2018 no name [facility] 13:03-0500 ([id number]) Heart rate 59 /min (no code) 60 - 100 /min 09-16-2018 no name [facility] 12:16-0500 ([id number]) Heart rate 62 /min (no code) 60 - 100 /min 09-15-2018 no name [facility] 11:58-0500 ([id number]) Heart rate 61 /min (no code) 60 - 100 /min 09-14-2018 no name [facility] 13:30-0500 ([id number]) Heart rate 68 /min (no code) 60 - 100 /min 09-13-2018 no name [facility] 11:02-0500 ([id number]) Heart rate 51 /min (no code) 60 - 100 /min 09-12-2018 no name [facility] 12:30-0500 ([id number]) Heart rate 53 /min (no code) 60 - 100 /min 09-12-2018 no name [facility] 12:28-0500 ([id number]) Heart rate 56 /min (no code) 60 - 100 /min 09-11-2018 no name [facility] 07:45-0500 ([id number]) Heart rate 63 /min (no code) 60 - 100 /min 09-10-2018 no name [facility] 14:00-0500 ([id number]) Heart rate 49 /min (LL) 60 - 100 /min 09-09-2018 no name [facility] 11:45-0500 ([id number]) Heart rate 60 /min (no code) 60 - 100 /min 09-08-2018 no name [facility] 15:58-0500 ([id number]) Heart rate 62 /min (no code) 60 - 100 /min 09-07-2018 no name [facility] 12:13-0500 ([id number]) Heart rate 62 /min (no code) 60 - 100 /min 09-06-2018 no name [facility] 16:39-0500 ([id number]) Heart rate 57 /min (no code) 60 - 100 /min 09-05-2018 no name [facility] 12:58-0500 ([id number]) Heart rate 60 /min (no code) 60 - 100 /min 09-04-2018 no name [facility] 11:29-0500 ([id number]) Heart rate 56 /min (no code) 60 - 100 /min 09-03-2018 no name [facility] 12:07-0500 ([id number]) Heart rate 52 /min (no code) 60 - 100 /min 09-02-2018 no name [facility] 12:02-0500 ([id number]) Heart rate 52 /min (no code) 60 - 100 /min 09-01-2018 no name [facility] 19:34-0500 ([id number]) Heart rate 53 /min (no code) 60 - 100 /min 08-31-2018 no name [facility] 12:53-0500 ([id number]) Heart rate 56 /min (no code) 60 - 100 /min 08-30-2018 no name [facility] 14:05-0500 ([id number]) Heart rate 63 /min (no code) 60 - 100 /min 08-29-2018 no name [facility] 21:06-0500 ([id number]) Heart rate 52 /min (no code) 60 - 100 /min 08-28-2018 no name [facility] 12:14-0500 ([id number]) Heart rate 61 /min (no code) 60 - 100 /min 08-27-2018 no name [facility] 11:57-0500 ([id number]) Heart rate 64 /min (no code) 60 - 100 /min 08-26-2018 no name [facility] 12:33-0500 ([id number]) Heart rate 62 /min (no code) 60 - 100 /min 08-25-2018 no name [facility] 12:02-0500 ([id number]) Heart rate 53 /min (no code) 60 - 100 /min 08-24-2018 no name [facility] 12:46-0500 ([id number]) Heart rate 61 /min (no code) 60 - 100 /min 08-23-2018 no name [facility] 11:59-0500 ([id number]) Heart rate 54 /min (no code) 60 - 100 /min 08-22-2018 no name [facility] 12:41-0500 ([id number]) Heart rate 68 /min (no code) 60 - 100 /min 08-21-2018 no name [facility] 12:03-0500 ([id number]) Heart rate 57 /min (no code) 60 - 100 /min 08-20-2018 no name [facility] 12:23-0500 ([id number]) Heart rate 63 /min (no code) 60 - 100 /min 08-19-2018 no name [facility] 11:44-0500 ([id number]) Heart rate 56 /min (no code) 60 - 100 /min 08-18-2018 no name [facility] 12:04-0500 ([id number]) Heart rate 60 /min (no code) 60 - 100 /min 08-17-2018 no name [facility] 12:14-0500 ([id number]) Heart rate 50 /min (LL) 60 - 100 /min 08-16-2018 no name [facility] 12:23-0500 ([id number]) Heart rate 52 /min (no code) 60 - 100 /min 08-15-2018 no name [facility] 11:09-0500 ([id number]) Heart rate 47 /min (LL) 60 - 100 /min 08-14-2018 no name [facility] 12:06-0500 ([id number]) Heart rate 60 /min (no code) 60 - 100 /min 08-13-2018 no name [facility] 12:57-0500 ([id number]) Heart rate 65 /min (no code) 60 - 100 /min 08-12-2018 no name [facility] 12:03-0500 ([id number]) Heart rate 52 /min (no code) 60 - 100 /min 08-11-2018 no name [facility] 11:33-0500 ([id number]) Heart rate 53 /min (no code) 60 - 100 /min 08-10-2018 no name [facility] 12:14-0500 ([id number]) Heart rate 59 /min (no code) 60 - 100 /min 08-09-2018 no name [facility] 14:02-0500 ([id number]) Heart rate 63 /min (no code) 60 - 100 /min 08-08-2018 no name [facility] 12:48-0500 ([id number]) Heart rate 64 /min (no code) 60 - 100 /min 08-07-2018 no name [facility] 12:22-0500 ([id number]) Heart rate 54 /min (no code) 60 - 100 /min 08-06-2018 no name [facility] 12:09-0500 ([id number]) Heart rate 55 /min (no code) 60 - 100 /min 08-05-2018 no name [facility] 12:02-0500 ([id number]) Heart rate 59 /min (no code) 60 - 100 /min 08-04-2018 no name [facility] 12:02-0500 ([id number]) Heart rate 52 /min (no code) 60 - 100 /min 08-03-2018 no name [facility] 12:03-0500 ([id number]) Heart rate 54 /min (no code) 60 - 100 /min 08-02-2018 no name [facility] 12:10-0500 ([id number]) Heart rate 54 /min (no code) 60 - 100 /min 08-01-2018 no name [facility] 13:56-0500 ([id number]) Heart rate 55 /min (no code) 60 - 100 /min 07-31-2018 no name [facility] 12:04-0500 ([id number]) Heart rate 58 /min (no code) 60 - 100 /min 07-30-2018 no name [facility] 11:12-0400 ([id number]) Heart rate 53 /min (no code) 60 - 100 /min 07-29-2018 no name [facility] 19:34-0400 ([id number]) Heart rate 55 /min (no code) 60 - 100 /min 07-28-2018 no name [facility] 11:44-0400 ([id number]) Heart rate 46 /min (LL) 60 - 100 /min 07-27-2018 no name [facility] 12:17-0400 ([id number]) Heart rate 57 /min (no code) 60 - 100 /min 07-26-2018 no name [facility] 12:42-0400 ([id number]) Heart rate 49 /min (LL) 60 - 100 /min 07-25-2018 no name [facility] 12:20-0400 ([id number]) Heart rate 56 /min (no code) 60 - 100 /min 2018 no name [facility] 12:03-0400 ([id number]) Heart rate 56 /min (no code) 60 - 100 /min 07-23-2018 no name [facility] 12:03-0400 ([id number]) Heart rate 58 /min (no code) 60 - 100 /min 07-22-2018 no name [facility] 12:03-0400 ([id number]) Heart rate 52 /min (no code) 60 - 100 /min 07-21-2018 no name [facility] 12:15-0400 ([id number]) Heart rate 51 /min (no code) 60 - 100 /min 07-20-2018 no name [facility] 11:58-0400 ([id number]) Heart rate 54 /min (no code) 60 - 100 /min 07-19-2018 no name [facility] 11:13-0400 ([id number]) Heart rate 58 /min (no code) 60 - 100 /min 07-18-2018 no name [facility] 15:21-0400 ([id number]) Heart rate 48 /min (LL) 60 - 100 /min 07-17-2018 no name [facility] 12:06-0400 ([id number]) Heart rate 62 /min (no code) 60 - 100 /min 07-16-2018 no name [facility] 12:02-0400 ([id number]) Heart rate 53 /min (no code) 60 - 100 /min 07-15-2018 no name [facility] 12:04-0400 ([id number]) Heart rate 62 /min (no code) 60 - 100 /min 07-14-2018 no name [facility] 12:08-0400 ([id number]) Heart rate 51 /min (no code) 60 - 100 /min 07-13-2018 no name [facility] 12:02-0400 ([id number]) Heart rate 50 /min (LL) 60 - 100 /min 07-12-2018 no name [facility] 14:44-0400 ([id number]) Heart rate 57 /min (no code) 60 - 100 /min 07-11-2018 no name [facility] 14:16-0400 ([id number]) Heart rate 50 /min (LL) 60 - 100 /min 07-10-2018 no name [facility] 14:15-0400 ([id number]) Heart rate 62 /min (no code) 60 - 100 /min 07-09-2018 no name [facility] 12:02-0400 ([id number]) Heart rate 63 /min (no code) 60 - 100 /min 07-08-2018 no name [facility] 11:27-0400 ([id number]) Heart rate 60 /min (no code) 60 - 100 /min 07-07-2018 no name [facility] 12:06-0400 ([id number]) Heart rate 58 /min (no code) 60 - 100 /min 07-06-2018 no name [facility] 10:46-0400 ([id number]) Heart rate 49 /min (LL) 60 - 100 /min 07-05-2018 no name [facility] 11:57-0400 ([id number]) Height (no code) 12-08-2018 [facility] 11:30-0400 [id number] [facility] ([id number]) Oxygen 95 % (no code) 95 - 100 % 01-01-2020 no name [facility] saturation in 07:090400 ([id number]) Arterial blood by Pulse oximetry Oxygen 95 % (no code) 95 - 100 % 12-31-2019 no name [facility] saturation in 06:460400 ([id number]) Arterial blood by Pulse oximetry Oxygen 94 % (no code) 95 - 100 % 12-30-2019 no name [facility] saturation in 06:250400 ([id number]) Arterial blood by Pulse oximetry Oxygen 98 % (no code) 95 - 100 % 12-29-2019 no name [facility] saturation in 07:040400 ([id number]) Arterial blood by Pulse oximetry Oxygen 93 % (no code) 95 - 100 % 12-28-2019 no name [facility] saturation in 07:150400 ([id number]) Arterial blood by Pulse oximetry Oxygen 95 % (no code) 95 - 100 % 12-27-2019 no name [facility] saturation in 07:0400 ([id number]) Arterial blood by Pulse oximetry Oxygen 94 % (no code) 95 - 100 % 12-26-2019 no name [facility] saturation in 07:030400 ([id number]) Arterial blood by Pulse oximetry Oxygen 95 % (no code) 95 - 100 % 12-25-2019 no name [facility] saturation in 07:050400 ([id number]) Arterial blood by Pulse oximetry Oxygen 97 % (no code) 95 - 100 % 12-24-2019 no name [facility] saturation in 07:030400 ([id number]) Arterial blood by Pulse oximetry Oxygen 95 % (no code) 95 - 100 % 12-23-2019 no name [facility] saturation in 06:450400 ([id number]) Arterial blood by Pulse oximetry Oxygen 96 % (no code) 95 - 100 % 12-22-2019 no name [facility] saturation in 07:070400 ([id number]) Arterial blood by Pulse oximetry Oxygen 95 % (no code) 95 - 100 % 12-21-2019 no name [facility] saturation in 07:060400 ([id number]) Arterial blood by Pulse oximetry Oxygen 94 % (no code) 95 - 100 % 12-20-2019 no name [facility] saturation in 06:58-0400 ([id number]) Arterial blood by Pulse oximetry Oxygen 96 % (no code) 95 - 100 % 12-19-2019 no name [facility] saturation in 06:32-0400 ([id number]) Arterial blood by Pulse oximetry Oxygen 97 % (no code) 95 - 100 % 12-18-2019 no name [facility] saturation in 06:54-0400 ([id number]) Arterial blood by Pulse oximetry Oxygen 98 % (no code) 95 - 100 % 12-17-2019 no name [facility] saturation in 06:47-0400 ([id number]) Arterial blood by Pulse oximetry Oxygen 95 % (no code) 95 - 100 % 12-16-2019 no name [facility] saturation in 07:220400 ([id number]) Arterial blood by Pulse oximetry Oxygen 97 % (no code) 95 - 100 % 12-15-2019 no name [facility] saturation in 09:00-0400 ([id number]) Arterial blood by Pulse oximetry Oxygen 96 % (no code) 95 - 100 % 12-14-2019 no name [facility] saturation in 07:16-0400 ([id number]) Arterial blood by Pulse oximetry Oxygen 96 % (no code) 95 - 100 % 12-13-2019 no name [facility] saturation in 07:040400 ([id number]) Arterial blood by Pulse oximetry Oxygen 98 % (no code) 95 - 100 % 12-12-2019 no name [facility] saturation in 07:0400 ([id number]) Arterial blood by Pulse oximetry Oxygen 97 % (no code) 95 - 100 % 12-11-2019 no name [facility] saturation in 07:0400 ([id number]) Arterial blood by Pulse oximetry Oxygen 97 % (no code) 95 - 100 % 12-10-2019 no name [facility] saturation in 07:0400 ([id number]) Arterial blood by Pulse oximetry Oxygen 95 % (no code) 95 - 100 % 12-09-2019 no name [facility] saturation in 06:0400 ([id number]) Arterial blood by Pulse oximetry Oxygen 94 % (no code) 95 - 100 % 12-08-2019 no name [facility] saturation in 07:0400 ([id number]) Arterial blood by Pulse oximetry Oxygen 96 % (no code) 95 - 100 % 12-07-2019 no name [facility] saturation in 07:0400 ([id number]) Arterial blood by Pulse oximetry Oxygen 96 % (no code) 95 - 100 % 12-06-2019 no name [facility] saturation in 07:0400 ([id number]) Arterial blood by Pulse oximetry Oxygen 95 % (no code) 95 - 100 % 12-05-2019 no name [facility] saturation in 07:0400 ([id number]) Arterial blood by Pulse oximetry Oxygen 96 % (no code) 95 - 100 % 12-04-2019 no name [facility] saturation in 06:0400 ([id number]) Arterial blood by Pulse oximetry Oxygen 95 % (no code) 95 - 100 % 12-03-2019 no name [facility] saturation in 07:0400 ([id number]) Arterial blood by Pulse oximetry Oxygen 98 % (no code) 95 - 100 % 12-02-2019 no name [facility] saturation in 06:0500 ([id number]) Arterial blood by Pulse oximetry Oxygen 95 % (no code) 95 - 100 % 12-01-2019 no name [facility] saturation in 05:0500 ([id number]) Arterial blood by Pulse oximetry Oxygen 94 % (no code) 95 - 100 % 11-30-2019 no name [facility] saturation in 02:26-0500 ([id number]) Arterial blood by Pulse oximetry Oxygen 94 % (no code) 95 - 100 % 11-29-2019 no name [facility] saturation in 05:32-0500 ([id number]) Arterial blood by Pulse oximetry Oxygen 94 % (no code) 95 - 100 % 11-28-2019 no name [facility] saturation in 05:24-0500 ([id number]) Arterial blood by Pulse oximetry Oxygen 94 % (no code) 95 - 100 % 11-27-2019 no name [facility] saturation in 05:34-0500 ([id number]) Arterial blood by Pulse oximetry Oxygen 95 % (no code) 95 - 100 % 11-26-2019 no name [facility] saturation in 05:39-0500 ([id number]) Arterial blood by Pulse oximetry Oxygen 95 % (no code) 95 - 100 % 11-25-2019 no name [facility] saturation in 06:14-0500 ([id number]) Arterial blood by Pulse oximetry Oxygen 95 % (no code) 95 - 100 % 11-24-2019 no name [facility] saturation in 05:50-0500 ([id number]) Arterial blood by Pulse oximetry Oxygen 95 % (no code) 95 - 100 % 11-23-2019 no name [facility] saturation in 05:58-0500 ([id number]) Arterial blood by Pulse oximetry Oxygen 87 % (LL) 95 - 100 % 11-22-2019 no name [facility] saturation in 06:08-0500 ([id number]) Arterial blood by Pulse oximetry Oxygen 96 % (no code) 95 - 100 % 11-21-2019 no name [facility] saturation in 06:03-0500 ([id number]) Arterial blood by Pulse oximetry Oxygen 95 % (no code) 95 - 100 % 11-20-2019 no name [facility] saturation in 06:090500 ([id number]) Arterial blood by Pulse oximetry Oxygen 95 % (no code) 95 - 100 % 11-19-2019 no name [facility] saturation in 05:51-0500 ([id number]) Arterial blood by Pulse oximetry Oxygen 92 % (no code) 95 - 100 % 11-18-2019 no name [facility] saturation in 06:18-0500 ([id number]) Arterial blood by Pulse oximetry Oxygen 92 % (no code) 95 - 100 % 11-17-2019 no name [facility] saturation in 06:010500 ([id number]) Arterial blood by Pulse oximetry Oxygen 95 % (no code) 95 - 100 % 11-16-2019 no name [facility] saturation in 06:210500 ([id number]) Arterial blood by Pulse oximetry Oxygen 95 % (no code) 95 - 100 % 11-15-2019 no name [facility] saturation in 05:270500 ([id number]) Arterial blood by Pulse oximetry Oxygen 95 % (no code) 95 - 100 % 11-14-2019 no name [facility] saturation in 06:100500 ([id number]) Arterial blood by Pulse oximetry Oxygen 95 % (no code) 95 - 100 % 11-13-2019 no name [facility] saturation in 06:300500 ([id number]) Arterial blood by Pulse oximetry Oxygen 96 % (no code) 95 - 100 % 11-12-2019 no name [facility] saturation in 06:230500 ([id number]) Arterial blood by Pulse oximetry Oxygen 98 % (no code) 95 - 100 % 11-11-2019 no name [facility] saturation in 05:38-0500 ([id number]) Arterial blood by Pulse oximetry Oxygen 91 % (no code) 95 - 100 % 11-10-2019 no name [facility] saturation in 06:100500 ([id number]) Arterial blood by Pulse oximetry Oxygen 97 % (no code) 95 - 100 % 11-09-2019 no name [facility] saturation in 05:590500 ([id number]) Arterial blood by Pulse oximetry Oxygen 96 % (no code) 95 - 100 % 11-07-2019 no name [facility] saturation in 06:190500 ([id number]) Arterial blood by Pulse oximetry Oxygen 94 % (no code) 95 - 100 % 11-06-2019 no name [facility] saturation in 06:0500 ([id number]) Arterial blood by Pulse oximetry Oxygen 98 % (no code) 95 - 100 % 11-05-2019 no name [facility] saturation in 05:47-0500 ([id number]) Arterial blood by Pulse oximetry Oxygen 96 % (no code) 95 - 100 % 11-04-2019 no name [facility] saturation in 06:05-0500 ([id number]) Arterial blood by Pulse oximetry Oxygen 95 % (no code) 95 - 100 % 11-03-2019 no name [facility] saturation in 05:56-0500 ([id number]) Arterial blood by Pulse oximetry Oxygen 95 % (no code) 95 - 100 % 11-02-2019 no name [facility] saturation in 06:06-0500 ([id number]) Arterial blood by Pulse oximetry Oxygen 94 % (no code) 95 - 100 % 11-01-2019 no name [facility] saturation in 06:13-0500 ([id number]) Arterial blood by Pulse oximetry Oxygen 94 % (no code) 95 - 100 % 10-31-2019 no name [facility] saturation in 06:13-0500 ([id number]) Arterial blood by Pulse oximetry Oxygen 95 % (no code) 95 - 100 % 10-30-2019 no name [facility] saturation in 06:16-0500 ([id number]) Arterial blood by Pulse oximetry Oxygen 95 % (no code) 95 - 100 % 10-29-2019 no name [facility] saturation in 05:54-0500 ([id number]) Arterial blood by Pulse oximetry Oxygen 95 % (no code) 95 - 100 % 10-28-2019 no name [facility] saturation in 05:29-0500 ([id number]) Arterial blood by Pulse oximetry Oxygen 96 % (no code) 95 - 100 % 10-27-2019 no name [facility] saturation in 05:59-0500 ([id number]) Arterial blood by Pulse oximetry Oxygen 95 % (no code) 95 - 100 % 10-26-2019 no name [facility] saturation in 06:11-0500 ([id number]) Arterial blood by Pulse oximetry Oxygen 97 % (no code) 95 - 100 % 10-25-2019 no name [facility] saturation in 05:41-0500 ([id number]) Arterial blood by Pulse oximetry Oxygen 95 % (no code) 95 - 100 % 10-24-2019 no name [facility] saturation in 06:36-0500 ([id number]) Arterial blood by Pulse oximetry Oxygen 97 % (no code) 95 - 100 % 10-23-2019 no name [facility] saturation in 06:07-0500 ([id number]) Arterial blood by Pulse oximetry Oxygen 95 % (no code) 95 - 100 % 10-22-2019 no name [facility] saturation in 06:23-0500 ([id number]) Arterial blood by Pulse oximetry Oxygen 96 % (no code) 95 - 100 % 10-21-2019 no name [facility] saturation in 06:02-0500 ([id number]) Arterial blood by Pulse oximetry Oxygen 92 % (no code) 95 - 100 % 10-20-2019 no name [facility] saturation in 17:32-0500 ([id number]) Arterial blood by Pulse oximetry Oxygen 94 % (no code) 95 - 100 % 10-20-2019 no name [facility] saturation in 05:24-0500 ([id number]) Arterial blood by Pulse oximetry Oxygen 94 % (no code) 95 - 100 % 10-19-2019 no name [facility] saturation in 06:23-0500 ([id number]) Arterial blood by Pulse oximetry Oxygen 95 % (no code) 95 - 100 % 10-18-2019 no name [facility] saturation in 06:20-0500 ([id number]) Arterial blood by Pulse oximetry Oxygen 97 % (no code) 95 - 100 % 10-17-2019 no name [facility] saturation in 05:36-0500 ([id number]) Arterial blood by Pulse oximetry Oxygen 97 % (no code) 95 - 100 % 10-16-2019 no name [facility] saturation in 05:51-0500 ([id number]) Arterial blood by Pulse oximetry Oxygen 98 % (no code) 95 - 100 % 10-15-2019 no name [facility] saturation in 06:01-0500 ([id number]) Arterial blood by Pulse oximetry Oxygen 94 % (no code) 95 - 100 % 10-14-2019 no name [facility] saturation in 06:15-0500 ([id number]) Arterial blood by Pulse oximetry Oxygen 93 % (no code) 95 - 100 % 10-13-2019 no name [facility] saturation in 07:10-0500 ([id number]) Arterial blood by Pulse oximetry Oxygen 96 % (no code) 95 - 100 % 10-12-2019 no name [facility] saturation in 06:39-0500 ([id number]) Arterial blood by Pulse oximetry Oxygen 87 % (LL) 95 - 100 % 10-11-2019 no name [facility] saturation in 06:36-0500 ([id number]) Arterial blood by Pulse oximetry Oxygen 96 % (no code) 95 - 100 % 10-10-2019 no name [facility] saturation in 06:14-0500 ([id number]) Arterial blood by Pulse oximetry Oxygen 95 % (no code) 95 - 100 % 10-09-2019 no name [facility] saturation in 06:21-0500 ([id number]) Arterial blood by Pulse oximetry Oxygen 98 % (no code) 95 - 100 % 10-08-2019 no name [facility] saturation in 05:57-0500 ([id number]) Arterial blood by Pulse oximetry Oxygen 97 % (no code) 95 - 100 % 10-07-2019 no name [facility] saturation in 06:06-0500 ([id number]) Arterial blood by Pulse oximetry Oxygen 96 % (no code) 95 - 100 % 10-04-2019 no name [facility] saturation in 06:08-0500 ([id number]) Arterial blood by Pulse oximetry Oxygen 95 % (no code) 95 - 100 % 10-03-2019 no name [facility] saturation in 04:46-0500 ([id number]) Arterial blood by Pulse oximetry Oxygen 95 % (no code) 95 - 100 % 10-02-2019 no name [facility] saturation in 06:36-0500 ([id number]) Arterial blood by Pulse oximetry Oxygen 96 % (no code) 95 - 100 % 10-01-2019 no name [facility] saturation in 06:03-0500 ([id number]) Arterial blood by Pulse oximetry Oxygen 95 % (no code) 95 - 100 % 09-29-2019 no name [facility] saturation in 06:15-0500 ([id number]) Arterial blood by Pulse oximetry Oxygen 98 % (no code) 95 - 100 % 09-28-2019 no name [facility] saturation in 05:51-0500 ([id number]) Arterial blood by Pulse oximetry Oxygen 95 % (no code) 95 - 100 % 09-27-2019 no name [facility] saturation in 06:010500 ([id number]) Arterial blood by Pulse oximetry Oxygen 94 % (no code) 95 - 100 % 09-26-2019 no name [facility] saturation in 06:03-0500 ([id number]) Arterial blood by Pulse oximetry Oxygen 89 % (L) 95 - 100 % 09-25-2019 no name [facility] saturation in 05:31-0500 ([id number]) Arterial blood by Pulse oximetry Oxygen 96 % (no code) 95 - 100 % 09-24-2019 no name [facility] saturation in 06:080500 ([id number]) Arterial blood by Pulse oximetry Oxygen 96 % (no code) 95 - 100 % 09-23-2019 no name [facility] saturation in 06:03-0500 ([id number]) Arterial blood by Pulse oximetry Oxygen 94 % (no code) 95 - 100 % 09-22-2019 no name [facility] saturation in 06:010500 ([id number]) Arterial blood by Pulse oximetry Oxygen 96 % (no code) 95 - 100 % 09-21-2019 no name [facility] saturation in 06:150500 ([id number]) Arterial blood by Pulse oximetry Oxygen 97 % (no code) 95 - 100 % 09-20-2019 no name [facility] saturation in 06:080500 ([id number]) Arterial blood by Pulse oximetry Oxygen 95 % (no code) 95 - 100 % 09-19-2019 no name [facility] saturation in 06:090500 ([id number]) Arterial blood by Pulse oximetry Oxygen 94 % (no code) 95 - 100 % 09-18-2019 no name [facility] saturation in 06:150500 ([id number]) Arterial blood by Pulse oximetry Oxygen 95 % (no code) 95 - 100 % 09-17-2019 no name [facility] saturation in 06:060500 ([id number]) Arterial blood by Pulse oximetry Oxygen 96 % (no code) 95 - 100 % 09-16-2019 no name [facility] saturation in 06:310500 ([id number]) Arterial blood by Pulse oximetry Oxygen 94 % (no code) 95 - 100 % 09-15-2019 no name [facility] saturation in 06:090500 ([id number]) Arterial blood by Pulse oximetry Oxygen 95 % (no code) 95 - 100 % 09-14-2019 no name [facility] saturation in 08:220500 ([id number]) Arterial blood by Pulse oximetry Oxygen 96 % (no code) 95 - 100 % 09-13-2019 no name [facility] saturation in 06:44-0500 ([id number]) Arterial blood by Pulse oximetry Oxygen 96 % (no code) 95 - 100 % 09-12-2019 no name [facility] saturation in 06:270500 ([id number]) Arterial blood by Pulse oximetry Oxygen 98 % (no code) 95 - 100 % 09-11-2019 no name [facility] saturation in 06:26-0500 ([id number]) Arterial blood by Pulse oximetry Oxygen 97 % (no code) 95 - 100 % 09-10-2019 no name [facility] saturation in 04:06-0500 ([id number]) Arterial blood by Pulse oximetry Oxygen 96 % (no code) 95 - 100 % 09-09-2019 no name [facility] saturation in 05:52-0500 ([id number]) Arterial blood by Pulse oximetry Oxygen 96 % (no code) 95 - 100 % 09-08-2019 no name [facility] saturation in 06:18-0500 ([id number]) Arterial blood by Pulse oximetry Oxygen 95 % (no code) 95 - 100 % 09-07-2019 no name [facility] saturation in 06:21-0500 ([id number]) Arterial blood by Pulse oximetry Oxygen 93 % (no code) 95 - 100 % 09-06-2019 no name [facility] saturation in 06:19-0500 ([id number]) Arterial blood by Pulse oximetry Oxygen 98 % (no code) 95 - 100 % 09-05-2019 no name [facility] saturation in 05:18-0500 ([id number]) Arterial blood by Pulse oximetry Oxygen 95 % (no code) 95 - 100 % 09-04-2019 no name [facility] saturation in 05:10-0500 ([id number]) Arterial blood by Pulse oximetry Oxygen 96 % (no code) 95 - 100 % 09-03-2019 no name [facility] saturation in 06:11-0500 ([id number]) Arterial blood by Pulse oximetry Oxygen 94 % (no code) 95 - 100 % 09-02-2019 no name [facility] saturation in 06:00-0500 ([id number]) Arterial blood by Pulse oximetry Oxygen 97 % (no code) 95 - 100 % 09-01-2019 no name [facility] saturation in 05:46-0500 ([id number]) Arterial blood by Pulse oximetry Oxygen 95 % (no code) 95 - 100 % 08-31-2019 no name [facility] saturation in 05:41-0500 ([id number]) Arterial blood by Pulse oximetry Oxygen 97 % (no code) 95 - 100 % 08-30-2019 no name [facility] saturation in 06:37-0500 ([id number]) Arterial blood by Pulse oximetry Oxygen 97 % (no code) 95 - 100 % 08-29-2019 no name [facility] saturation in 05:05-0500 ([id number]) Arterial blood by Pulse oximetry Oxygen 94 % (no code) 95 - 100 % 08-28-2019 no name [facility] saturation in 06:06-0500 ([id number]) Arterial blood by Pulse oximetry Oxygen 98 % (no code) 95 - 100 % 08-27-2019 no name [facility] saturation in 06:14-0500 ([id number]) Arterial blood by Pulse oximetry Oxygen 97 % (no code) 95 - 100 % 08-26-2019 no name [facility] saturation in 06:32-0500 ([id number]) Arterial blood by Pulse oximetry Oxygen 95 % (no code) 95 - 100 % 08-25-2019 no name [facility] saturation in 05:49-0500 ([id number]) Arterial blood by Pulse oximetry Oxygen 98 % (no code) 95 - 100 % 08-24-2019 no name [facility] saturation in 05:54-0500 ([id number]) Arterial blood by Pulse oximetry Oxygen 94 % (no code) 95 - 100 % 08-23-2019 no name [facility] saturation in 06:05-0500 ([id number]) Arterial blood by Pulse oximetry Oxygen 95 % (no code) 95 - 100 % 08-22-2019 no name [facility] saturation in 06:30-0500 ([id number]) Arterial blood by Pulse oximetry Oxygen 94 % (no code) 95 - 100 % 08-21-2019 no name [facility] saturation in 05:29-0500 ([id number]) Arterial blood by Pulse oximetry Oxygen 98 % (no code) 95 - 100 % 08-20-2019 no name [facility] saturation in 06:56-0500 ([id number]) Arterial blood by Pulse oximetry Oxygen 95 % (no code) 95 - 100 % 08-19-2019 no name [facility] saturation in 06:23-0500 ([id number]) Arterial blood by Pulse oximetry Oxygen 96 % (no code) 95 - 100 % 08-18-2019 no name [facility] saturation in 06:14-0500 ([id number]) Arterial blood by Pulse oximetry Oxygen 96 % (no code) 95 - 100 % 08-17-2019 no name [facility] saturation in 07:02-0500 ([id number]) Arterial blood by Pulse oximetry Oxygen 88 % (LL) 95 - 100 % 08-16-2019 no name [facility] saturation in 04:20-0500 ([id number]) Arterial blood by Pulse oximetry Oxygen 95 % (no code) 95 - 100 % 08-15-2019 no name [facility] saturation in 06:07-0500 ([id number]) Arterial blood by Pulse oximetry Oxygen 94 % (no code) 95 - 100 % 08-14-2019 no name [facility] saturation in 06:33-0500 ([id number]) Arterial blood by Pulse oximetry Oxygen 98 % (no code) 95 - 100 % 08-13-2019 no name [facility] saturation in 11:45-0500 ([id number]) Arterial blood by Pulse oximetry Oxygen 97 % (no code) 95 - 100 % 08-12-2019 no name [facility] saturation in 06:03-0500 ([id number]) Arterial blood by Pulse oximetry Oxygen 97 % (no code) 95 - 100 % 08-11-2019 no name [facility] saturation in 08:16-0500 ([id number]) Arterial blood by Pulse oximetry Oxygen 96 % (no code) 95 - 100 % 08-10-2019 no name [facility] saturation in 07:23-0500 ([id number]) Arterial blood by Pulse oximetry Oxygen 96 % (no code) 95 - 100 % 08-09-2019 no name [facility] saturation in 06:11-0500 ([id number]) Arterial blood by Pulse oximetry Oxygen 95 % (no code) 95 - 100 % 08-08-2019 no name [facility] saturation in 05:56-0500 ([id number]) Arterial blood by Pulse oximetry Oxygen 98 % (no code) 95 - 100 % 08-07-2019 no name [facility] saturation in 06:20-0500 ([id number]) Arterial blood by Pulse oximetry Oxygen 97 % (no code) 95 - 100 % 08-06-2019 no name [facility] saturation in 05:19-0500 ([id number]) Arterial blood by Pulse oximetry Oxygen 97 % (no code) 95 - 100 % 08-05-2019 no name [facility] saturation in 06:04-0500 ([id number]) Arterial blood by Pulse oximetry Oxygen 95 % (no code) 95 - 100 % 08-04-2019 no name [facility] saturation in 05:43-0500 ([id number]) Arterial blood by Pulse oximetry Oxygen 98 % (no code) 95 - 100 % 08-03-2019 no name [facility] saturation in 04:57-0500 ([id number]) Arterial blood by Pulse oximetry Oxygen 95 % (no code) 95 - 100 % 08-02-2019 no name [facility] saturation in 06:09-0500 ([id number]) Arterial blood by Pulse oximetry Oxygen 93 % (no code) 95 - 100 % 08-01-2019 no name [facility] saturation in 06:22-0500 ([id number]) Arterial blood by Pulse oximetry Oxygen 95 % (no code) 95 - 100 % 07-31-2019 no name [facility] saturation in 05:53-0500 ([id number]) Arterial blood by Pulse oximetry Oxygen 95 % (no code) 95 - 100 % 07-30-2019 no name [facility] saturation in 05:43-0500 ([id number]) Arterial blood by Pulse oximetry Oxygen 94 % (no code) 95 - 100 % 07-29-2019 no name [facility] saturation in 07:37-0400 ([id number]) Arterial blood by Pulse oximetry Oxygen 94 % (no code) 95 - 100 % 07-27-2019 no name [facility] saturation in 07:33-0400 ([id number]) Arterial blood by Pulse oximetry Oxygen 90 % (L) 95 - 100 % 07-25-2019 no name [facility] saturation in 07:29-0400 ([id number]) Arterial blood by Pulse oximetry Pulse Oximetry 95 % (no code) 95 - 100 % 08-13-2018 [facility] 11:25-0500 [facility] [id number] [place] [address] ([id number]) Systolic blood 172 mm[Hg] (HH) 90 - 120 11-16-2019 no name [facility] pressure mm[Hg] 06:18-0500 ([id number]) Systolic blood 167 mm[Hg] (H) 90 - 120 11-13-2019 no name [facility] pressure mm[Hg] 06:30-0500 ([id number]) Systolic blood 173 mm[Hg] (HH) 90 - 120 11-05-2019 no name [facility] pressure mm[Hg] 05:47-0500 ([id number]) Systolic blood 190 mm[Hg] (HH) 90 - 120 11-03-2019 no name [facility] pressure mm[Hg] 05:55-0500 ([id number]) Systolic blood 163 mm[Hg] (H) 90 - 120 10-23-2019 no name [facility] pressure mm[Hg] 06:06-0500 ([id number]) Systolic blood 172 mm[Hg] (HH) 90 - 120 08-25-2019 no name [facility] pressure mm[Hg] 05:45-0500 ([id number]) Systolic blood 174 mm[Hg] (HH) 90 - 120 07-03-2019 no name [facility] pressure mm[Hg] 11:48-0400 ([id number]) Systolic blood 174 mm[Hg] (HH) 90 - 120 07-02-2019 no name [facility] pressure mm[Hg] 12:21-0400 ([id number]) Systolic blood 172 mm[Hg] (HH) 90 - 120 06-27-2019 no name [facility] pressure mm[Hg] 12:08-0400 ([id number]) Systolic blood 172 mm[Hg] (HH) 90 - 120 05-18-2019 no name [facility] pressure mm[Hg] 11:51-0400 ([id number]) Systolic blood 172 mm[Hg] (HH) 90 - 120 04-10-2019 no name [facility] pressure mm[Hg] 13:01-0400 ([id number]) Weight 51.71 kg (no code) kg 08-13-2018 [facility] ity 11:25-0500 [facility] [id number] [place] [address] ([id number]) Interventions No Information Plan of Treatment Normalized Care Care Detail Care Activity Date Care Provider F acility Activity Patient Education no information no information BRAIN SELF [phone] [facility] ([id number]) Patient referral no information no information BRAIN SELF [phone] [facility] ([id number]) Goals Patient Goal Desired Goal no information no information Social History Normalized Code Original Code Date Value no information no information no information Unknown if ever smoked Tobacco smoking status Tobacco smoking status 07-08-2019 - Smokes tobacco daily NHIS NHIS (finding) no information no information 07-08-2019 Denies Use no information no information 07-08-2019 No no information no information 07-08-2019 Denies no information no information 07-08-2019 Current Everyda y Smoker Sex Assigned At Sex Assigned At 1935 - 06-28 Female Functional Status The data below is from unstructured sourcesNo functional status information available.No functional status information available.No functional status information available.No functional status information available.No functional status information available.No Functional Status info rmation availableNo Functional Status information availableNo Functional Status information availableNo Functional Status information available Mental Status The data below is from unstructured sourcesNo Mental Status Information AvailableNo Mental Status Information AvailableNo Mental Status Information Available Encounters Encounter Normalized Encounter Encounter Diagnosis Care Provi isidro Organization Date Type 03-09-2019 ([facility]) Chronic Health Essential (primary) BRAIN SE LF (no [facility] - Maintenance hypertension phone) (no phone) 03-09-2019 - 03-09-2019 12-08-2018 ([facility]) Chronic Health Essential (primary) BRAIN SE LF (no [facility] - Maintenance hypertension phone) (no phone) 12-08-2018 - 12-08-2018 04-15-2019 ([facility]) Walk-In Care Dysuria DANAYLARRY PETERSON (n o [facility] - phone) CARE (no phone) 04-15-2019 - 04-15-2019 11-14-2018 ([facility]) [facility]In Care Dehydration KEVIN GUPTA (no [facility] - phone) CARE (no phone) 11-14-2018 - 11-14-2018 10-31-2018 ([facility]) Walk-In Care Cellulitis of face STACY STOKES (no [facility] - phone) CARE (no phone) 10-31-2018 - 10-31-2018 08-13-2018 ([facility]) Walk-In Care Acute nasopharyngitis KEVIN GUPTA (no [facility] - [common cold] phone) CARE (no phone) 08-13-2018 - 08-13-2018 09-08-2018 [facility] no information Doctor Migrati on (no [facility] - phone) (no phone) 09-08-2018 - 09-08-2018 08-02-2018 [facility] no information Doctor Migrati on (no [facility] - phone) (no phone) 08-02-2018 - 08-02-2018 06-02-2018 [facility] no information Doctor Migrati on (no [facility] - phone) (no phone) 06-02-2018 - 06-02-2018 02-28-2019 Consultation for Hypothyroidism, BRAIN SELF (no [facility] (no phone) - laboratory medicine unspecified phone) 02-28-2019 - 02-28-2019 01-16-2020 Emergency department no information (no phone) [facility] patient visit Hospital (no phone) 01-16-2020 07-08-2019 Emergency department no information (no phone) [facility] patient visit [facility] (no phone) 07-08-2019 Emergency department no information no name (no huong ne) no organization name - patient visit (no phone) 07-08-2019 05-18-2019 Emergency department no information FELIZ meeks no organization name - patient visit (no phone ) 05-18-2019 05-18-2019 Emergency department no information no name (no huong ne) no organization name - patient visit (no phone) 05-18-2019 12-13-2018 Emergency department no information FELIZ meeks no organization name - patient visit (no phone ) 12-13-2018 FELIZ Cai 12-13-2018 Emergency department no information no name (no huong ne) no organization name - patient visit (no phone) 12-13-2018 03-06-2019 Encounter by computer no information BRAIN SELF ( no [facility] - link phone) (no phone) 03-06-2019 - 03-06-2019 [facility]no [facility]-2019 Patient encounter no information BRAIN J SELF (no [facility] phone) [facility] (no phone) 10-17-2019 Patient encounter no information no name (no phone) no organization name procedure (no phone) 09-30-2019 Patient encounter no information no name (no phone) no organization name procedure (no phone) 07-08-2019 Patient encounter no information no name (no phone) no organization name procedure (no phone) 06-26-2019 Patient encounter no information no name (no phone) no organization name procedure (no phone) 06-26-2019 Patient encounter no information (no phone) [facility] (no phone) 06-23-2019 Patient encounter no information no name (no phone) no organization name procedure (no phone) 05-18-2019 Patient encounter no information no name (no phone) no organization name procedure (no phone) 04-15-2019 Patient encounter no information no name (no phone) no organization name procedure (no phone) 03-09-2019 Patient encounter no information no name (no phone) no organization name procedure (no phone) 02-28-2019 Patient encounter no information no name (no phone) no organization name procedure (no phone) 02-28-2019 Patient encounter no information no name (no phone) no organization name procedure (no phone) 12-13-2018 Patient encounter no information FELIZ CASTELLANO Work no organization name - procedure (no phone ) 12-14-2018 FELIZ [employer] 12-13-2018 Patient encounter no information no name (no phone) no organization name procedure (no phone) 12-13-2018 Patient encounter no information no name (no phone) no organization name procedure (no phone) 12-08-2018 Patient encounter no information no name (no phone) no organization name procedure (no phone) 12-08-2018 Patient encounter no information no name (no phone) no organization name procedure (no phone) 11-14-2018 Patient encounter no information no name (no phone) no organization name procedure (no phone) 10-31-2018 Patient encounter no information no name (no phone) no organization name procedure (no phone) 09-02-2015 Patient encounter no information no name (no phone) no organization name procedure (no phone) 09-02-2015 Patient encounter no information no name (no phone) no organization name procedure (no phone) 01-19-2014 Patient encounter no information no name (no phone) no organization name procedure (no phone) 05-23-2013 Patient encounter no information no name (no phone) no organization name procedure (no phone) 03-23-2019 Telephone encounter no information BRAIN SELF (no [facility] - phone) (no phone) 03-23-2019 - 03-23-2019 01-23-2019 Telephone encounter no information BRAIN SELF (no [facility] - phone) (no phone) 01-23-2019 - 01-23-2019 12-13-2018 Telephone encounter no information BRAIN SELF (no [facility] - phone) (no phone) 12-13-2018 - 12-13-2018 12-12-2018 Telephone encounter Hypothyroidism, BRAIN SELF (n o [facility] - unspecified phone) (no phone) 12-12-2018 - 12-12-2018 12-07-2018 Telephone encounter Essential (primary) BRAIN BRAVO F (no [facility] - hypertension phone) (no phone) 12-07-2018 - 12-07-2018 11-14-2018 Telephone encounter no information BRAIN SELF (no [facility] - phone) IN CARE (no phone) 11-14-2018 - 11-14-2018 11-11-2018 Telephone encounter no information BRAIN SELF (no [facility] - phone) (no phone) 11-11-2018 - 11-11-2018 09-25-2018 Telephone encounter no information Doctor Migration (no [facility] - phone) (no phone) 09-25-2018 - 09-25-2018 Medical Equipment The data below is from unstructured sourcesNo Medical Equipment Information availableNo Medical Equipment Information availableNo Medical Equipment Information available Payers Normalized Payer Value Unknown [id number] ([id number]) Unknown no information ([id number]) Private Health Insurance no information ([id number]) Medicare [id number] ([id number]) Medicare [id number] ([id number]) Medicare no information ([id number]) Evaluation note Note Type Note Facility Evaluation No Assessments Information Available A scension note [facility] ([id number]) Advance Directives Directive Response Recor ded Date/Time Advance Directives No 5:50pm Directive Response Recor ded Date/Time Advance Directives No 5:24pm Resuscitation Status DNR-Pt Request 05/18/19 5:24pm Advance Directive Response Recorded Date/Time Advance Directives No Oc tober 2018 12:50pm Resuscitation Status Full Code July 08, 2019 12:50pm Advance Directive Response Recorded Date/Time Advance Directives No Ap 2019 5:45pm Resuscitation Status Full Code January 16, 2020 5:45pm Discharge Instructions No hospital discharge instruction information available. Chief Complaint and Reason for Visit Chief Complaint Trauma-Non Activatio n Reason for Visit Diphtheria-pertussi s-tetanus (DPT) vaccination administeredat current visit Contusion of right thigh, initial encounter RIGHT HAND CONTUSION AND ABRASIONS S/P FALL FROM STANDING Chief Complaint Trauma-Non Activatio n Reason for Visit [id number] Chief Complaint Trauma-Non Activatio n Reason for Visit [id number] Assessments No Assessments Information Available Additional Source Comments This clinical document has been generated using [employer] software that has been certified by the Office of the National Coordinator for Health Information Technology (ONC 15.99.04.3023.Diam.31.00.0.402456) and the National Committee for Winding Operator (NCQA, as an eMeasure certified technology). FOR RECORDS PERTAINING TO PATIENTS WHO ARE OR HAVE BEEN ENROLLED IN A CHEMICAL D EPENDENCY/SUBSTANCE ABUSE PROGRAM, SOME INFORMATION MAY BE OMITTED. This clinica l summary was aggregated from multiple sources. Caution should be exercised in using it in the provision of clinical care. This summary normalizes information from multiple sources, and as a consequence, information in this document may ma terially change the coding, format and clinical context of patient data. In misbah tion, data may be omitted in some cases. CLINICAL DECISIONS SHOULD BE BASED ON T HE PRIMARY CLINICAL RECORDS. [employer] provides no warranty or guara ntee of the accuracy or completeness of information in this document.The followi ng information is based on time limited clinical information UNRECOGNIZED CONTENT PROVIDED BELOW FOR UNRECOGNIZED SECTION REASON FOR VISIT Cough x1 week JStrasserRNCHMAdvice UNRECOGNIZED CONTENT PROVIDED BELOW FOR UNRECOGNIZED SECTION MEDICAL (GENERAL) HISTORY Type Description Date Medical History Alzheimers Medical History Hypertension Surgical History No Surgical history information Type Description Date Medical History Alzheimer disease Medical History Essential (primary) hypertension Medical History Hyperlipidemia Medical History Scoliosis Medical History Dementia Medical History [place] (myocardial i nfarction) Medical History Hypothyroidism (acquired) Medical History Chronic kidney disea se, stage 5 Medical History Mild depression Surgical History DOC with BSO Hospitalization History post surgery
--- OUTSIDE RECORDS SUMMARY | 2020-01-21 10:50 | XMS REPORT ---
Author Author SELFKerrie Organization [facility] Address [address] [place] [address] Care Team Providers Care Thermo Processor Name Role Phone BRAIN BOWLES Unavailable PROBLEMS Type Condition ICD9-CM Code VNC52-TU Code Onset Dates Condition S tatus SNOMED Code Problem Gout M10.9 Dec, Active 6851989 7 Problem Hyperlipidemia E78.5 Jun, Active 55 807314 Problem Essential hypertension I10 Feb, Acti ve 44687873 Problem Renal insufficiency N28.9 Mar, Active 343499426 Problem Acquired hypothyroidism E03.9 Feb, Act sadie 341108816 Problem Dementia without behavioral disturbance F03.90 Aug, Active 94154605 Problem Moderate single current episode of major depressive di sorder F32.1 Dec, Active 25083783 Problem Dementia F03.90 Active 69118142 Problem Alzheimer disease G30.9 Active 26 800890 Problem Hyperkalemia E87.5 Feb, Active 1414 0009 Problem Diastolic dysfunction I51.9 Apr, Activ e 3233239 Problem Acute cystitis without hematuria N30.00 January, Active 10595720 Problem Anemia, chronic renal failure, stage 5 N18.5 0 May, Active 685623220 Problem 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 January, Acti ve 5772548 Problem [place] (myocardial infarction) I25.2 13 Aug, 2 018 Active 5968190 Problem Late onset Alzheimers disease without behavioral distu rbance G30.1 May, Active 33534935 Problem Metabolic acidosis E87.2 January, Active 18101523 Problem Stable angina pectoris I20.8 05 May, 2018 Acti ve 749807151 Problem Hypothyroidism (acquired) E03.9 Acti ve 58283983 Problem Hypertension I10 Active 1851098 3 Problem Essential (primary) hypertension I10 Active 94546896 Problem Alzheimer''s disease with early onset G30.0 Active 764975842575819 Problem Scoliosis M41.9 January, Active 0848893 03 Problem Dementia in other diseases c lassified elsewhere with behavioral disturbance F02.81 Active 7213202453304 Problem LVH (left ventricular hypertrophy) I51.7 2015 Active 8311083 Problem Primary osteoarthritis involving multiple joints M15.0 Feb, Active 384824817 Problem Lead-induced chronic gout, u nspecified ankle and foot, 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 Active 370333723 Problem Urinary incontinence without sensory awareness N39 .42 Active 832938582 Problem Chronic kidney disease, stage 5 N18.5 Active 681174166 Problem Mild depression F32.0 Active 3104 75384 ALLERGIES No Information ENCOUNTERS Encounter Location Date [facility] [address] [facility] [id number] [address] [place] [address] Mar, Dysuria R30.0 ; Acute cystit is without hematuria N30.00 ; Alzheimer''s disease with early onset G30.0 and Dementia in other diseases classified elsewhere with behavioral disturbance F02.[address] [address] Feb, [address] [address] Feb, Essential hypertension I10 ; Acquired hy pothyroidism E03.9 ; Chronic kidney disease, stage 5 N18.5 and Urinary incontinence without sensory awareness N39.[address] [address] Feb, [address] [address] Feb, [facility] [address] [place] [address] Feb, Acquired hypothyroidism E03.[address] [address] Dec, [address] [address] Nov, [address] [address] Nov, Acquired hypothyroidism E03.[address] [address] 14 Nov, 2018 Essential hypertension I10 and Acute blo od loss anemia D62 [address] [address] Nov, Essential hypertension I10 and Acute blo od loss anemia D62 [address] [address] Nov, [facility] [id number] [place] [address] Oct, Dehydration E86.0 and Lead-i nduced chronic gout, unspecified ankle and foot, 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 [facility] [address] [place] [address] Oct, [address] [address] Oct, [facility] [id number] [place] [address] 04 Oct, 2018 Facial cellulitis L03.211 an d Acute non-recurrent maxillary sinusitis J01.00 [facility] [address] [place] [address] Aug, [facility] [id number] [place] [address] Aug, [facility] [id number] [place] [address] Jul, Acute nasopharyngitis J00 [facility] [id number] [place] [address] Jul, [place] [id number] [place] [address] May, IMMUNIZATIONS No Known Immunizations SOCIAL HISTORY Never Assessed REASON FOR VISIT Advice PLAN OF CARE VITAL SIGNS MEDICATIONS No Known Medications RESULTS No Results PROCEDURES No Known procedures INSTRUCTIONS MEDICATIONS ADMINISTERED No Known Medications MEDICAL (GENERAL) HISTORY Type Description Date Medical History Alzheimer disease Medical History Essential (primary) hypertension Medical History Hyperlipidemia Medical History Scoliosis Medical History Dementia Medical History [place] (my[place]) Medical History Hypothyroidism (acquired) Medical History Chronic kidney disease, stage 5 Medical History Mild depression Surgical History DOC with BSO Hospitalization History post surgery
--- OUTSIDE RECORDS SUMMARY | 2020-01-21 10:50 | XMS REPORT ---
Author Author WILBURKerrie Organization [facility] Address [address] [place] [address] Care Team Providers Care Coding Analyst Name Role Phone BRAIN BOWLES Unavailable PROBLEMS Type Condition ICD9-CM Code GCM95-EM Code Onset Dates Condition S tatus SNOMED Code Problem Gout M10.9 Dec, Active 6927515 7 Problem Hyperlipidemia E78.5 Jun, Active 55 858927 Problem Essential hypertension I10 Feb, Acti ve 69528762 Problem Renal insufficiency N28.9 Mar, Active 616741546 Problem Acquired hypothyroidism E03.9 Feb, Act sadie 553530344 Problem Dementia without behavioral disturbance F03.90 Aug, Active 04271393 Problem Moderate single current episode of major depressive di sorder F32.1 Dec, Active 05294844 Problem Dementia F03.90 Active 79283109 Problem Alzheimer disease G30.9 Active 26 795951 Problem Hyperkalemia E87.5 Feb, Active 1414 0009 Problem Diastolic dysfunction I51.9 Apr, Activ e 3761593 Problem Acute cystitis without hematuria N30.00 January, Active 55300251 Problem Anemia, chronic renal failure, stage 5 N18.5 0 May, Active 917406152 Problem 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 January, Acti ve 4006443 Problem Old [place] (myocardial infarction) I25.2 13 Aug, 2 018 Active 3680827 Problem Late onset Alzheimers disease without behavioral distu rbance G30.1 May, Active 29584523 Problem Metabolic acidosis E87.2 January, Active 29144241 Problem Stable angina pectoris I20.8 05 May, 2018 Acti ve 511381540 Problem Hypothyroidism (acquired) E03.9 Acti ve 59459568 Problem Hypertension I10 Active 7020202 3 Problem Essential (primary) hypertension I10 Active 23375139 Problem Alzheimer''s disease with early onset G30.0 Active 403320916186287 Problem Scoliosis M41.9 January, Active 9280698 03 Problem Dementia in other diseases c lassified elsewhere with behavioral disturbance F02.81 Active 1074907320321 Problem LVH (left ventricular hypertrophy) I51.7 2015 Active 3702764 Problem Primary osteoarthritis involving multiple joints M15.0 Feb, Active 660487928 Problem Lead-induced chronic gout, u nspecified ankle and foot, 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 [id number] [place] [address] Mar, Dysuria R30.0 ; Acute cystit is without hematuria N30.00 ; Alzheimer''s disease with early onset G30.0 and Dementia in other diseases classified elsewhere with behavioral disturbance F02.[address] [address] Feb, [address] [address] Feb, Essential hypertension I10 ; Acquired hy pothyroidism E03.9 ; Chronic kidney disease, stage 5 N18.5 and Urinary incontinence without sensory awareness N39.[address] [address] Feb, [address] [address] Feb, [facility] [address] [place] [address] Feb, Acquired hypothyroidism E03.[address] [address] Dec, [address] [address] Nov, [address] [address] Nov, Acquired hypothyroidism E03.[address] [address] 14 Nov, 2018 Essential hypertension I10 and Acute blo od loss anemia D62 [address] [address] Nov, Essential hypertension I10 and Acute blo od loss anemia D62 [address] [address] Nov, [facility] [address] [place] [address] Oct, Dehydration E86.0 and Lead-i nduced chronic gout, unspecified ankle and foot, 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 [facility] [address] [place] [address] Oct, [address] [address] Oct, [facility] [address] [place] [id number] [place] [phone] Oct, Facial cellulitis L03.211 an d Acute non-recurrent maxillary sinusitis J01.00 [facility] [address] [place] [phone] Aug, [facility] [address] [place] [address] [id number] [place] [phone] Aug, [facility] [address] [place] [phone] Jul, Acute nasopharyngitis J00 [facility] [address] [place] [phone] Jul, [place] [address] [place] [phone] May, IMMUNIZATIONS No Known Immunizations SOCIAL HISTORY Never Assessed REASON FOR VISIT CHM PLAN OF CARE Activity Details Follow Up 4 Months Reason:fu BP VITAL SIGNS Height 4'11" in 2018-12-08 Weight 104 lbs 2018-12-08 BMI 21 kg/m2 2018-12-08 Blood pressure systolic 154 mmHg 2018-12-08 Blood pressure diastolic 84 mmHg 2018-12-08 MEDICATIONS Medication Instructions Dosage Frequency Start Date End Date Duration S tatus Sertraline HCl 100 MG Orally Once a day 1 1/2 tablets 24h 30 day(s) Active Xanax 0.25 MG Orally Twice a day 1 tablet 12h Active Aspir-81 81 MG Orally Once a day 1 tablet 24h 30 day (s) Active Lisinopril 10 MG Orally 2 times a day 1 tablet 12h 3 0 day(s) Active Nitroglycerin 0.4 MG as directed Active Trazodone HCl 100 MG Orally Once a day 1 tablet at bedtime 24h 30 day(s) Active Protonix 40 MG Orally twice a day 1 tablet 12h Active Colchicine 0.6 MG Orally one time 2 tablet as needed for gout attac k Oct, 1 dose Active Levothyroxine Sodium 75 MCG Orally Once a day 1 tablet on an empty stomach in the morning 24h 30 day(s) Active RESULTS No Results PROCEDURES Procedure Date Ordered Result Body Site [facility] VISIT ESTABLISHED PATIENT December 08, 2018 MARICRUZ, ROUTINE* December 08, 2018 [facility] December 08, 2018 INSTRUCTIONS MEDICATIONS ADMINISTERED No Known Medications MEDICAL (GENERAL) HISTORY Type Description Date Medical History Alzheimer disease Medical History Essential (primary) hypertension Medical History Hyperlipidemia Medical History Scoliosis Medical History Dementia Medical History Old [place] (myocardial infarction) Medical History Hypothyroidism (acquired) Medical History Chronic kidney disease, stage 5 Medical History Mild depression Surgical History DOC with BSO Hospitalization History post surgery
--- OUTSIDE RECORDS SUMMARY | 2020-01-21 10:50 | XMS REPORT ---
Author Author WILBURKerrie Organization [facility] Address [address] [place] [address] Care Team Providers Care Egg Crater Name Role Phone BRAIN BOWLES Unavailable PROBLEMS Type Condition ICD9-CM Code HDX85-MG Code Onset Dates Condition S tatus SNOMED Code Problem Gout M10.9 Dec, Active 8575571 7 Problem Hyperlipidemia E78.5 Jun, Active 55 531611 Problem Essential hypertension I10 Feb, Acti ve 83939723 Problem Renal insufficiency N28.9 Mar, Active 527599159 Problem Acquired hypothyroidism E03.9 Feb, Act sadie 012575199 Problem Dementia without behavioral disturbance F03.90 Aug, Active 09126745 Problem Moderate single current episode of major depressive di sorder F32.1 Dec, Active 17706437 Problem Dementia F03.90 Active 94613532 Problem Alzheimer disease G30.9 Active 26 297973 Problem Hyperkalemia E87.5 Feb, Active 1414 0009 Problem Diastolic dysfunction I51.9 Apr, Activ e 0897708 Problem Acute cystitis without hematuria N30.00 January, Active 21708975 Problem Anemia, chronic renal failure, stage 5 N18.5 0 May, Active 644054328 Problem 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 January, Acti ve 4590263 Problem Old [place] (myocardial infarction) I25.2 13 Aug, 2 018 Active 7539025 Problem Late onset Alzheimers disease without behavioral distu rbance G30.1 May, Active 24239687 Problem Metabolic acidosis E87.2 January, Active 51449709 Problem Stable angina pectoris I20.8 05 May, 2018 Acti ve 870033334 Problem Hypothyroidism (acquired) E03.9 Acti ve 20087706 Problem Hypertension I10 Active 2616663 3 Problem Essential (primary) hypertension I10 Active 38467719 Problem Alzheimer''s disease with early onset G30.0 Active 017393355180741 Problem Scoliosis M41.9 January, Active 8414326 03 Problem Dementia in other diseases c lassified elsewhere with behavioral disturbance F02.81 Active 2456258596310 Problem LVH (left ventricular hypertrophy) I51.7 2015 Active 3168726 Problem Primary osteoarthritis involving multiple joints M15.0 Feb, Active 102922596 Problem Lead-induced chronic gout, u nspecified ankle and foot, 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 Active 002183858 Problem Urinary incontinence without sensory awareness N39 .42 Active 070828930 Problem Chronic kidney disease, stage 5 N18.5 Active 754738949 Problem Mild depression F32.0 Active 3104 20987 ALLERGIES No Information ENCOUNTERS Encounter Location Date Diagnosis [facility] [address] [facility] [id number] [place] [address] Mar, Dysuria R30.0 ; Acute cystit is without hematuria N30.00 ; Alzheimer''s disease with early onset G30.0 and Dementia in other diseases classified elsewhere with behavioral disturbance F02.[address] [address] Feb, [address] [address] Feb, Essential hypertension I10 ; Acquired hy pothyroidism E03.9 ; Chronic kidney disease, stage 5 N18.5 and Urinary incontinence without sensory awareness N39.[address] [address] Feb, [address] [address] Feb, [facility] [address] [place] [address] Feb, Acquired hypothyroidism E03.[address] [address] Dec, [address] [address] Nov, [address] [address] Nov, Acquired hypothyroidism E03.[address] [address] 14 Nov, 2018 Essential hypertension I10 and Acute blo od loss anemia D62 [address] [address] Nov, Essential hypertension I10 and Acute blo od loss anemia D62 [address] [address] Nov, [facility] [address] [place] [address] Oct, Dehydration E86.0 and Lead-i nduced chronic gout, unspecified ankle and foot, 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 [facility] [address] [place] [address] Oct, [address] [address] Oct, [facility] [address] [place] [id number] [place] [phone] 04 Oct, 2018 Facial cellulitis L03.211 an d Acute non-recurrent maxillary sinusitis J01.00 [facility] [address] [place] [address] Aug, [facility] [address] [place] [id number] [place] [phone] Aug, [facility] [address] [place] [address] Jul, Acute nasopharyngitis J00 [place] [address] [place] [id number] [place] [phone] Jul, [place] [address] [place] [id number] [place] [phone] May, IMMUNIZATIONS No Known Immunizations SOCIAL HISTORY Never Assessed REASON FOR VISIT PLAN OF CARE VITAL SIGNS MEDICATIONS Medication Instructions Dosage Frequency Start Date End Date Duration S tatus Levothyroxine Sodium 100 MCG Orally Once a day 1 tablet on an empty stomach in the morning 24h 30 days Active RESULTS No Results PROCEDURES No Known procedures INSTRUCTIONS MEDICATIONS ADMINISTERED No Known Medications MEDICAL (GENERAL) HISTORY Type Description Date Medical History Alzheimer disease Medical History Essential (primary) hypertension Medical History Hyperlipidemia Medical History Scoliosis Medical History Dementia Medical History Old MT (myocardial infarction) Medical History Hypothyroidism (acquired) Medical History Chronic kidney disease, stage 5 Medical History Mild depression Surgical History DOC with BSO Hospitalization History post surgery
[2020-01-21 11:09] VITALS: BP 163/77
[2020-01-21] MEDS ORDERED: CEPH-507 PO (11:09)
== END 2020-01-21 11:11 | disposition home or self-care (01) ==
LOC: EDUNIT# 10:35 → ER 10:36
DX: S01.411D Laceration without foreign body of right cheek and temporomandibular area, subsequent encounter (principal); X58.XXXD Exposure to other specified factors, subsequent encounter

== ENCOUNTER 2020-06-03 09:40 | Emergency (ER) | payer MEDICARE, MEDICAID ==
[~2020-06-03] VITALS: Ht 160 cm; Wt 68.0 kg
[~2020-06-03 09:40] MED LIST changes: +CEPH-507 PO; +L.AC1CAP6 PO; +NITR-65 PO
[2020-06-03] MEDS ORDERED: NS IV 500 ML 500 ML IV ONE ×2 (10:01→12:19)
--- NOTE | 2020-06-03 10:09 | ED GI ---
General Stated Complaint: DIARRHEA;L KNEE PAIN;LOW BP Source of Information: Patient, Family (daughter) Exam Limitations: No Limitations History of Present Illness Date Seen by Provider: Jun 03, 2020 Time Seen by Provider: 09:55 Initial Comments Patient presents ER by private conveyance with her daughter and chief complaint she had a fall a couple days ago and was worked up in the ER complaining of continued left knee pain and now diarrhea after starting Keflex for UTI. Antibiotics were switched yesterday to Macrobid. Daughter claims they are taking Imodium. The patient has dementia and contracts little to her history. Allergies and Home Medications Allergies Coded Allergies: No Known Drug Allergies (Unverified , 12/13/18) Home Medications Cephalexin 500 Mg Capsule, 500 MG PO TID Prescribed by: JABIER AN on 01/21/20 1109 Cephalexin 500 Mg Capsule, 500 MG PO BID Prescribed by: FLORENTIN [place]KE on 06/01/20 1354 L.acidoph & Paracasei,B.lactis 1 Each Capsule, 2 EACH PO BID Prescribed by: GABBY CHAIREZ on 06/02/20 0812 Nitrofurantoin Monohyd/M-Cryst 100 Mg Capsule, 1 TAB PO BID Prescribed by: GABBY CHAIREZ on 06/02/20 0812 Patient Home Medication List Home Medication List Reviewed: Yes Review of Systems Review of Systems Constitutional: No chills, No diaphoresis EENTM: No Blurred Vision, No Double Vision Respiratory: Denies Cough, Denies Shortness of Air Cardiovascular: Denies Chest Pain, Denies Edema Gastrointestinal: Denies Abdominal Pain, Denies Constipated; Diarrhea, Vomiting (x1) Genitourinary: Denies Burning, Denies Discharge Musculoskeletal: No back pain, No joint pain Skin: No pruritus, No rash Psychiatric/Neurological: Denies Anxiety, Denies Depressed All Other Systems Reviewed Negative Unless Noted: Yes Past Vxboczh-Zgeuwm-Vslmye Hx Patient Social History Alcohol Use: Denies Use Recreational Drug Use: No Smoking Status: Never a Smoker 2nd Hand Smoke Exposure: No Recent Foreign Travel: No Contact w/Someone Who Travel: No Recent Hopitalizations: No Immunizations Up To Date Tetanus Booster (TDap): More than 5yrs Seasonal Allergies Seasonal Allergies: No Past Medical History Surgeries: Yes Hysterectomy Respiratory: Yes (TB) Tuberculosis Cardiac: Yes Coronary Artery Disease, Heart Attack, Hypertension Neurological: Yes (ALZHEIMER'S) Dementia 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 0oz. 47.700475nv; 20.00 BMI Method:Actual General Appearance: WD/WN, no apparent distress HEENT: PERRL/EOMI, normal ENT inspection Neck: non-tender, full range of motion Respiratory: lungs clear, normal breath sounds, no respiratory distress, no accessory muscle use Cardiovascular: normal peripheral pulses, regular rate, rhythm Peripheral Pulses: 2+ Dorsalis Pedis (R), 2+ Left Dors-Pedis (L), 2+ Radial Pulses (R), 2+ Radial Pulses (L) Gastrointestinal: normal bowel sounds, non tender, soft Neurologic/Psychiatric: no motor/sensory deficits, alert, normal mood/affect, oriented x 3 Skin: normal color, warm/dry Procedures/Interventions Suture Size: 5-0 Progress/Results/Core Measures Results/Orders Lab Results Laboratory Tests Test 06/03/20 09:53 06/03/20 11:51 06/03/20 12:10 Range/Units White Blood Count 8.2 4.3-11.0 10^3/uL Red Blood Count 3.30 L 4.35-5.85 10^6/uL Hemoglobin 9.8 L 11.5-16.0 G/DL Hematocrit 30 L 35-52 % Mean Corpuscular Volume 91 80-99 FL Mean Corpuscular Hemoglobin 30 25-34 PG Mean Corpuscular Hemoglobin Concent 33 32-36 G/DL Red Cell Distribution Width 15.5 H 10.0-14.5 % Platelet Count 201 130-400 10^3/uL Mean Platelet Volume 10.4 7.4-10.4 FL Neutrophils (%) (Auto) 77 H 42-75 % Lymphocytes (%) (Auto) 15 12-44 % Monocytes (%) (Auto) 7 0-12 % Eosinophils (%) (Auto) 2 0-10 % Basophils (%) (Auto) 0 0-10 % Neutrophils # (Auto) 6.3 1.8-7.8 X 10^3 Lymphocytes # (Auto) 1.2 1.0-4.0 X 10^3 Monocytes # (Auto) 0.6 0.0-1.0 X 10^3 Eosinophils # (Auto) 0.2 0.0-0.3 10^3/uL Basophils # (Auto) 0.0 0.0-0.1 10^3/uL Sodium Level 134 L 135-145 MMOL/L Potassium Level 6.4 H 6.0 H 3.6-5.0 MMOL/L Chloride Level 112 H 98-107 MMOL/L Carbon Dioxide Level 10 L 21-32 MMOL/L Anion Gap 12 5-14 MMOL/L Blood Urea Nitrogen 82 H 7-18 MG/DL Creatinine 2.66 H 0.60-1.30 MG/DL Estimat Glomerular Filtration Rate 17 BUN/Creatinine Ratio 31 Glucose Level 91 70-105 MG/DL Calcium Level 8.3 L 8.5-10.1 MG/DL Corrected Calcium 8.7 8.5-10.1 MG/DL Total Bilirubin 0.3 0.1-1.0 MG/DL Aspartate Amino Transf (AST/SGOT) 21 5-34 U/L Alanine Aminotransferase (ALT/SGPT) 12 0-55 U/L Alkaline Phosphatase 89 40-136 U/L Total Protein 7.2 6.4-8.2 GM/DL Albumin 3.5 3.2-4.5 GM/DL Glucometer 136 H 70-110 MG/DL My Orders Orders - GABBY CHAIREZ Cbc With Automated Diff (06/03/20 10:01) Comprehensive Metabolic Panel (06/03/20 10:01) Stool Culture (06/03/20 10:01) Fecal Wbc (06/03/20 10:01) C Difficile Ag + Toxin A/B. (06/03/20 10:01) Ed Iv/Invasive Line Start (06/03/20 10:01) Ns Iv 500 Ml (Sodium Chloride 0.9%) (06/03/20 10:01) Ed Iv/Invasive Line Start (06/03/20 11:03) D5 Ns 1000 Ml Iv Solution (Dextrose 5%/0 (06/03/20 11:03) Albuterol Pre-Mix Nebs (Rt) (Proventil (06/03/20 11:03) Svn Small Volume Nebulizer (06/03/20 11:03) Insulin (Regular) Human (Novolin R (Per (06/03/20 11:15) Potassium (06/03/20 11:03) Accucheck Stat ONCE (06/03/20 12:03) Ed Iv/Invasive Line Start (06/03/20 12:19) Ns Iv 500 Ml (Sodium Chloride 0.9%) (06/03/20 12:19) Medications Given in ED Current Medications Medications Dose Ordered Sig/Carlos Alberto Route Start Time Stop Time Status Last Admin Dose Admin Dextrose/Sodium Chloride 1,000 ml @ 0 mls/hr Q0M ONCE IV 06/03/20 11:03 06/03/20 12:20 DC 06/03/20 11:18 0 MLS/HR Sodium Chloride 500 ml @ 0 mls/hr Q0M ONCE IV 06/03/20 10:01 06/03/20 10:05 DC 06/03/20 10:14 0 MLS/HR Sodium Chloride 500 ml @ 0 mls/hr Q0M ONCE IV 06/03/20 12:19 06/03/20 12:20 DC 06/03/20 12:24 0 MLS/HR Vital Signs/I&O 06/03/20 06/03/20 09:46 11:24 Temp 36.0 Pulse 71 Resp 20 B/P (MAP) 125/62 (83) Pulse Ox 96 94 O2 Delivery Room Air Room Air Progress Progress Note #1: Time: 10:08 Progress Note Mild tenderness over the left greater trochanter. Previous x-rays were normal. Suspect bursitis. We'll get another full view of the left femur plain film 2. She is not hypotensive currently with her lowest blood pressure 109/60 but we'll give her half a liter of fluids given the history of diarrhea probably related to the antibiotics. Aseptic vital signs. We'll check some basic labs and electrolytes look for evidence of dehydration. If she produces no diarrhea we'll get a C. difficile colitis, white blood cell and stool culture. Progress Note #2: Time: 11:57 Progress Note Discussed the case with the daughter, Kvng ARANGO and she states that the hyperkalemia and chronic kidney disease that has been ongoing for some time. She did discuss with Dr. solo whether they wanted to pursue this with a machine finisher because of the advanced dementia they had elected instead to go on hospice. The patient is not on hospice presently but has been on hospice's services several times t hroughout the past year. We do not have lab redraw potassium and if it still high we have are initiated some D5 normal saline and given her 3 doses of albuterol. We we will give 5 units of subcutaneous insulin. Since is appears to be a chronic problem however we are going to stop treating the high potassium and just treat her dehydration. We did make an offer for observation overnight for gentle rehydration versus going home after some IV fluids in the ER. Family wants to see how she is feeling after the IV fluids. The patient does not have any strong desire to stay in the hospital. She has not produced any stool at this time. We did review the hip femur and knee x-ray from 2 days ago and canceled the femur x-ray today. Patient is not having any discomfort in her knee after a thorough examination but is having some pain over her greater trochanteric bursa which is most likely the source of her current knee pain complaint. Progress Note #3: Time: 13:05 Progress Note The patient has received her IV fluids and her blood pressure has stayed up about 100 -110 systolic the entire time. She's not tachycardic has aseptic vital signs and a nontender, nonacute abdomen. I discussed this with the patient's daughter who is her power of commercial litigation attorney since the patient is not able to make decisions secondary to her advanced Alzheimer's dementia. We did offer her a stay in the hospital for some gentle rehydration and management versus owing home with return precautions. The daughter is okay with taking her home. She wants something for her inflamed hemorrhoids related to the diarrhea so we are going to recommend pramoxine with hydrocortisone foam and addition to continuing the neck or bed. Departure Impression Primary Impression: Diarrhea due to drug Additional Impressions: Trochanteric bursitis of left hip UTI (urinary tract infection) Qualified Codes: N30.00 - Acute cystitis without hematuria Chronic kidney disease Qualified Codes: N18.9 - Chronic kidney disease, unspecified Hemorrhoids Qualified Codes: K64.9 - Unspecified hemorrhoids Disposition: HOME, SELF-CARE Condition: Improved Departure-Patient Inst. Decision time for Depature: 13:08 Referrals: SELF,BRAIN QUACH (PCP/Family) Primary Care Physician Patient Instructions: Bursitis (DC), How to Do a Sitz Bath, Hemorrhoids Add. Discharge Instructions: Continue taking the Macrobid to completion. Encourage lots of fluids to drink. Imodium 4 mg followed by a 2 mg tablet every 4 hours afterwards that she still has a loose, watery stool. Pramoxine with hydrocortisone foam applied directly to the hemorrhoids every 4 hours as needed for irritation. Encourage sits baths as necessary for inflamed hemorrhoids. Encourage extra fiber in her diet. [place] food items such as bananas, rice, applesauce and toast. Heating pads applied rectally to the left hip and knee for pain. Tylenol 1000 mg every 8 hours as necessary for pain. Topical creams such as icy hot, Biofreeze or capsaicin oil applied directly to the left hip and knee as necessary for pain. Scripts Pramoxine HCl (Pramoxine HCl) 15 Gm Foam 1 GM TP Q6H PRN for HEMMORRHOID DISCOMFORT, #1 EA 0 Refills Prov: GABBY CHAIREZ 06/03/20 GABBY CHAIREZ Jun 03, 2020 10:09
[2020-06-03 10:12] LABS: BASOPHILS % (AUTO) 0 % (0-10); EOSINOPHILS # (AUTO) 0.2 10^3/uL (0.0-0.3); EOSINOPHILS % (AUTO) 2 % (0-10); HEMATOCRIT 30 % (35-52); HEMOGLOBIN 9.8 G/DL (11.5-16.0); LYMPHOCYTES # (AUTO) 1.2 X 10^3 (1.0-4.0); LYMPHOCYTES % (AUTO) 15 % (12-44); MEAN CORPUSCULAR HEMOGLOBIN 30 PG (25-34); MEAN CORPUSCULAR HGB CONC 33 G/DL (32-36); MEAN CORPUSCULAR VOLUME 91 FL (80-99); MEAN PLATELET VOLUME 10.4 FL (7.4-10.4); MONOCYTES # (AUTO) 0.6 X 10^3 (0.0-1.0); MONOCYTES % (AUTO) 7 % (0-12); NEUTROPHILS # (AUTO) 6.3 X 10^3 (1.8-7.8); NEUTROPHILS % (AUTO) 77 % (42-75); PLATELET COUNT 201 10^3/uL (130-400); WHITE BLOOD COUNT 8.2 10^3/uL (4.3-11.0)
[2020-06-03 10:16] LABS: ALBUMIN 3.5 GM/DL (3.2-4.5)
[2020-06-03 10:17] LABS: CALCIUM 8.3 MG/DL (8.5-10.1)
[2020-06-03 10:18] LABS: TOTAL PROTEIN 7.2 GM/DL (6.4-8.2)
[2020-06-03 10:20] LABS: BILIRUBIN,TOTAL 0.3 MG/DL (0.1-1.0)
[2020-06-03 10:22] LABS: CREATININE SERUM 2.66 MG/DL (0.60-1.30)
[2020-06-03 10:37] LABS: POTASSIUM 6.4 MMOL/L (3.6-5.0)
[2020-06-03] MEDS ORDERED: RT-ALBUTEROL SULF 2.5 MG/3 ML PRE-MIX VIAL INH STA (11:03)
[2020-06-03] MEDS ORDERED: D5 NS 1000 ML IV SOLUTION 1,000 ML IV ONE (11:03)
[2020-06-03] MEDS ORDERED: inSUlin (REGULAR) HUMAN 1 UNIT/0.01 ML (CHARGE PER UNIT) SC ONE (11:15)
[2020-06-03] MEDS ORDERED: PRAM15FO4 TP (13:12)
[2020-06-03 13:16] VITALS: BP 108/56
== END 2020-06-03 13:23 | disposition home or self-care (01) ==
LOC: EDUNIT# 09:40 → ER 09:41
DX: K52.1 Toxic gastroenteritis and colitis (principal); T36.1X5A Adverse effect of cephalosporins and other beta-lactam antibiotics, initial encounter; N39.0 Urinary tract infection, site not specified; M70.62 Trochanteric bursitis, left hip; N18.9 Chronic kidney disease, unspecified; K64.9 Unspecified hemorrhoids; W19.XXXA Unspecified fall, initial encounter
CPT/HCPCS: 36415; 80053; 82962; 84132; 85025; 94640

== ENCOUNTER 2020-10-05 21:00 | Emergency (ER) | payer MEDICARE, MEDICAID ==
[~2020-10-05 21:00] MED LIST changes: +PRAM15FO4 TP
[2020-10-05 21:05] VITALS: BP 182/88
[2020-10-05] MEDS ORDERED: FLUORESCEIN (FLUOR-I-STRIPS) 1 MG STRP ONE (21:19)
[2020-10-05] MEDS ORDERED: TETRACAINE 0.5% OPHTH SOLN 4 ML BTL (SINGLE DOSE ONLY) ONE (21:20)
[2020-10-05] MEDS ORDERED: RX-TRAMADOL 50 MG (ULTRAM) TAB PPK#4 PO STA (21:26)
--- NOTE | 2020-10-05 21:28 | ED Integumentary General ---
General Chief Complaint: Allergic Reaction Stated Complaint: L SIDE FACE RASH Source: patient Exam Limitations: no limitations History of Present Illness Date Seen by Provider: Oct 05, 2020 Time Seen by Provider: 21:30 Initial Comments To ER with reports of a left-sided facial rash. She was seen at [facility] on Wednesday of this past week for left eye drainage. She then complained of some left-sided facial pain yesterday. Starting today there were some red blisters noted to her ear, the scalp behind the ear and the left side of her neck. She is accompanied by her daughter as she has Alzheimer's Timing/Duration: constant Severity: moderate Location: face Associated Symptoms: denies symptoms Allergies and Home Medications Allergies Coded Allergies: No Known Drug Allergies (Unverified , 12/13/18) Home Medications Acyclovir 400 Mg Tablet, 400 MG PO 5XD Prescribed by: JABIER AN on 10/05/202140 Cephalexin 500 Mg Capsule, 500 MG PO TID Prescribed by: JABIER AN on 01/21/20 1109 Cephalexin 500 Mg Capsule, 500 MG PO BID Prescribed by: FLORENTIN LAKE on 06/01/20 1354 L.acidoph & Paracasei,B.lactis 1 Each Capsule, 2 EACH PO BID Prescribed by: GABBY CHAIREZ on 06/02/20811 Nitrofurantoin Monohyd/M-Cryst 100 Mg Capsule, 1 TAB PO BID Prescribed by: GABBY CHAIREZ on 06/02/20811 Pramoxine HCl 15 Gm Foam, 1 GM TP Q6H PRN for HEMMORRHOID DISCOMFORT Prescribed by: GABBY CHAIREZ on 06/03/20 131 Prednisone 10 Mg Tab.ds.pk, 10 MG PO DAILY Take 6 tabs(60mg)daily,decrease by 1 tab(10MG)daily. Prescribed by: JABIER AN on 10/05/202140 Tramadol HCl 50 Mg Tablet, 50 MG PO Q6H PRN for PAIN-MODERATE (5-7) Prescribed by: JABIER AN on 10/05/202141 Trifluridine 7.5 Ml Drops, 1 DROP OP Q6H Prescribed by: JABIER AN on 10/05/202140 Patient Home Medication List Home Medication List Reviewed: Yes Review of Systems Review of Systems Constitutional: see HPI EENTM: see HPI; No eye pain Respiratory: no symptoms reported Cardiovascular: no symptoms reported Genitourinary: no symptoms reported Musculoskeletal: no symptoms reported Skin: see HPI Psychiatric/Neurological: No Symptoms Reported Endocrine: No Symptoms Reported Past Zyzflje-Oblejg-Bvxirh Hx Patient Social History 2nd Hand Smoke Exposure: No Recent Foreign Travel: No Contact w/Someone Who Travel: No Recent Hopitalizations: No Immunizations Up To Date Tetanus Booster (TDap): Unknown Seasonal Allergies Seasonal Allergies: No Past Medical History Surgeries: Yes Hysterectomy Respiratory: Yes (TB) Tuberculosis Cardiac: Yes Coronary Artery Disease, Heart Attack, Hypertension Neurological: Yes (ALZHEIMER'S) Dementia 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 There is some palpebral conjunctivitis on the left. No scleral injection or bulbar conjunctivitis. Upon fluorescein staining there are no corneal ulcers seen.) Neck: non-tender, full range of motion Respiratory: no respiratory distress, no accessory muscle use Gastrointestinal: normal bowel sounds, non tender Extremities: normal range of motion, non-tender Neurologic/Psychiatric: alert, normal mood/affect, oriented x 3 Skin: normal color, warm/dry Skin Problem Location: face, neck Skin Problem Character: other (There are erythematous vesicles to the left side of the neck the face and posterior to the left ear. The ear canal is normal in appearance.) Procedures/Interventions Suture Size: 5-0 Progress/Results/Core Measures Results/Orders My Orders Orders - JABIER AN APRN Fluorescein Strips (Ysrly-X-Biaylo) (10/05/20 21:19) Tetracaine 0.5% Ophth Priya Sdv (Tetracai (10/05/20 21:20) Rx-Tramadol Hcl (Rx-Ultram) (10/05/20 21:26) Acyclovir Capsule/Tablet (Zovirax Caps (10/05/20 21:30) Prednisone Tablet (Deltasone Tablet) (10/05/20 21:30) Departure Communication (Admissions) [id number] Warner from optometry. He would recommend some Viroptic 1 drop 4 times a day and he will see the patient on Wednesday. Impression Primary Impression: Herpes zoster Qualified Codes: B02.9 - Zoster without complications Disposition: HOME, SELF-CARE Condition: Stable Departure-Patient Inst. Decision time for Depature: 21:33 Referrals: SIGRID WARNER OD, SHANE R OD SELF, MAXWELL MD (PCP/Family) Primary Care Physician Patient Instructions: Shingles Add. Discharge Instructions: Return to ER for any worsening or other concerns. Use the steroids and the acyclovir antiviral as directed. Take the pain medication as needed and be mindful that it can cause constipation so you should also take MiraLAX daily while you are on the tramadol pain medication.Call Dr Link from optometry All discharge instructions reviewed with patient and/or family. Voiced understanding. Scripts Tramadol HCl (Ultram) 50 Mg Tablet 50 MG PO Q6H PRN for PAIN-MODERATE (5-7), #20 TAB Prov: JABIER AN PROPOSAL CONSULTANT 10/05/20 Prednisone (Prednisone) 10 Mg Tab.ds.pk 10 MG PO DAILY, #21 EA Take 6 tabs(60mg)daily,decrease by 1 tab(10MG)daily. Prov: JABIER AN APRN 10/05/20 Acyclovir (Acyclovir) 400 Mg Tablet 400 MG PO 5XD, #35 TAB Prov: JABIER AN APRN 10/05/20 Trifluridine (Trifluridine) 7.5 Ml Drops 1 DROP OP Q6H for 7 Days, #1 DROPS Prov: JABIER AN PROPOSAL CONSULTANT 10/05/20 Copy Copies To 1: SIGRID WARNER OD, PETER J APRN Oct 05, 2020 21:28
[2020-10-05] MEDS ORDERED: predniSONE 20 MG TAB PO ONE (21:30)
[2020-10-05] MEDS ORDERED: ACYCLOVIR 400 MG TABLET (ZOVIRAX) PO SCH (21:30)
[2020-10-05] MEDS ORDERED: TRIF7.5D6 OP (21:41)
[2020-10-05] MEDS ORDERED: ACYC400T PO (21:41)
[2020-10-05] MEDS ORDERED: TRAM-42 PO (21:41)
[2020-10-05] MEDS ORDERED: PRED10TA22 PO (21:41)
== END 2020-10-05 22:09 | disposition home or self-care (01) ==
LOC: EDUNIT# 21:00 → ER 21:01
DX: B02.31 Zoster conjunctivitis (principal); I25.2 Old myocardial infarction; Z79.52 Long term (current) use of systemic steroids
CPT/HCPCS: 99283

== ENCOUNTER 2021-03-02 16:35 | Emergency (ER) | payer MEDICARE, MEDICAID ==
[~2021-03-02] VITALS: Ht 154 cm; Wt 47.0 kg
[~2021-03-02 16:35] MED LIST changes: +ACYC400T21 PO; +PRED10TA22 PO; +SERT-414; -SERT100T8; +TRAM-42 PO; +TRIF7.5D6 OP
--- NOTE | 2021-03-02 17:28 | ED Upper Extremity ---
General Chief Complaint: Trauma-Non Activation Stated Complaint: PT FELL/ LAC Nursing Triage Note: ARRIVED VIA WC TO ROOM 05 WITH HER DAUGHTER. DAUGHTER STATES PT WAS SWEEPING THE PATIO AND FELL. DID NOT HIT HER HEAD. PT HAS NO COMPLAINTS OF PAIN. SKIN TEAR TO LEFT LOWER EXT AND DAUGHTER STATES SHE DID NOT KNOW WHAT TO DO WITH IT. PT HAS DEMENTIA Nursing Sepsis Screen: No Definite Risk Source: patient, family Exam Limitations: other (alzheimers/dementia) (LIVIA GARCIA MED STUDENT) Source: patient, family (FLORENTIN MISTRY MD) Allergies and Home Medications Allergies Coded Allergies: No Known Drug Allergies (Unverified , 12/13/18) Home Medications Acyclovir 400 Mg Tablet, 400 MG PO 5XD Prescribed by: JABIER AN on 10/05/202140 Cephalexin 500 Mg Capsule, 500 MG PO TID Prescribed by: JABIER AN on 01/21/20 110 Cephalexin 500 Mg Capsule, 500 MG PO BID Prescribed by: FLORENTIN LAKE on 06/01/20 1354 L.acidoph & Paracasei,B.lactis 1 Each Capsule, 2 EACH PO BID Prescribed by: GABBY CHAIREZ on 06/02/2012 Nitrofurantoin Monohyd/M-Cryst 100 Mg Capsule, 1 TAB PO BID Prescribed by: GABBY CHAIREZ on 06/02/20811 Pramoxine HCl 15 Gm Foam, 1 GM TP Q6H PRN for HEMMORRHOID DISCOMFORT Prescribed by: GABBY CHAIREZ on 06/03/20 1312 Prednisone 10 Mg Tab.ds.pk, 10 MG PO DAILY Take 6 tabs(60mg)daily,decrease by 1 tab(10MG)daily. Prescribed by: JABIER AN on 10/05/202140 Tramadol HCl 50 Mg Tablet, 50 MG PO Q6H PRN for PAIN-MODERATE (5-7) Prescribed by: JABIER AN on 10/05/202141 Trifluridine 7.5 Ml Drops, 1 DROP OP Q6H Prescribed by: JABIER AN on 10/05/202140 Past Yewfliy-Bbftmm-Vxxlav Hx Patient Social History 2nd Hand Smoke Exposure: No Recent Infectious Disease Expo: No Recent Hopitalizations: No (LIVIA GARCIA MED STUDENT) Immunizations Up To Date Tetanus Booster (TDap): Unknown (RADHAFisoc STUDENT) Seasonal Allergies Seasonal Allergies: No (Happy Hour Pal STUDENT) Past Medical History Surgeries: Yes Hysterectomy Respiratory: Yes (TB) Tuberculosis Cardiac: Yes Coronary Artery Disease, Heart Attack, Hypertension Neurological: Yes (ALZHEIMER'S) Dementia 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 KNITTER History: Hysterectomy, Menopausal Genitourinary: No Gastrointestinal: Yes Gastroesophageal Reflux Musculoskeletal: Yes Scoliosis, Gout Endocrine: Yes Hypothyroidsim HEENT: No Cancer: No Psychosocial: No Integumentary: No Blood Disorders: No (JOSH GARCIADigifeye STUDENT) Family Medical History No Pertinent Family Hx (RADHACytoSolvLIVIA MED STUDENT) Physical Exam Vital Signs Vital Signs - First Documented 03/02/21 16:48 Temp 36.4 Pulse 65 Resp 16 B/P (MAP) 167/89 (115) Pulse Ox 97 O2 Delivery Room Air (FLORENTIN MISTRY MD) Vital Signs Capillary Refill : Less Than 3 Seconds (RADHACytoSolvLIVIA MED STUDENT) Height, Weight, BMI Height: 5'2.00" Weight: 104lbs. 0oz. 47.536270yt; 19.00 BMI Method:Actual (RADHAFisoc STUDENT) Procedures/Interventions Suture Size: 5-0 (Happy Hour Pal STUDENT) Wound Length (cm): 4.5 Number of Sutures: 7 Wound Length (cm): 2.5 Number of Sutures: 2 (FLORENTIN MISTRY MD) Progress/Results/Core Measures Results/Orders Vital Signs/I&O 03/02/21 16:48 Temp 36.4 Pulse 65 Resp 16 B/P (MAP) 167/89 (115) Pulse Ox 97 O2 Delivery Room Air (FLORENTIN MISTRY MD) Blood Pressure Mean: 115 Departure Impression Primary Impression: Fall on same level Qualified Codes: W18.30XA - Fall on same level, unspecified, initial encounter Additional Impressions: Laceration of forearm Qualified Codes: S51.812A - Laceration without foreign body of left forearm, initial encounter Dementia Qualified Codes: F03.90 - Unspecified dementia without behavioral disturbance Lip lesion Disposition: 01 HOME, SELF-CARE Condition: Improved Departure-Patient Inst. Decision time for Depature: 18:37 (FLORENTIN MISTRY MD) Referrals: SELF,BRAIN QUACH (PCP/Family) Primary Care Physician Patient Instructions: Laceration Repair With Stitches ED Add. Discharge Instructions: Keep the wound clean and dry except for normal showering. You may resume showering tomorrow. You may allow soapy water to run over the wound but do not scrub directly over the sutures. Do not submerge until after sutures are removed. Monitor the wound for signs of infection such as increasing redness, increasing swelling, puslike drainage, or fever. Return to care promptly if you notice these symptoms. Use Tylenol (acetaminophen) up to 650 mg every 6 hours as needed for pain. Anticipate oozing of blood and yellowish fluid for 2 to 3 days. If this causes dressing to stick to the wound, simply wet the dressing with tap water for a few minutes to loosen it. Remove the dressing carefully. When you run out of the nonstick barrier, you may use Vaseline or an antibiotic ointment to prevent the dressing from sticking. Once the wound is dry, you may simply apply a dry dressing. Leave open to air when possible to help the wound breathe. Cover when unsupervised, in bed, in dirty environments, etc. Return in 7 to 10 days to have the sutures removed. You do not need an appointment. Call with any questions or concerns. Seek referral to dermatology, plastic surgery, ENT, or another surgical clinical reviewer regarding the lip lesion. All discharge instructions reviewed with patient and/or family. Voiced understanding. LIVIA GARCIA MED STUDENT Mar 02, 2021 17:28 FLORENTIN MISTRY MD Mar 02, 2021 18:35
[2021-03-02 18:47] VITALS: BP 167/89
== END 2021-03-02 18:44 | disposition home or self-care (01) ==
LOC: EDUNIT# 16:35 → ER 16:39
DX: S51.812A Laceration without foreign body of left forearm, initial encounter (principal); F03.90 Unspecified dementia, unspecified severity, without behavioral disturbance, psychotic disturbance, mood disturbance, and anxiety; K13.0 Diseases of lips; I10 Essential (primary) hypertension; I25.2 Old myocardial infarction; Z79.52 Long term (current) use of systemic steroids; W18.30XA Fall on same level, unspecified, initial encounter

== ENCOUNTER 2021-04-27 20:07 | Inpatient (IN) | payer MEDICARE, MEDICAID ==
[~2021-04-27] VITALS: Ht 157 cm; Wt 46.2 kg
[~2021-04-27 20:07] MED LIST changes: -SERT-414; +SERT-414 PO
[2021-04-27 20:42] LABS: BASOPHILS % (AUTO) 1 % (0-10); EOSINOPHILS # (AUTO) 0.2 10^3/uL (0.0-0.3); EOSINOPHILS % (AUTO) 3 % (0-10); HEMATOCRIT 32 % (35-52); HEMOGLOBIN 10.2 g/dL (11.5-16.0); LYMPHOCYTES % (AUTO) 37 % (12-44); MEAN CORPUSCULAR HEMOGLOBIN 30 pg (25-34); MEAN CORPUSCULAR HGB CONC 32 g/dL (32-36); MEAN CORPUSCULAR VOLUME 95 fL (80-99); MEAN PLATELET VOLUME 11.1 fL (9.0-12.2); MONOCYTES # (AUTO) 0.5 10^3/uL (0.0-1.0); MONOCYTES % (AUTO) 8 % (0-12); NEUTROPHILS # (AUTO) 2.8 10^3/uL (1.8-7.8); NEUTROPHILS % (AUTO) 51 % (42-75); PLATELET COUNT 213 10^3/uL (130-400); WHITE BLOOD COUNT 5.5 10^3/uL (4.3-11.0)
[2021-04-27 20:44] LABS: BILIRUBIN,URINE NEGATIVE (NEGATIVE); CLARITY,URINE CLEAR; COLOR,URINE YELLOW; GLUCOSE, URINE (UA) NEGATIVE (NEGATIVE); KETONES,URINE NEGATIVE (NEGATIVE); LEUKOCYTE ESTERASE ,URINE NEGATIVE (NEGATIVE); NITRITE,URINE NEGATIVE (NEGATIVE); PH,URINE 5.5 (5-9); PROTEIN,URINE NEGATIVE (NEGATIVE)
[2021-04-27] MEDS ORDERED: NS IV 1000 ML 1,000 ML IV SCH (20:45)
--- NOTE | 2021-04-27 20:48 | ED GU-Female ---
General Chief Complaint: - Urinary Stated Complaint: UTI SYMPTOMS Source: other (Daughter) Exam Limitations: no limitations History of Present Illness Date Seen by Provider: Apr 27, 2021 Time Seen by Provider: 20:27 Initial Comments This is an 85-year-old female with a history of mild dementia who presents to the ER with her daughter with complaints of urinary tract infection and concerns for sepsis. Daughter states that she was recently treated for urinary tract infection at the beginning of the week, however was told yesterday by [facility] that it was the wrong antibiotic and they changed her from ciprofloxacin to Macrobid yesterday. Daughter states that she has 1 dose of this medication this morning, however she continues to decline and would like to have her further evaluated. Additionally reports history of hypekalemia when her "kidneys act up". States she has been giving her electrolyte powder (Liquid IV) twice a day for the past several days. In the past she has had to take Kayexalate for her hyperkalemia, however can no longer take as this causes her to "swell up". She has had both Moderna COVID vaccines. Patient is unable to contribute to HPI. Daughter is DPOA and sole caregiver. Allergies and Home Medications Allergies Coded Allergies: No Known Drug Allergies (Unverified , 12/13/18) Home Medications Acyclovir 400 Mg Tablet, 400 MG PO 5XD Prescribed by: JABIER AN on 10/05/20 2141 Cephalexin 500 Mg Capsule, 500 MG PO TID Prescribed by: JABIER AN on 01/21/20 1109 Cephalexin 500 Mg Capsule, 500 MG PO BID Prescribed by: FLORENTIN LAKE on 06/01/20 1354 L.acidoph & Paracasei,B.lactis 1 Each Capsule, 2 EACH PO BID Prescribed by: GABBY CHAIREZ on 06/02/20 0812 Nitrofurantoin Monohyd/M-Cryst 100 Mg Capsule, 1 TAB PO BID Prescribed by: GABBY CHAIERZ on 06/02/20 0812 Pramoxine HCl 15 Gm Foam, 1 GM TP Q6H PRN for HEMMORRHOID DISCOMFORT Prescribed by: GABBY CHAIREZ on 06/03/20 1312 Prednisone 10 Mg Tab.ds.pk, 10 MG PO DAILY Take 6 tabs(60mg)daily,decrease by 1 tab(10MG)daily. Prescribed by: JABIER AN on 10/05/202140 Tramadol HCl 50 Mg Tablet, 50 MG PO Q6H PRN for PAIN-MODERATE (5-7) Prescribed by: JABIER AN on 10/05/202141 Trifluridine 7.5 Ml Drops, 1 DROP OP Q6H Prescribed by: JABIER AN on 10/05/202140 Patient Home Medication List Home Medication List Reviewed: Yes Review of Systems Review of Systems Constitutional: see HPI EENTM: other (chronic excessive tearing and eye discharge ) Respiratory: no symptoms reported Cardiovascular: no symptoms reported Gastrointestinal: no symptoms reported Genitourinary: see HPI Musculoskeletal: no symptoms reported Skin: no symptoms reported Psychiatric/Neurological: Other (unable to express needs ) Past Ifibpqr-Zjgqej-Pvgcba Hx Immunizations Up To Date Tetanus Booster (TDap): Unknown Seasonal Allergies Seasonal Allergies: No Past Medical History Surgeries: Yes Hysterectomy Respiratory: Yes Tuberculosis Cardiac: Yes Coronary Artery Disease, Heart Attack, Hypertension 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 0oz. 47.818337rw; 19.00 BMI Method:Actual General Appearance: WD/WN, no apparent distress HEENT: No scleral icterus (R), No scleral icterus (L); other (excessive tearing, bilat. cataracts l, 54t) Neck: full range of motion, normal inspection Cardiovascular: regular rate, rhythm, no edema, no gallop Respiratory: lungs clear, normal breath sounds, no respiratory distress, no accessory muscle use Gastrointestinal: normal bowel sounds, non tender, soft Extremities: normal range of motion, normal inspection, no pedal edema Neurologic/Psychiatric: motor weakness (generalized), other (unsteady gait, fla t affet, sleepy ) Skin: normal color, warm/dry Focused Exam Lactate Level 04/27/21 20:25: Lactic Acid Level 1.53 Lactic Acid Level Laboratory Tests Test 04/27/21 20:25 Lactic Acid Level 1.53 MMOL/L (0.50-2.00) Progress/Results/Core Measures Suspected Sepsis SIRS Temperature: Pulse: Respiratory Rate: Laboratory Tests 04/27/21 20:25: White Blood Count 5.5 Blood Pressure / Mean: 04/27/21 20:25: Lactic Acid Level 1.53 Laboratory Tests 04/27/21 20:25: Creatinine 2.03H, INR Comment 1.0, Platelet Count 213, Total Bilirubin 0.2 Results/Orders Lab Results Laboratory Tests Test 04/27/21 20:25 04/27/21 20:33 Range/Units White Blood Count 5.5 4.3-11.0 10^3/uL Red Blood Count 3.41 L 3.80-5.11 10^6/uL Hemoglobin 10.2 L 11.5-16.0 g/dL Hematocrit 32 L 35-52 % Mean Corpuscular Volume 95 80-99 fL Mean Corpuscular Hemoglobin 30 25-34 pg Mean Corpuscular Hemoglobin Concent 32 32-36 g/dL Red Cell Distribution Width 15.3 H 10.0-14.5 % Platelet Count 213 130-400 10^3/uL Mean Platelet Volume 11.1 9.0-12.2 fL Immature Granulocyte % (Auto) 0 % Neutrophils (%) (Auto) 51 42-75 % Lymphocytes (%) (Auto) 37 12-44 % Monocytes (%) (Auto) 8 0-12 % Eosinophils (%) (Auto) 3 0-10 % Basophils (%) (Auto) 1 0-10 % Neutrophils # (Auto) 2.8 1.8-7.8 10^3/uL Lymphocytes # (Auto) 2.0 1.0-4.0 10^3/uL Monocytes # (Auto) 0.5 0.0-1.0 10^3/uL Eosinophils # (Auto) 0.2 0.0-0.3 10^3/uL Basophils # (Auto) 0.0 0.0-0.1 10^3/uL Immature Granulocyte # (Auto) 0.0 0.0-0.1 10^3/uL Prothrombin Time 13.0 12.2-14.7 SEC INR Comment 1.0 0.8-1.4 Activated Partial Thromboplast Time 39 H 24-35 SEC Sodium Level 137 135-145 MMOL/L Potassium Level 6.8 *H 3.6-5.0 MMOL/L Chloride Level 108 H 98-107 MMOL/L Carbon Dioxide Level 17 L 21-32 MMOL/L Anion Gap 12 5-14 MMOL/L Blood Urea Nitrogen 46 H 7-18 MG/DL Creatinine 2.03 H 0.60-1.30 MG/DL Estimat Glomerular Filtration Rate 23 BUN/Creatinine Ratio 23 Glucose Level 102 70-105 MG/DL Lactic Acid Level 1.53 0.50-2.00 MMOL/L Calcium Level 9.2 8.5-10.1 MG/DL Corrected Calcium 9.4 8.5-10.1 MG/DL Total Bilirubin 0.2 0.1-1.0 MG/DL Aspartate Amino Transf (AST/SGOT) 21 5-34 U/L Alanine Aminotransferase (ALT/SGPT) 8 0-55 U/L Alkaline Phosphatase 95 40-136 U/L Total Protein 7.4 6.4-8.2 GM/DL Albumin 3.7 3.2-4.5 GM/DL Urine Color YELLOW Urine Clarity CLEAR Urine pH 5.5 5-9 Urine Specific [place] 1.020 1.016-1.022 Urine Protein NEGATIVE NEGATIVE Urine Glucose (UA) NEGATIVE NEGATIVE Urine Ketones NEGATIVE NEGATIVE Urine Nitrite NEGATIVE NEGATIVE Urine Bilirubin NEGATIVE NEGATIVE Urine Urobilinogen 0.2 < = 1.0 MG/DL Urine Leukocyte Esterase NEGATIVE NEGATIVE Urine RBC (Auto) NEGATIVE NEGATIVE Urine RBC RARE /HPF Urine WBC RARE /HPF Urine Squamous Epithelial Cells 10-25 H /HPF Urine Crystals PRESENT H /LPF Urine Amorphous Sediment FEW GEMMA URATES H /LPF Urine Bacteria TRACE /HPF Urine Casts NONE /LPF Urine Mucus NEGATIVE /LPF Urine Culture Indicated NO My Orders Orders - TAMMI VAZQUEZ APRN Ua Culture If Indicated (04/27/21 20:18) Cbc With Automated Diff (04/27/21 20:35) Comprehensive Metabolic Panel (04/27/21 20:35) Blood Culture (04/27/21 20:45) Sputum Culture (04/27/21 20:45) Urine Culture (04/27/21 20:45) Protime With Inr (04/27/21 20:45) Partial Thromboplastin Time (04/27/21 20:45) Chest 1 View, Ap/Pa Only (04/27/21 20:45) Ed Iv/Invasive Line Start (04/27/21 20:45) Vital Signs Adult Sepsis Patie Q15M (04/27/21 20:45) O2 (04/27/21 20:45) Remove Rings In Anticipation O (04/27/21 20:45) Lactic Acid Analyzer (04/27/21 20:45) Ns Iv 1000 Ml (Sodium Chloride 0.9%) (04/27/21 20:45) Ekg Tracing (04/27/21 21:20) Ampicillin For Iv Use (Ampicillin For (04/27/21 22:45) Vital Signs/I&O 04/27/21 20:16 Temp 36.8 Pulse 81 Resp 16 B/P (MAP) 172/91 (118) Pulse Ox 93 O2 Delivery Room Air Capillary Refill : Progress Note : Progress Note Patient examined and in no acute distress. Due to recent UTI, increased confusion, and weakness will initiate sepsis workup. Daughter notes she has underlying dementia but appears more confused than her norm. VSS. NS 1 liter via slow gravity initiated. Labs reviewed. No elevated in WBC, lactic within normal limits, K-6.8. Daughter able to review CMP in January from [facility]. Creatinine on 01/29/21 noted at 1.7. Today is 2.03. Discussed case with Dr. Osuna, elevation likely due to recent use of electrolyte supplement packets. EKG does not have appearance of hyper acute or peaked T waves. Will keep overnight for gentle hydration. C&S report from [facility] shows. E. faecalis, susceptible to Vancomycin, Macrobid, and Ampicillin. Changed antibiotics from Macrobid to Amoxicillin PO due to renal function. Reviewed POC with her daughter who is her DPOA, verbalized understanding. Given dose of Ampicillin in ED as patient sleeping and daughter states she has difficulty with getting her to take PO medications at bedtime. ECG Initial ECG Impression Date: Apr 27, 2021 Initial ECG Impression Time: 21:39 Initial ECG Rate: 59 Initial ECG Rhythm: Normal Sinus Initial ECG Impression: Normal Initial ECG Comparisson: No Previous ECG Available Diagnostic Imaging Diagonstic Imaging: Xray Plain Films/CT/US/NM/MRI: chest Comments [facility] [place], [place] NAME: FRANKO HERNANDEZ [facility] REC#: [id number] PT STATUS: REG ER : 1935 PHYSICIAN: TAMMI VAZQUEZ APRN ADMIT DATE: 04/27/21/ER Signed Date of Exam:04/27/21 CHEST 1 VIEW, AP/PA ONLY INDICATION: Sepsis, shortness of air, cough and congestion. TECHNIQUE: Single view chest 9:32 p.m. CORRELATION STUDY: 06/01/2020. FINDINGS: Heart size is enlarged with vasculature appearing slightly increased from prior. Grouped calcified granulomas in left upper lung is again demonstrated. No definitive new infiltrate. IMPRESSION: Heart size and vasculature overall appear slightly prominent. No consolidating infiltrate. Dictated by: Dictated on workstation # [id number] Dict: 04/27/212154 Trans: 04/27/212205 PJE [id number] Interpreted by: RAYMUNDO SPEAR DO Electronically signed by: RAYMUNDO SPEAR DO 04/27/212205 Reviewed: Reviewed by Me Departure Communication (Admissions) Time/Spoke to Admitting Phy: 21:45 Dr. Osuna Impression Primary Impression: Hyperkalemia Additional Impression: UTI (urinary tract infection) Disposition: ADMITTED INPATIENT Condition: Stable Admissions Decision to Admit Reason: Admit from ER (General) Decision to Admit/Date: Apr 28, 2021 Time/Decision to Admit Time: 21:30 Departure-Patient Inst. Referrals: SELF,BRAIN QUACH (PCP/Family) Primary Care Physician Copy Copies To 1: [facility]/TAMMI PARNELL APRN Apr 27, 2021 20:48
[2021-04-27 20:59] LABS: BACTERIA,URINE TRACE /HPF; RBC,URINE RARE /HPF; WBC,URINE RARE /HPF
[2021-04-27 21:00] LABS: AMORPHOUS SEDIMENT,UR FEW AMOR URATES /LPF
[2021-04-27 21:02] LABS: ALBUMIN 3.7 GM/DL (3.2-4.5)
[2021-04-27 21:03] LABS: CALCIUM 9.2 MG/DL (8.5-10.1)
[2021-04-27 21:04] LABS: TOTAL PROTEIN 7.4 GM/DL (6.4-8.2)
[2021-04-27 21:06] LABS: BILIRUBIN,TOTAL 0.2 MG/DL (0.1-1.0)
[2021-04-27 21:08] LABS: CREATININE SERUM 2.03 MG/DL (0.60-1.30)
[2021-04-27 21:17] LABS: POTASSIUM 6.8 MMOL/L (3.6-5.0)
--- NOTE | 2021-04-27 22:04 | Diagnostic Imaging Report ---
INDICATION: Sepsis, shortness of air, cough and congestion. TECHNIQUE: Single view chest 9:32 p.m. CORRELATION STUDY: 06/01/2020. FINDINGS: Heart size is enlarged with vasculature appearing slightly increased from prior. Grouped calcified granulomas in left upper lung is again demonstrated. No definitive new infiltrate. IMPRESSION: Heart size and vasculature overall appear slightly prominent. No consolidating infiltrate. Dictated by: Dictated on workstation # [id number]
[2021-04-27] MEDS ORDERED: AMPICILLIN FOR IV ONE (22:45)
[2021-04-28] VITALS (8 sets, daily range): BP systolic 110–172; BP diastolic 68–91
[2021-04-28] MEDS ORDERED: AMPICILLIN 250 MG/2.5 ML (IV USE) ONE (00:57)
[2021-04-28] MEDS ORDERED: AMPICILLIN FOR IV SCH (01:00)
[2021-04-28] MEDS ORDERED: WATER (STERILE) FOR INJECTION 10 ML ONE (01:10)
[2021-04-28] MEDS ORDERED: NS IV 1000 ML 1,000 ML ONE (01:29)
[2021-04-28] MEDS ORDERED: MELATONIN 3 MG TABLET PO PRN (02:00)
[2021-04-28] MEDS ORDERED: PROMETHAZINE INJ 25 MG/ML (PHENERGAN) AMP IVP PRN (02:00)
[2021-04-28] MEDS ORDERED: ACETAMINOPHEN 325 MG TABLET PO PRN (02:00)
[2021-04-28] MEDS ORDERED: IBUPROFEN TABLET 200 MG TAB PO PRN (02:00)
[2021-04-28] MEDS ORDERED: ONDANSETRON 4 MG/2 ML (SDV) Z0FRAN IVP PRN (02:00)
[2021-04-28] MEDS: NS IV 1000 ML 1,000 ML IV SCH ×2 (02:03→19:17)
[2021-04-28] MEDS ORDERED: RT-ALBUTEROL SULF 2.5 MG/3 ML PRE-MIX VIAL INH PRN (03:15)
[2021-04-28 06:54] LABS: BASOPHILS # (AUTO) 0.1 10^3/uL (0.0-0.1); BASOPHILS % (AUTO) 1 % (0-10); EOSINOPHILS # (AUTO) 0.2 10^3/uL (0.0-0.3); EOSINOPHILS % (AUTO) 3 % (0-10); HEMATOCRIT 30 % (35-52); HEMOGLOBIN 9.6 g/dL (11.5-16.0); LYMPHOCYTES # (AUTO) 2.3 10^3/uL (1.0-4.0); LYMPHOCYTES % (AUTO) 41 % (12-44); MEAN CORPUSCULAR HEMOGLOBIN 30 pg (25-34); MEAN CORPUSCULAR HGB CONC 32 g/dL (32-36); MEAN CORPUSCULAR VOLUME 94 fL (80-99); MEAN PLATELET VOLUME 11.3 fL (9.0-12.2); MONOCYTES # (AUTO) 0.5 10^3/uL (0.0-1.0); MONOCYTES % (AUTO) 9 % (0-12); NEUTROPHILS # (AUTO) 2.5 10^3/uL (1.8-7.8); NEUTROPHILS % (AUTO) 46 % (42-75); PLATELET COUNT 193 10^3/uL (130-400); WHITE BLOOD COUNT 5.5 10^3/uL (4.3-11.0)
[2021-04-28 07:13] LABS: CALCIUM 8.5 MG/DL (8.5-10.1)
[2021-04-28 07:18] LABS: CREATININE SERUM 1.77 MG/DL (0.60-1.30)
[2021-04-28] MEDS: AMOXICILLIN 250 MG (POLYMOX) CAP PO SCH ×2 (09:02→20:46)
[2021-04-28] MEDS ORDERED: LEVO100T7 PO (10:43)
[2021-04-28] MEDS ORDERED: LISI-729 PO (10:43)
[2021-04-28] MEDS ORDERED: PANT40TA52 PO (10:43)
[2021-04-28] MEDS ORDERED: NITR100C10 PO (10:43)
[2021-04-28] MEDS ORDERED: RT-ALBUINH INH (10:43)
[2021-04-28] MEDS ORDERED: ALPR0.254 PO (10:43)
[2021-04-28] MEDS ORDERED: NITR0.4T39 SL (10:43)
[2021-04-28] MEDS ORDERED: COLC0.6T53 PO (10:43)
[2021-04-28] MEDS ORDERED: FURO20TA4 PO (10:43)
[2021-04-28] MEDS ORDERED: MIRT-68 PO (10:43)
[2021-04-28] MEDS ORDERED: LACT1CAP62 PO (10:45)
[2021-04-28] MEDS ORDERED: ASPI-1238 PO (10:45)
[2021-04-28] MEDS ORDERED: CRAN400T3 PO (10:45)
[2021-04-28] MEDS ORDERED: INUL1TAB4 PO (10:45)
--- NOTE | 2021-04-28 12:53 | History & Physical ---
HPI History of Present Illness: 85 yo F with alzheimer's dementia that presented with daughter due to increasing confusion and increased help for ADLs. Patient is really not about to make needs known but will answer some questions. Daughter states that her PO intake had went down in the last 2-3 days. Denies any fevers or chills. She took her mother in to the walkin clinic and was started on Cipro late last week. Urine culture came back and they called to adjust antibiotic medication due to resistance patterns. States that she just started the new antibiotic on Wednesday. Source: caregiver (Daughter) Exam Limitations: clinical condition Date seen by provider: Apr 28, 2021 Time Seen by Provider: 11:05 Attending Physician Erinn Osuna DO PCP Self,Trent QUACH Consult Date of Admission Apr 27, 2021 at 22:32 Home Medications Home Medications Reviewed patient Home Medication Reconciliation performed by pharmacy medication reconciliations planetarium technician and/or nursing. Patients Allergies have been reviewed. Allergies Coded Allergies: No Known Drug Allergies (Unverified , 12/13/18) VTC-Rocyzw-Exmxdl Hx Patient Social History Smoking Status: Never a Smoker 2nd Hand Smoke Exposure: No Recent Hopitalizations: No Alcohol Use?: No Have you traveled recently?: No Immunizations Up To Date Tetanus Booster (TDap): Unknown Past Medical History HTN Depression and Anxiety Hypothyroidism Family Medical History Significant Family History: No Pertinent Family Hx Review of Systems (CHC) Constitutional: No fever, No malaise; other (Patient answers "no" to every question) Reviewed Test Results Reviewed Test Results Lab Laboratory Tests Test 04/27/21 20:25 04/27/21 20:33 04/28/21 06:45 Range/Units White Blood Count 5.5 5.5 4.3-11.0 10^3/uL Red Blood Count 3.41 L 3.17 L 3.80-5.11 10^6/uL Hemoglobin 10.2 L 9.6 L 11.5-16.0 g/dL Hematocrit 32 L 30 L 35-52 % Mean Corpuscular Volume 95 94 80-99 fL Mean Corpuscular Hemoglobin 30 30 25-34 pg Mean Corpuscular Hemoglobin Concent 32 32 32-36 g/dL Red Cell Distribution Width 15.3 H 15.0 H 10.0-14.5 % Platelet Count 213 193 130-400 10^3/uL Mean Platelet Volume 11.1 11.3 9.0-12.2 fL Immature Granulocyte % (Auto) 0 0 % Neutrophils (%) (Auto) 51 46 42-75 % Lymphocytes (%) (Auto) 37 41 12-44 % Monocytes (%) (Auto) 8 9 0-12 % Eosinophils (%) (Auto) 3 3 0-10 % Basophils (%) (Auto) 1 1 0-10 % Neutrophils # (Auto) 2.8 2.5 1.8-7.8 10^3/uL Lymphocytes # (Auto) 2.0 2.3 1.0-4.0 10^3/uL Monocytes # (Auto) 0.5 0.5 0.0-1.0 10^3/uL Eosinophils # (Auto) 0.2 0.2 0.0-0.3 10^3/uL Basophils # (Auto) 0.0 0.1 0.0-0.1 10^3/uL Immature Granulocyte # (Auto) 0.0 0.0 0.0-0.1 10^3/uL Prothrombin Time 13.0 12.2-14.7 SEC INR Comment 1.0 0.8-1.4 Activated Partial Thromboplast Time 39 H 24-35 SEC Sodium Level 137 139 135-145 MMOL/L Potassium Level 6.8 *H 6.0 H 3.6-5.0 MMOL/L Chloride Level 108 H 115 H 98-107 MMOL/L Carbon Dioxide Level 17 L 16 L 21-32 MMOL/L Anion Gap 12 8 5-14 MMOL/L Blood Urea Nitrogen 46 H 39 H 7-18 MG/DL Creatinine 2.03 H 1.77 H 0.60-1.30 MG/DL Estimat Glomerular Filtration Rate 23 27 BUN/Creatinine Ratio 23 22 Glucose Level 102 78 70-105 MG/DL Lactic Acid Level 1.53 0.50-2.00 MMOL/L Calcium Level 9.2 8.5 8.5-10.1 MG/DL Corrected Calcium 9.4 8.5-10.1 MG/DL Total Bilirubin 0.2 0.1-1.0 MG/DL Aspartate Amino Transf (AST/SGOT) 21 5-34 U/L Alanine Aminotransferase (ALT/SGPT) 8 0-55 U/L Alkaline Phosphatase 95 40-136 U/L Total Protein 7.4 6.4-8.2 GM/DL Albumin 3.7 3.2-4.5 GM/DL Urine Color YELLOW Urine Clarity CLEAR Urine pH 5.5 5-9 Urine Specific [place] 1.020 1.016-1.022 Urine Protein NEGATIVE NEGATIVE Urine Glucose (UA) NEGATIVE NEGATIVE Urine Ketones NEGATIVE NEGATIVE Urine Nitrite NEGATIVE NEGATIVE Urine Bilirubin NEGATIVE NEGATIVE Urine Urobilinogen 0.2 < = 1.0 MG/DL Urine Leukocyte Esterase NEGATIVE NEGATIVE Urine RBC (Auto) NEGATIVE NEGATIVE Urine RBC RARE /HPF Urine WBC RARE /HPF Urine Squamous Epithelial Cells 10-25 H /HPF Urine Crystals PRESENT H /LPF Urine Amorphous Sediment FEW GEMMA URATES H /LPF Urine Bacteria TRACE /HPF Urine Casts NONE /LPF Urine Mucus NEGATIVE /LPF Urine Culture Indicated NO Physical Exam-([facility]) Physical Exam Vital Signs VS - Last 72 Hours, by Label 04/27/21 04/28/21 04/28/21 04/28/21 20:16 00:00 01:56 02:29 Temp 36.8 36.2 Pulse 81 65 60 Resp 16 24 B/P (MAP) 172/91 (118) 141/78 (99) Pulse Ox 93 95 O2 Delivery Room Air Room Air Room Air 04/28/21 04/28/21 04/28/21 04/28/21 02:59 03:17 07:00 07:46 Temp 36.8 36.4 35.7 Pulse 81 59 58 52 Resp 22 20 B/P (MAP) 172/72 (105) 151/68 (95) Pulse Ox 93 94 100 O2 Delivery Room Air Room Air FiO2 21 04/28/21 04/28/21 08:00 11:30 Temp 36.8 Pulse 68 Resp 20 B/P (MAP) 129/68 (88) Pulse Ox 93 O2 Delivery Room Air Room Air Capillary Refill : Less Than 3 Seconds General Appearance: WD/WN, thin HEENT: PERRL/EOMI Neck: non-tender, full range of motion Respiratory: chest non-tender, lungs clear, normal breath sounds, no respiratory distress, no accessory muscle use Cardiovascular: normal peripheral pulses, regular rate, rhythm, no edema Gastrointestinal: normal bowel sounds, non tender, soft; No guarding, No rebound Back: no CVA tenderness Extremities: normal range of motion, non-tender, normal inspection, no pedal edema, no calf tenderness, normal capillary refill Neurologic/Psychiatric: no motor/sensory deficits, alert, other (oriented only to person) Skin: normal color, warm/dry Lymphatic: no adenopathy Assessment/Plan Assessment/Plan Admission Status: Inpatient Order (span 2 midnights) Reason for Inpatient Admission: Patient is very labile due to age and condition, She needs IV fluids and antibiotics and close monitoring due to risk of speedy decompensation (1) Acute on chronic renal failure Status: Acute Assessment & Plan: - Most likely a pre-renal cause, will continue with gentle hydration and will continue to monitor CMP, Renally dose medication and stay away from renally toxic medications Qualifiers: (2) Hyperkalemia Status: Acute Assessment & Plan: - Continue with hydration and will give 1 dose of kayexalate (3) UTI (urinary tract infection) Status: Acute Assessment & Plan: - Will get culture results from [facility], started on ampicillin and transitioned to PO amoxicillin Qualifiers: Qualified Codes: N30.01 - Acute cystitis with hematuria (4) Altered mental status Status: Acute Assessment & Plan: - Likely 2/2 to infection, will continue to monitor Qualifiers: Qualified Codes: R41.0 - Disorientation, unspecified (5) Normocytic anemia Status: Chronic (6) Dementia Status: Acute Qualifiers: Qualified Codes: G30.9 - Alzheimer's disease, unspecified; F02.80 - Dementia in other diseases classified elsewhere without behavioral disturbance FRANCIS FOWLER MD Apr 28, 2021 12:53
[2021-04-28] MEDS ORDERED: SOD POLYSTERENE 15 GM/60 ML (KAYEXALATE) UNIT DOSE PO ONE (15:00)
[2021-04-28] MEDS ORDERED: ASPIRIN E.C. 81 MG (ECOTRIN) TAB PO SCH (21:00)
[2021-04-29 04:53] VITALS: BP 144/67
[2021-04-29 06:18] LABS: BASOPHILS % (AUTO) 1 % (0-10); EOSINOPHILS # (AUTO) 0.2 10^3/uL (0.0-0.3); EOSINOPHILS % (AUTO) 3 % (0-10); HEMATOCRIT 26 % (35-52); HEMOGLOBIN 8.2 g/dL (11.5-16.0); LYMPHOCYTES # (AUTO) 2.3 10^3/uL (1.0-4.0); LYMPHOCYTES % (AUTO) 45 % (12-44); MEAN CORPUSCULAR HEMOGLOBIN 30 pg (25-34); MEAN CORPUSCULAR HGB CONC 32 g/dL (32-36); MEAN CORPUSCULAR VOLUME 95 fL (80-99); MEAN PLATELET VOLUME 10.6 fL (9.0-12.2); MONOCYTES # (AUTO) 0.5 10^3/uL (0.0-1.0); MONOCYTES % (AUTO) 9 % (0-12); NEUTROPHILS # (AUTO) 2.2 10^3/uL (1.8-7.8); NEUTROPHILS % (AUTO) 42 % (42-75); PLATELET COUNT 156 10^3/uL (130-400); WHITE BLOOD COUNT 5.1 10^3/uL (4.3-11.0)
[2021-04-29 06:33] LABS: ALBUMIN 2.8 GM/DL (3.2-4.5); POTASSIUM 5.3 MMOL/L (3.6-5.0)
[2021-04-29 06:34] LABS: CALCIUM 7.8 MG/DL (8.5-10.1)
[2021-04-29 06:35] LABS: TOTAL PROTEIN 5.7 GM/DL (6.4-8.2)
[2021-04-29 06:37] LABS: BILIRUBIN,TOTAL 0.2 MG/DL (0.1-1.0)
[2021-04-29 06:39] LABS: CREATININE SERUM 1.79 MG/DL (0.60-1.30)
[2021-04-29 08:06] VITALS: BP 176/73
[2021-04-29] MEDS ORDERED: PANTOPRAZOLE 40 MG (PROTONIX) TAB PO SCH (09:00)
[2021-04-29] MEDS ORDERED: LEVOTHYROXINE 100 MCG (LEVOTHROID) TAB PO SCH (09:00)
[2021-04-29] MEDS ORDERED: SERTRALINE 100 MG (ZOLOFT) TAB PO SCH (09:00)
[2021-04-29] MEDS: AMOXICILLIN 250 MG (POLYMOX) CAP PO SCH (09:18)
[2021-04-29] MEDS ORDERED: lisINopril 5 MG (PRINIVIL) TABLET PO ONE (11:15)
[2021-04-29 12:04] VITALS: BP 174/69
--- NOTE | 2021-04-29 12:05 | Discharge Summary ---
Diagnosis/Chief Complaint Date of Admission Apr 28, 2021 at 09:00 Date of Discharge 04/29/21 Admission Diagnosis Admission Diagnosis See problem list Discharge Diagnosis See Below Problems/Diagnosis: (1) Acute on chronic renal failure Assessment & Plan: - Most likely a pre-renal cause, will continue with gentle hydration and will continue to monitor CMP, Renally dose medication and stay away from renally toxic medications Qualifiers: Status: Acute (2) Hyperkalemia Assessment & Plan: - Continue with hydration and will give 1 dose of kayexalate Status: Acute (3) UTI (urinary tract infection) Assessment & Plan: - Will get culture results from [facility], started on ampicillin and transitioned to PO amoxicillin Qualifiers: Qualified Codes: N30.01 - Acute cystitis with hematuria Status: Acute (4) Altered mental status Assessment & Plan: - Likely 2/2 to infection, will continue to monitor Qualifiers: Qualified Codes: R41.0 - Disorientation, unspecified Status: Acute (5) Normocytic anemia Status: Chronic (6) Dementia Qualifiers: Qualified Codes: G30.9 - Alzheimer's disease, unspecified; F02.80 - Dementia in other diseases classified elsewhere without behavioral disturbance Status: Acute Chief Complaint/HPI Chief Complaint/HPI 85 yo F with alzheimer's dementia that presented with daughter due to increasing confusion and increased help for ADLs. Patient is really not about to make needs known but will answer some questions. Daughter states that her PO intake had went down in the last 2-3 days. Denies any fevers or chills. She took her mother in to the walkin clinic and was started on Cipro late last week. Urine culture came back and they called to adjust antibiotic medication due to resistance patterns. States that she just started the new antibiotic on Wednesday. Discharge Summary-Simple/Stand Consultations Discharge Physical Examination Allergies: Coded Allergies: No Known Drug Allergies (Unverified , 12/13/18) Vitals & I&Os Vital Sign - Last 12Hours Date Time Temp Pulse Resp B/P (MAP) Pulse Ox O2 Delivery O2 Flow Rate FiO2 04/29/21 08:06 35.8 57 20 176/73 (107) 94 Room Air 04/28/21 02:59 21 Intake and Output 04/29/21 00:00 Intake Total 1000 ml Output Total 410 ml Balance 590 ml Hospital Course See final discharge diagnosis. Discharge Instructions to patient/family Please see electronic discharge instructions given to patient. Discharge Medications Reviewed and agree with Discharge Medication list on patient's Discharge Instruction sheet FRANCIS FOWLER MD Apr 29, 2021 12:05
[2021-04-29] MEDS ORDERED: AMOX250C PO (12:16)
--- NOTE | 2021-04-29 12:24 | Discharge Summary ---
Discharge [facility] Reconcile Patient Problems Problems Reviewed?: Yes Discharge Medications New, Converted or Re-Newed RX: Transmitted to Pharmacy New Medications: Amoxicillin (Amoxicillin) 250 Mg Capsule 250 MG PO BID for 5 Days, #10 CAP Continued Medications: Albuterol Sulfate (Ventolin Hfa) 1 Puff Puff 1-2 PUFF INH Q6H PRN for SHORTNESS OF BREATH, EA ALPRAZolam (ALPRAZolam) 0.25 Mg Tablet 0.125-0.25 MG PO TID PRN for ANXIETY, TAB TAKES TO 1 (0.25MG) TABS Aspirin (Aspirin EC) 81 Mg Tablet.dr 81 MG PO HS, TAB Colchicine (Colcrys) 0.6 Mg Tablet 0.4 MG PO BID PRN for GOUT FLARE, TAB Cranberry Fruit (Cranberry) 400 Mg Tablet 400 MG PO DAILY, TAB Furosemide (Furosemide) 20 Mg Tablet 20 MG PO DAILY PRN for FLUID RETENTION, TAB Inulin/Chromium Picolinate (Fiber Gummies) 1 Each Tab.chew 2 EACH PO DAILY, TAB Lactobacillus Acidophilus (Probiotic) 1 Each Capsule 1 EACH PO DAILY, CAP Levothyroxine Sodium (Levothyroxine Sodium) 100 Mcg Tablet 100 MCG PO DAILY, TAB Lisinopril (Lisinopril) 5 Mg Tablet 5 MG PO DAILY, TAB Mirtazapine (Mirtazapine) 15 Mg Tablet 15 MG PO HS, TAB Nitroglycerin (Nitroglycerin) 0.4 Mg Tab.subl 0.4 MG SL UD PRN for CHEST PAIN, TAB Pantoprazole Sodium (Pantoprazole Sodium) 40 Mg Tablet.dr 40 MG PO DAILY, TAB Sertraline HCl (Sertraline HCl) 100 Mg Tablet 150 MG PO DAILY, TAB TAKES 1 & (100MG) TABS Patient Instructions Goal/Follow Up Appt: F/u with PCP in 1 week Activity & Diet Discharge Diet: No Restrictions (Push PO hydration) Activity as Tolerated: Yes FRANCIS FOWLER MD Apr 29, 2021 12:21
== END 2021-04-29 14:05 | disposition home or self-care (01) | DRG 683 ==
LOC: EDUNIT# 20:07 → ER 20:09 → 4TH 22:32 → OBSVTOIN 04-28 09:00
PROVIDERS: ADMIT Internal Medicine; ATTEND Internal Medicine
DX: N17.9 Acute kidney failure, unspecified (principal); N39.0 Urinary tract infection, site not specified; I25.2 Old myocardial infarction; I10 Essential (primary) hypertension; M41.9 Scoliosis, unspecified; E03.9 Hypothyroidism, unspecified; M10.9 Gout, unspecified; E87.5 Hyperkalemia; G30.9 Alzheimer's disease, unspecified; F02.80 Dementia in other diseases classified elsewhere, unspecified severity, without behavioral disturbance, psychotic disturbance, mood disturbance, and anxiety; D64.9 Anemia, unspecified; N18.9 Chronic kidney disease, unspecified; I12.9 Hypertensive chronic kidney disease with stage 1 through stage 4 chronic kidney disease, or unspecified chronic kidney disease; F32.9 Major depressive disorder, single episode, unspecified
CPT/HCPCS: 36415; 51701; 71045; 80048; 80053; 81000; 83605; 84443; 85025; 85610; 85730; 87040; 87088; 93005; G0378

== ENCOUNTER 2021-08-21 11:21 | Inpatient (IN) | payer MEDICARE, MEDICAID ==
[~2021-08-21] VITALS: Ht 157 cm; Wt 44.4 kg
[~2021-08-21 11:21] MED LIST changes: +ALPR0.254 PO; +AMOX250C PO; +ASPI-1238 PO; +COLC0.6T53 PO; +CRAN400T3 PO; +FURO20TA4 PO; +INUL1TAB4 PO; +LACT1CAP62 PO; +LEVO100T7 PO; +LISI5TAB20 PO; +MIRT-68 PO; +NITR0.4T39 SL; +NITR100C10 PO; +PANT40TA52 PO; +RT-ALBUINH INH
[2021-08-21 11:54] LABS: BASOPHILS # (AUTO) 0.1 10^3/uL (0.0-0.1); BASOPHILS % (AUTO) 1 % (0-10); EOSINOPHILS # (AUTO) 0.1 10^3/uL (0.0-0.3); EOSINOPHILS % (AUTO) 1 % (0-10); HEMATOCRIT 31 % (35-52); HEMOGLOBIN 9.7 g/dL (11.5-16.0); LYMPHOCYTES # (AUTO) 1.4 10^3/uL (1.0-4.0); LYMPHOCYTES % (AUTO) 17 % (12-44); MEAN CORPUSCULAR HEMOGLOBIN 30 pg (25-34); MEAN CORPUSCULAR HGB CONC 32 g/dL (32-36); MEAN CORPUSCULAR VOLUME 93 fL (80-99); MEAN PLATELET VOLUME 10.9 fL (9.0-12.2); MONOCYTES # (AUTO) 0.6 10^3/uL (0.0-1.0); MONOCYTES % (AUTO) 7 % (0-12); NEUTROPHILS # (AUTO) 6.1 10^3/uL (1.8-7.8); NEUTROPHILS % (AUTO) 74 % (42-75); PLATELET COUNT 230 10^3/uL (130-400); WHITE BLOOD COUNT 8.3 10^3/uL (4.3-11.0)
[2021-08-21 11:55] LABS: BILIRUBIN,URINE NEGATIVE (NEGATIVE); CLARITY,URINE SL CLOUDY; COLOR,URINE YELLOW; GLUCOSE, URINE (UA) NEGATIVE (NEGATIVE); KETONES,URINE NEGATIVE (NEGATIVE); LEUKOCYTE ESTERASE ,URINE NEGATIVE (NEGATIVE); NITRITE,URINE NEGATIVE (NEGATIVE); PH,URINE 5.5 (5-9); PROTEIN,URINE NEGATIVE (NEGATIVE)
[2021-08-21 11:58] LABS: ALBUMIN 3.6 GM/DL (3.2-4.5)
[2021-08-21 12:00] LABS: TOTAL PROTEIN 7.4 GM/DL (6.4-8.2)
[2021-08-21 12:02] LABS: BACTERIA,URINE MODERATE /HPF; WBC,URINE RARE /HPF
[2021-08-21 12:02] LABS: BILIRUBIN,TOTAL 0.3 MG/DL (0.1-1.0)
[2021-08-21 12:03] LABS: AMORPHOUS SEDIMENT,UR MOD AMOR URATES /LPF
[2021-08-21 12:04] LABS: CREATININE SERUM 2.6 MG/DL (0.60-1.30)
[2021-08-21 12:10] LABS: POTASSIUM 6.7 MMOL/L (3.6-5.0)
[2021-08-21] MEDS ORDERED: NS IV 500 ML 500 ML IV ONE (12:15)
--- NOTE | 2021-08-21 12:23 | ED General ---
General Chief Complaint: Altered Mental Status Stated Complaint: DIARRHEA/ELEV HR Nursing Triage Note: PT PRESENTS TO ED ACCOMPANIED BY DAUGHTER FOR COMPLAINTS OF INCREASED GEN WEAKNESS, FALLS, TREMORS, DECREASED URINATION, AND DIAHRREA. PT CHRIS REPORTS S/S HAVE GOTTEN PROGRESSIVELY WORSE OVER SOME TIME BUT THE DIAHRREA STARTED YESTERDAY, Source of Information: Caregiver, Family Exam Limitations: No Limitations History of Present Illness Date Seen by Provider: Aug 21, 2021 Time Seen by Provider: 12:12 Initial Comments This is an 86-year-old female who presented to the ER via POV with her daughter for decreased oral intake over the past 2 to 3 days, generalized weakness, "not acting herself". Patient does have a history of Alzheimer's and chronic kidney disease. Her last admission to this hospital was in April for dehydration and hyperkalemia. Daughter states of the past month she has been having increasing weakness and multiple "small falls". No fever, chills, cough, shortness of breath, nausea, vomiting, abdominal pain. Daughter notes that he is she did have a large diarrheal stool yesterday. Allergies and Home Medications Allergies Coded Allergies: No Known Drug Allergies (Unverified , 12/13/18) Patient Home Medication List Home Medication List Reviewed: Yes ALPRAZolam (ALPRAZolam) 0.25 Mg Tablet, 0.125-0.25 MG PO TID PRN for ANXIETY, (Reported) Entered as Reported by: GLORIA MALHOTRA on 04/28/21 1043 Albuterol Sulfate (Ventolin Hfa) 1 Puff Puff, 1-2 PUFF INH Q6H PRN for SHORTNESS OF BREATH, (Reported) Entered as Reported by: GLORIA MALHOTRA on 04/28/21 1043 Amoxicillin (Amoxicillin) 250 Mg Capsule, 250 MG PO BID Prescribed by: FRANCIS FOWLER on 04/29/21 1216 Aspirin (Aspirin EC) 81 Mg Tablet.dr, 81 MG PO HS, (Reported) Entered as Reported by: GLORIA MALHOTRA on 04/28/21 1045 Colchicine (Colcrys) 0.6 Mg Tablet, 0.4 MG PO BID PRN for GOUT FLARE, (Reported) Entered as Reported by: GLORIA MALHOTRA on 04/28/21 1043 Cranberry Fruit (Cranberry) 400 Mg Tablet, 400 MG PO DAILY, (Reported) Entered as Reported by: GLORIA MALOHTRA on 04/28/21 104 Furosemide (Furosemide) 20 Mg Tablet, 20 MG PO DAILY PRN for FLUID RETENTION, (Reported) Entered as Reported by: GLORIA MALHOTRA on 04/28/21 104 Inulin/Chromium Picolinate (Fiber Gummies) 1 Each Tab.chew, 2 EACH PO DAILY, (Reported) Entered as Reported by: GLORIA MALHOTRA on 04/28/21 104 Lactobacillus Acidophilus (Probiotic) 1 Each Capsule, 1 EACH PO DAILY, (Reported) Entered as Reported by: GLORIA MALHOTRA on 04/28/21 104 Levothyroxine Sodium (Levothyroxine Sodium) 100 Mcg Tablet, 100 MCG PO DAILY, (Reported) Entered as Reported by: GLORIA MALHOTRA on 04/28/21 104 Lisinopril (Lisinopril) 5 Mg Tablet, 5 MG PO DAILY, (Reported) Entered as Reported by: GLORIA MALHOTRA on 04/28/21 104 Mirtazapine (Mirtazapine) 15 Mg Tablet, 15 MG PO HS, (Reported) Entered as Reported by: GLORIA MALHOTRA on 04/28/21 104 Nitroglycerin (Nitroglycerin) 0.4 Mg Tab.subl, 0.4 MG SL UD PRN for CHEST PAIN, (Reported) Entered as Reported by: GLORIA MALHOTRA on 04/28/21 104 Pantoprazole Sodium (Pantoprazole Sodium) 40 Mg Tablet.dr, 40 MG PO DAILY, (Reported) Entered as Reported by: GLORIA MALHOTRA on 04/28/21 104 Sertraline HCl (Sertraline HCl) 100 Mg Tablet, 150 MG PO DAILY, (Reported) Entered as Reported by: MARCO ANTONIO MARTINEZ on 12/13/18 8456 Review of Systems Review of Systems Constitutional: see HPI EENTM: other (blind both eyes ) Respiratory: see HPI Cardiovascular: see HPI Gastrointestinal: see HPI Genitourinary: see HPI Musculoskeletal: see HPI Skin: other (bruising ) Psychiatric/Neurological: See HPI Hematologic/Lymphatic: Easy Bruising Immunological/Allergic: no symptoms reported Past Sdttpgz-Gqliiq-Xahmsd Hx Patient Social History Tobacco Use?: No Substance use?: No Alcohol Use?: No Pt feels they are or have been: No Immunizations Up To Date Tetanus Booster (TDap): Unknown First/Initial COVID19 Vaccinat: November 2020 Second COVID19 Vaccination Nikolay: December 2020 Third COVID19 Vaccination Date: November 2020 COVID19 Vaccine 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: 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 Seasonal Allergies Seasonal Allergies: No Past Medical History Surgery/Hospitalization HX: History of Kidney failure, [place], Hypothyroidism, Alzheimers Disease Surgeries: Yes Hysterectomy Respiratory: Yes Tuberculosis Cardiac: Yes Coronary Artery Disease, Heart Attack, Hypertension 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 0oz. [id number]; 18.00 BMI Method:Actual General Appearance: No Apparent Distress, WD/WN, Chronically ill, Cachetic Eyes: Bilateral Eye Other (Bilind bilateral eyes ) HEENT: No Pharyngeal Erythema; Other (dry mucous membranes) Neck: Normal Inspection, Supple Respiratory: Lungs Clear, Normal Breath Sounds, No Accessory Muscle Use, No Respiratory Distress Cardiovascular: Regular Rate, Rhythm, No Edema, Normal Peripheral Pulses Gastrointestinal: Normal Bowel Sounds, Non Tender, Soft Extremity: Normal Capillary Refill, Normal Inspection Neurologic/Psychiatric: Alert; No Oriented x3 (non verbal ); Motor Weakness (generalized ) Skin: Normal Color, Warm/Dry, Other (generalized bruising on bilateral upper extremities and scattered bruises on bilateral lower extremities. ) Progress/Results/Core Measures Suspected Sepsis SIRS Temperature: Pulse: 63 Respiratory Rate: 18 Laboratory Tests 08/21/21 11:35: White Blood Count 8.3 Blood Pressure 115 /60 Mean: 78 Laboratory Tests 08/21/21 11:35: Creatinine 2.60H, Platelet Count 230, Total Bilirubin 0.3 Results/Orders Lab Results Laboratory Tests Test 08/21/21 11:35 08/21/21 11:40 Range/Units White Blood Count 8.3 4.3-11.0 10^3/uL Red Blood Count 3.27 L 3.80-5.11 10^6/uL Hemoglobin 9.7 L 11.5-16.0 g/dL Hematocrit 31 L 35-52 % Mean Corpuscular Volume 93 80-99 fL Mean Corpuscular Hemoglobin 30 25-34 pg Mean Corpuscular Hemoglobin Concent 32 32-36 g/dL Red Cell Distribution Width 19.0 H 10.0-14.5 % Platelet Count 230 130-400 10^3/uL Mean Platelet Volume 10.9 9.0-12.2 fL Immature Granulocyte % (Auto) 1 % Neutrophils (%) (Auto) 74 42-75 % Lymphocytes (%) (Auto) 17 12-44 % Monocytes (%) (Auto) 7 0-12 % Eosinophils (%) (Auto) 1 0-10 % Basophils (%) (Auto) 1 0-10 % Neutrophils # (Auto) 6.1 1.8-7.8 10^3/uL Lymphocytes # (Auto) 1.4 1.0-4.0 10^3/uL Monocytes # (Auto) 0.6 0.0-1.0 10^3/uL Eosinophils # (Auto) 0.1 0.0-0.3 10^3/uL Basophils # (Auto) 0.1 0.0-0.1 10^3/uL Immature Granulocyte # (Auto) 0.0 0.0-0.1 10^3/uL Sodium Level 139 135-145 MMOL/L Potassium Level 6.7 *H 3.6-5.0 MMOL/L Chloride Level 117 H 98-107 MMOL/L Carbon Dioxide Level 11 L 21-32 MMOL/L Anion Gap 11 5-14 MMOL/L Blood Urea Nitrogen 85 H 7-18 MG/DL Creatinine 2.60 H 0.60-1.30 MG/DL Estimat Glomerular Filtration Rate 17 BUN/Creatinine Ratio 33 Glucose Level 86 70-105 MG/DL Calcium Level 9.0 8.5-10.1 MG/DL Corrected Calcium 9.3 8.5-10.1 MG/DL Total Bilirubin 0.3 0.1-1.0 MG/DL Aspartate Amino Transf (AST/SGOT) 26 5-34 U/L Alanine Aminotransferase (ALT/SGPT) 13 0-55 U/L Alkaline Phosphatase 89 40-136 U/L C-Reactive Protein High Sensitivity 1.62 H 0.00-0.50 MG/DL Total Protein 7.4 6.4-8.2 GM/DL Albumin 3.6 3.2-4.5 GM/DL Urine Color YELLOW Urine Clarity SL CLOUDY Urine pH 5.5 5-9 Urine Specific [place] 1.020 1.016-1.022 Urine Protein NEGATIVE NEGATIVE Urine Glucose (UA) NEGATIVE NEGATIVE Urine Ketones NEGATIVE NEGATIVE Urine Nitrite NEGATIVE NEGATIVE Urine Bilirubin NEGATIVE NEGATIVE Urine Urobilinogen 0.2 < = 1.0 MG/DL Urine Leukocyte Esterase NEGATIVE NEGATIVE Urine RBC (Auto) NEGATIVE NEGATIVE Urine RBC NONE /HPF Urine WBC RARE /HPF Urine Squamous Epithelial Cells NONE /HPF Urine Crystals PRESENT H /LPF Urine Amorphous Sediment MOD GEMMA URATES H /LPF Urine Bacteria MODERATE H /HPF Urine Casts NONE /LPF Urine Mucus NEGATIVE /LPF Urine Culture Indicated YES My Orders Orders - TAMMI VAZQUEZ APRN Ua Culture If Indicated (08/21/21 11:48) Cbc With Automated Diff (08/21/21 11:48) Comprehensive Metabolic Panel (08/21/21 11:48) Hs C Reactive Protein (08/21/21 11:48) Urine Culture (08/21/21 11:40) Ns Iv 500 Ml (Sodium Chloride 0.9%) (08/21/21 12:15) Medications Given in ED Current Medications Medications Dose Ordered Sig/Carlos Alberto Route Start Time Stop Time Status Last Admin Dose Admin Sodium Chloride 500 ml @ 30 mls/hr [id number] ONCE IV 08/21/21 12:15 08/21/21 13:50 DC 08/21/21 12:23 30 MLS/HR Vital Signs/I&O 08/21/21 11:30 Temp 35.2 Pulse 63 Resp 18 B/P (MAP) 115/60 (78) Capillary Refill : Less Than 3 Seconds Blood Pressure Mean: 78 Progress Note : Progress Note Discussed case with Dr. Mendoza. Will admit observation for gentle hydration. Will give one dose of Kayexalate and trend BMP. POC reviewed with daughter and she is agreeable with plan. Given NS 500ml bolus in ED. Departure Communication (Admissions) Time/Spoke to Admitting Phy: 12:31 Dr. Mendoza. Impression Primary Impression: Dehydration Additional Impressions: Hyperkalemia CKD (chronic kidney disease) Disposition: 09 ADMITTED INPATIENT Condition: Stable Admissions Decision to Admit Reason: Admit from ER (General) Decision to Admit/Date: Aug 21, 2021 Time/Decision to Admit Time: 12:26 Departure-Patient Inst. Referrals: BRAIN BOWLES MD (PCP/Family) Primary Care Physician TAMMI VAZQUEZ FIRST CRUSHER Aug 21, 2021 12:23
[2021-08-21] MEDS ORDERED: SOD POLYSTERENE 15 GM/60 ML (KAYEXALATE) UNIT DOSE PO NR (14:00)
[2021-08-21] MEDS ORDERED: ONDANSETRON 4 MG/2 ML (SDV) Z0FRAN IVP PRN (14:00)
[2021-08-21] MEDS ORDERED: ACETAMINOPHEN 325 MG SUPP (TYLENOL) PR PRN (14:00)
[2021-08-21] MEDS ORDERED: NS IV 1000 ML 1,000 ML IV SCH (14:00)
[2021-08-21] MEDS ORDERED: ACETAMINOPHEN 325 MG TABLET PO PRN (14:00)
[2021-08-21] MEDS ORDERED: RT-ALBUTEROL SULF 2.5 MG/3 ML PRE-MIX VIAL INH ONE (15:15)
[2021-08-21 16:08] VITALS: BP 118/58
[2021-08-21 16:27] VITALS: BP 118/58
[2021-08-21] MEDS ORDERED: RT-ALBUTEROL SULF 2.5 MG/3 ML PRE-MIX VIAL INH PRN (16:45)
[2021-08-21 16:48] LABS: CALCIUM 8.5 MG/DL (8.5-10.1)
[2021-08-21 16:53] LABS: CREATININE SERUM 2.33 MG/DL (0.60-1.30)
[2021-08-21 17:07] LABS: POTASSIUM 6.5 MMOL/L (3.6-5.0)
[2021-08-21] MEDS ORDERED: inSUlin (REGULAR) HUMAN 1 UNIT/0.01 ML (CHARGE PER UNIT) IV ONE ×2 (17:15→23:00)
[2021-08-21] MEDS ORDERED: D5 1/2 NS 1000 ML IV SOLUTION 1,000 ML IV SCH (17:15)
[2021-08-21] MEDS ORDERED: DEXTROSE 50% 50 ML (IMS) SYR IV ONE ×2 (17:15→23:00)
[2021-08-21] MEDS ORDERED: inSUlin (REGULAR) HUMAN 1 UNIT/0.01 ML (CHARGE PER UNIT) ONE (17:21)
[2021-08-21] MEDS ORDERED: DEXTROSE 50% 50 ML (IMS) SYR ONE (17:21)
[2021-08-21] MEDS ORDERED: D5 1/2 NS 1000 ML IV SOLUTION 1,000 ML IV ONE (17:21)
[2021-08-21] MEDS ORDERED: DEXTROSE 10% IV SOLUTION 1,000 ML IV ONE (19:25)
[2021-08-21] MEDS: DEXTROSE 10% IV SOLUTION 1,000 ML IV SCH (19:36)
[2021-08-21 19:43] VITALS: BP 150/55
[2021-08-21 22:40] LABS: CALCIUM 8.1 MG/DL (8.5-10.1)
[2021-08-21 22:45] LABS: CREATININE SERUM 2.36 MG/DL (0.60-1.30)
[2021-08-21 22:46] LABS: POTASSIUM 6.8 MMOL/L (3.6-5.0)
[2021-08-21] MEDS ORDERED: FUROSEMIDE 40 MG/4 ML INJ (LASIX) IVP ONE (23:00)
[2021-08-21] MEDS ORDERED: CALCIUM GLUCONATE 10% INJ 4.65 MEQ in NS (IVPB) 50 ML IV ONE (23:00)
[2021-08-21] MEDS ORDERED: CALCIUM GLUC. 10% 4.65 MEQ/10 ML VIAL IV ONE (23:30)
[2021-08-22 00:59] VITALS: BP 123/91
[2021-08-22 01:16] LABS: POTASSIUM 5.3 MMOL/L (3.6-5.0)
[2021-08-22 01:17] LABS: CALCIUM 8.8 MG/DL (8.5-10.1)
[2021-08-22 01:22] LABS: CREATININE SERUM 2.39 MG/DL (0.60-1.30)
[2021-08-22] MEDS ORDERED: DEXTROSE 50% 50 ML (IMS) SYR ONE (02:24)
[2021-08-22 02:26] LABS: ABG BASE EXCESS -15.9 MMOL/L (-2.5-2.5); ABG OXYGEN SATURATION 96 % (94-100); ABG PCO2 22 MMHG (35-45); ABG PO2 88 MMHG (79-93); ABG TCO2 10.5 MMOL/L (21.0-31.0)
[2021-08-22 02:28] LABS: ABG PH 7.27 (7.37-7.43)
[2021-08-22 02:29] LABS: ALLENS TEST YES-POS; INSPIRED O2 ROOM AIR; PATIENT TEMP 36.4; VENTILATOR NO
[2021-08-22 03:00] VITALS: BP 105/55
[2021-08-22] MEDS ORDERED: DEXTROSE 50% 50 ML (IMS) SYR IV PRN (03:00)
[2021-08-22] MEDS ORDERED: SODIUM BICARB 8.4% 50 MEQ/50 ML (ABBOTT) SYR IV ONE (03:00)
[2021-08-22 05:07] LABS: BASOPHILS % (AUTO) 0 % (0-10); EOSINOPHILS # (AUTO) 0.1 10^3/uL (0.0-0.3); EOSINOPHILS % (AUTO) 1 % (0-10); HEMATOCRIT 25 % (35-52); LYMPHOCYTES # (AUTO) 1.1 10^3/uL (1.0-4.0); LYMPHOCYTES % (AUTO) 15 % (12-44); MEAN CORPUSCULAR HEMOGLOBIN 30 pg (25-34); MEAN CORPUSCULAR HGB CONC 32 g/dL (32-36); MEAN CORPUSCULAR VOLUME 92 fL (80-99); MEAN PLATELET VOLUME 10.6 fL (9.0-12.2); MONOCYTES # (AUTO) 0.7 10^3/uL (0.0-1.0); MONOCYTES % (AUTO) 9 % (0-12); NEUTROPHILS # (AUTO) 5.9 10^3/uL (1.8-7.8); NEUTROPHILS % (AUTO) 75 % (42-75); PLATELET COUNT 189 10^3/uL (130-400); WHITE BLOOD COUNT 7.8 10^3/uL (4.3-11.0)
[2021-08-22 05:20] LABS: POTASSIUM 5.3 MMOL/L (3.6-5.0)
[2021-08-22 05:21] LABS: CALCIUM 8.4 MG/DL (8.5-10.1)
[2021-08-22 05:25] LABS: CREATININE SERUM 2.28 MG/DL (0.60-1.30)
[2021-08-22] MEDS: DEXTROSE 10% IV SOLUTION 1,000 ML IV SCH (05:48)
[2021-08-22] MEDS ORDERED: ENOXAPARIN 30 MG/0.3 ML (LOVENOX) SYR SC SCH (07:00)
[2021-08-22 08:00] VITALS: BP 130/60
[2021-08-22] MEDS ORDERED: BISACODYL 10 MG SUPP (DULCOLAX) PR PRN (10:30)
[2021-08-22] MEDS ORDERED: GLYCOPYRROLATE 0.2 MG/ML (ROBINUL) 2 ML VIAL IV PRN (10:30)
[2021-08-22] MEDS ORDERED: morphine INJ 4 MG/ML 1 ML (VIAL/SYRINGE) IV PRN (10:30)
[2021-08-22] MEDS ORDERED: SALIVA STIMULANT MOUTH SPRAY (BIOTENE) 1.5 OZ MM PRN (10:30)
[2021-08-22] MEDS ORDERED: RT-ALBUTEROL/IPRATROPIUM 3 ML (DUONEB) VIAL INH PRN (10:30)
[2021-08-22] MEDS ORDERED: ARTIFICAL TEARS 0.4 ML UNIT DOSE (REFRESH PLUS) OU PRN (10:30)
[2021-08-22] MEDS ORDERED: PROMETHAZINE INJ 25 MG/ML (PHENERGAN) AMP IVP PRN (10:30)
[2021-08-22] MEDS ORDERED: ACETAMINOPHEN 650 MG SUPP (TYLENOL) PR PRN (10:30)
--- NOTE | 2021-08-22 10:42 | History & Physical ---
DAVID AN MD 08/22/21 1042: HPI History of Present Illness: 86 year old female with history of CKD complicated by hyperkalemia as well as dementia with recent falls at home presenting for 3 days of weakness, decreased PO intake, and one episode of diarrhea. Per chart review, family has noted no history of fevers, chills, cough, N/V recently. Patient was admitted in April for dehydration, UTI hyperkalemia as well and has seemed to declined since that time. In the ED, found to have hemoglobin of 8, K 6.7, Cr 2.6 from baseline 1.7 - 2.0 and UA with bacteriuria. She was a fluid bolus and admittted, requiring multiple temporizing measures for hyperkalemia with K 5.3 this AM. On discussion with family members, they report that she would not want dialysis. She has been on hospice before but graduated after her kidney function improved. They are interested in pursuing hospice at this time. 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 Patients Allergies have been reviewed. Allergies Coded Allergies: No Known Drug Allergies (Unverified , 12/13/18) OQN-Gubbnh-Lfrwkj Hx Patient Social History Smoking Status: Never a Smoker 2nd Hand Smoke Exposure: No Recent Hopitalizations: No Alcohol Use?: No Have you traveled recently?: No Immunizations Up To Date Tetanus Booster (TDap): Unknown Past Medical History HTN Depression and Anxiety Hypothyroidism CKD Alzheimer Dementia Family Medical History Significant Family History: No Pertinent Family Hx Review of Systems ([facility]) Constitutional: no symptoms reported Other Unable to obtain secondary to mental status Physical Exam-([facility]) Physical Exam Vital Signs VS - Last 72 Hours, by Label 08/21/21 08/21/21 08/21/21 08/21/21 11:30 13:25 15:34 16:08 Temp 35.2 35.6 Pulse 63 65 68 Resp 18 20 18 B/P (MAP) 115/60 (78) 132/65 118/58 (78) Pulse Ox 98 90 98 O2 Delivery Room Air Room Air 08/21/21 08/21/21 08/21/21 08/21/21 16:27 19:32 19:43 23:47 Temp 35.6 36.3 Pulse 68 95 Resp 24 B/P (MAP) 150/55 (86) Pulse Ox 98 96 90 O2 Delivery Room Air Room Air Room Air FiO2 21 08/22/21 08/22/21 08/22/21 08/22/21 00:59 03:00 08:00 09:30 Temp 36.4 36.4 35.8 Pulse 89 82 76 Resp 22 22 18 B/P (MAP) 123/91 (102) 105/55 (72) 130/60 (83) Pulse Ox 93 95 93 O2 Delivery Room Air Room Air Room Air Room Air Capillary Refill : Less Than 3 Seconds General Appearance: cachetic, other (Frail, unresponsive elderly female ) HEENT: other Neck: normal inspection Respiratory: chest non-tender, lungs clear, normal breath sounds Cardiovascular: regular rate, rhythm, no edema Gastrointestinal: normal bowel sounds, soft Extremities: no pedal edema Neurologic/Psychiatric: other (Unresponsive ) Skin: normal color Assessment/Plan Assessment/Plan Admission Dx AUSTYN on CKD Dementia Admission Status: Inpatient Order (span 2 midnights) Reason for Inpatient Admission: AUSTYN on CKD Dementia (1) Hyperkalemia Status: Acute Assessment & Plan: Presented with K 6.7, unable to take kayexalate 2/2 mental status s/p temporizing insulin, dextrose, albuterol x 2 overnight with K this AM 5.3. This in the setting of CKD with severe dementia. Family would like to stop temporizing measures and transition to comfort measures. Orders placed. (2) Acute kidney injury superimposed on CKD Assessment & Plan: Presented with creatinine at 2.6 with baseline 1.7 - 2.0. (3) Dementia Status: Acute Assessment & Plan: Hstory of Alzheimer's dementia, reportedly able to walk at home and able to eat by herself, but here unresponsive. Hospice is appropriate. Comfort care orders placed. (4) Normocytic anemia Status: Chronic Assessment & Plan: Hemoglobin 8.0 with elevated RDW. Suspect STAYC. Patient pursuing comfort care. CHASE MENDOZA MD 08/22/21 3860: Home Medications Allergies Coded Allergies: No Known Drug Allergies (Unverified , 3/19/19) Supervisory-Addendum Brief Supervisory Addendum I personally have seen and evaluated the patient and I agree with the documented assessment and plan by PGY3 Sunil An MD. DAVID AN MD Aug 22, 2021 10:42 CHASE MENDOZA MD Aug 22, 2021 21:40
[2021-08-22] MEDS ORDERED: CHOL4PAC2 PO (11:23)
--- NOTE | 2021-08-23 06:47 | Progress Note - Hospitalist ---
Subjective HPI/CC On Admission Date Seen by Provider: Aug 23, 2021 Time Seen by Provider: 10:30 Subjective/Events-last exam Patient had end-of-life Daughter at the bedside Answered all questions Supportive care Objective Exam Vital Signs Vital Signs Date Time Temp Pulse Resp B/P (MAP) Pulse Ox O2 Delivery O2 Flow Rate FiO2 08/23/21 19:30 Room Air 08/23/21 11:35 93 08/22/21 08:00 35.8 76 18 130/60 (83) 08/21/21 16:27 21 Capillary Refill : Less Than 3 Seconds General Appearance: Cachetic, Thin, Other (Comatose) Results/Procedures Lab Patient resulted labs reviewed. Assessment/Plan Assessment and Plan Assess & Plan/Chief Complaint End-of-life care SHIKHA HAWKINS DO Aug 23, 2021 06:47
[2021-08-23] MEDS: LORazepam INJ 2 MG/ML (ATIVAN) VIAL IVP PRN (08:05)
--- NOTE | 2021-08-24 12:26 | Progress Note - Hospitalist ---
Subjective HPI/CC On Admission Date Seen by Provider: Aug 24, 2021 Time Seen by Provider: 12:00 Subjective/Events-last exam Patient now alert Catheter in place We will arrange for hospice at discharge Not eating Objective Exam Vital Signs Vital Signs Date Time Temp Pulse Resp B/P (MAP) Pulse Ox O2 Delivery O2 Flow Rate FiO2 08/24/21 20:10 Room Air 08/23/21 11:35 93 08/22/21 08:00 35.8 76 18 130/60 (83) 08/21/21 16:27 21 Capillary Refill : Less Than 3 Seconds General Appearance: No Apparent Distress, WD/WN, Chronically ill, Other (Confused) Results/Procedures Lab Patient resulted labs reviewed. Assessment/Plan Assessment and Plan Assess & Plan/Chief Complaint End-of-life care SHIKHA HAWKINS DO Aug 24, 2021 12:26
[2021-08-24] MEDS: LORazepam INJ 2 MG/ML (ATIVAN) VIAL IVP PRN (22:26)
[2021-08-25] MEDS ORDERED: MORP20SO PO (10:31)
[2021-08-25] MEDS ORDERED: LORA2ORA PO (10:31)
--- NOTE | 2021-08-25 10:31 | Discharge Summary ---
Discharge Summary Hospital Course Was the Problem List Reviewed?: Yes Problems/Dx: (1) CKD (chronic kidney disease) Status: Acute (2) Hyperkalemia Status: Acute (3) Dehydration Status: Acute (4) Altered mental status Status: Resolved (5) Dementia Status: Acute Hospital Course AcuteDate of Admission: Aug 23, 2021 at 18:17 Admission Diagnosis : Family Physician/Provider: Trent Weiner MD Date of Discharge: 08/25/21 Discharge Diagnosis: Hyperkalemia, acute on chronic kidney disease, advanced dementia Hospital Course: Hospital Course: Pt had a short hospital course. She was placed on comfort care. She did become more alert but word salad in conversation. She had a jc catheter discontinued. She was discharged in stable condition for hospice at home. Labs and Pending Lab Test: Microbiology 08/21/21 Urine Culture - Final, Complete Klebsiella oxytoca Home Meds Active Lorazepam Intensol (Lorazepam) 2 Mg/1 Ml Oral.conc 0.5 Mg PO Q2H PRN Morphine Sulfate 20 Mg/5 Ml Solution 5 Mg PO Q3HR PRN Reported Cholestyramine Packet (Cholestyramine (with Sugar)) 4 Gm Powd.pack 1 Packet PO BID PRN Aspirin EC (Aspirin) 81 Mg Tablet.dr 81 Mg PO HS Nitroglycerin 0.4 Mg Tab.subl 0.4 Mg SL UD PRN Colcrys (Colchicine) 0.6 Mg Tablet 0.6 Mg PO BID PRN Ventolin Hfa (Albuterol Sulfate) 1 Puff Puff 1-2 Puff INH Q6H PRN Furosemide 20 Mg Tablet 20 Mg PO TWICE WEEKLY PRN Mirtazapine 15 Mg Tablet 15 Mg PO HS Pantoprazole Sodium 40 Mg Tablet.dr 40 Mg PO BID Levothyroxine Sodium 100 Mcg Tablet 100 Mcg PO DAILY ALPRAZolam 0.25 Mg Tablet 0.125-0.25 Mg PO TID PRN TAKES TO 1 (0.25MG) TABS Lisinopril 5 Mg Tablet 5 Mg PO DAILY Sertraline HCl 100 Mg Tablet 150 Mg PO DAILY TAKES 1 & (100MG) TABS Assessment/Pt Instructions PCP in 1 week Discharge Planning: <30 minutes discharge planning Discharge Physical Examination Vital Signs Vital Signs Date Time Temp Pulse Resp B/P (MAP) Pulse Ox O2 Delivery O2 Flow Rate FiO2 08/25/21 09:27 Room Air 08/23/21 11:35 93 11/26/21 08:00 35.8 76 18 130/60 (83) 08/21/21 16:27 21 General Appearance: No Apparent Distress, WD/WN, Chronically ill Respiratory: Lungs Clear, Normal Breath Sounds Cardiovascular: Regular Rate, Rhythm Allergies: Coded Allergies: No Known Drug Allergies (Unverified , 12/13/18) Discharge Summary Date of Admission Aug 23, 2021 at 18:17 Date of Discharge Discharge Date: Aug 25, 2021 Comfort Measures/ End of Life Care: Comfort Measures Discharge Diagnosis End-of-life care SHIKHA HAWKINS DO Aug 25, 2021 10:31
--- NOTE | 2021-08-25 10:38 | Physical Therapy Evaluation ---
PT Evaluation-General Medical Diagnosis Admission Date Aug 23, 2021 at 18:17 Medical Diagnosis: CKD Onset Date: Aug 23, 2021 Therapy Diagnosis Therapy Diagnosis: impaired mobility, strength, endurance Height/Weight Height (Feet): 5 Height (Inches): 2.00 Weight (Pounds): 104 Weight (Ounces): 0 Precautions Precautions/Isolations: Fall Prevention, Standard Precautions Referral Physician: Erinn Osuna DO Reason for Referral: Evaluation/Treatment Medical History Additional Medical History Past Medical History HTN Depression and Anxiety Hypothyroidism CKD Alzheimer Dementia Reviewed History: Yes Social History Current Living Status: Children (daughter) Entry Into Home: Stairs With Railing PT Steps Into Home: 5 Prior Prior Level of Function SCALE: Activities may be completed with or without assistive devices. 6-Zbzorkyywd-osfbkxb completes the activity by him/herself with no assistance from a helper. 5-Set-up or Clean-up Assistance-helper sets up or cleans up; patient completes activity. [place] assists only prior to or following the activity. 4-Supervision or Touching Assistance-helper provides verbal cues and/or touching/steadying and/or contact guard assistance as patient completes activity. Assistance may be provided throughout the activity or intermittently. 3-Partial/Moderate Assistance-helper does LESS THAN HALF the effort. [place] lifts, holds or supports trunk or limbs, but provides less than half the effort. 2-Substantial/Maximal Assistance-helper does MORE THAN HALF the effort. [place] lifts or holds trunk or limbs and provides more than half the effort. 5-Pbbwglyec-ndsxhb does ALL the effort. Patient does none of the effort to co mplete the activity. Or, the assistance of 2 or more helpers is required for the patient to complete the activity. If activity was not attempted, code reason: 7-Patient Refused. 9-Not Applicable-not attempted and the patient did not perform the activity before the current illness, exacerbation or injury. 10-Not Attempted due to Environmental Limitations-(lack of equipment, weather restraints, etc.). 88-Not Attempted due to Medical Conditions or Safety Concerns. Bed Mobility: 4 Transfers (B,C,W/C): 4 Gait: 4 Stairs: 4 Indoor Mobility (Ambulation): Needed Some Help Stairs: Needed Some Help PT Evaluation-Current Subjective Patient in bed pre tx, difficult to communicate due to alzheimers, daughter helps with this. Pt/Family Goals none stated Objective Patient Orientation: Person ROM/Strength ROM Lower Extremities WNL Sensory Vision: Transfers Roll Left to Right (QC): 3 Lying to Sitting/Side of Bed(Q: 3 Sit to Stand (QC): 4 Chair/Rch-df-Nbqew Xfer(QC): 4 Patient needs just a little assist for supine to sit and from there can scoot to the edge of the bed with a little coaxing, can stand and transfer to recliner with CGA. Balance Sitting Static: Fair Sitting Dynamic: Fair Standing Static: Fair Standing Dynamic: Fair Assessment/Needs Patient in recliner post tx with nurse call, phone, tray, family in room. Daughter states she would be in room with her mother all the time. Patient has impaired mobility ,strength, endurance. Daughter should be able to assist patient to commode easily at home. She performed well with transfer today. Rehab Potential: Fair PT Magnetic Doctor Goals Magnetic Doctor Goals PT Detention Goals Time Frame: Sep 01, 2021 Roll Left & Right (QC): 6 Sit to Lying (QC): 6 Lying-Sitting on Side/Bed(QC): 6 Sit to Stand (QC): 5 Chair/Qkm-jd-Rinbg Xfer(QC): 5 Toilet Transfer (QC): 5 Walk 10 feet (QC): 4 PT Plan Problem List Problem List: Activity Tolerance, Functional Strength, Safety, Balance, Gait, Transfer, Bed Mobility, ROM Treatment/Plan Treatment Plan: Continue Plan of Care Treatment Plan: Bed Mobility, Education, Functional Activity Lisa, Functional Strength, Gait, Safety, Therapeutic Exercise, Transfers Treatment Duration: Sep 01, 2021 Frequency: 6 times per week Estimated Hrs Per Day: .25 hour per day Patient and/or Family Agrees t: Yes Safety Risks/Education Patient Education: Transfer Techniques, Correct Positioning, Safety Issues Teaching Recipient: Patient, Family Teaching Methods: Demonstration, Discussion Response to Teaching: Verbalize Understanding, Reinforcement Needed Discharge Recommendations Plan Patient will perform bed mobility and transfer training, balance and endurance training, functional strengthening, stair training, gait training, and education, to improve functional mobility and independence at home. Therapy Discharge Recommendati: 24 Hour Supervision, Home & Family, Post Acute PT Time/GCodes Time In: 1015 Time Out: 1027 Total Billed Treatment Time: 12 Total Billed Treatment 1 visit MIKE 12' NICOLLE ODOM PT Aug 25, 2021 10:37
--- NOTE | 2021-08-25 11:50 | ST Dysphagia Evaluation ---
Speech Evaluation-General Medical Diagnosis CKD Onset Date: Aug 23, 2021 Therapy Diagnosis Therapy Diagnosis: Oropharyngeal Dysphagia Referral Referring Physician: Dr. Osuna Medical History Reviewed History: Yes Social History Current Living Status: Children (daughter) Speech PLF/Current-Dysphagia Prior Level of Function Patient lives at home with her daughter who assists her with her daily needs. Subjective Patient was cooperative with the evaluation process. Family was present and educated with thickness needed and where to purchase. Cognitive Status Patient Orientation: Person, Confused Oral Motor Skills Dentition: Natural, Tumbled, Stained Current Food Consistancy: Regular Ability to Follow Directions: Fair Patient has been choking with oral intake. Oral Expression Ability: Moderate Impairment Voice Voice Phonatory-Based Quality: Weak Voice Pitch: Normal, Moderately Low Voice Loudness: Moderately Soft/Quiet Face Facial Symmetry: Symmetrical Oral-Facial Assessment Oral-Facial Dentition: Normal Lingual Protrusion: Abnormal Lingual ROM: Abnormal Lingual Strength: Abnormal Volitional Dry Swallow: Yes Voluntary Cough: Yes Can Clear Throat Volitionally: Yes Dysphagia Evaluation Consistencies Presented: Thin Liquid, Bruning Thick Liquid, Pureed Oral phase within normal range of function Pharyngeal phase within normal range of function except thin liquids which she immediately choked on. Funct. Velo/Pharyngeal Symptom: Cough After Swallow with thin liquids Dietary Recommendations: Pureed Swallowing Precautions: Alternate Liquids/Solids, Double Swallow, Decreased Bolus 1/2 Tsp, Liquids from Cup, Liquids from Spoon, No Straw, Small Bites and Sips, Sitting Upright 90 Degrees, Sitting 90 Degrees 30 Post Intake Dysphagia Evaluation Summary Patient is an 86 y/o female who was referred for a Bedside Dysphagia Evaluation due to choking frequently with oral intake. The patient was on thin liquids and regular diet texture at the time of evaluation. The patient was given 1/2 tsp of thin liquid which she immediately choked on. She was then given 1/2 tsp of nectar consistency without difficulty. Patient tolerated puree foods without difficulty. Due to decreased level of intake and frequent choking the patient is recommended for a Dysphagia I diet with nectar consistency liquids. The patient's nurse was provided information and recommendations for diet level The patient is discharging home today with family and will be on comfort measures. Barriers to Learning Patient's age, dementia and current health status. Speech-Plan Patient/Family Goals Patient/Family Goals: Patient is returning to her home where she lives with her daughter who assists her with her daily needs. Treatment Plan Speech Therapy Treatment Plan: Discontinue ST Treatment Duration: Aug 25, 2021 Frequency: 1 time per week Estimated Hrs Per Day: .25 hour per day Rehab Potential: Fair Barriers to Learning: Patient's age, dementia and current health status. Pt/Family Agrees to Plan: Yes Safety Risks/Education Teaching Recipient: Patient, Family Teaching Methods: Discussion Response to Teaching: Unable to Comprehend Education Topics Provided: Compensatory strategies and diet levels Time Speech Therapy Time In: 11:30 Speech Therapy Time Out: 11:45 Total Billed Time: 15 Billed Treatment Time 1, ÓSCAR, DYST JOSE Vazquez Aug 25, 2021 11:50
--- NOTE | 2021-08-25 13:04 | Progress Note ---
LIVIA GARCIA MED STUDENT 08/25/21 1304: Progress Note Mrs Garcia is an 86 yo female that presented to ED on 08/22 due to 3 days of weakness, decreased po intake, and diarrhea. She has had multiple recent hospitalizations for a number of different causes. On this occasion she was admitted for dehydration, UTI, and hyperkalemia. She has been on hospice before previously but was taken off due to an improvement in her kidney function. The family did not want her to start dialysis so she was placed back onto hospice during this hospital stay. During the stay she failed a swallow study and was not taking anything PO. She has had an uneventful hospital stay. She has been alert but not oriented. She will be discharged with daughter on hospice. Social work talked with family and at time of discharge they have no questions or concerns. Her hospital course lasted 3 days. Supervisory-Addendum Brief Verification & Attestation Participated in pt care: history, physical Personally performed: exam, history Care discussed with: Medical Student Procedures: n/a n/a ERINN HAWKINS DO 08/26/21 0606: Supervisory-Addendum Brief Verification & Attestation Participated in pt care: history, MDM, physical Personally performed: exam, history, MDM, supervision of care Care discussed with: Medical Student Procedures: n/a Results interpretation: Verified all documentation Verification and Attestation of Medical Student E/M Service A medical student performed and documented this service in my presence. I reviewed and verified all information documented by the medical student and made modifications to such information, when appropriate. I personally performed the physical exam and medical decision making. Erinn Hawkins, Aug 26, 2021,06:06 LIVIA GARCIA MED STUDENT Aug 25, 2021 13:04 ERINN HAWKINS DO Aug 26, 2021 06:06
== END 2021-08-25 13:28 | disposition hospice, home (50) | DRG 57 ==
LOC: EDUNIT# 11:21 → ER 11:22 → 4TH 12:24 → OBSVTOIN 08-23 18:17
PROVIDERS: ADMIT Family Medicine; ATTEND Internal Medicine
DX: G30.9 Alzheimer's disease, unspecified (principal); N17.9 Acute kidney failure, unspecified; N18.9 Chronic kidney disease, unspecified; E87.5 Hyperkalemia; D64.9 Anemia, unspecified; Z51.5 Encounter for palliative care; F02.80 Dementia in other diseases classified elsewhere, unspecified severity, without behavioral disturbance, psychotic disturbance, mood disturbance, and anxiety; Z66 Do not resuscitate; E86.0 Dehydration; Z79.82 Long term (current) use of aspirin; Z79.4 Long term (current) use of insulin; Z79.899 Other long term (current) drug therapy; I25.2 Old myocardial infarction; E03.9 Hypothyroidism, unspecified; I25.10 Atherosclerotic heart disease of native coronary artery without angina pectoris; I12.9 Hypertensive chronic kidney disease with stage 1 through stage 4 chronic kidney disease, or unspecified chronic kidney disease; K21.9 Gastro-esophageal reflux disease without esophagitis; M41.9 Scoliosis, unspecified; M10.9 Gout, unspecified; F41.9 Anxiety disorder, unspecified
CPT/HCPCS: 36415; 80048; 80053; 81000; 82805; 82947; 85025; 86141; 87077; 87088; 87186; 94640; 94760; G0378